=== PATIENT | female | born 1945 | race Caucasian/White ===

== ENCOUNTER → 2016-07-14 | Outpatient (CLI) | payer OTHER ==
[~2016-07-14] MED LIST: ADVIN50/60 INH; ALBINS/ NEB; ALBU1AER9 INH; BXN500 PO; CALC-20 PO; LACTCAP3 PO; LEVO88TA3 PO; LORA10CA2 PO; LPT40 PO; LSN5 PO; MTR250 PO; MULTCAP31 PO; NORT75CA PO; OMEG10007 PO; OMEP40CA41 PO; POLY335040 PO; TRIA1SPR2 NAE; WARF5TAB90 PO; ZLF/50 PO; [UNRECOGNIZED DRUG - CODE] TOP
--- NOTE | 2016-07-14 10:41 | DIAGNOSTIC IMAGING REPORT ---
BILATERAL LOWER EXTREMITY ARTERIAL DOPPLER STUDY HISTORY: L81.9 Discoloration of skin of lower legI73.9 Poor peripheral circulation COMPARISON STUDY: Lower extremity arterial Doppler 05/16/2013. FINDINGS: The right ankle-brachial index measures between 1.02 and 1.1. The left ankle-brachial index measured between 1.04 and 1.08. Normal triphasic waveforms and velocities seen throughout the bilateral lower extremity arterial systems. No significant plaque formation. No evidence for arterial occlusion. IMPRESSION: No significant stenosis or occlusion within the bilateral lower extremity arterial systems. Electronically signed by: Rosalino Velasquez M.D. 07/14/2016 10:39 AM Dictated Date/Time: 07/14/2016 10:37 AM
== END | disposition home or self-care (01) ==
LOC: C.ULTR 09:29
PROVIDERS: ATTEND Nurse Practitioner
DX: I73.9 Peripheral vascular disease, unspecified (principal); L81.9 Disorder of pigmentation, unspecified

== ENCOUNTER → 2016-08-31 | Outpatient (CLI) | payer OTHER ==
[2016-08-31 13:26] LABS: BLOOD UREA NITROGEN 12 mg/dl (7-18); BUN/CREATININE RATIO 14.3 (10-20); CALCIUM 9.5 mg/dl (8.5-10.1); CARBON DIOXIDE 29 mmol/L (21-32); CHLORIDE 104 mmol/L (98-107); CREATININE 0.84 mg/dl (0.60-1.20); GLUCOSE 93 mg/dl (70-99); SODIUM 140 mmol/L (136-145)
[2016-08-31 13:29] LABS: CHOLESTEROL 120 mg/dl (0-200); HDL CHOLESTEROL 59 mg/dl; LDL CHOLESTEROL CALCULATED 47 mg/dl; TRIGLYCERIDES 72 mg/dl (0-150); VERY LOW DENSITY LIPOPROT CALC 14 mg/dl
== END | disposition home or self-care (01) ==
LOC: C.LABPVFM 07:55
PROVIDERS: ATTEND Nurse Practitioner
DX: E78.5 Hyperlipidemia, unspecified (principal); I10 Essential (primary) hypertension; M85.80 Other specified disorders of bone density and structure, unspecified site

== ENCOUNTER → 2016-12-09 | Outpatient (CLI) | payer OTHER ==
--- NOTE | 2016-12-09 14:52 | DIAGNOSTIC IMAGING REPORT ---
CHEST 2 VIEWS ROUTINE CLINICAL HISTORY: Asthma exacerbation. Shortness of breath. COMPARISON STUDY: Chest radiograph December 03, [address] December 04, 2013. FINDINGS: Moderate elevation of the right hemidiaphragm is unchanged. Linear bibasilar opacities are suggestive of atelectasis. There is no consolidation to suggest pneumonia. There is no evidence of pulmonary edema. S-shaped scoliosis of the thoracolumbar spine is noted. A suspected hiatal hernia has increased in size since prior exam. Cardiac size is normal and there is no evidence of pulmonary edema. There is no pneumothorax or pleural effusion. IMPRESSION: 1. No acute cardiopulmonary findings. 2. Linear bibasilar opacities suggestive of atelectasis. 3. Stable moderate elevation of the right hemidiaphragm. 4. Moderate sized hiatal hernia which has increased in size. Electronically signed by: Germán Bowers M.D. 12/09/2016 2:51 PM Dictated Date/Time: 12/09/2016 2:43 PM
== END | disposition home or self-care (01) ==
LOC: C.RADPV 14:22
PROVIDERS: ATTEND Nurse Practitioner
DX: J45.901 Unspecified asthma with (acute) exacerbation (principal); R06.02 Shortness of breath

== ENCOUNTER → 2017-01-02 | Outpatient (CLI) | payer OTHER ==
[2017-01-02 18:07] LABS: MAGNESIUM 2.4 mg/dl (1.8-2.4); THYROID STIMULATING HORMONE 3.16 uIu/ml (0.300-4.500)
== END | disposition home or self-care (01) ==
LOC: C.LABPVFM 15:34
PROVIDERS: ATTEND Nurse Practitioner
DX: E03.9 Hypothyroidism, unspecified (principal); Z51.81 Encounter for therapeutic drug level monitoring

== ENCOUNTER → 2017-02-06 | Outpatient (CLI) | payer OTHER ==
--- NOTE | 2017-02-07 07:54 | MAMMOGRAPHY REPORT ---
BILATERAL DIGITAL SCREENING MAMMOGRAM WITH CAD: 02/06/2017 CLINICAL HISTORY: Routine screening. Patient has no complaints. TECHNIQUE: Bilateral CC and MLO views were obtained. Current study was also evaluated with a Compute r Aided Detection (CAD) system. COMPARISON: Comparison is made to exams dated: 02/04/2016 mammogram, 05/20/2014 mammogram, 01/01/2013 mammogram, 12/29/2011 mammogram, 12/02/2010 mammogram - [facility], and 12/18/2008 mammogram - [facility]. BREAST COMPOSITION: There are scattered areas of fibroglandular density in both breasts. FINDINGS: There are a few benign rim calcifications in the breasts. No suspicious mass, architectur al distortion or cluster of suspicious microcalcifications is seen. IMPRESSION: ACR BI-RADS CATEGORY 1: NEGATIVE There is no mammographic evidence of malignancy. A 1 year screening mammogram is recommended. The pa tient will receive written notification of the results. Approximately 10% of breast cancers are not detected with mammography. A negative mammographic report should not delay biopsy if a clinically suggestive mass is present. Maggie Wylie M.D. ay/:02/06/2017 15:54:47 Piping Engineer: Kyra MILNER(Ant)(Florian)(BD), [facility] letter sent: Normal 1/2 BI-RADS Code: ACR BI-RADS Category 1: Negative
== END | disposition home or self-care (01) ==
LOC: C.MAMM 12:57
PROVIDERS: ATTEND Nurse Practitioner
DX: Z12.31 Encounter for screening mammogram for malignant neoplasm of breast (principal)

== ENCOUNTER → 2017-07-04 | Outpatient (CLI) | payer OTHER ==
[2017-07-04 14:05] LABS: BLOOD UREA NITROGEN 10 mg/dl (7-18); CALCIUM 9.1 mg/dl (8.5-10.1); CARBON DIOXIDE 26 mmol/L (21-32); CREATININE 0.83 mg/dl (0.60-1.20); GLUCOSE 96 mg/dl (70-99); SODIUM 136 mmol/L (136-145)
== END | disposition home or self-care (01) ==
LOC: C.LABPVFM 09:41
PROVIDERS: ATTEND Nurse Practitioner
DX: E78.5 Hyperlipidemia, unspecified (principal); I10 Essential (primary) hypertension

== ENCOUNTER 2020-10-20 06:30 | Observation (INO) ==
--- NOTE | 2020-09-07 13:15 | PAT Medication Instructions ---
Medication Instructions Date of Service September 07, 2020 Home Medications Medication Instructions Recorded albuterol sulfate 2.5 mg INHALATION Q4H PRN #180 ml 08/26/19 omeprazole 20 mg capsule,delayed 20 mg PO QAM #90 cap 12/26/19 release lisinopril 5 mg tablet 5 mg PO BID #180 tab 01/07/20 atorvastatin 40 mg tablet (Lipitor) 40 mg PO HS #90 tab 02/04/20 nortriptyline 75 mg capsule 75 mg PO QPM #90 cap 02/04/20 sertraline 50 mg tablet 50 mg PO QAM #90 tab 02/24/20 fluticasone 500 mcg-salmeterol 50 1 ea INHALATION BID #60 ea 03/24/20 mcg/dose blistr powdr for inhalation levothyroxine 88 mcg tablet See Rx Instructions .ROUTE 04/02/20 .COMPLEX #90 tablet furosemide 20 mg tablet 20 mg PO DAILY PRN #30 tab 06/01/20 warfarin 5 mg tablet 5 mg PO .COMPLEX #100 tab 07/09/20 budesonide 0.5 mg/2 mL suspension 0.5 mg INHALATION BID PRN #180 ml 08/03/20 for nebulization levalbuterol HCl 1.25 mg/3 mL 1.25 mg INHALATION Q8H PRN #72 ml 08/31/20 solution for nebulization (Xopenex) Lactobacillus acidophilus (Acidophilus) 1 tab PO QAM calcium carbonate 500 mg calcium (1,250 mg) tablet (Calcium 500) 500 mg PO QAM clindamycin phosphate 1 % lotion 1 applic TOPICAL DAILY guaifenesin 600 mg tablet, extended release 12 hr (Mucinex) 600 mg PO Q12H loratadine 10 mg tablet (Claritin) 10 mg PO QAM metronidazole 250 mg tablet 250 mg PO QAM polyethylene glycol 3350 17 gram oral powder packet (Miralax) 17 g PO BID propylene glycol 0.6 % eye drops (Systane Balance) 1 drp OPB BID sodium chloride 0.65 % nasal spray aerosol (Saline Nasal) 1 spray INTRANASAL Q OTHER DAY vit C 50 mg-E 15 unit-zinc cit 4.5 mg-lutein 2.5 mg-zeaxan chew tablet ([facility]) 1 tab PO QAM cholecalciferol (vitamin D3) 50 mcg (2,000 unit) capsule 2,000 units PO QAM food supplemt, lactose-reduced (Nutri-Drink) 1 ea PO BID albuterol sulfate 2.5 mg INHALATION Q4H PRN omeprazole 20 mg capsule,delayed release 20 mg PO QAM lisinopril 5 mg tablet 5 mg PO BID atorvastatin 40 mg tablet (Lipitor) 40 mg PO HS nortriptyline 75 mg capsule 75 mg PO QPM sertraline 50 mg tablet 50 mg PO QAM fluticasone 500 mcg-salmeterol 50 mcg/dose blistr powdr for inhalation 1 ea INHALATION BID levothyroxine 88 mcg tablet See Rx Instructions .ROUTE .COMPLEX furosemide 20 mg tablet 20 mg PO DAILY budesonide 0.5 mg/2 mL suspension for nebulization 0.5 mg INHALATION BID PRN levalbuterol HCl 1.25 mg/3 mL solution for nebulization (Xopenex) 1.25 mg INHALATION Q8H PRN acetaminophen 650 mg tablet,extended release 650 mg PO TID PRN Continue as directed sodium chloride 0.65 % nasal spray aerosol (Saline Nasal) 1 spray INTRANASAL Q OTHER DAY levothyroxine 88 mcg tablet See Rx Instructions .ROUTE .COMPLEX STOP taking 2 weeks before surgery (or as soon as possible if surgery is within 2 weeks) vit C 50 mg-E 15 unit-zinc cit 4.5 mg-lutein 2.5 mg-zeaxan chew tablet [facility]) 1 tab PO QAM STOP taking 24 hours before surgery clindamycin phosphate 1 % lotion 1 applic TOPICAL DAILY DO NOT take the morning of surgery Lactobacillus acidophilus (Acidophilus) 1 tab PO QAM calcium carbonate 500 mg calcium (1,250 mg) tablet (Calcium 500) 500 mg PO QAM guaifenesin 600 mg tablet, extended release 12 hr (Mucinex) 600 mg PO Q12H loratadine 10 mg tablet (Claritin) 10 mg PO QAM polyethylene glycol 3350 17 gram oral powder packet (Miralax) 17 g PO BID cholecalciferol (vitamin D3) 50 mcg (2,000 unit) capsule 2,000 units PO QAM food supplemt, lactose-reduced (Nutri-Drink) 1 ea PO BID lisinopril 5 mg tablet 5 mg PO BID furosemide 20 mg tablet 20 mg PO DAILY Take morning of surgery With a small sip of water, OTHERWISE NOTHING TO EAT OR DRINK AFTER MIDNIGHT: metronidazole 250 mg tablet 250 mg PO QAM propylene glycol 0.6 % eye drops (Systane Balance) 1 drp OPB BID albuterol sulfate 2.5 mg INHALATION Q4H PRN (use if needed; please bring rescue inhaler with you to hospital day of surgery if possible) omeprazole 20 mg capsule,delayed release 20 mg PO QAM sertraline 50 mg tablet 50 mg PO QAM fluticasone 500 mcg-salmeterol 50 mcg/dose blistr powdr for inhalation 1 ea INHALATION BID budesonide 0.5 mg/2 mL suspension for nebulization 0.5 mg INHALATION BID PRN (if needed) levalbuterol HCl 1.25 mg/3 mL solution for nebulization (Xopenex) 1.25 mg INHALATION Q8H PRN (if needed) acetaminophen 650 mg tablet,extended release 650 mg PO TID PRN (okay to take up to 4 hours prior to surgery if needed) Take evening before surgery guaifenesin 600 mg tablet, extended release 12 hr (Mucinex) 600 mg PO Q12H polyethylene glycol 3350 17 gram oral powder packet (Miralax) 17 g PO BID propylene glycol 0.6 % eye drops (Systane Balance) 1 drp OPB BID food supplemt, lactose-reduced (Nutri-Drink) 1 ea PO BID albuterol sulfate 2.5 mg INHALATION Q4H PRN (if needed) lisinopril 5 mg tablet 5 mg PO BID atorvastatin 40 mg tablet (Lipitor) 40 mg PO HS nortriptyline 75 mg capsule 75 mg PO QPM fluticasone 500 mcg-salmeterol 50 mcg/dose blistr powdr for inhalation 1 ea INHALATION BID budesonide 0.5 mg/2 mL suspension for nebulization 0.5 mg INHALATION BID PRN (if needed) levalbuterol HCl 1.25 mg/3 mL solution for nebulization (Xopenex) 1.25 mg INHALATION Q8H PRN (if needed) acetaminophen 650 mg tablet,extended release 650 mg PO TID PRN (if needed) Other Notes If you have any questions please call us at [phone] or [phone] or [phone] or [phone]
--- NOTE | 2020-09-08 10:49 | Anesthesiology Consultation ---
Date of Service September 08, 2020 Assessment & Plan (1) Encounter for pre-operative examination: Chart Review Chart Review: Acceptable Risk for Surgery (pending preop Covid testing results ) and Patient seen in Pre Admission Testing - Check coags AM DOS Per PAT appt on 09/08/20, pt denies any recent travel. No known Covid positive contacts or Covid related symptoms. No known Covid infection in the past 90 days. Pt NOT vaccinated for Covid. Preop Covid testing scheduled 09/30/20= will await results. Educated on importance of self quarantining, social distancing and wearing mask in public both for the patient after Covid testing done Last seen by PCP 08/03/20= pt seen for Wellness exam. Pt due for labs. No change in medications- stable. Pt was referred to Dr. Hebert regarding hip replacement. Follow up in six months Pt seen by cardio 04/03/20= patient with history of PFO, prior CVA, high hyperlipidemia. Presents for routine follow-up. Patient has been doing well. Able to perform her usual activities without limiting cardiopulmonary symptoms. Patient has been very limited by progressive right hip arthritiscurrently receiving steroid injections, at some point will likely need total hip replacement. Continue compression stocking and elevate legs when resting. Take Lasix as needed. Continue other medications as prescribed. Follow-up in 1 year. Teaching & Discussion Pre-Anesthesia Teaching/Discussion Notes: Instructed NPO after midnight before surgery,except medications with 15 cc of water. Medication instructions provided according to the PAT guidelines. History Surgery Operation Date: 10/02/20 08:15 Proposed Procedures p Right Anterior Total Hip Arthroplasty - Patrick Hebert, Height/Weight Height: 5 ft 2 in Weight: 75.8 kg Allergies Allergy/AdvReac Type Severity Reaction Status Date / Time Iodinated Contrast Media Allergy Severe "couldn't Verified 09/04/20 08:24 breathe and really bad rash" iodine Allergy Severe "couldn't Verified 09/04/20 08:24 breathe and really bad rash" nickel Allergy Severe " open Verified 09/08/20 10:52 sores" promethazine Allergy Severe "couldn't Verified 09/04/20 08:24 breathe" red (food color) Allergy Severe "problems Verified 09/04/20 08:24 breathing" Sulfa (Sulfonamide Allergy Severe facial Verified 09/04/20 08:24 Antibiotics) swelling Tetracyclines Allergy Severe "couldn't Verified 09/04/20 08:24 breathe and rash" levofloxacin Allergy Intermediate HIVES, LEG Verified 09/04/20 08:24 PAIN tramadol Allergy Intermediate hallucinati Verified 09/04/20 08:24 ons cephalexin Allergy Mild Rash Verified 09/04/20 08:24 house dust Allergy Mild "sniffles/watery Verified 09/04/20 08:24 eyes" ragweed pollen Allergy Mild "sniffles" Verified 09/04/20 08:24 azithromycin [From Zithromax] AdvReac Mild Rash Verified 09/04/20 08:24 mayda chews Allergy Severe "couldn't Uncoded 09/04/20 08:24 breathe right" Medications Home Medications Medication Instructions Recorded Confirmed Last Taken Lactobacillus acidophilus 1 tab PO QAM 03/30/18 09/04/20 12/17/18 (Acidophilus) calcium carbonate 500 mg calcium 500 mg PO QAM 03/30/18 09/04/20 12/17/18 (1,250 mg) tablet (Calcium 500) clindamycin phosphate 1 % lotion 1 applic TOPICAL DAILY 03/30/18 09/04/20 12/18/18 guaifenesin 600 mg tablet, 600 mg PO Q12H 03/30/18 09/04/20 12/17/18 extended release 12 hr (Mucinex) loratadine 10 mg tablet (Claritin) 10 mg PO QAM 03/30/18 09/04/20 12/17/18 metronidazole 250 mg tablet 250 mg PO QAM 03/30/18 09/04/20 12/17/18 polyethylene glycol 3350 17 gram 17 g PO BID 03/30/18 09/04/20 Unknown oral powder packet (Miralax) propylene glycol 0.6 % eye drops 1 drp OPB BID 03/30/18 09/04/20 Unknown (Systane Balance) sodium chloride 0.65 % nasal spray 1 spray INTRANASAL Q OTHER DAY 03/30/18 09/04/20 12/17/18 aerosol (Saline Nasal) vit C 50 mg-E 15 unit-zinc cit 4.5 1 tab PO QAM 03/30/18 09/04/20 12/17/18 mg-lutein 2.5 mg-zeaxan chew tablet (Netragon) cholecalciferol (vitamin D3) 50 2,000 units PO QAM 10/29/18 09/04/20 12/17/18 mcg (2,000 unit) capsule food supplemt, lactose-reduced 1 ea PO BID 12/10/18 09/04/20 12/16/18 (Nutri-Drink) albuterol sulfate 2.5 mg INHALATION Q4H PRN #180 ml 08/26/19 09/04/20 Unknown omeprazole 20 mg capsule,delayed 20 mg PO QAM #90 cap 12/26/19 09/04/20 Unknown release lisinopril 5 mg tablet 5 mg PO BID #180 tab 01/07/20 09/04/20 Unknown atorvastatin 40 mg tablet (Lipitor) 40 mg PO HS #90 tab 02/04/20 09/04/20 Unknown nortriptyline 75 mg capsule 75 mg PO QPM #90 cap 02/04/20 09/04/20 Unknown sertraline 50 mg tablet 50 mg PO QAM #90 tab 02/24/20 09/04/20 Unknown fluticasone 500 mcg-salmeterol 50 1 ea INHALATION BID #60 ea 03/24/20 09/04/20 Unknown mcg/dose blistr powdr for inhalation levothyroxine 88 mcg tablet See Rx Instructions .ROUTE 04/02/20 09/04/20 Unknown .COMPLEX #90 tablet furosemide 20 mg tablet 20 mg PO DAILY PRN #30 tab 06/01/20 09/04/20 Unknown warfarin 5 mg tablet 5 mg PO .COMPLEX #100 tab 07/09/20 09/04/20 Unknown budesonide 0.5 mg/2 mL suspension 0.5 mg INHALATION BID PRN #180 ml 08/03/20 09/04/20 Unknown for nebulization levalbuterol HCl 1.25 mg/3 mL 1.25 mg INHALATION Q8H PRN #72 ml 08/31/20 09/04/20 Unknown solution for nebulization (Xopenex) acetaminophen 650 mg 650 mg PO TID PRN 09/04/20 09/04/20 Unknown tablet,extended release Past Medical History Medical History Asthma Breathing well controlled Basilar artery stenosis History of per patient- pt states more recent testing showed no issues No significant issues noted per 08/03/20 PCP note Chronic back pain CVA (cerebrovascular accident) x4 (most recent 2013) Mild residual drooping to left side of mouth Depression GERD (gastroesophageal reflux disease) Well controlled and stable with med History of COVID-19 07/2019 No symptoms with exception to residual voice hoarseness Hx of esophageal varices Noted incidentally by GI during EGD per patient Longstanding history per PCP note- no hx of liver disease or alcoholism. No current issues Hyperlipidemia Hypertension Hypothyroidism Migraine Osteoarthritis PFO (patent foramen ovale) Follows with Dr. Hearn- medically controlled. On prophylactic Coumadin. Did follow with cardiovascular surgery in the past per records to discuss closure of PFO- but unable to do closure secondary to nickel allergy- pt stable Scoliosis Exercise / Class Metabolic Activity III < 4 Walking/Shop/Light housework (no chest pain or SOB with flat surface, short distance ambulation- uses wheeled walker ) Past Family History Family History Mother Family history of diabetes mellitus Myocardial infarction Sister Family history of diabetes mellitus Family history of rectal cancer Myocardial infarction Sister Family history of diabetes mellitus Myocardial infarction Brother Family history of diabetes mellitus Myocardial infarction Brother Family history of diabetes mellitus Family/Other Breast cancer Father Myocardial infarction Other Cancer Gallbladder disease Heart disease Hypertension Lung disease No family history of adverse response to anesthesia Denies family history of Ovarian cancer Prostate cancer Colorectal cancer Past Surgical History Surgical History History of bilateral cataract extraction History of bilateral tubal ligation History of colonoscopy with polypectomy History of dilatation and curettage History of esophagogastroduodenoscopy (EGD) History of hysterectomy History of tooth extraction Past Anesthesia History No Hx of Anesthesia Complications and No Family Hx of Anesthesia Complications History of PONV No Hx of PONV and No Hx of Motion Sickness Social History Smoking Status: Never smoker Hx Alcohol Use: No Hx Substance Use: No substance use type: does not use Review of Systems Hx of snoring- mouth breather- occ witnessed apnea. No hx of sleep study (recommended follow up with PCP) Hx of blood transfusion- s/p D&C (many years ago) Patient denies chest pain, shortness of breath at rest, cough, wheezing, palpitations. No hx of seizures, AR. No hx of blood clots. Physical Exam Vital Signs VITALS BP 137/81 P 73 TEMP 97.9 SP02 97% RESP 16 Constitutional no acute distress ENMT Mouth: no TMJ clicking Thyromental Distance: > or= 3.5 Finger Breadths (3.5) Mallampati Class: III Missing molars Neck + limited neck extension (moderate ) Respiratory normal respiratory effort; no respiratory distress Auscultation: lungs clear to auscultation bilaterally; no wheezes Cardiovascular Rate/Rhythm: regular rate and regular rhythm Heart Sounds: no murmur Vessels: no carotid bruit Musculoskeletal Spine: + scoliosis (significant ); no pain with cervical ROM Extremities: extremities normal to inspection Psychiatric Orientation: alert Lab Results Anesthesia Preop Results Results Anesthesia Widget: WBC 4.75 K/uL (4.8-10.8) L 09/08/20 Hgb 13.2 g/dL (12.0-16.0) 09/08/20 Hct 40.5 % (37-47) 09/08/20 Plt 253 K/uL (130-400) 09/08/20 Na 131 mmol/L (136-145) L 09/08/20 K 4.1 mmol/L (3.5-5.1) 09/08/20 Cl 99 mmol/L (98-107) 09/08/20 CO2 30 mmol/L (21-32) 09/08/20 BUN 11 mg/dl (7-18) 09/08/20 Creat 0.67 mg/dl (0.6-1.2) 09/08/20 Glucose Level 91 mg/dl (70-99) 09/08/20 PT 24.5 Seconds (9.0-12.0) H 09/08/20 PTT 36.7 Seconds (21.0-31.0) H 09/08/20 INR 2.6 (0.9-1.1) H 09/08/20 HA1c 6.5 % (4.5-5.6) H 08/10/20 Blood Type A Positive 09/08/20 Antibody Screen NEGATIVE 09/08/20 Lab Comments: Pt with hx of mild hyponatremia- did send FYI note to PCP to follow up as outpatient Testing Electrocardiogram Date: 07/24/20 Findings: + NSR @ (74bpm) Slightly poor septal R waves Nonspecific ST abnormality. When compared to EKG from Feb 06, 2014- no significant change was found per cardio. Chest X-Ray Date: 09/08/20 Findings: + NAD No acute cardiopulmonary findings. Bibasilar opacities suggestive of atelectasis. S-shaped scoliosis of the thoracolumbar spine. Stable elevation of the right hemidiaphragm. Moderate to large hiatal hernia. Other Testing Carotid doppler 05/06/20= There is no sonographic evidence of hemodynamically sig nificant stenosis in the right or left carotid arterial system. Antegrade flow is shown in the vertebral arteries.
--- NOTE | 2020-10-19 12:22 | History & Physical Report ---
Date of Service October 19, 2020 Assessment & Plan (1) Osteoarthritis of right hip: We will proceed with a right anterior total of arthroplasty. Postoperatively she will be started back on Coumadin for DVT prophylaxis and kept overnight in the hospital for postoperative medical management. She plans to use energy physical therapy upon discharge. History of Present Illness Chief Complaint: Osteoarthritis of the right hip. Primary Care Provider: TREY Warren Dayna is a pleasant 75-year-old female whose been having a year-long history of increasing debilitating right hip pain. She was downgraded to a cane and then a walker because of her hip pain. She has had intra-articular hip injections without relief. She has been on Coumadin for a stroke since 2013. X-rays and clinical examination have been diagnostic for advanced osteoarthritis of the right hip. After failing extensive conservative treatment, she has elected proc eed with a right anterior total hip arthroplasty.. Allergies Allergy/AdvReac Type Severity Reaction Status Date / Time Iodinated Contrast Media Allergy Severe "couldn't Verified 09/04/20 08:24 breathe and really bad rash" iodine Allergy Severe "couldn't Verified 09/04/20 08:24 breathe and really bad rash" nickel Allergy Severe " open Verified 09/08/20 10:52 sores" promethazine Allergy Severe "couldn't Verified 09/04/20 08:24 breathe" red (food color) Allergy Severe "problems Verified 09/04/20 08:24 breathing" Sulfa (Sulfonamide Allergy Severe facial Verified 09/04/20 08:24 Antibiotics) swelling Tetracyclines Allergy Severe "couldn't Verified 09/04/20 08:24 breathe and rash" levofloxacin Allergy Intermediate HIVES, LEG Verified 09/04/20 08:24 PAIN tramadol Allergy Intermediate hallucinati Verified 09/04/20 08:24 ons cephalexin Allergy Mild Rash Verified 09/04/20 08:24 house dust Allergy Mild "sniffles/watery Verified 09/04/20 08:24 eyes" ragweed pollen Allergy Mild "sniffles" Verified 09/04/20 08:24 azithromycin [From Zithromax] AdvReac Mild Rash Verified 09/04/20 08:24 mayda chews Allergy Severe "couldn't Uncoded 09/04/20 08:24 breathe right" Home Medications Medication Instructions Recorded Confirmed Type Lactobacillus acidophilus 1 tab PO QAM 03/30/18 09/04/20 History (Acidophilus) calcium carbonate 500 mg calcium 500 mg PO QAM 03/30/18 09/04/20 History (1,250 mg) tablet (Calcium 500) clindamycin phosphate 1 % lotion 1 applic TOPICAL DAILY 03/30/18 09/04/20 History guaifenesin 600 mg tablet, 600 mg PO Q12H 03/30/18 09/04/20 History extended release 12 hr (Mucinex) loratadine 10 mg tablet (Claritin) 10 mg PO QAM 03/30/18 09/04/20 History metronidazole 250 mg tablet 250 mg PO QAM 03/30/18 09/04/20 History polyethylene glycol 3350 17 gram 17 g PO BID 03/30/18 09/04/20 History oral powder packet (Miralax) propylene glycol 0.6 % eye drops 1 drp OPB BID 03/30/18 09/04/20 History (Systane Balance) sodium chloride 0.65 % nasal spray 1 spray INTRANASAL Q OTHER DAY 03/30/18 09/04/20 History aerosol (Saline Nasal) vit C 50 mg-E 15 unit-zinc cit 4.5 1 tab PO QAM 03/30/18 09/04/20 History mg-lutein 2.5 mg-zeaxan chew tablet ([employer]) cholecalciferol (vitamin D3) 50 2,000 units PO QAM 10/29/18 09/04/20 History mcg (2,000 unit) capsule food supplemt, lactose-reduced 1 ea PO BID 12/10/18 09/04/20 History (Nutri-Drink) albuterol sulfate 2.5 mg INHALATION Q4H PRN #180 ml 08/26/19 09/04/20 Rx omeprazole 20 mg capsule,delayed 20 mg PO QAM #90 cap 12/26/19 09/04/20 Rx release lisinopril 5 mg tablet 5 mg PO BID #180 tab 01/07/20 09/04/20 Rx atorvastatin 40 mg tablet (Lipitor) 40 mg PO HS #90 tab 02/04/20 09/04/20 Rx nortriptyline 75 mg capsule 75 mg PO QPM #90 cap 02/04/20 09/04/20 Rx sertraline 50 mg tablet 50 mg PO QAM #90 tab 02/24/20 09/04/20 Rx fluticasone 500 mcg-salmeterol 50 1 ea INHALATION BID #60 ea 03/24/20 09/04/20 Rx mcg/dose blistr powdr for inhalation levothyroxine 88 mcg tablet See Rx Instructions .ROUTE 04/02/20 09/04/20 Rx .COMPLEX #90 tablet furosemide 20 mg tablet 20 mg PO DAILY PRN #30 tab 06/01/20 09/04/20 Rx warfarin 5 mg tablet 5 mg PO .COMPLEX #100 tab 07/09/20 09/04/20 Rx budesonide 0.5 mg/2 mL suspension 0.5 mg INHALATION BID PRN #180 ml 08/03/20 0 09/04/20 Rx for nebulization levalbuterol HCl 1.25 mg/3 mL 1.25 mg INHALATION Q8H PRN #72 ml 08/31/20 09/04/20 Rx solution for nebulization (Xopenex) acetaminophen 650 mg 650 mg PO TID PRN 09/04/20 09/04/20 History tablet,extended release Past Med/Surg History Medical History Asthma Breathing well controlled Basilar artery stenosis History of per patient- pt states more recent testing showed no issues No significant issues noted per 08/03/20 PCP note Chronic back pain CVA (cerebrovascular accident) x4 (most recent 2013) Mild residual drooping to left side of mouth Depression GERD (gastroesophageal reflux disease) Well controlled and stable with med History of COVID-19 07/2019 No symptoms with exception to residual voice hoarseness Hx of esophageal varices Noted incidentally by GI during EGD per patient Longstanding history per PCP note- no hx of liver disease or alcoholism. No current issues Hyperlipidemia Hypertension Hypothyroidism Migraine Osteoarthritis PFO (patent foramen ovale) Follows with Dr. Hearn- medically controlled. On prophylactic Coumadin. Did follow with cardiovascular surgery in the past per records to discuss closure of PFO- but unable to do closure secondary to nickel allergy- pt stable Scoliosis Surgical History History of bilateral cataract extraction History of bilateral tubal ligation History of colonoscopy with polypectomy History of dilatation and curettage History of esophagogastroduodenoscopy (EGD) History of hysterectomy History of tooth extraction Family History Mother Family history of diabetes mellitus Myocardial infarction Sister Family history of diabetes mellitus Family history of rectal cancer Myocardial infarction Sister Family history of diabetes mellitus Myocardial infarction Brother Family history of diabetes mellitus Myocardial infarction Brother Family history of diabetes mellitus Family/Other Breast cancer Father Myocardial infarction Other Cancer Gallbladder disease Heart disease Hypertension Lung disease No family history of adverse response to anesthesia Denies family history of Ovarian cancer Prostate cancer Colorectal cancer Social History Smoking Status: Never smoker Second Hand Exposure: No; Hx Alcohol Use: No Hx Substance Use: No Preferred Language: Angolan Communication Ability: Effective K 9 Police Officer Required: No Beliefs That Will Affect Care: None marital status: Current Living Situation: Spouse current occupational status: retired Feels Safe at Home: Yes Safety Concerns: Feels Safe At This Time Dental Care, Regularly: Yes Seatbelt Use: always Assistive Devices: Glasses and Nebulizer Review of Systems All systems reviewed & are unremarkable except as noted in HPI & below. Physical Exam On physical examination the right hip, she ambulates with a walker. She has difficult time lying on the table. She has very limited range of motion. She has severe pain with forced internal rotation of the hip.. Constitutional WD/WN, vitals as above Eyes PERRL, conjunctivae normal, anicteric sclerae ENMT external ear and nose normal, oropharynx normal Neck trachea midline, no thyromegaly Respiratory normal respiratory effort Cardiovascular RRR, no murmur, no edema Gastrointestinal (Abdomen) normal bowel sounds, soft, nontender, no hepatosplenomegaly Psychiatric A+Ox3, euthymic affect Results & Data Results & Data Laboratory Results . Diagnostic Findings X-rays of the right hip do show advanced osteoarthritis with joint space narrowing, osteophyte formation, and [id number] articulation. PG Care Time/CCT Total # of Minutes Spent Total Time Spent with Patient: Total time spent is greater than 50% in coordination of care (as documented) at patient's floor/unit and/or counseling patient: Coding Level of Care Code None Diagnoses Osteoarthritis of right hip M16.11
[~2020-10-20 06:30] MED LIST changes: +ACETAMINOPHEN 500 MG TAB PO SCH; -ADVIN50/60 INH; -ALBINS/ NEB; -ALBU1AER9 INH; +BUPIVACAINE 0.5 % 5 MG/1 ML PF 10ML VIAL ONE; -BXN500 PO; -CALC-20 PO; +CEFAZOLIN: ALLERGY NOTED TO ORDERED MEDICATION SCH; +FAMOTIDINE 20 MG TAB PO SCH; +GABAPENTIN 300 MG CAP PO SCH; -LACTCAP3 PO; -LEVO88TA3 PO; -LORA10CA2 PO; -LPT40 PO; +LR 500ML BOLUS, THEN 15ML/HR IV SCH; +LR 60ML/HR IV SCH; -LSN5 PO; -MTR250 PO; -MULTCAP31 PO; -NORT75CA PO; -OMEG10007 PO; -OMEP40CA41 PO; -POLY335040 PO; +ROPIVACAINE 0.5% HCL/PF 150 MG, BUPIVACAINE 0.75% MPF 20 ML, EPINEPHrine 30MG/30ML (OR ... INFIL SCH; +ROPIVACAINE 0.5% HCL/PF 150 MG, BUPIVACAINE 0.75% MPF 20 ML, EPINEPHrine 30MG/30ML (OR ... INSTIL SCH; +TRANEXAMIC ACID 1,000 MG **IV Intra-op IV SCH; +TRANEXAMIC ACID 1,000 MG **IV Pre-op IV SCH; -TRIA1SPR2 NAE; -WARF5TAB90 PO; -ZLF/50 PO; -[UNRECOGNIZED DRUG - CODE] TOP; +ceFAZolin 1000MG 1,000 MG/7.5 ML SYR IV SCH; +dexAMETHasone 4 MG TAB PO SCH
[2020-10-20 07:34] LABS: Partial Thromboplastin Ratio 0.9; Partial Thromboplastin Time 24.7 Seconds (21.0-31.0)
[2020-10-20] MEDS ORDERED: fentaNYL citrate 100 MCG/2 ML VIAL ONE ×2 (08:00→09:50)
[2020-10-20] MEDS ORDERED: MIDAZOLAM HCL 1 MG/ML 2ML VIAL ONE ×2 (08:00→09:50)
[2020-10-20] MEDS ORDERED: ORTHO JOINT ANESTHETIC ONE (08:55)
[2020-10-20] MEDS ORDERED: ceFAZolin 1000MG 1,000 MG/7.5 ML SYR IV ONE (08:55)
--- NOTE | 2020-10-20 08:59 | History & Physical Bridge Note ---
Date of Service October 20, 2020 History & Physical Bridge Note I have examined the patient, reviewed the History & Physical and in the interval since the performance of the History & Physical I have noted the following changes of clinical significance: no changes noted
[2020-10-20] MEDS ORDERED: ATROPINE SULFATE 0.1 MG/ML 10ML SYR IV PRN (09:05)
[2020-10-20] MEDS ORDERED: HYDROmorphone INJ 1 MG/ML SYRINGE IV PRN (09:05)
[2020-10-20] MEDS ORDERED: ePHEDrine sulfate 50 MG/ML AMP IV PRN (09:05)
[2020-10-20] MEDS ORDERED: fentaNYL citrate 100 MCG/2 ML VIAL IV PRN (09:05)
[2020-10-20] MEDS ORDERED: ONDANSETRON INJ 2 MG/ML 2 ML VIAL IV PRN ×2 (09:05→12:23)
[2020-10-20] MEDS ORDERED: PROPOFOL IV EMULSION 10 MG/ML 20 ML VIAL IV ONE (10:36)
[2020-10-20] MEDS ORDERED: LIDOCAINE 2% 2 ML VIAL/AMP(20MG/ML) INFIL ONE (10:36)
[2020-10-20] MEDS ORDERED: ROCURONIUM BROMIDE 10 MG/ML 5 ML VIAL IV ONE (10:37)
[2020-10-20] MEDS ORDERED: PHENYLEPHRINE HCL 10 MG/ML VIAL ONE (10:37)
[2020-10-20] MEDS ORDERED: GLYCOPYRROLATE 0.2 MG/ML VIAL ONE (10:37)
[2020-10-20] MEDS ORDERED: NEOSTIGMINE METHYLSULFATE 1 MG/ML 10ML VIAL ONE (10:37)
[2020-10-20] MEDS ORDERED: ePHEDrine sulfate 50 MG/ML AMP ONE (10:37)
[2020-10-20] MEDS ORDERED: DEXAMETHASONE SOD INJ 4 MG/ML VIAL ONE (10:37)
[2020-10-20] MEDS ORDERED: SUCCINYLCHOLINE 100MG/5ML SYR IV ONE (10:37)
--- NOTE | 2020-10-20 11:15 | Operative Report ---
PG Post Operative Report Pre & Post Diagnosis Operation Date: 10/20/20 08:30 Pre-Op Diagnosis: Osteoarthritis Right Hip Post-Op Diagnosis: Osteoarthritis Right Hip I identified the patient and participated in the time-out.: Yes Procedure Operation Date: 10/20/20 08:30 Actual Procedures p Right Anterior Total Hip Arthroplasty--Uncemented(Right) - Patrick Hebert DO Surgeon Patrick Hebert DO Air Hose Coupler None Estimated Blood Loss 250 Findings Consistent with Post-Op Diagnosis Specimens Right femoral head Complications none Disposition Disposition: Recovery Room Indications Dayna is a pleasant 75-year-old female has been doing with chronic increasing right hip and groin pain. X-rays and clinical examination have been diagnostic for advanced osteoarthritis of the right hip. After failing conservative treatment, she elected proceed with a right anterior total hip arthroplasty. Description of Procedure Implants used I used a [employer] total hip arthroplasty system with a size 4 standard offset Avenir Complete stem, a 50 mm G7 cup with a 25mm screw, an E1 polyethylene liner, a 36 mm ceramic head with a 0 neck. Dayna arrived at the hospital for the above procedure. She was seen in the preoperative holding area and the operative extremity was identified and signed. She was given a spinal anesthetic, a preoperative antibiotic, and TXA. She was then taken back to the operating room and laid on the table in the supine position. She was given basic sedation. The operative leg was secured to a Puristst leg positioner. The hip was then prepped and draped in sterile fashion. A timeout was done and the patient and the operative extremity was properly identified. An anterior approach was used. Dissection was taken down through the fascia and the tensor muscle belly was retracted laterally and the rectus was retracted medially. The circumflex vessels were identified and ligated. The capsule was then incised and tagged for later repair. The femoral neck was then cut and the femoral head was removed. The acetabulum was exposed. Time was spent doing a complete circumferential labral release. Sequential reaming of the acetabulum up to a size 49 reamer was done. Final reamings were done under fluoroscopy to ensure appropriate version. A Biomet 50 mm G7 cup was then impacted into place. A single 25 mm screw was placed. The E1 polyethylene liner was then snapped into place. Surrounding soft tissues were then injected with 100 cc of an orthopedic pain control cocktail. The proximal femur was then exposed. Sequential broaching up to a size 4 broach was done. Off that broach a size 36 head with a 0 neck was trialed. The hip was reduced and fluoroscopic images showed anatomic alignment of the implants in acceptable length. The broach was removed. The final size 4 Avenir Complete stem was then impacted into place. A ceramic 36 mm head with a 0 neck was then impacted onto the stem and the hip was reduced. Final fluoroscopic images showed anatomic alignment of the hip. The capsule was then closed with #1 Vicryl suture. A dilute betadyne lavage was then done for 3 minutes. The joint was then irrigated with normal saline solution. The fascia was closed with #1 PDS suture. Skin was closed with 2-0 Vicryl, devin, and a Silverlon dressing. She was then transferred to a hospital bed and taken to the post anesthesia care unit in stable condition. She tolerated the procedure well. I attest to the content of the Intraoperative Record and any orders documented therein. Any exceptions are noted below.
--- NOTE | 2020-10-20 12:03 | Anesthesiology Progress Note ---
Date of Service October 20, 2020 Anesthesia Post Procedure Vital Signs Vital Signs: Temp Pulse Pulse Resp BP Pulse Ox 10/20/20 11:45 36.9 C 65 13 108/72 92 10/20/20 11:35 70 16 109/72 92 10/20/20 11:25 72 21 108/73 93 10/20/20 11:15 76 14 111/70 93 10/20/20 11:05 36.4 C L 82 72 12 119/77 92 10/20/20 06:52 36.8 C 72 20 134/91 93 Transfer of Care Handoff Completed per policy Notes Mental Status: alert / awake / arousable and participated in evaluation Patient Amnestic to Procedure: Yes Nausea / Vomiting: adequately controlled Pain: adequately controlled Airway Patency, RR, SpO2: stable & adequate BP & HR: stable & adequate Hydration State: stable & adequate Anesthetic Complications: see Notes below Notes: Patient initially managed intraop with LMA, but after repositioning patient for surgery, oxygen saturations dropped and we were unable to ventilate through LMA. LMA was removed and patient was intubated with ETT via glidescope #3 and bronchoscope combined on the second attempt. In PACU that patient has visible bruising on the left side of her tongue and bruising/cut on the lower right lip. The patient is swallowing well and denying a sore throat. The patient was informed that her cut lip and tongue was done during the intubation and all questions were answered.
[2020-10-20] MEDS ORDERED: bisacodyL 10 MG SUPP PR PRN (12:23)
[2020-10-20] MEDS ORDERED: METOCLOPRAMIDE HCL INJ 5 MG/ML 2 ML VIAL IV PRN (12:23)
[2020-10-20] MEDS ORDERED: NALOXONE HCL 0.4 MG/1 ML VIAL/CARP IV PRN (12:23)
[2020-10-20] MEDS ORDERED: ALBUTEROL 0.083% NEBU SOLN 3 ML VIAL INH PRN (12:23)
[2020-10-20] MEDS ORDERED: BUDESONIDE 0.5 MG/2 ML VIAL (PULMICORT) INH PRN (12:23)
[2020-10-20] MEDS ORDERED: LEVALBUTEROL HCL 1.25 MG/3 ML NEB INH PRN (12:23)
[2020-10-20] MEDS ORDERED: FUROSEMIDE 20 MG TAB PO PRN (12:23)
[2020-10-20] MEDS ORDERED: MAGNESIUM HYDROXIDE SUSP 30 ML UDC PO PRN (12:23)
[2020-10-20] MEDS ORDERED: HYDROmorphone INJ 0.5 MG/0.5 ML SYR IV PRN (12:23)
[2020-10-20] MEDS: SODIUM CHLORIDE 0.9% 1000ML 1,000 ML IV SCH ×2 (12:55→21:39)
--- NOTE | 2020-10-20 13:55 | Fluoroscopy Report ---
FL hip RT 1V CLINICAL HISTORY: RT ANTERIOR HIP COMPARISON STUDY: None. Correlation is made with radiograph of the pelvis performed on April 13, 2020. FLUOROSCOPY TIME: 27 seconds. NUMBER OF FLUOROSCOPIC IMAGES: 2 FINDINGS: Intraoperative fluoroscopic images are presented for review and shows placement of acetabular and fem oral components of the prosthetic right hip joint which is in expected position. IMPRESSION: As above. ACT 112: Negative or not required by law. The above report was generated using voice recognition software. It may contain grammatical, syntax o r spelling errors. Electronically signed by: Keerthi Ledesma DO 10/20/2020 1:54 PM
[2020-10-20] MEDS: ACETAMINOPHEN 500 MG TAB PO SCH ×2 (14:19→21:41)
[2020-10-20] MEDS: guaiFENesin 600 MG TABCR PO SCH ×2 (14:20→21:41)
[2020-10-20] MEDS: KETOROLAC TROMETHAMINE 15 MG/ML VIAL IV SCH ×2 (14:20→18:12)
--- NOTE | 2020-10-20 14:45 | XRay Report ---
XR hip 1V RT w pelvis CLINICAL HISTORY: IN PACU - A/P PELVIS and LATERAL HIP COMPARISON: November 11, 2020 DISCUSSION: No definite acute fracture dislocation seen. No blastic or lytic lesions demonstrated. Interval placement of prosthetic right hip joint. Subcutaneous emphysema and skin devin are seen. IMPRESSION: Postoperative changes as above. ACT 112: Negative or not required by law. The above report was generated using voice recognition software. It may contain grammatical, syntax o r spelling errors. Electronically signed by: Keerthi Ledesma DO 10/20/2020 2:44 PM
[2020-10-20] MEDS ORDERED: Nursing to Pharmacy Communication SCH (15:15)
[2020-10-20] MEDS ORDERED: WARFARIN SOD 5 MG TAB PO ONE (16:30)
[2020-10-20] MEDS: ceFAZolin 2000MG 2,000 MG/15 ML SYR IV SCH ×2 (17:14→17:20)
[2020-10-20] MEDS: ORTHO WARFARIN NOMOGRAM SCH (17:18)
[2020-10-20] MEDS: DOCUSATE SODIUM 100 MG CAP PO SCH (21:41)
[2020-10-20] MEDS: SENNA 8.6 MG TAB PO SCH (21:41)
[2020-10-20] MEDS: NORTRIPTYLINE HCL 25 MG CAP PO SCH (21:41)
[2020-10-20] MEDS: POLYETHYLENE (MIRALAX) 17 GM PACK PO SCH (21:41)
[2020-10-20] MEDS: ATORVASTATIN 40 MG TAB PO SCH (21:41)
[2020-10-20] MEDS: lisinopril 5 MG TAB PO SCH (21:42)
[2020-10-20] MEDS: ARTIFICIAL TEARS OP SCH (21:52)
[2020-10-21] MEDS: ceFAZolin 2000MG 2,000 MG/15 ML SYR IV SCH (00:17)
[2020-10-21] MEDS: KETOROLAC TROMETHAMINE 15 MG/ML VIAL IV SCH ×2 (00:18→06:17)
[2020-10-21] MEDS: ACETAMINOPHEN 500 MG TAB PO SCH ×3 (06:17→22:58)
[2020-10-21] MEDS: LEVOTHYROXINE SODIUM 88 MCG TABLET PO SCH (06:17)
--- NOTE | 2020-10-21 06:45 | Orthopedic Progress Note ---
Date of Service October 21, 2020 Assessment & Plan (1) Status post right hip replacement: Overall she is doing fairly well. She is having too much pain in the hip. She has not been out of bed yet. She will be seen by physical therapy today for ambulation and range of motion exercises. She is on Coumadin for DVT prophylaxis. We will keep her in the hospital today for therapy and pain control. I will see her tomorrow. If she is doing well tomorrow we will likely discharge her to home. Jean-Paul Mcintosh was seen and examined at bedside this morning. Overall she is doing about as well as expected. She has not been out of bed yet because she has been slow to recover from the general anesthetic. She is not having much pain in the right hip. She has no complaints.. Review of Systems All systems reviewed & are unremarkable except as noted in HPI & below. Physical Exam On physical examination of the right hip, the dressing is clean and dry. Her leg lengths are equal. She is active dorsiflexion and plantarflexion of the right ankle.. Results & Data Results & Data Laboratory Results . Diagnostic Findings Postoperative x-rays of the right hip show the prosthesis to be in anatomic alignment without any evidence of fracture, dislocation, or loosening. PG Care Time/CCT Total # of Minutes Spent Total Time Spent with Patient: Total time spent is greater than 50% in coordination of care (as documented) at patient's floor/unit and/or counseling patient: Coding Level of Care Code 70295 Post Operative Follow-Up Diagnoses Status post right hip replacement Z96.641
[2020-10-21] MEDS: lisinopril 5 MG TAB PO SCH ×2 (07:50→20:09)
[2020-10-21] MEDS: guaiFENesin 600 MG TABCR PO SCH ×2 (07:50→20:08)
[2020-10-21] MEDS: LORATADINE 10 MG TAB PO SCH (07:50)
[2020-10-21] MEDS: DOCUSATE SODIUM 100 MG CAP PO SCH ×2 (07:50→20:09)
[2020-10-21] MEDS: MULTIVITAMIN TAB PO SCH (07:51)
[2020-10-21] MEDS: SERTRALINE HCL 50 MG TABLET PO SCH (07:51)
[2020-10-21] MEDS: PANTOprazole 40 MG TAB PO SCH (07:52)
[2020-10-21] MEDS: POLYETHYLENE (MIRALAX) 17 GM PACK PO SCH ×2 (07:53→20:07)
[2020-10-21] MEDS: ADVANCED PROBIOTIC 1250 MG CAPSULE PO SCH (07:53)
[2020-10-21] MEDS: CEROVITE ADV FORMULA TAB PO SCH (07:53)
[2020-10-21] MEDS: ARTIFICIAL TEARS OP SCH ×2 (07:55→20:10)
[2020-10-21] MEDS ORDERED: dexAMETHasone 4 MG TAB PO SCH (08:00)
[2020-10-21] MEDS: FLUTICASONE/VILANTEROL 200/25MCG 14 PUFFS/INHALER INH SCH (08:12)
[2020-10-21] MEDS: oxyCODONE HCL IR 5 MG TAB (IMMEDIATE RELEASE) PO PRN ×2 (08:13→17:42)
[2020-10-21 15:00] LABS: INR 1.1 (0.9-1.1); Prothrombin Time 11.5 Seconds (9.0-12.0)
[2020-10-21] MEDS ORDERED: WARFARIN SOD 5 MG TAB PO ONE (15:11)
[2020-10-21] MEDS: ORTHO WARFARIN NOMOGRAM SCH (17:40)
[2020-10-21] MEDS: ATORVASTATIN 40 MG TAB PO SCH (20:07)
[2020-10-21] MEDS: NORTRIPTYLINE HCL 25 MG CAP PO SCH (20:08)
[2020-10-21] MEDS: SENNA 8.6 MG TAB PO SCH (20:09)
[2020-10-22 05:51] VITALS: TEMP 97.9; O2SAT 93
[2020-10-22] MEDS: LEVOTHYROXINE SODIUM 88 MCG TABLET PO SCH (05:51)
[2020-10-22] MEDS: ACETAMINOPHEN 500 MG TAB PO SCH (05:51)
[2020-10-22 06:19] LABS: INR 1.2 (0.9-1.1); Prothrombin Time 12.1 Seconds (9.0-12.0)
--- NOTE | 2020-10-22 06:37 | Orthopedic Progress Note ---
Date of Service October 22, 2020 Assessment & Plan (1) Status post right hip replacement: Overall she is doing very well. She is not having much pain in the right hip. She will be seen by physical therapy again today for ambulation and range of motion exercises. She is on Coumadin for DVT prophylaxis. She can be discharged home later today. She will follow-up with orthopedics in 2 weeks. Jean-Paul Mcintosh was seen and examined at bedside this morning. Overall she is doing very well. She participated well yesterday with physical therapy. She is not having much pain in the hip. She has no complaints.. Review of Systems All systems reviewed & are unremarkable except as noted in HPI & below. Physical Exam On physical examination of the right hip, the dressing is clean and dry. The ligaments are equal. She is active dorsiflexion plantarflexion of her right ankle.. Results & Data Results & Data Laboratory Results . Diagnostic Findings . PG Care Time/CCT Total # of Minutes Spent Total Time Spent with Patient: Total time spent is greater than 50% in coordination of care (as documented) at patient's floor/unit and/or counseling patient: Coding Level of Care Code 39338 Post Operative Follow-Up Diagnoses Status post right hip replacement Z96.641
--- NOTE | 2020-10-22 06:39 | Discharge Summary ---
Date of Service October 22, 2020 Admission HPI (Per Admitting) Dayna is a pleasant 75-year-old female whose been having a year-long history of increasing debilitating right hip pain. She was downgraded to a cane and then a walker because of her hip pain. She has had intra-articular hip injections without relief. She has been on Coumadin for a stroke since 2014. X-rays and clinical examination have been diagnostic for advanced osteoarthritis of the right hip. After failing extensive conservative treatment, she has elected proceed with a right anterior total hip arthroplasty.. Admission Exam (Per Admitting) On physical examination the right hip, she ambulates with a walker. She has difficult time lying on the table. She has very limited range of motion. She has severe pain with forced internal rotation of the hip.. Principal Diagnosis Same as "Discharge Diagnosis" noted below under Discharge Instructions. Discharge Exam On physical examination of the right hip, the dressing is clean and dry. The ligaments are equal. She is active dorsiflexion plantarflexion of her right ankle.. Discharge Data Procedures Performed Operation Date: 10/20/20 08:30 Actual Procedures p Right Anterior Total Hip Arthroplasty--Uncemented(Right) - Patrick Hebert, Ordered Studies 10/20/20 08:30 FL hip RT 1V Routine Hospital Course (1) Status post right hip replacement: On October 20, 2020 Dayna arrived at [facility] and underwent a right hip replacement without complication. She had a general anesthetic. She was then started on Coumadin for DVT prophylaxis and transferred to the general orthopedic floors. Her hospital course was uneventful. On postop day #1 her vital signs were stable and her pain was well controlled. She participated well with physical therapy doing ambulation and range of motion exercises. On postop day #2 she continued to do well. She worked once again with physical therapy. She was not having much pain in the right hip. She was then discharged home. She will follow-up with orthopedics in 2 weeks. PG Care Time/CCT Total # of Minutes Spent Total Time Spent with Patient: Total time spent is greater than 50% in coordination of care (as documented) at patient's floor/unit and/or counseling patient: Discharge Plan Discharge Items Patient Disposition: Home - Home Health Services Reason For Visit: Degenerative Joint Disease Right Hip Discharge Diagnosis: Right hip replacement Activity: As commented below Non-emergency contact: Surgeon Call non-emergency contact if: your wound has increased redness and your wound has increased drainage Follow-up/Referrals: Lary Cohn CRNP [Primary Care Provider] - Diet: Regular Addtl Attending Provider Instructions: Activity and Therapy Recommendations: * If you are using [facility] then therapy will be provided at your home until they feel you have accomplished all of your goals. * If you are using [facility] then Physical Therapy will be provided until they feel you are ready to start Outpatient Physical Therapy. * If you are not using home therapy then Outpatient Physical Therapy should start about 3-5 days from your day of surgery. Therapy will last about 6-10 weeks * You were shown a series of exercises in the hospital. Do these exercises three times each day including the exercises you were shown in physical therapy. * Get up and walk several times each day.~ For the first four weeks, try not to stand or walk for more than one hour at a time. If you do stand or walk for more than one hour, you will not hurt anything, but your leg will likely swell.~~ * As you feel comfortable, you may change from the walker or crutches to a cane and~then to independent walking. Medications: * Narcotic You will likely be sent home from the hospital with a prescription for the narcotic pain medication that worked best throughout your stay. * Aspirin Most patients will be required to take Aspirin 81mg twice a day for 6 weeks after surgery. This is obtained [id number] and a prescription is not necessary. * Other medications may be prescribed for specific circumstances. If you have any questions, please call the office at . * Resume previous home medications unless otherwise instructed TEDs/Elastic Stockings: The white elastic stockings help limit swelling and prevent blood clots from forming in your legs. The more you wear them, the more they work. Wear them for six weeks. Dressing Care: Leave the Silverlon dressing in place for 7 days. After 7 days you may remove the dressing. If the incision is not draining then you may leave the devin open to air. If there is a little bit of drainage or if the devin are getting stuck on your clothing then cover the incision with a dry dressing. The devin will be removed at your 2 week follow-up appointment. Showering: You may shower with the Silverlon dressing in place. Do not let the shower spray hit the dressing directly. Pat the Silverlon dressing dry. If the dressing becomes wet underneath, then simply remove the dressing. Keep the incision dry until you are 7 days out from the day of surgery. After 7 days you may remove the Silverlon dressing and shower with the devin exposed. Let soapy water run over the devin and pat them dry. Do not scrub or soak the incision. Things To Watch For: * Drainage from the incision site that occurs more than one week after your surgery. * Increased redness at the incision site. * Fever above 102 degrees Fahrenheit. * Unusual chest pain or shortness of breath. * Call [facility] at with any of the above problems Follow-Up Visit: Follow-up with Dr. Hebert's PA (Patrick Pollard) 2-3 weeks after your day of surgery. He will remove your devin and answer any questions. If you have any additional questions or concerns, Dr Hebert is usually in the office at the same time and will be available An appointment was probably scheduled when you signed-up for surgery in the office. If you have any questions call Office Instructions: More detailed instructions as well as Frequently Asked Questions were provided in a folder by our office when you signed-up for surgery. Please review these instructions when you get home. If you have any further questions or concerns, please feel free to call the office at [phone] Pending Studies at Discharge: No Stand-Alone Forms: [facility], Smoking Cessation Medications and DC Order Prescriptions: New oxycodone 5 mg Tablet 5 mg PO Q6 PRN (Reason: pain) Qty: 30 RF: 0 Continued albuterol sulfate 2.5 mg /3 mL (0.083 %) solution for nebulization 2.5 mg INHALATION Q4H PRN (Reason: Shortness Of Breath Or Wheezing R06.2) Qty: 180 RF: 1 omeprazole 20 mg capsule,delayed release(DR/EC) 20 mg PO QAM Qty: 90 RF: 3 lisinopril 5 mg tablet 5 mg PO BID Qty: 180 RF: 3 atorvastatin [Lipitor] 40 mg tablet 40 mg PO HS Qty: 90 RF: 3 nortriptyline 75 mg capsule 75 mg PO QPM Qty: 90 RF: 3 sertraline 50 mg tablet 50 mg PO QAM Qty: 90 RF: 3 fluticasone propion-salmeterol 500-50 mcg/dose blister with device 1 ea Inhalation BID Qty: 60 RF: 11 levothyroxine 88 mcg tablet See Rx Instructions .ROUTE .COMPLEX Qty: 90 RF: 3 furosemide 20 mg tablet 20 mg PO DAILY PRN (Reason: edema) Qty: 30 RF: 5 warfarin 5 mg tablet 5 mg PO .COMPLEX Qty: 100 RF: 3 budesonide 0.5 mg/2 mL suspension for nebulization 0.5 mg INHALATION BID PRN (Reason: Shortness Of Breath R06.2) Qty: 180 RF: 3 levalbuterol HCl [Xopenex] 1.25 mg/3 mL solution for nebulization 1.25 mg inhalation Q8H PRN (Reason: shortness of breath or wheezing) Qty: 72 RF: 3 cholecalciferol (vitamin D3) 2,000 unit capsule 2,000 units PO QAM RF: 0 polyethylene glycol 3350 [Miralax] 17 gram Powder In Packet 17 g PO BID RF: 0 metronidazole 250 mg tablet 250 mg PO QAM RF: 0 calcium carbonate [Calcium 500] 500 mg calcium (1,250 mg) Tablet 500 mg PO QAM RF: 0 loratadine [Claritin] 10 mg Tablet 10 mg PO QAM RF: 0 clindamycin phosphate 1 % Lotion 1 applic TOPICAL DAILY RF: 0 sodium chloride [Saline Nasal] 0.65 % Aerosol,[place] 1 spray INTRANASAL Q OTHER DAY RF: 0 Acidophilus Tablet,Chewable 1 tab PO QAM RF: 0 Systane Balance 0.6 % Drops 1 drp OPB BID RF: 0 guaifenesin [Mucinex] 600 mg Tablet Extended Release 12hr 600 mg PO Q12H RF: 0 Ocuvite Eye Health 50 mg-15 unit- 4.5 mg-2.5 mg Tablet,Chewable 1 tab PO QAM RF: 0 Nutri-Drink Liquid 1 ea PO BID RF: 0 acetaminophen [Tylenol Arthritis] 650 mg Tablet Extended Release 650 mg PO TID PRN (Reason: Pain) RF: 0 Discharge Orders: Discharge Order (Routine); Ordered 10/22/20 Ordered By: Patrick Hebert Admission Data Admit Date/Time: 10/20/20 11:21 Attending Provider: Patrick Hebert Admit Provider: Patrick Hebert Primary Care Provider: Lary Cohn
[2020-10-22] MEDS: oxyCODONE HCL IR 5 MG TAB (IMMEDIATE RELEASE) PO PRN (07:54)
[2020-10-22] MEDS: ARTIFICIAL TEARS OP SCH (07:54)
[2020-10-22] MEDS: MULTIVITAMIN TAB PO SCH (07:55)
[2020-10-22] MEDS: LORATADINE 10 MG TAB PO SCH (07:55)
[2020-10-22] MEDS: DOCUSATE SODIUM 100 MG CAP PO SCH (07:55)
[2020-10-22] MEDS: lisinopril 5 MG TAB PO SCH (07:55)
[2020-10-22] MEDS: SERTRALINE HCL 50 MG TABLET PO SCH (07:56)
[2020-10-22] MEDS: PANTOprazole 40 MG TAB PO SCH (07:56)
[2020-10-22] MEDS: guaiFENesin 600 MG TABCR PO SCH (07:56)
[2020-10-22] MEDS: POLYETHYLENE (MIRALAX) 17 GM PACK PO SCH (07:56)
[2020-10-22] MEDS: CEROVITE ADV FORMULA TAB PO SCH (07:57)
[2020-10-22] MEDS: FLUTICASONE/VILANTEROL 200/25MCG 14 PUFFS/INHALER INH SCH (07:57)
[2020-10-22] MEDS: ADVANCED PROBIOTIC 1250 MG CAPSULE PO SCH (07:57)
[2020-10-22 10:14] VITALS: BP 132/88; PULSE 83
[2020-10-22] MEDS ORDERED: WARFARIN SOD 5 MG TAB PO ONE (11:00)
[2020-10-22] MEDS ORDERED: ORTHO WARFARIN NOMOGRAM SCH (14:00)
== END 2020-10-22 12:26 | disposition home health service (06) ==
LOC: ASU 06:30 → 3E 06:30
DX: K21.9 Gastro-esophageal reflux disease without esophagitis; Z86.16 Personal history of COVID-19; E78.5 Hyperlipidemia, unspecified; Z91.041 Radiographic dye allergy status; Q21.1 Atrial septal defect; I10 Essential (primary) hypertension; Z79.01 Long term (current) use of anticoagulants; Z86.73 Personal history of transient ischemic attack (TIA), and cerebral infarction without residual deficits; Z88.2 Allergy status to sulfonamides; M16.11 Unilateral primary osteoarthritis, right hip; Z88.8 Allergy status to other drugs, medicaments and biological substances; Z79.51 Long term (current) use of inhaled steroids; Z88.5 Allergy status to narcotic agent; J45.909 Unspecified asthma, uncomplicated; Z79.899 Other long term (current) drug therapy

== ENCOUNTER 2021-03-08 12:45 | Inpatient (IN) ==
[2021-03-08] MEDS ORDERED: dexAMETHasone 6 MG in SYRINGE 0 ML IV ONE (13:02)
[2021-03-08] MEDS ORDERED: SODIUM CHLORIDE 0.9% 500 ML IV ONE (13:02)
--- NOTE | 2021-03-08 13:06 | Emergency Department Note ---
Impression & Plan Hypoxia, Cough, Breath shortness, Viral URI ED Provider Note NAME: AUSTIN BURRELL AGE: 75 SEX: F : 1945 ARRIVES VIA: Walk-In INFORMANT: Patient ED PROVIDER(S): Uli Grey DO CHIEF COMPLAINT: Cough, shortness of breath HPI: Patient is a 75-year-old female with a past medical history of hypertension, hyponatremia, hypothyroidism, CVA, GERD, hyperlipidemia that presents to the ER for cough and shortness of breath. She has been exposed to someone that tested positive within the past week. She denies any loss of taste or smell. No chest pain. No belly pain, nausea, vomiting, or diarrhea. No dysuria, urgency, or frequency. She does feel very weak and rundown. No other exacerbating remitting factors. ROS: See above HPI for pertinent positives & negatives. A total of 10 systems reviewed and were otherwise negative. PAST MEDICAL HISTORY:See Below PAST SURGICAL HISTORY:See Below FAMILY HISTORY:See Below SOCIAL HISTORY:See Below HOME MEDICATIONS:See Below ALLERGIES:See Below VITALS:See Below PHYSICAL EXAMINATION: GENERAL: Sitting up in bed, alert, slightly ill-appearing, disheveled on nasal cannula, cough present EYE EXAM: normal conjunctiva. PERRL and EOM's grossly intact. OROPHARYNX: Dry mucous membranes NECK: supple, no nuchal rigidity, no adenopathy, non-tender LUNGS: Diminished bilaterally with faint wheezing. Normal chest wall mechanics HEART: no murmurs, S1 normal and S2 normal ABDOMEN: abdomen soft, non-tender, normo-active bowel sounds, no masses, no rebound or guarding. SKIN: Small scratches on dorsal surface of right forearm UPPER EXTREMITIES: upper extremities are grossly normal. LOWER EXTREMITIES: No pitting edema. NEURO EXAM: Normal sensorium, cranial nerves II-XII grossly intact, normal speech, no gross weakness of arms, no gross weakness of legs. MEDICAL DECISION MAKING: Patient is a 75-year-old female who presents ER for upper respiratory symptoms. She was exposed to her daughter who is also COVID-positive. had the same symptoms. She admits to a cough and congestion. IV was established with orders obtained. She found to be hypoxic at 87 to 86%. She placed on 2 L nasal cannula. Labs showed no significant leukocytosis or anemia. INR was therapeutic at 2.4. BMP with LFTs bilirubin was unremarkable. Lipase was normal. Troponin was negative. RNA COVID was negative but PCR was ordered following negative test as I do favor she still likely has COVID. PE was not explored due to therapeutic INR. She was updated bedside. Discussed with the hospitalist. She will be admitted for further work-up. She was given inhaler while in the room as well as steroids. PCR COVID test came back negative. She remained on nasal cannula while in the ER. Triage Nursing notes reviewed. Limited review of prior medical records performed Vital Signs: reviewed and remarkable for hypoxia Differential diagnosis: Differential diagnoses includes but is not limited to pneumonia, bronchitis, COPD/Asthma exacerbation, pneumothorax, pulmonary embolism, congestive heart failure, acute coronary syndrome ER treatment provided: See below Diagnostics interpreted by me: ECG: Sinus rhythm at 74 Left axis No PVCs T wave inversion in lead V1 QTC 426 Cardiac Monitoring: An order was placed for continuous cardiac monitoring. The monitor shows a rate of 70 with sinus rhythm. Laboratory studies: As stated above and show below. Imaging studies: Portable AP upright 1 view of the chest was clean Consultation(s): Discussed with Dr. Lauren for further evaluation Procedures: none Critical Care: I have personally spent 31 minutes of critical care time in the direct management of this patient. This includes bedside care, interpretation of diagnostic studies, and testing, discussion with consultants, patient, and family members, and other required patient management activities. This 31 minutes is in excess of all separately billable procedures. Past Med/Surg History Medical History (Updated 03/08/21 @ 16:02 by Uli Grey DO) Asthma Breathing well controlled Basilar artery stenosis History of per patient- pt states more recent testing showed no issues No significant issues noted per 08/03/20 PCP note Chronic back pain CVA (cerebrovascular accident) x4 (most recent 2013) Mild residual drooping to left side of mouth Depression GERD (gastroesophageal reflux disease) Well controlled and stable with med History of COVID-19 07/2019 No symptoms with exception to residual voice hoarseness Hx of esophageal varices Noted incidentally by GI during EGD per patient Longstanding history per PCP note- no hx of liver disease or alcoholism. No current issues Hyperlipidemia Hypertension Hypothyroidism Migraine Osteoarthritis PFO (patent foramen ovale) Follows with Dr. Hearn- medically controlled. On prophylactic Coumadin. Did follow with cardiovascular surgery in the past per records to discuss closure of PFO- but unable to do closure secondary to nickel allergy- pt stable Scoliosis Surgical History History of bilateral cataract extraction History of bilateral tubal ligation History of colonoscopy with polypectomy History of dilatation and curettage History of esophagogastroduodenoscopy (EGD) History of hip replacement History of hysterectomy History of tooth extraction Family History Mother Family history of diabetes mellitus Myocardial infarction Sister Family history of diabetes mellitus Family history of rectal cancer Myocardial infarction Sister Family history of diabetes mellitus Myocardial infarction Brother Family history of diabetes mellitus Myocardial infarction Brother Family history of diabetes mellitus Family/Other Breast cancer Father Myocardial infarction Other Cancer Gallbladder disease Heart disease Hypertension Lung disease No family history of adverse response to anesthesia Denies family history of Ovarian cancer Prostate cancer Colorectal cancer Social History Smoking Status: Never smoker Second Hand Exposure: No; Hx Alcohol Use: No Hx Substance Use: No Preferred Language: Bahamian Communication Ability: Effective Business 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 Required: No Beliefs That Will Affect Care: None marital status: Current Living Situation: Spouse current occupational status: retired Feels Safe at Home: Yes Dental Care, Regularly: Yes Seatbelt Use: always Assistive Devices: Glasses and Walker Allergies Allergies Allergy/AdvReac Type Severity Reaction Status Date / Time Iodinated Contrast Media Allergy Severe "couldn't Verified 03/08/21 13:46 breathe and really bad rash" iodine Allergy Severe "couldn't Verified 03/08/21 13:46 breathe and really bad rash" nickel Allergy Severe " open Verified 03/08/21 13:46 sores" Penicillins Allergy Severe shortness Verified 03/08/21 13:46 of breath promethazine Allergy Severe "couldn't Verified 03/08/21 13:46 breathe" red (food color) Allergy Severe "problems Verified 03/08/21 13:46 breathing" Sulfa (Sulfonamide Allergy Severe facial Verified 03/08/21 13:46 Antibiotics) swelling Tetracyclines Allergy Severe "couldn't Verified 03/08/21 13:46 breathe and rash" levofloxacin Allergy Intermediate HIVES, LEG Verified 03/08/21 13:46 PAIN tramadol Allergy Intermediate hallucinati Verified 03/08/21 13:46 ons cephalexin Allergy Mild Rash Verified 03/08/21 13:46 house dust Allergy Mild "sniffles/watery Verified 03/08/21 13:46 eyes" ragweed pollen Allergy Mild "sniffles" Verified 03/08/21 13:46 azithromycin [From Zithromax] AdvReac Mild Rash Verified 03/08/21 13:46 mayda chews Allergy Severe "couldn't Uncoded 03/08/21 13:46 breathe right" Home Meds Home Medications Medication Instructions Recorded Confirmed Lactobacillus acidophilus 1 tab PO QAM 03/30/18 03/08/21 (Acidophilus) guaifenesin 600 mg tablet, 600 mg PO Q12H 03/30/18 03/08/21 extended release 12 hr (Mucinex) loratadine 10 mg tablet (Claritin) 10 mg PO QAM 03/30/18 03/08/21 polyethylene glycol 3350 17 gram 17 g PO BID 03/30/18 03/08/21 oral powder packet (Miralax) propylene glycol 0.6 % eye drops 1 drp OPB BID 03/30/18 03/08/21 (Systane Balance) sodium chloride 0.65 % nasal spray 1 spray INTRANASAL Q OTHER DAY 03/30/18 03/08/21 aerosol (Saline Nasal) vit C 50 mg-E 15 unit-zinc cit 4.5 1 tab PO QAM 03/30/18 03/08/21 mg-lutein 2.5 mg-zeaxan chew tablet ([facility]) cholecalciferol (vitamin D3) 50 2,000 units PO QAM 10/29/18 03/08/21 mcg (2,000 unit) capsule food supplemt, lactose-reduced 1 ea PO BID 12/10/18 03/08/21 (Nutri-Drink) acetaminophen 650 mg 650 mg PO TID PRN 09/04/20 03/08/21 tablet,extended release calcium carbonate 500 mg calcium 500 mg PO DAILY 03/08/21 03/08/21 (1,250 mg) tablet Previous Rx's Medication Instructions Recorded sertraline 50 mg tablet 50 mg PO QAM #90 tab 02/24/20 warfarin 5 mg tablet 5 mg PO .COMPLEX #100 tab 07/09/20 budesonide 0.5 mg/2 mL suspension 0.5 mg INHALATION BID PRN #180 ml 08/03/20 for nebulization oxycodone 5 mg tablet 5 mg PO Q6 PRN #30 tab 10/22/20 lisinopril 5 mg tablet 5 mg PO BID #180 tab 12/25/20 omeprazole 20 mg capsule,delayed 20 mg PO QAM #90 cap 12/25/20 release atorvastatin 40 mg tablet (Lipitor) 40 mg PO HS #90 tab 01/21/21 fluticasone 500 mcg-salmeterol 50 1 ea INHALATION BID #180 ea 01/21/21 mcg/dose blistr powdr for inhalation furosemide 20 mg tablet 20 mg PO DAILY PRN #30 tab 01/21/21 nortriptyline 75 mg capsule 75 mg PO QPM #90 cap 01/21/21 levalbuterol HCl 1.25 mg/3 mL 1.25 mg INHALATION Q8H PRN #180 ml 02/05/21 solution for nebulization (Xopenex) levothyroxine 100 mcg capsule 100 mcg PO DAILY #30 cap 02/05/21 Results & Data (ED) Vital Signs Vital Signs - 24 hr 03/08/21 12:47 03/08/21 13:02 03/08/21 13:20 Temperature 36.8 C Temperature Source Temporal Artery Scan Pulse Rate 89 Pulse Rate [Apical] 82 Respiratory Rate 18 19 Blood Pressure 153/99 H Blood Pressure [Left Arm] 140/100 Blood Pressure Mean 117 Blood Pressure Mean [Left Arm] 113 Pulse Oximetry 87 L 95 95 Oxygen Delivery Method Room Air Nasal Cannula Nasal Cannula Oxygen Flow Rate 2 2 Sepsis Recent Fever Within 48 Hours No Sepsis New/Unexplained Change in Mental Status No Sepsis Action Taken by Nursing No Action Required 03/08/21 15:11 Temperature Temperature Source Pulse Rate Pulse Rate [Apical] 91 H Respiratory Rate 20 Blood Pressure Blood Pressure [Left Arm] 143/100 H Blood Pressure Mean Blood Pressure Mean [Left Arm] 114 Pulse Oximetry 98 Oxygen Delivery Method Nasal Cannula Oxygen Flow Rate 2 Sepsis Recent Fever Within 48 Hours Sepsis New/Unexplained Change in Mental Status Sepsis Action Taken by Nursing Laboratory Data Result diagrams: 03/08/21 12:58 03/08/21 12:58 Lab Results 01/17/22 01/17/22 01/17/22 Range/Units 12:57 12:58 12:58 WBC 4.86 (4.8-10.8) K/uL RBC 4.64 (4.2-5.4) M/uL Hgb 12.9 (12.0-16.0) g/dL Hct 41.3 (37-47) % MCV 89.0 (80-100) fL MCH 27.8 (25-34) pg MCHC 31.2 L (32-36) g/dL RDW Std Deviation 53.9 H (36.4-46.3) fL RDW Coeff of Susi 16.5 H (11.5-14.5) % Plt Count 235 (130-400) K/uL MPV 8.4 (7.4-10.4) fL Immature Gran % (Auto) 0.0 % Neut % (Auto) 60.0 % Lymph % (Auto) 27.4 % [place] % (Auto) 9.7 % Eos % (Auto) 2.7 % Baso % (Auto) 0.2 % Neut # (Auto) 2.92 (1.4-6.5) K/uL Lymph # (Auto) 1.33 (1.2-3.4) K/uL [place] # (Auto) 0.47 (0.11-0.59) K/uL Eos # (Auto) 0.13 (0-0.5) K/uL Baso # (Auto) 0.01 (0-0.2) K/uL Immature Gran # (Auto) 0.00 (0.00-0.02) K/uL PT 22.5 H (9.0-12.0) Seconds INR 2.4 H (0.9-1.1) Sodium (136-145) mmol/L Potassium (3.5-5.1) mmol/L Chloride (98-107) mmol/L Carbon Dioxide (21-32) mmol/L Anion Gap (3-11) BUN (6-23) mg/dl Creatinine (0.6-1.2) mg/dl Est Cr Clr Drug Dosing ml/min Est GFR ( Amer) ml/min Est GFR (Non-Af Amer) ml/min BUN/Creatinine Ratio (10-20) Glucose (70-99(Fasting)) mg/dl Calcium (8.5-10.1) mg/dl Total Bilirubin (0.2-1.0) mg/dl AST (13-39) U/L ALT (7-52) U/L Alkaline Phosphatase (34-104) U/L Troponin I (0-0.04) ng/ml Total Protein (6.0-8.3) gm/dl Albumin (3.4-5.0) gm/dl Globulin (2.5-4.0) gm/dl Albumin/Globulin Ratio (0.9-2) Lipase (11-82) U/L SARS-CoV-2 (PCR) (Negative) Influenza Type A (PCR) (Neg) Influenza Type B (PCR) (Neg) RSV (RT-PCR) (Neg) SARS-CoV-2, RNA, NAAT NEGATIVE (NEGATIVE) 03/08/21 03/08/21 Range/Units 12:58 Unknown WBC (4.8-10.8) K/uL RBC (4.2-5.4) M/uL Hgb (12.0-16.0) g/dL Hct (37-47) % MCV (80-100) fL MCH (25-34) pg MCHC (32-36) g/dL RDW Std Deviation (36.4-46.3) fL RDW Coeff of Susi (11.5-14.5) % Plt Count (130-400) K/uL MPV (7.4-10.4) fL Immature Gran % (Auto) % Neut % (Auto) % Lymph % (Auto) % [place] % (Auto) % Eos % (Auto) % Baso % (Auto) % Neut # (Auto) (1.4-6.5) K/uL Lymph # (Auto) (1.2-3.4) K/uL [place] # (Auto) (0.11-0.59) K/uL Eos # (Auto) (0-0.5) K/uL Baso # (Auto) (0-0.2) K/uL Immature Gran # (Auto) (0.00-0.02) K/uL PT (9.0-12.0) Seconds INR (0.9-1.1) Sodium 135 L (136-145) mmol/L Potassium 3.6 (3.5-5.1) mmol/L Chloride 101 (98-107) mmol/L Carbon Dioxide 27 (21-32) mmol/L Anion Gap 7 (3-11) BUN 8 (6-23) mg/dl Creatinine 0.61 (0.6-1.2) mg/dl Est Cr Clr Drug Dosing 76.6 ml/min Est GFR ( Amer) 104.2 ml/min Est GFR (Non-Af Amer) 89.9 ml/min BUN/Creatinine Ratio 13.1 (10-20) Glucose 98 (70-99(Fasting)) mg/dl Calcium 9.4 (8.5-10.1) mg/dl Total Bilirubin 0.4 (0.2-1.0) mg/dl AST 22 (13-39) U/L ALT 21 (7-52) U/L Alkaline Phosphatase 119 H (34-104) U/L Troponin I < 0.03 (0-0.04) ng/ml Total Protein 7.8 (6.0-8.3) gm/dl Albumin 4.3 (3.4-5.0) gm/dl Globulin 3.5 (2.5-4.0) gm/dl Albumin/Globulin Ratio 1.2 (0.9-2) Lipase 11 (11-82) U/L SARS-CoV-2 (PCR) NEGATIVE (Negative) Influenza Type A (PCR) Negative (Neg) Influenza Type B (PCR) Negative (Neg) RSV (RT-PCR) Negative (Neg) SARS-CoV-2, RNA, NAAT (NEGATIVE) Administered Medications Discontinued Medications Albuterol (Albuterol Hfa 8 Gm Inhaler) 2 puffs INH NOW ONE Stop: 03/08/21 13:28 Last Admin: 03/08/21 13:46 Dose: 2 puffs Documented by: [id number] Dexamethasone (Dexamethasone Sod Inj 4 Mg/Ml Vial) Confirm Administered Dose 8 mg .ROUTE .STK-MED ONE Stop: 03/08/21 13:17 Last Admin: 03/08/21 13:21 Dose: Not Given Documented by: [id number] Dexamethasone Sodium Phosphate (DexamethasonePf 10 Mg/Ml Vial) 6 mg IV NOW ONE Stop: 03/08/21 14:07 Last Admin: 03/08/21 14:18 Dose: Not Given Documented by: [id number] Dexamethasone 6 mg/ Syringe 1.5 mls @ 1 mls/min IV ONE ONE Stop: 03/08/21 13:03 Last Admin: 03/08/21 13:21 Dose: 1 mls/min Documented by: [id number] Sodium Chloride (Nss) 500 mls @ 999 mls/hr IV .Q31M ONE Stop: 03/08/21 13:32 Last Infusion: 03/08/21 13:55 Dose: 0 mls/hr Documented by: [id number] Admin: 03/08/21 13:21 Dose: 999 mls/hr Documented by: [id number] Imaging Data Radiologist's Impression: Chest X-Ray 03/08/21 13:02 XR chest 1V portable CLINICAL HISTORY: Chest Pain. Cough. COMPARISON STUDY: 09/08/2020 TECHNIQUE: 1 view of the chest FINDINGS: Single frontal view of the chest demonstrates the cardiomediastinal silhouette to be within normal limits. There is again asymmetric elevation of the right hemidiaphragm. There is a decreased inspiratory effort as well with prominence of central bronchovascular markings. The lungs are otherwise clear of alveolar opacities. There is no evidence for pleural effusion. There is no evidence for vascular congestion. There is no acute osseous pathology. IMPRESSION: No acute cardiopulmonary disease. ACT 112: Negative or not required by law. Electronically signed by: Vinicius Weinstein M.D. 03/08/2021 1:42 PM Discharge Plan Visit Data Chief Complaint: Cough Stated Complaint: COUGH,EXPOSED TO COVID ED Provider: Uli Grey Discharge Problem: Hypoxia, Cough, Breath shortness, Viral URI Forms Stand Alone Forms: [facility] Prescriptions Prescriptions: No Action sertraline 50 mg tablet 50 mg PO QAM Qty: 90 RF: 3 warfarin 5 mg tablet 5 mg PO .COMPLEX Qty: 100 RF: 3 budesonide 0.5 mg/2 mL suspension for nebulization 0.5 mg INHALATION BID PRN (Reason: Shortness Of Breath R06.2) Qty: 180 RF: 3 omeprazole 20 mg capsule,delayed release(DR/EC) 20 mg PO QAM Qty: 90 RF: 3 lisinopril 5 mg tablet 5 mg PO BID Qty: 180 RF: 3 fluticasone propion-salmeterol 500-50 mcg/dose blister with device 1 ea Inhalation BID Qty: 180 RF: 3 atorvastatin [Lipitor] 40 mg tablet 40 mg PO HS Qty: 90 RF: 3 furosemide 20 mg tablet 20 mg PO DAILY PRN (Reason: edema) Qty: 30 RF: 5 nortriptyline 75 mg capsule 75 mg PO QPM Qty: 90 RF: 3 levothyroxine 100 mcg capsule 100 mcg PO DAILY Qty: 30 RF: 2 levalbuterol HCl [Xopenex] 1.25 mg/3 mL solution for nebulization 1.25 mg inhalation Q8H PRN (Reason: shortness of breath or wheezing) Qty: 180 RF: 3 cholecalciferol (vitamin D3) 2,000 unit capsule 2,000 units PO QAM RF: 0 polyethylene glycol 3350 [Miralax] 17 gram Powder In Packet 17 g PO BID RF: 0 loratadine [Claritin] 10 mg Tablet 10 mg PO QAM RF: 0 Saline Nasal 0.65 % Aerosol,[place] 1 spray INTRANASAL Q OTHER DAY RF: 0 Acidophilus Tablet,Chewable 1 tab PO QAM RF: 0 Systane Balance 0.6 % Drops 1 drp OPB BID RF: 0 guaifenesin [Mucinex] 600 mg Tablet Extended Release 12hr 600 mg PO Q12H RF: 0 Ocuvite Eye Health 50 mg-15 unit- 4.5 mg-2.5 mg Tablet,Chewable 1 tab PO QAM RF: 0 Nutri-Drink Liquid 1 ea PO BID RF: 0 calcium carbonate 500 mg calcium (1,250 mg) Tablet 500 mg PO DAILY RF: 0 acetaminophen 650 mg Tablet Extended Release 650 mg PO TID PRN (Reason: Pain) RF: 0 oxycodone 5 mg Tablet 5 mg PO Q6 PRN (Reason: pain) Qty: 30 RF: 0 Referrals Referrals: Lary Cohn CRNP [Primary Care Provider] -
[2021-03-08] MEDS ORDERED: DEXAMETHASONE SOD INJ 4 MG/ML VIAL ONE (13:16)
[2021-03-08] MEDS ORDERED: ALBUTEROL HFA 8 GM INHALER INH ONE (13:27)
[2021-03-08 13:35] LABS: Basophils # (auto) 0.01 K/uL (0-0.2); Basophils % (auto) 0.2 %; Eosinophils # (auto) 0.13 K/uL (0-0.5); Eosinophils % (auto) 2.7 %; Hematocrit (blood only) 41.3 % (37-47); Hemoglobin 12.9 g/dL (12.0-16.0); Lymphocytes # (auto) 1.33 K/uL (1.2-3.4); Lymphocytes % (auto) 27.4 %; Mean Corpuscular Hemoglobin 27.8 pg (25-34); Mean Corpuscular Hgb Conc 31.2 g/dL (32-36); Mean Platelet Volume 8.4 fL (7.4-10.4); Monocytes # (auto) 0.47 K/uL (0.11-0.59); Monocytes % (auto) 9.7 %; Neutrophils # (auto) 2.92 K/uL (1.4-6.5); Platelet Count 235 K/uL (130-400); RDW Coefficient of Variation 16.5 % (11.5-14.5); RDW Standard Deviation 53.9 fL (36.4-46.3); Red Blood Count 4.64 M/uL (4.2-5.4); White Blood Count 4.86 K/uL (4.8-10.8)
--- NOTE | 2021-03-08 13:44 | XRay Report ---
XR chest 1V portable CLINICAL HISTORY: Chest Pain. Cough. COMPARISON STUDY: 09/08/2020 TECHNIQUE: 1 view of the chest FINDINGS: Single frontal view of the chest demonstrates the cardiomediastinal silhouette to be within normal li mits. There is again asymmetric elevation of the right hemidiaphragm. There is a decreased inspirator y effort as well with prominence of central bronchovascular markings. The lungs are otherwise clear o f alveolar opacities. There is no evidence for pleural effusion. There is no evidence for vascular co ngestion. There is no acute osseous pathology. IMPRESSION: No acute cardiopulmonary disease. ACT 112: Negative or not required by law. Electronically signed by: Vinicius Weinstein M.D. 03/08/2021 1:42 PM
--- NOTE | 2021-03-08 13:48 | Electrocardiogram Report ---
Test Reason : Blood Pressure : / mmHG Vent. Rate : 074 BPM Atrial Rate : 074 BPM P-R Int : 162 ms QRS Dur : 096 ms QT Int : 384 ms P-R-T Axes : 051 -24 042 degrees QTc Int : 426 ms Normal sinus rhythm Borderline Criteria for Old Septal infarct Abnormal ECG When compared with ECG of 03-DEC-2013 12:56, Borderline Criteria for Septal infarct is now Present Nonspecific T wave abnormality no longer evident in Inferior leads Nonspecific T wave abnormality no longer evident in Lateral leads QT has lengthened Confirmed by Huang George ([id number]) on 03/08/2021 1:48:26 PM Referred By: Confirmed By:Huang George
[2021-03-08 13:54] LABS: INR 2.4 (0.9-1.1); Prothrombin Time 22.5 Seconds (9.0-12.0)
[2021-03-08 13:59] LABS: Troponin I < 0.03 ng/ml (0-0.04)
[2021-03-08 14:02] LABS: Alanine Aminotransferase 21 U/L (7-52); Albumin Globulin Ratio 1.2 (0.9-2); Albumin Level 4.3 gm/dl (3.4-5.0); Alkaline Phosphatase 119 U/L (34-104); Anion Gap 7 (3-11); Aspartate Aminotransferase 22 U/L (13-39); BUN Creatinine Ratio 13.1 (10-20); Bilirubin,Total 0.4 mg/dl (0.2-1.0); Blood Urea Nitrogen 8 mg/dl (6-23); Calcium 9.4 mg/dl (8.5-10.1); Carbon Dioxide 27 mmol/L (21-32); Chloride 101 mmol/L (98-107); Creatinine Clr Calc Pharmacy 76.6 ml/min; Est GFR (African American) 104.2 ml/min; Est GFR (Non-African American) 89.9 ml/min; Globulin 3.5 gm/dl (2.5-4.0); Glucose 98 mg/dl (70-99(Fasting)); Lipase 11 U/L (11-82); Potassium 3.6 mmol/L (3.5-5.1); Sodium 135 mmol/L (136-145); Total Protein 7.8 gm/dl (6.0-8.3)
[2021-03-08] MEDS ORDERED: dexAMETHasone**PF** 10 MG/ML VIAL IV ONE (14:06)
--- NOTE | 2021-03-08 15:04 | History & Physical Report ---
Date of Service March 08, 2021 Assessment & Plan (1) Acute respiratory failure with hypoxia: (2) Asthma: Plan: Suspect this is the cause of her mild hypoxia although definitive COVID/influenza testing still positive Continue to support with 2 L of nasal cannula Will start dexamethasone 6 mg IV daily Albuterol HFA q6h We will hold off on antibiotics for now as patient does not seem to have acute bacterial infection Patient is on as needed budesonide and fluticasone/salmeterol. We will hold these for now until patient is off nebs and steroids Await results of PCR, further treatment as dictated by results (t/c Tamiflu) If patient does not worsen, can consider home O2 evaluation and eventual discharge with home oxygen if needed (3) PFO (patent foramen ovale): Plan: Patient has previously documented CVAs, felt that this was the cause. Patient is on Coumadin, last INR is 2.4 Continue Coumadin dosing as before, follow INR (4) Hyperlipidemia: Plan: Continue atorvastatin (5) GERD (gastroesophageal reflux disease): Plan: Patient is on 20 mg omeprazole, will replace with Protonix while inpatient per pharmacy History of Present Illness Chief Complaint: SOB Primary Care Provider: TREY Warren This is a 75-year-old female with past medical history of asthma, patent PFO being treated with Coumadin for secondary stroke prevention, hypothyroidism presents today complaining shortness of breath. Patient is a somewhat poor historian but I did speak to the daughter extensively over the phone. Apparently patient has been sick over the past 3-4 days. This is mostly mild shortness of breath/dyspnea on exertion. She has had a hacking, nonproductive cough. She denies any fevers or chills. She denies any loss of taste or smell. Her p.o.'s have been good and she has been having normal bowel movements with no nausea or vomiting. Patient and family are concerned as her daughter/son-in-law have been at her house multiple times over the past 1-2 weeks and recently been diagnosed with COVID. Patient is unvaccinated. Presentation to the ER, patient was found to have some mild wheezing. Her O2 sat was 87% on room air. Patient was on 2 L during my evaluation and she was 96% or more. She did not appear to be in any acute cardiopulmonary distress. Initial COVID RNA is pending. PCR for COVID was sent along with influenza and RSV PCR, all of which is pending at the time of this dictation. Patient will be placed in observation secondary to hypoxia. Allergies Allergy/AdvReac Type Severity Reaction Status Date / Time Iodinated Contrast Media Allergy Severe "couldn't Verified 03/08/21 13:46 breathe and really bad rash" iodine Allergy Severe "couldn't Verified 03/08/21 13:46 breathe and really bad rash" nickel Allergy Severe " open Verified 03/08/21 13:46 sores" Penicillins Allergy Severe shortness Verified 03/08/21 13:46 of breath promethazine Allergy Severe "couldn't Verified 03/08/21 13:46 breathe" red (food color) Allergy Severe "problems Verified 03/08/21 13:46 breathing" Sulfa (Sulfonamide Allergy Severe facial Verified 03/08/21 13:46 Antibiotics) swelling Tetracyclines Allergy Severe "couldn't Verified 03/08/21 13:46 breathe and rash" levofloxacin Allergy Intermediate HIVES, LEG Verified 03/08/21 13:46 PAIN tramadol Allergy Intermediate hallucinati Verified 03/08/21 13:46 ons cephalexin Allergy Mild Rash Verified 03/08/21 13:46 house dust Allergy Mild "sniffles/watery Verified 03/08/21 13:46 eyes" ragweed pollen Allergy Mild "sniffles" Verified 03/08/21 13:46 azithromycin [From Zithromax] AdvReac Mild Rash Verified 03/08/21 13:46 mayda chews Allergy Severe "couldn't Uncoded 03/08/21 13:46 breathe right" Home Medications Medication Instructions Recorded Confirmed Type Lactobacillus acidophilus 1 tab PO QAM 03/30/18 03/08/21 History (Acidophilus) guaifenesin 600 mg tablet, 600 mg PO Q12H 03/30/18 03/08/21 History extended release 12 hr (Mucinex) loratadine 10 mg tablet (Claritin) 10 mg PO QAM 03/30/18 03/08/21 History polyethylene glycol 3350 17 gram 17 g PO BID 03/30/18 03/08/21 History oral powder packet (Miralax) propylene glycol 0.6 % eye drops 1 drp OPB BID 03/30/18 03/08/21 History (Systane Balance) sodium chloride 0.65 % nasal spray 1 spray INTRANASAL Q OTHER DAY 03/30/18 03/08/21 History aerosol (Saline Nasal) vit C 50 mg-E 15 unit-zinc cit 4.5 1 tab PO QAM 03/30/18 03/08/21 History mg-lutein 2.5 mg-zeaxan chew tablet ([employer]) cholecalciferol (vitamin D3) 50 2,000 units PO QAM 10/29/18 03/08/21 History mcg (2,000 unit) capsule food supplemt, lactose-reduced 1 ea PO BID 12/10/18 03/08/21 History (Nutri-Drink) sertraline 50 mg tablet 50 mg PO QAM #90 tab 02/24/20 03/08/21 Rx warfarin 5 mg tablet 5 mg PO .COMPLEX #100 tab 07/09/20 03/08/21 Rx budesonide 0.5 mg/2 mL suspension 0.5 mg INHALATION BID PRN #180 ml 08/03/20 03/08/21 Rx for nebulization acetaminophen 650 mg 650 mg PO TID PRN 09/04/20 03/08/21 History tablet,extended release oxycodone 5 mg tablet 5 mg PO Q6 PRN #30 tab 10/22/20 03/08/21 Rx lisinopril 5 mg tablet 5 mg PO BID #180 tab 12/25/20 03/08/21 Rx omeprazole 20 mg capsule,delayed 20 mg PO QAM #90 cap 12/25/20 03/08/21 Rx release atorvastatin 40 mg tablet (Lipitor) 40 mg PO HS #90 tab 01/21/21 03/08/21 Rx fluticasone 500 mcg-salmeterol 50 1 ea INHALATION BID #180 ea 01/21/21 03/08/21 Rx mcg/dose blistr powdr for inhalation furosemide 20 mg tablet 20 mg PO DAILY PRN #30 tab 01/21/21 03/08/21 Rx nortriptyline 75 mg capsule 75 mg PO QPM #90 cap 01/21/21 03/08/21 Rx levalbuterol HCl 1.25 mg/3 mL 1.25 mg INHALATION Q8H PRN #180 ml 02/05/21 03/08/21 Rx solution for nebulization (Xopenex) levothyroxine 100 mcg capsule 100 mcg PO DAILY #30 cap 02/05/21 03/08/21 Rx calcium carbonate 500 mg calcium 500 mg PO DAILY 03/08/21 03/08/21 History (1,250 mg) tablet Past Med/Surg History Medical History (Updated 03/08/21 @ 15:07 by William Richardson DO) Asthma Breathing well controlled Basilar artery stenosis History of per patient- pt states more recent testing showed no issues No significant issues noted per 08/03/20 PCP note Chronic back pain CVA (cerebrovascular accident) x4 (most recent 2013) Mild residual drooping to left side of mouth Depression GERD (gastroesophageal reflux disease) Well controlled and stable with med History of COVID-19 07/2019 No symptoms with exception to residual voice hoarseness Hx of esophageal varices Noted incidentally by GI during EGD per patient Longstanding history per PCP note- no hx of liver disease or alcoholism. No current issues Hyperlipidemia Hypertension Hypothyroidism Migraine Osteoarthritis PFO (patent foramen ovale) Follows with Dr. Hearn- medically controlled. On prophylactic Coumadin. Did follow with cardiovascular surgery in the past per records to discuss closure of PFO- but unable to do closure secondary to nickel allergy- pt stable Scoliosis Surgical History History of bilateral cataract extraction History of bilateral tubal ligation History of colonoscopy with polypectomy History of dilatation and curettage History of esophagogastroduodenoscopy (EGD) History of hip replacement History of hysterectomy History of tooth extraction Family History Mother Family history of diabetes mellitus Myocardial infarction Sister Family history of diabetes mellitus Family history of rectal cancer Myocardial infarction Sister Family history of diabetes mellitus Myocardial infarction Brother Family history of diabetes mellitus Myocardial infarction Brother Family history of diabetes mellitus Family/Other Breast cancer Father Myocardial infarction Other Cancer Gallbladder disease Heart disease Hypertension Lung disease No family history of adverse response to anesthesia Denies family history of Ovarian cancer Prostate cancer Colorectal cancer Social History Smoking Status: Never smoker Second Hand Exposure: No; Hx Alcohol Use: No Hx Substance Use: No Preferred Language: Eritre[place] Communication Ability: Effective Human Factors Ergonomist Required: No Beliefs That Will Affect Care: None marital status: Current Living Situation: Spouse current occupational status: retired Feels Safe at Home: Yes Dental Care, Regularly: Yes Seatbelt Use: always Assistive Devices: Glasses and Walker Review of Systems Constitutional: no fever, no chills, no weakness, no weight loss and no weight gain Eyes: as per Subjective / HPI Respiratory: + cough, + dyspnea and + dyspnea on exertion; no chest congestion, no change in sputum and no hemoptysis Cardiovascular: no chest pain, no orthopnea, no palpitations, no lightheadedness and no edema Gastrointestinal: no abdominal pain, no nausea, no vomiting, no constipation and no diarrhea/loose stools Genitourinary: no dysuria, no difficulty urinating, no urinary frequency, no urinary hesitancy, no urinary urgency and no flank pain Musculoskeletal: no back pain, no neck pain, no joint pain, no stiffness and no myalgia Integumentary: no rash Neurologic: no gait abnormality, no unsteadiness, no falls and no generalized weakness Physical Exam Constitutional: cooperative; no acute distress Neck: trachea midline, no thyromegaly Respiratory: normal respiratory effort Auscultation: + diminished lung sounds (RLL); no crackles, no rales, no rhonchi and no wheezes Cardiovascular: Rate/Rhythm: regular rate and regular rhythm Heart Sounds: normal S1 and normal S2 Gastrointestinal (Abdomen): Inspection/Auscultation: abdomen normal to inspection Percussion/Palpation: abdomen soft; abdomen nontender, no guarding, abdomen not rigid and no hepatosplenomegaly Skin: no rashes, warm and dry Results & Data Results & Data ([facility]) Vital Signs (Past 12 Hours) Vital Signs Temp Pulse Pulse Resp BP BP Pulse Ox 03/08/21 13:20 82 19 140/100 95 03/08/21 13:02 95 03/08/21 12:47 36.8 C 89 18 153/99 H 87 L Laboratory Results Laboratory Results WBC 4.86 K/uL (4.8-10.8) 03/08/21 12:58 RBC 4.64 M/uL (4.2-5.4) 03/08/21 12:58 Hgb 12.9 g/dL (12.0-16.0) 03/08/21 12:58 Hct 41.3 % (37-47) 03/08/21 12:58 MCV 89.0 fL (80-100) 03/08/21 12:58 MCH 27.8 pg (25-34) 03/08/21 12:58 MCHC 31.2 g/dL (32-36) L 03/08/21 12:58 RDW Std Deviation 53.9 fL (36.4-46.3) H 03/08/21 12:58 RDW Coeff of Susi 16.5 % (11.5-14.5) H 03/08/21 12:58 Plt Count 235 K/uL (130-400) 03/08/21 12:58 MPV 8.4 fL (7.4-10.4) 03/08/21 12:58 Immature Gran % (Auto) 0.0 % 03/08/21 12:58 Neut % (Auto) 60.0 % 03/08/21 12:58 Lymph % (Auto) 27.4 % 03/08/21 12:58 Dolores % (Auto) 9.7 % 03/08/21 12:58 Eos % (Auto) 2.7 % 03/08/21 12:58 Baso % (Auto) 0.2 % 03/08/21 12:58 Neut # (Auto) 2.92 K/uL (1.4-6.5) 03/08/21 12:58 Lymph # (Auto) 1.33 K/uL (1.2-3.4) 03/08/21 12:58 Dolores # (Auto) 0.47 K/uL (0.11-0.59) 03/08/21 12:58 Eos # (Auto) 0.13 K/uL (0-0.5) 03/08/21 12:58 Baso # (Auto) 0.01 K/uL (0-0.2) 03/08/21 12:58 Immature Gran # (Auto) 0.00 K/uL (0.00-0.02) 03/08/21 12:58 PT 22.5 Seconds (9.0-12.0) H 03/08/21 12:58 INR 2.4 (0.9-1.1) H 03/08/21 12:58 Sodium 135 mmol/L (136-145) L 03/08/21 12:58 Potassium 3.6 mmol/L (3.5-5.1) 03/08/21 12:58 Chloride 101 mmol/L (98-107) 03/08/21 12:58 Carbon Dioxide 27 mmol/L (21-32) 03/08/21 12:58 Anion Gap 7 (3-11) 03/08/21 12:58 BUN 8 mg/dl (6-23) 03/08/21 12:58 Creatinine 0.61 mg/dl (0.6-1.2) 03/08/21 12:58 Est Cr Clr Drug Dosing 76.6 ml/min 03/08/21 12:58 Est GFR ( Amer) 104.2 ml/min 03/08/21 12:58 Est GFR (Non-Af Amer) 89.9 ml/min 03/08/21 12:58 BUN/Creatinine Ratio 13.1 (10-20) 03/08/21 12:58 Glucose 98 mg/dl (70-99(Fasting)) 03/08/21 12:58 Calcium 9.4 mg/dl (8.5-10.1) 03/08/21 12:58 Total Bilirubin 0.4 mg/dl (0.2-1.0) 03/08/21 12:58 AST 22 U/L (13-39) 03/08/21 12:58 ALT 21 U/L (7-52) 03/08/21 12:58 Alkaline Phosphatase 119 U/L (34-104) H 03/08/21 12:58 Troponin I < 0.03 ng/ml (0-0.04) 03/08/21 12:58 Total Protein 7.8 gm/dl (6.0-8.3) 03/08/21 12:58 Albumin 4.3 gm/dl (3.4-5.0) 03/08/21 12:58 Globulin 3.5 gm/dl (2.5-4.0) 03/08/21 12:58 Albumin/Globulin Ratio 1.2 (0.9-2) 03/08/21 12:58 Lipase 11 U/L (11-82) 03/08/21 12:58 SARS-CoV-2, RNA, NAAT NEGATIVE (NEGATIVE) 03/08/21 12:57 Impressions Chest X-Ray 03/08/21 13:02 XR chest 1V portable CLINICAL HISTORY: Chest Pain. Cough. COMPARISON STUDY: 09/08/2020 TECHNIQUE: 1 view of the chest FINDINGS: Single frontal view of the chest demonstrates the cardiomediastinal silhouette to be within normal limits. There is again asymmetric elevation of the right hemidiaphragm. There is a decreased inspiratory effort as well with prominence of central bronchovascular markings. The lungs are otherwise clear of alveolar opacities. There is no evidence for pleural effusion. There is no evidence for vascular congestion. There is no acute osseous pathology. IMPRESSION: No acute cardiopulmonary disease. ACT 112: Negative or not required by law. Electronically signed by: Vinicius Weinstein M.D. 03/08/2021 1:42 PM PG Care Time/CCT Total # of Minutes Spent Total Time Spent with Patient: Total time spent is greater than 50% in coordination of care (as documented) at patient's floor/unit and/or counseling patient: Coding Level of Care Code 83802 Initial Inpt Care Lvl 3 Diagnoses PFO (patent foramen ovale) Q21.1 Hyperlipidemia E78.5 GERD (gastroesophageal reflux disease) K21.9 Asthma J45.909 Acute respiratory failure with hypoxia J96.01
[2021-03-08 15:33] LABS: Influenza A virus by PCR Negative (Neg); Influenza B virus by PCR Negative (Neg); RSV by PCR Negative (Neg); SARS CoV2 RNA(COVID-19) InHosp NEGATIVE (Negative)
[2021-03-08] MEDS ORDERED: oxyCODONE HCL IR 5 MG TAB (IMMEDIATE RELEASE) PO PRN (17:20)
[2021-03-08] MEDS ORDERED: FUROSEMIDE 20 MG TAB PO PRN (17:20)
[2021-03-08] MEDS ORDERED: ACETAMINOPHEN 325 MG TAB PO PRN (17:20)
[2021-03-08] MEDS ORDERED: ONDANSETRON INJ 2 MG/ML 2 ML VIAL IV PRN (17:20)
[2021-03-08] MEDS ORDERED: SODIUM CHLORIDE 0.65% NA SOLN 45 ML (OCEAN) NAE PRN (17:20)
[2021-03-08] MEDS: WARFARIN SOD 5 MG TAB PO SCH (18:46)
[2021-03-08] MEDS: ALBUTEROL HFA 8 GM INHALER INH SCH (19:13)
[2021-03-08] MEDS: POLYETHYLENE (MIRALAX) 17 GM PACK PO SCH (21:11)
[2021-03-08] MEDS: guaiFENesin 600 MG TABCR PO SCH (21:12)
[2021-03-08] MEDS: ATORVASTATIN 40 MG TAB PO SCH (21:12)
[2021-03-08] MEDS: lisinopril 5 MG TAB PO SCH (21:13)
[2021-03-08] MEDS: NORTRIPTYLINE HCL 25 MG CAP PO SCH (21:13)
[2021-03-08] MEDS: ARTIFICIAL TEARS OP SCH (21:15)
[2021-03-09] MEDS: ALBUTEROL HFA 8 GM INHALER INH SCH ×3 (00:44→12:09)
[2021-03-09] MEDS: LEVOTHYROXINE SODIUM 100 MCG TABLET PO SCH (05:36)
[2021-03-09 06:40] LABS: Basophils # (auto) 0.01 K/uL (0-0.2); Basophils % (auto) 0.2 %; Eosinophils # (auto) 0.02 K/uL (0-0.5); Eosinophils % (auto) 0.4 %; Hematocrit (blood only) 40.1 % (37-47); Hemoglobin 12.4 g/dL (12.0-16.0); INR 2.2 (0.9-1.1); Lymphocytes # (auto) 1.53 K/uL (1.2-3.4); Lymphocytes % (auto) 29.9 %; Mean Corpuscular Hemoglobin 27.9 pg (25-34); Mean Corpuscular Hgb Conc 30.9 g/dL (32-36); Mean Corpuscular Volume 90.1 fL (80-100); Mean Platelet Volume 8.5 fL (7.4-10.4); Monocytes # (auto) 0.51 K/uL (0.11-0.59); Neutrophils # (auto) 3.04 K/uL (1.4-6.5); Neutrophils % (auto) 59.5 %; Platelet Count 261 K/uL (130-400); Prothrombin Time 21.4 Seconds (9.0-12.0); RDW Coefficient of Variation 16.3 % (11.5-14.5); RDW Standard Deviation 54.1 fL (36.4-46.3); Red Blood Count 4.45 M/uL (4.2-5.4); White Blood Count 5.11 K/uL (4.8-10.8)
[2021-03-09 07:03] LABS: BUN Creatinine Ratio 15.5 (10-20); Creatinine Clr Calc Pharmacy 80.4 ml/min; Est GFR (Non-African American) 91.4 ml/min; Magnesium 1.9 mg/dl (1.7-2.4); Potassium 3.7 mmol/L (3.5-5.1)
[2021-03-09] MEDS: ARTIFICIAL TEARS OP SCH ×2 (07:54→20:14)
[2021-03-09] MEDS: POLYETHYLENE (MIRALAX) 17 GM PACK PO SCH ×2 (07:54→20:12)
[2021-03-09] MEDS: CHOLECALCIFEROL 1,000 UNITS 25 MCG TAB PO SCH (07:55)
[2021-03-09] MEDS: CALCIUM CARBONATE 1250MG TAB PO SCH (07:55)
[2021-03-09] MEDS: ADVANCED PROBIOTIC 1250 MG CAPSULE PO SCH (07:56)
[2021-03-09] MEDS: guaiFENesin 600 MG TABCR PO SCH ×2 (07:56→20:14)
[2021-03-09] MEDS: lisinopril 5 MG TAB PO SCH ×2 (07:56→20:13)
[2021-03-09] MEDS: methylPREDNISolone 40 MG in SYRINGE 0 ML IV SCH ×2 (07:57→20:13)
[2021-03-09] MEDS: LORATADINE 10 MG TAB PO SCH (07:57)
[2021-03-09] MEDS: CEROVITE ADV FORMULA TAB PO SCH (07:59)
[2021-03-09] MEDS: SERTRALINE HCL 50 MG TABLET PO SCH (07:59)
[2021-03-09] MEDS: PANTOprazole 40 MG TAB PO SCH (07:59)
[2021-03-09] MEDS ORDERED: dexAMETHasone 6 MG in SYRINGE 0 ML IV SCH (09:00)
[2021-03-09] MEDS: ALBUT/IPRATROP 3MG/0.5MG NEB 3 ML VIAL NEB SCH ×3 (11:25→19:22)
--- NOTE | 2021-03-09 12:54 | Hospitalist Progress Note ---
Date of Service March 09, 2021 Assessment & Plan (1) Acute respiratory failure with hypoxia: Plan: - Suspect this is in the setting of asthma exacerbation likely brought on by viral illness - COVID, Flu, RSV negative; CXR without pneumonia; afebrile; no leukocytosis -- Will obtain procalcitonin in AM - no indication for Abx at this time - Continue supplemental O2 and wean as tolerated; would likely need 2 step prior to D/C (2) Asthma: Plan: - With acute exacerbation - no wheezing currently on exam this AM however airflow seems tight; coughing with every deep breath - Had a small streak of blood in sputum and suspect this is likely from frequent coughing but will monitor in setting of Coumadin use - Duonebs QIDR; Nasal saline; Mucinex BID - Methylprednisolone 40 mg IV Q12H - She does take Lasix PRN - she may benefit from a dose given the bronchospastic cough (3) PFO (patent foramen ovale): Plan: - Patient has previously documented CVAs, felt that this was the cause. - Patient is on Coumadin, last INR at 2.2 - Continue Coumadin and monitor INR (4) Hyperlipidemia: Plan: - Continue Atorvastatin 40 mg HS (5) GERD (gastroesophageal reflux disease): Plan: - Protonix as Omeprazole interchange Plan: - Treatment as above and wean O2 as needed; from home and likely D/C in next 1-2 days Admission and Anticipated Discharge Date Admission Date: March 08, 2021 Subjective No acute events overnight. Still requiring supplemental O2 at this time. She coughs frequently with deep breaths and occasionally coughing sputum out. She looks fatigued and reports she feels it. She said she feels a bit better with ambulation when wearing oxygen. She has been using her incentive spirometer. She reports one episode of diarrhea yesterday. She verbalizes no new complaints Review of Systems Review of Systems: All systems reviewed & are unremarkable except as noted in Subjective Physical Exam Physical Exam: PHYSICAL EXAM General Appearance: WDWN in NAD who is A&O x 3 but fatigued appearing HEENT: Head is normocephalic/atraumatic; Hearing grossly intact Neck: Supple; Trachea midline; Neg JVD Heart: RRR with no M/G/R Lungs: CTA in all lung mooney but rather diminished however coughs with all deep breaths; Respirations unlabored; Neg accessory muscle use Abdomen: Soft, non-tender, non-distended; Positive BS x 4 quadrants Extremities: Neg cyanosis or edema Neurological: Speech clear; Gross motor/sensory function intact; Neg focal neurologic deficits Psychiatric: Appropriate mood/affect Skin: Normal Color; Warm/Dry Results & Data Results & Data ([facility]) Vital Signs (Past 12 Hours) Vital Signs Temp Pulse Pulse Resp BP Pulse Ox 03/09/21 11:26 81 16 96 03/09/21 11:16 36.7 C 74 20 123/82 92 03/09/21 09:00 75 03/09/21 07:24 84 18 94 03/09/21 07:12 36.6 C 72 20 147/91 H 94 03/09/21 03:00 36.8 C 90 20 133/87 93 03/09/21 01:15 88 PG Care Time/CCT Total # of Minutes Spent Total Time Spent with Patient: Total time spent is greater than 50% in coordination of care (as documented) at patient's floor/unit and/or counseling patient: Coding Level of Care Code 52520 Subseq Hosp Care Lvl 3 Diagnoses Acute respiratory failure with hypoxia J96.01 Asthma J45.909 PFO (patent foramen ovale) Q21.1 Hyperlipidemia E78.5 GERD (gastroesophageal reflux disease) K21.9
[2021-03-09] MEDS: WARFARIN SOD 5 MG TAB PO SCH (15:42)
[2021-03-09] MEDS: NORTRIPTYLINE HCL 25 MG CAP PO SCH (20:12)
[2021-03-09] MEDS: ATORVASTATIN 40 MG TAB PO SCH (20:14)
[2021-03-09] MEDS ORDERED: TRIAMCINOLONE ACET NASAL SPRAY 10.8ML BTL NAE SCH (21:00)
[2021-03-10] MEDS: LEVOTHYROXINE SODIUM 100 MCG TABLET PO SCH (05:55)
[2021-03-10] MEDS: ALBUT/IPRATROP 3MG/0.5MG NEB 3 ML VIAL NEB SCH (07:15)
[2021-03-10 07:29] LABS: Hematocrit (blood only) 40.1 % (37-47); Hemoglobin 12.5 g/dL (12.0-16.0); Mean Corpuscular Hemoglobin 27.9 pg (25-34); Mean Corpuscular Hgb Conc 31.2 g/dL (32-36); Mean Corpuscular Volume 89.5 fL (80-100); Mean Platelet Volume 8.3 fL (7.4-10.4); Platelet Count 262 K/uL (130-400); RDW Coefficient of Variation 16.2 % (11.5-14.5); RDW Standard Deviation 53.6 fL (36.4-46.3); Red Blood Count 4.48 M/uL (4.2-5.4); White Blood Count 5.44 K/uL (4.8-10.8)
[2021-03-10 07:38] LABS: INR 2.4 (0.9-1.1)
[2021-03-10 08:00] LABS: BUN Creatinine Ratio 18.5 (10-20); Calcium 8.9 mg/dl (8.5-10.1); Creatinine Clr Calc Pharmacy 71.7 ml/min; Est GFR (African American) 102.1 ml/min; Est GFR (Non-African American) 88.1 ml/min
[2021-03-10] MEDS: ADVANCED PROBIOTIC 1250 MG CAPSULE PO SCH (08:10)
[2021-03-10] MEDS: CEROVITE ADV FORMULA TAB PO SCH (08:10)
[2021-03-10] MEDS: methylPREDNISolone 40 MG in SYRINGE 0 ML IV SCH (08:11)
[2021-03-10] MEDS: CHOLECALCIFEROL 1,000 UNITS 25 MCG TAB PO SCH (08:11)
[2021-03-10] MEDS: PANTOprazole 40 MG TAB PO SCH (08:11)
[2021-03-10] MEDS: SERTRALINE HCL 50 MG TABLET PO SCH (08:11)
[2021-03-10] MEDS: CALCIUM CARBONATE 1250MG TAB PO SCH (08:12)
[2021-03-10] MEDS: ARTIFICIAL TEARS OP SCH (08:12)
[2021-03-10] MEDS: LORATADINE 10 MG TAB PO SCH (08:12)
[2021-03-10] MEDS: guaiFENesin 600 MG TABCR PO SCH (08:12)
[2021-03-10] MEDS: POLYETHYLENE (MIRALAX) 17 GM PACK PO SCH (08:13)
[2021-03-10] MEDS: lisinopril 5 MG TAB PO SCH (08:46)
[2021-03-10] MEDS ORDERED: metroNIDAZOLE 250 MG TAB PO SCH (09:00)
[2021-03-10] MEDS ORDERED: ALBUT/IPRATROP 3MG/0.5MG NEB 3 ML VIAL NEB PRN (10:23)
--- NOTE | 2021-03-10 10:30 | Discharge Summary ---
Date of Service March 10, 2021 Admission HPI Per Admitting Provider This is a 75-year-old female with past medical history of asthma, patent PFO being treated with Coumadin for secondary stroke prevention, hypothyroidism presents today complaining shortness of breath. Patient is a somewhat poor historian but I did speak to the daughter extensively over the phone. Apparently patient has been sick over the past 3-4 days. This is mostly mild shortness of breath/dyspnea on exertion. She has had a hacking, nonproductive cough. She denies any fevers or chills. She denies any loss of taste or smell. Her p.o.'s have been good and she has been having normal bowel movements with no nausea or vomiting. Patient and family are concerned as her daughter/son-in-law have been at her house multiple times over the past 1-2 weeks and recently been diagnosed with COVID. Patient is unvaccinated. Presentation to the ER, patient was found to have some mild wheezing. Her O2 sat was 87% on room air. Patient was on 2 L during my evaluation and she was 96% or more. She did not appear to be in any acute cardiopulmonary distress. Initial COVID RNA is pending. PCR for COVID was sent along with influenza and RSV PCR, all of which is pending at the time of this dictation. Patient will be placed in observation secondary to hypoxia. Principal Diagnosis Acute Hypoxic Respiratory Failure due to Asthma Exacerbation/Viral Upper Respiratory Infection Discharge Exam PHYSICAL EXAM General Appearance: WDWN in NAD who is A&O x 3 HEENT: Head is normocephalic/atraumatic; Hearing grossly intact Neck: Supple; Trachea midline; Neg JVD Heart: RRR with no M/G/R Lungs: Minimal scattered exp. wheeze; Respirations unlabored; Neg accessory muscle use Abdomen: Soft, non-tender, non-distended; Positive BS x 4 quadrants Extremities: Neg cyanosis or edema Neurological: Speech clear; Gross motor/sensory function intact; Neg focal neurologic deficits Psychiatric: Appropriate mood/affect Skin: Normal Color; Warm/Dry Discharge Data Allergies Allergy/AdvReac Type Severity Reaction Status Date / Time Iodinated Contrast Media Allergy Severe "couldn't Verified 03/08/21 13:46 breathe and really bad rash" iodine Allergy Severe "couldn't Verified 03/08/21 13:46 breathe and really bad rash" nickel Allergy Severe " open Verified 03/08/21 13:46 sores" Penicillins Allergy Severe shortness Verified 03/08/21 13:46 of breath promethazine Allergy Severe "couldn't Verified 03/08/21 13:46 breathe" red (food color) Allergy Severe "problems Verified 03/08/21 13:46 breathing" Sulfa (Sulfonamide Allergy Severe facial Verified 03/08/21 13:46 Antibiotics) swelling Tetracyclines Allergy Severe "couldn't Verified 03/08/21 13:46 breathe and rash" levofloxacin Allergy Intermediate HIVES, LEG Verified 03/08/21 13:46 PAIN tramadol Allergy Intermediate hallucinati Verified 03/08/21 13:46 ons cephalexin Allergy Mild Rash Verified 03/08/21 13:46 house dust Allergy Mild "sniffles/watery Verified 03/08/21 13:46 eyes" ragweed pollen Allergy Mild "sniffles" Verified 03/08/21 13:46 azithromycin [From Zithromax] AdvReac Mild Rash Verified 03/08/21 13:46 mayda chews Allergy Severe "couldn't Uncoded 03/08/21 13:46 breathe right" Consultations 03/08/21 14:43 ED Decision to Admit Stat Hospital Course (1) Acute respiratory failure with hypoxia: - Suspect this is in the setting of asthma exacerbation likely brought on by viral illness - COVID, Flu, RSV negative; CXR without pneumonia; afebrile; no leukocytosis -- Procal negative - no indication for Abx at this time - Completed 2 step and did not qualify for supplemental O2 (2) Asthma: - With acute exacerbation - IMPROVING - Continue home inhalers/nebs - Taper Prednisone over next few days (3) PFO (patent foramen ovale): - Patient has previously documented CVAs, felt that this was the cause. - Patient is on Coumadin, last INR at 2.2 - Continue Coumadin and monitor INR (4) Hyperlipidemia: - Continue Atorvastatin 40 mg HS (5) GERD (gastroesophageal reflux disease): - Omeprazole e Total Time Total Time Spent Total Time Spent (In Minutes): Spent greater than 30 minutes preparing patient for discharge. This includes discussion with patient/family, assessment, intervention, medication reconciliation, and coordination of care. Discharge Plan Discharge Items Patient Disposition: Home - Self-Care Reason For Visit: HYPOXIA Discharge Diagnosis: Asthma Exacerbation Activity: Per Instructions section Lifting: Gradually increase as tolerated Non-emergency contact: Primary Care Provider Call non-emergency contact if: you have any medication questions, your symptoms worsen and you have a fever Follow-up/Referrals: Lary Cohn CRNP [Primary Care Provider] - 03/18/21 10:30 am Diet: Heart Healthy Addtl Attending Provider Instructions: Asthma Exacerbation and Viral Upper Respiratory Infection: - You were admitted due to lower oxygen that is likely due to an exacerbation of your asthma. Suspect you had a viral upper respiratory infection that unfortunately dropped down into the chest. Thankfully there is no pneumonia on x-ray. You have no had a fever, no elevation in your white blood cell count, and a blood test to look for bacterial infections (procalcitonin) was negative - As well - COVID, Influenza, and RSV testing was negative - However, if you start to develop a fever or feel like you are worsening. Please talk with your family doctor or get evaluated because sometimes these viral illness can then lead to bacterial infections. - We are going to taper your Prednisone down over the next few days. This is to help inflammation in the airways to make it easier to breath. Start this tomorrow on 03/11 as you had a dose in the hospital -- Prednisone 40 mg daily x 2 days then 30 mg x 2 days then 20 mg x 2 days, then 10 mg x 2 days - Continue your normal inhalers and nebulizers as previously prescribed - Continue with the Mucinex to help thin the mucous making it easier to cough out. Green mucous does not mean this is bacterial but if you feel like you are not getting better, again please talk with your doctor or get evaluated - You had a walking test performed prior to leaving that shows you do not qualify for oxygen at this time. Coumadin: - Continue your coumadin as previously prescribed. Your INR (Coumadin Level) is 2.4 today Home Meds: - Continue your home medications as previously prescribed. We did not make adjustments to these Pending Studies at Discharge: No Stand-Alone Forms: [facility], Smoking Cessation Medications and DC Order Prescriptions: New prednisone 10 mg tablet 10 mg PO DIRECTED Qty: 20 RF: 0 Continued sertraline 50 mg tablet 50 mg PO QAM Qty: 90 RF: 3 warfarin 5 mg tablet 5 mg PO .COMPLEX Qty: 100 RF: 3 budesonide 0.5 mg/2 mL suspension for nebulization 0.5 mg INHALATION BID PRN (Reason: Shortness Of Breath R06.2) Qty: 180 RF: 3 omeprazole 20 mg capsule,delayed release(DR/EC) 20 mg PO QAM Qty: 90 RF: 3 lisinopril 5 mg tablet 5 mg PO BID Qty: 180 RF: 3 fluticasone propion-salmeterol 500-50 mcg/dose blister with device 1 ea Inhalation BID Qty: 180 RF: 3 atorvastatin [Lipitor] 40 mg tablet 40 mg PO HS Qty: 90 RF: 3 furosemide 20 mg tablet 20 mg PO DAILY PRN (Reason: edema) Qty: 30 RF: 5 nortriptyline 75 mg capsule 75 mg PO QPM Qty: 90 RF: 3 levothyroxine 100 mcg capsule 100 mcg PO DAILY Qty: 30 RF: 2 levalbuterol HCl [Xopenex] 1.25 mg/3 mL solution for nebulization 1.25 mg inhalation Q8H PRN (Reason: shortness of breath or wheezing) Qty: 180 RF: 3 cholecalciferol (vitamin D3) 2,000 unit capsule 2,000 units PO QAM RF: 0 polyethylene glycol 3350 [Miralax] 17 gram Powder In Packet 17 g PO BID RF: 0 loratadine [Claritin] 10 mg Tablet 10 mg PO QAM RF: 0 Saline Nasal 0.65 % Aerosol,[place] 1 spray INTRANASAL Q OTHER DAY RF: 0 Acidophilus Tablet,Chewable 1 tab PO QAM RF: 0 Systane Balance 0.6 % Drops 1 drp OPB BID RF: 0 guaifenesin [Mucinex] 600 mg Tablet Extended Release 12hr 600 mg PO Q12H RF: 0 Ocuvite Eye Health 50 mg-15 unit- 4.5 mg-2.5 mg Tablet,Chewable 1 tab PO QAM RF: 0 Nutri-Drink Liquid 1 ea PO BID RF: 0 calcium carbonate 500 mg calcium (1,250 mg) Tablet 500 mg PO DAILY RF: 0 acetaminophen 650 mg Tablet Extended Release 650 mg PO TID PRN (Reason: Pain) RF: 0 oxycodone 5 mg Tablet 5 mg PO Q6 PRN (Reason: pain) Qty: 30 RF: 0 Discharge Orders: Discharge Order (Routine); Ordered 03/10/21 Ordered By: Ofe Dominguez Admission Data Admit Date/Time: 03/08/21 15:14 Attending Provider: Dong Domínguez Admit Provider: William Richardson Primary Care Provider: Lary Cohn Other Providers: William Richardson Other Interventions: Discharge Summary Assessment (RN) Last Done: 03/10/21 12:41 Supervising Physician Co-Signing Physician Notes Attending note: patient seen and examined with Ofe Dominguez PA-C. I agree with her discharge summary. I personally reviewed the labs and imaging findings. Patient doing well the day of discharge, no wheezing, breathing better, she feels confident about going home. She is eating well, no other complaints. - Asthma exacerbation: responded well to nebulizers and steroids, will discharge home on steroid taper, see above Coding Level of Care Code D/C DAY MANAGEMENT >30 MINS Diagnoses Acute respiratory failure with hypoxia J96.01 Asthma J45.909 PFO (patent foramen ovale) Q21.1 Hyperlipidemia E78.5 GERD (gastroesophageal reflux disease) K21.9
== END 2021-03-10 14:25 | disposition home or self-care (01) | DRG 189 ==
LOC: ED 12:45 → SUATTDRO 15:14 → 2N 15:14
DX: Z91.041 Radiographic dye allergy status; Z86.16 Personal history of COVID-19; Z88.0 Allergy status to penicillin; E03.9 Hypothyroidism, unspecified; Z87.891 Personal history of nicotine dependence; J96.01 Acute respiratory failure with hypoxia; J06.9 Acute upper respiratory infection, unspecified; Z79.01 Long term (current) use of anticoagulants; K21.9 Gastro-esophageal reflux disease without esophagitis; Z79.890 Hormone replacement therapy; Q21.1 Atrial septal defect; J45.901 Unspecified asthma with (acute) exacerbation; Z88.1 Allergy status to other antibiotic agents; I65.1 Occlusion and stenosis of basilar artery; E78.5 Hyperlipidemia, unspecified

== ENCOUNTER 2021-03-25 14:41 | Inpatient (IN) ==
[2021-03-25] MEDS ORDERED: VANCOMYCIN CONSULT ACTIVE PRN (15:19)
[2021-03-25] MEDS ORDERED: cefTRIAXone SODIUM 2,000 MG/70 ML BAG IV STA (15:19)
[2021-03-25] MEDS ORDERED: VANCOMYCIN HCL 1,500 MG in SODIUM CHLORIDE 0.9% 500 ML IV ONE (15:19)
--- NOTE | 2021-03-25 15:24 | Emergency Department Note ---
Impression & Plan Bursitis, olecranon, alf (current) use of anticoagulants, Cellulitis ED Provider Note NAME: AUSTIN BURRELL AGE: 75 SEX: F : 1945 ARRIVES VIA: Walk-In INFORMANT: Patient ED PROVIDER(S): Uli Grey DO CHIEF COMPLAINT: Right elbow pain HPI: Patient is a 75-year-old female who presents ER for right elbow pain. She notes this started within the past 72 to 48 hours. She is not sure when she hit her elbow initially but notes that she does have a wound there. She was seen by her PCP and initially referred in yesterday. She was discharged on clindamycin to trial out patient medication after IV rocephin. Erythema has continued to get worse. She denies any fevers. No headache or change in vision. No chest pain or shortness of breath. No nausea, vomiting, or diarrhea. No dysuria, urgency, or frequency. No other exacerbating or remitting factors. No tingling or numbness. ROS: See above HPI for pertinent positives & negatives. A total of 10 systems reviewed and were otherwise negative. PAST MEDICAL HISTORY:See Below PAST SURGICAL HISTORY:See Below FAMILY HISTORY:See Below SOCIAL HISTORY:See Below HOME MEDICATIONS:See Below ALLERGIES:See Below VITALS:See Below PHYSICAL EXAMINATION: GENERAL: Sitting up in bed, alert, well appearing, well nourished, no distress, non-toxic EYE EXAM: normal conjunctiva. PERRL and EOM's grossly intact. OROPHARYNX: no exudate, no erythema, lips, buccal mucosa, and tongue normal and mucous membranes are moist NECK: supple, no nuchal rigidity, no adenopathy, non-tender LUNGS: Clear to auscultation. Normal chest wall mechanics HEART: no murmurs, S1 normal and S2 normal ABDOMEN: abdomen soft, non-tender, normo-active bowel sounds, no masses, no rebound or guarding. UPPER EXTREMITIES: upper extremities are grossly normal. Erythema and swelling over the right elbow tracking out bilaterally with a wound over the elbow LOWER EXTREMITIES: No pitting edema. NEURO EXAM: Normal sensorium, cranial nerves II-XII grossly intact, normal speech, no gross weakness of arms, no gross weakness of legs. MEDICAL DECISION MAKING: Patient is a 75-year-old female who presents the ER referred in by PCP for right elbow infection. She was seen here yesterday for the same symptoms as they had just started within the past 24 hours and placed on oral clindamycin due to antibiotic restraints. She was given IV antibiotics. Labs show mild leukocytosis 12,000. No significant anemia. BMP with LFTs bilirubin was unremarkable. Covid was negative. Did have significant enlargement of the right elbow within 24 hours and the erythema has gotten worse. She was given IV Vanco and Rocephin discussed the hospitalist admitted for further work-up. Triage Nursing notes reviewed. Limited review of prior medical records performed Vital Signs: reviewed and remarkable for HTn and tachy Differential diagnosis: Cellulitis, abscess, MRSA infection, DVT, necrotizing fasciitis, dermatitis, drug eruption, allergic reaction, as well as other pathologies. ER treatment provided: See below Diagnostics interpreted by me: ECG: none Cardiac Monitoring: An order was placed for continuous cardiac monitoring. The monitor shows a rate of 82 with sinus rhythm. Laboratory studies: As stated above and show below. Imaging studies: See below Consultation(s): Discussed with Cesar Thakur for further evaluation Procedures: none Critical Care: None Past Med/Surg History Medical History Asthma Basilar artery stenosis Breath shortness Chronic back pain CVA (cerebrovascular accident) Depression GERD (gastroesophageal reflux disease) History of COVID-19 Hx of esophageal varices Hyperlipidemia Hypertension Hypothyroidism Hypoxia Migraine Osteoarthritis PFO (patent foramen ovale) Scoliosis Viral URI Surgical History History of bilateral cataract extraction History of bilateral tubal ligation History of colonoscopy with polypectomy History of dilatation and curettage History of esophagogastroduodenoscopy (EGD) History of hip replacement History of hysterectomy History of tooth extraction Family History Mother Family history of diabetes mellitus Myocardial infarction Sister Family history of diabetes mellitus Family history of rectal cancer Myocardial infarction Sister Family history of diabetes mellitus Myocardial infarction Brother Family history of diabetes mellitus Myocardial infarction Brother Family history of diabetes mellitus Family/Other Breast cancer Father Myocardial infarction Other Cancer Gallbladder disease Heart disease Hypertension Lung disease No family history of adverse response to anesthesia Denies family history of Ovarian cancer Prostate cancer Colorectal cancer Social History Smoking Status: Never smoker Second Hand Exposure: No; Do You Dip or Chew Tobacco: No; Tobacco Cessation Education Requested by Patient: No Hx Alcohol Use: No Hx Substance Use: No Preferred Language: German Communication Ability: Effective Air Traffic Control Equipment Repairer Required: No Beliefs That Will Affect Care: None marital status: Current Living Situation: Spouse Current Living Situation Comment: and son current occupational status: retired How many Children do You have: 5 Other Information That Helps Us Care for You: No Feels Safe at Home: Yes Safety Concerns: Feels Safe At This Time Childhood Exposure to Second-Hand Smoke: Yes caffeine: Yes Dental Care, Regularly: Yes Seatbelt Use: always Assistive Devices: Glasses Allergies Allergies Allergy/AdvReac Type Severity Reaction Status Date / Time Iodinated Contrast Media Allergy Severe "couldn't Verified 03/24/21 11:41 breathe and really bad rash" iodine Allergy Severe "couldn't Verified 03/24/21 11:41 breathe and really bad rash" nickel Allergy Severe " open Verified 03/24/21 11:41 sores" Penicillins Allergy Severe shortness Verified 03/24/21 11:41 of breath promethazine Allergy Severe "couldn't Verified 03/24/21 11:41 breathe" red (food color) Allergy Severe "problems Verified 03/24/21 11:41 breathing" Sulfa (Sulfonamide Allergy Severe facial Verified 03/24/21 11:41 Antibiotics) swelling Tetracyclines Allergy Severe "couldn't Verified 03/24/21 11:41 breathe and rash" levofloxacin Allergy Intermediate HIVES, LEG Verified 03/24/21 11:41 PAIN tramadol Allergy Intermediate hallucinati Verified 03/24/21 11:41 ons cephalexin Allergy Mild Rash Verified 03/24/21 11:41 house dust Allergy Mild "sniffles/watery Verified 03/24/21 11:41 eyes" ragweed pollen Allergy Mild "sniffles" Verified 03/24/21 11:41 azithromycin [From Zithromax] AdvReac Mild Rash Verified 03/24/21 11:41 mayda chews Allergy Severe "couldn't Uncoded 03/24/21 11:41 breathe right" Home Meds Home Medications Medication Instructions Recorded Confirmed Lactobacillus acidophilus 1 tab PO QAM 03/30/18 03/25/21 (Acidophilus) guaifenesin 600 mg tablet, 600 mg PO Q12H 03/30/18 03/25/21 extended release 12 hr (Mucinex) loratadine 10 mg tablet (Claritin) 10 mg PO QAM 03/30/18 03/25/21 polyethylene glycol 3350 17 gram 17 g PO BID 03/30/18 03/25/21 oral powder packet (Miralax) propylene glycol 0.6 % eye drops 1 drp OPB BID 03/30/18 03/25/21 (Systane Balance) sodium chloride 0.65 % nasal spray 1 spray INTRANASAL Q OTHER DAY 03/30/18 03/25/21 aerosol (Saline Nasal) vit C 50 mg-E 15 unit-zinc cit 4.5 1 tab PO QAM 03/30/18 03/25/21 mg-lutein 2.5 mg-zeaxan chew tablet (Instagarage) food supplemt, lactose-reduced 1 ea PO BID 12/10/18 03/25/21 (Nutri-Drink) calcium carbonate 500 mg calcium 500 mg PO DAILY 03/08/21 03/25/21 (1,250 mg) tablet acetaminophen 650 mg 650 mg PO HS 03/25/21 03/25/21 tablet,extended release cholecalciferol (vitamin D3) 125 125 mcg PO DAILY 03/25/21 03/25/21 mcg (5,000 unit) tablet (Vitamin D3) Previous Rx's Medication Instructions Recorded sertraline 50 mg tablet 50 mg PO QAM #90 tab 02/24/20 warfarin 5 mg tablet 5 mg PO .COMPLEX #100 tab 07/09/20 lisinopril 5 mg tablet 5 mg PO BID #180 tab 12/25/20 omeprazole 20 mg capsule,delayed 20 mg PO QAM #90 cap 12/25/20 release atorvastatin 40 mg tablet (Lipitor) 40 mg PO HS #90 tab 01/21/21 fluticasone 500 mcg-salmeterol 50 1 ea INHALATION BID #180 ea 01/21/21 mcg/dose blistr powdr for inhalation furosemide 20 mg tablet 20 mg PO DAILY PRN #30 tab 01/21/21 nortriptyline 75 mg capsule 75 mg PO QPM #90 cap 01/21/21 levothyroxine 100 mcg capsule 100 mcg PO DAILY #30 cap 02/05/21 budesonide 0.5 mg/2 mL suspension 0.5 mg INHALATION BID PRN #180 ml 03/18/21 for nebulization levalbuterol HCl 1.25 mg/3 mL 1.25 mg INHALATION Q8H PRN #180 ml 03/18/21 solution for nebulization (Xopenex) prednisone 10 mg tablet 10 mg PO .COMPLEX #15 tab 03/18/21 clindamycin HCl 150 mg capsule 450 mg PO Q8H 10 Days #90 cap 03/24/21 Results & Data (ED) Vital Signs Vital Signs - 24 hr 03/25/21 14:43 03/25/21 14:48 03/25/21 15:50 Temperature 36.3 C L Temperature Source Temporal Artery Scan Pulse Rate 104 H Pulse Rate [Left Finger] 103 H 93 H Pulse Rhythm Regular Pulse Rhythm [Left Finger] Regular Pulse Strength Normal Pulse Strength [Left Finger] Normal Respiratory Rate 20 16 20 Respiratory Effort / Characteristics Non-Labored Non-Labored Non-Labored Respiratory Depth Normal Normal Normal Respiratory Pattern Regular Blood Pressure 163/96 H Blood Pressure Mean 118 Blood Pressure Position Lying Pulse Oximetry 91 91 95 Oxygen Delivery Method Room Air Room Air Room Air Sepsis Recent Fever Within 48 Hours No Sepsis New/Unexplained Change in Mental Status No Sepsis Action Taken by Nursing No Action Required Laboratory Data Result diagrams: 03/25/21 15:19 03/25/21 15:19 Lab Results 03/25/21 03/25/21 03/25/21 Range/Units 14:54 15:19 15:19 WBC 12.02 H (4.8-10.8) K/uL RBC 4.42 (4.2-5.4) M/uL Hgb 12.6 (12.0-16.0) g/dL Hct 39.7 (37-47) % MCV 89.8 (80-100) fL MCH 28.5 (25-34) pg MCHC 31.7 L (32-36) g/dL RDW Std Deviation 54.8 H (36.4-46.3) fL RDW Coeff of Susi 16.6 H (11.5-14.5) % Plt Count 199 (130-400) K/uL MPV 8.3 (7.4-10.4) fL Immature Gran % (Auto) 0.2 % Neut % (Auto) 84.8 % Lymph % (Auto) 8.7 % Ada % (Auto) 6.2 % Eos % (Auto) 0.1 % Baso % (Auto) 0.0 % Neut # (Auto) 10.19 H (1.4-6.5) K/uL Lymph # (Auto) 1.04 L (1.2-3.4) K/uL Ada # (Auto) 0.75 H (0.11-0.59) K/uL Eos # (Auto) 0.01 (0-0.5) K/uL Baso # (Auto) 0.00 (0-0.2) K/uL Immature Gran # (Auto) 0.03 H (0.00-0.02) K/uL Sodium 135 L (136-145) mmol/L Potassium 3.6 (3.5-5.1) mmol/L Chloride 99 (98-107) mmol/L Carbon Dioxide 27 (21-32) mmol/L Anion Gap 9 (3-11) BUN 10 (6-23) mg/dl Creatinine 0.65 (0.6-1.2) mg/dl Est Cr Clr Drug Dosing 72.2 ml/min Est GFR ( Amer) 102.1 ml/min Est GFR (Non-Af Amer) 88.1 ml/min BUN/Creatinine Ratio 15.4 (10-20) Glucose 121 H (70-99(Fasting)) mg/dl Calcium 8.9 (8.5-10.1) mg/dl Total Bilirubin 0.5 (0.2-1.0) mg/dl AST 22 (13-39) U/L ALT 37 (7-52) U/L Alkaline Phosphatase 94 (34-104) U/L Total Protein 7.1 (6.0-8.3) gm/dl Albumin 4.0 (3.4-5.0) gm/dl Globulin 3.1 (2.5-4.0) gm/dl Albumin/Globulin Ratio 1.3 (0.9-2) SARS-CoV-2, RNA, NAAT NEGATIVE (NEGATIVE) Administered Medications Discontinued Medications Ceftriaxone Sodium (Rocephin) 2,000 mg in 70 mls @ 140 mls/hr IV NOW STA Stop: 03/25/21 15:48 Last Infusion: 03/25/21 16:40 Dose: 0 mls/hr Documented by: [id number] Admin: 03/25/21 15:48 Dose: 140 mls/hr Documented by: [id number] Vancomycin HCl 1,500 mg/ (Sodium Chloride) 530 mls @ 200 mls/hr IV NOW ONE Stop: 03/25/21 17:57 Last Admin: 03/25/21 16:36 Dose: 200 mls/hr Documented by: [id number] Discharge Plan Visit Data Chief Complaint: Infection, Wound Stated Complaint: OPEN CELLULITIS ON RT ARM ED Provider: Uli Grey Discharge Problem: Bursitis, olecranon, alf (current) use of anticoagulants, Cellulitis Patient Disposition: Admitted As Inpatient Discharge Instructions Interventions: ED Discharge Assessment Last Done: 03/25/21 17:04
[2021-03-25 15:30] LABS: Eosinophils # (auto) 0.01 K/uL (0-0.5); Eosinophils % (auto) 0.1 %; Hematocrit (blood only) 39.7 % (37-47); Hemoglobin 12.6 g/dL (12.0-16.0); Immature Granulocytes # (auto) 0.03 K/uL (0.00-0.02); Immature Granulocytes % (auto) 0.2 %; Lymphocytes # (auto) 1.04 K/uL (1.2-3.4); Lymphocytes % (auto) 8.7 %; Mean Corpuscular Hemoglobin 28.5 pg (25-34); Mean Corpuscular Hgb Conc 31.7 g/dL (32-36); Mean Corpuscular Volume 89.8 fL (80-100); Mean Platelet Volume 8.3 fL (7.4-10.4); Monocytes # (auto) 0.75 K/uL (0.11-0.59); Monocytes % (auto) 6.2 %; Neutrophils # (auto) 10.19 K/uL (1.4-6.5); Neutrophils % (auto) 84.8 %; Platelet Count 199 K/uL (130-400); RDW Coefficient of Variation 16.6 % (11.5-14.5); RDW Standard Deviation 54.8 fL (36.4-46.3); Red Blood Count 4.42 M/uL (4.2-5.4); White Blood Count 12.02 K/uL (4.8-10.8)
[2021-03-25 15:59] LABS: Albumin Globulin Ratio 1.3 (0.9-2); BUN Creatinine Ratio 15.4 (10-20); Bilirubin,Total 0.5 mg/dl (0.2-1.0); Calcium 8.9 mg/dl (8.5-10.1); Creatinine Clr Calc Pharmacy 72.2 ml/min; Est GFR (African American) 102.1 ml/min; Est GFR (Non-African American) 88.1 ml/min; Globulin 3.1 gm/dl (2.5-4.0); Potassium 3.6 mmol/L (3.5-5.1); Total Protein 7.1 gm/dl (6.0-8.3)
--- NOTE | 2021-03-25 16:19 | History & Physical Report ---
Date of Service March 25, 2021 Assessment & Plan (1) Cellulitis: Plan: Rapid progression of erythema on ceftriaxone given yesterday. Suspect MRSA. Follow up blood cultures taken today however already had antibiotics yesterday. Agree with antibiotics vanc + ceftriaxone, switch to cefepime if not improving. Consult orthopedics as appears to originate from elecranon bursa - pt requested Patrick Hebert for olecranon bursitis as below (2) Bursitis, olecranon: Plan: As above, suspect origin of cellulitis although I do not feel anything drainable at this time (3) Hypothyroidism: Plan: TSH 5.45 in January, no need to repeat acutely Continue on current levothyroxine 100 mcg PO daily (4) History of CVA (cerebrovascular accident): Plan: with PFO - continue on current warfarin regimen with INR checks daily (5) GERD (gastroesophageal reflux disease): Plan: Switch omeprazole to pantoprazole per hospital formulary (6) Depression: Plan: Continue sertraline 50mg PO daily (7) HTN (hypertension): Plan: Continue lisinopril 5mg PO BID (8) Poor peripheral circulation: Plan: Suspect Raynauds although patient reports no prior diagnosis of this. Consider switching lisinopril to amlodipine however this is longstanding and no threatening ischemia currently therefore no urgency to change this currently. Plan: VTE Prophylaxis - warfarin Diet - regular Disposition - admit to med/surg Admission and Anticipated Discharge Date Admission Date: March 25, 2021 History of Present Illness Chief Complaint: Worsening erythema on right arm Primary Care Provider: TREY Warren Dayna Thomas is a 75 year old female who presents to the ER due to worsening cellulitis on her right arm originating from her right elbow. This is despite receiving a dose of ceftriaxone in the emergency room yesterday and she was sent home with clindamycin due to multiple drug allergies as listed. Despite this, th e erythema has rapidly progressed over the last 24 hours involving the majority of her forearm and much extended from marked area which she reports was where it was the previous night. She denies any fever or chills. Initial injury she suspect was just from dry skin. She first noticed erythema 3 days ago. She was on clarithromycin at the time for a sinus infection therefore developed the cellulitis despite being on this. In the ER she was prescribed vancomycin and ceftriaxone as previous has not had adequate MRSA coverage. She reports no history of MRSA infections. She was referred to medicine for admission and ongoing management of cellulitis. Allergies Allergy/AdvReac Type Severity Reaction Status Date / Time Iodinated Contrast Media Allergy Severe "couldn't Verified 03/24/21 11:41 breathe and really bad rash" iodine Allergy Severe "couldn't Verified 03/24/21 11:41 breathe and really bad rash" nickel Allergy Severe " open Verified 03/24/21 11:41 sores" Penicillins Allergy Severe shortness Verified 03/24/21 11:41 of breath promethazine Allergy Severe "couldn't Verified 03/24/21 11:41 breathe" red (food color) Allergy Severe "problems Verified 03/24/21 11:41 breathing" Sulfa (Sulfonamide Allergy Severe facial Verified 03/24/21 11:41 Antibiotics) swelling Tetracyclines Allergy Severe "couldn't Verified 03/24/21 11:41 breathe and rash" levofloxacin Allergy Intermediate HIVES, LEG Verified 03/24/21 11:41 PAIN tramadol Allergy Intermediate hallucinati Verified 03/24/21 11:41 ons cephalexin Allergy Mild Rash Verified 03/24/21 11:41 house dust Allergy Mild "sniffles/watery Verified 03/24/21 11:41 eyes" ragweed pollen Allergy Mild "sniffles" Verified 03/24/21 11:41 azithromycin [From Zithromax] AdvReac Mild Rash Verified 03/24/21 11:41 mayda chews Allergy Severe "couldn't Uncoded 03/24/21 11:41 breathe right" Home Medications Medication Instructions Recorded Confirmed Type Lactobacillus acidophilus 1 tab PO QAM 03/30/18 03/25/21 History (Acidophilus) guaifenesin 600 mg tablet, 600 mg PO Q12H 03/30/18 03/25/21 History extended release 12 hr (Mucinex) loratadine 10 mg tablet (Claritin) 10 mg PO QAM 03/30/18 03/25/21 History polyethylene glycol 3350 17 gram 17 g PO BID 03/30/18 03/25/21 History oral powder packet (Miralax) propylene glycol 0.6 % eye drops 1 drp OPB BID 03/30/18 03/25/21 History (Systane Balance) sodium chloride 0.65 % nasal spray 1 spray INTRANASAL Q OTHER DAY 03/30/18 03/25/21 History aerosol (Saline Nasal) vit C 50 mg-E 15 unit-zinc cit 4.5 1 tab PO QAM 03/30/18 03/25/21 History mg-lutein 2.5 mg-zeaxan chew tablet (Ecochlor [facility]) food supplemt, lactose-reduced 1 ea PO BID 12/10/18 03/25/21 History (Nutri-Drink) sertraline 50 mg tablet 50 mg PO QAM #90 tab 02/24/20 03/25/21 Rx warfarin 5 mg tablet 5 mg PO .COMPLEX #100 tab 07/09/20 03/25/21 Rx lisinopril 5 mg tablet 5 mg PO BID #180 tab 12/25/20 03/25/21 Rx omeprazole 20 mg capsule,delayed 20 mg PO QAM #90 cap 12/25/20 03/25/21 Rx release atorvastatin 40 mg tablet (Lipitor) 40 mg PO HS #90 tab 01/21/21 03/25/21 Rx fluticasone 500 mcg-salmeterol 50 1 ea INHALATION BID #180 ea 01/21/21 03/25/21 Rx mcg/dose blistr powdr for inhalation furosemide 20 mg tablet 20 mg PO DAILY PRN #30 tab 01/21/21 03/25/21 Rx nortriptyline 75 mg capsule 75 mg PO QPM #90 cap 01/21/21 03/25/21 Rx levothyroxine 100 mcg capsule 100 mcg PO DAILY #30 cap 02/05/21 03/25/21 Rx calcium carbonate 500 mg calcium 500 mg PO DAILY 03/08/21 03/25/21 History (1,250 mg) tablet budesonide 0.5 mg/2 mL suspension 0.5 mg INHALATION BID PRN #180 ml 03/18/21 03/25/21 Rx for nebulization levalbuterol HCl 1.25 mg/3 mL 1.25 mg INHALATION Q8H PRN #180 ml 03/18/21 03/25/21 Rx solution for nebulization (Xopenex) prednisone 10 mg tablet 10 mg PO .COMPLEX #15 tab 03/18/21 03/25/21 Rx clindamycin HCl 150 mg capsule 450 mg PO Q8H 10 Days #90 cap 03/24/21 03/25/21 Rx acetaminophen 650 mg 650 mg PO HS 03/25/21 03/25/21 History tablet,extended release cholecalciferol (vitamin D3) 125 125 mcg PO DAILY 03/25/21 03/25/21 History mcg (5,000 unit) tablet (Vitamin D3) Past Med/Surg History Medical History Asthma Basilar artery stenosis Breath shortness Chronic back pain CVA (cerebrovascular accident) Depression GERD (gastroesophageal reflux disease) History of COVID-19 Hx of esophageal varices Hyperlipidemia Hypertension Hypothyroidism Hypoxia Migraine Osteoarthritis PFO (patent foramen ovale) Scoliosis Viral URI Surgical History History of bilateral cataract extraction History of bilateral tubal ligation History of colonoscopy with polypectomy History of dilatation and curettage History of esophagogastroduodenoscopy (EGD) History of hip replacement History of hysterectomy History of tooth extraction Family History Mother Family history of diabetes mellitus Myocardial infarction Sister Family history of diabetes mellitus Family history of rectal cancer Myocardial infarction Sister Family history of diabetes mellitus Myocardial infarction Brother Family history of diabetes mellitus Myocardial infarction Brother Family history of diabetes mellitus Family/Other Breast cancer Father Myocardial infarction Other Cancer Gallbladder disease Heart disease Hypertension Lung disease No family history of adverse response to anesthesia Denies family history of Ovarian cancer Prostate cancer Colorectal cancer Social History Smoking Status: Never smoker Second Hand Exposure: No; Do You Dip or Chew Tobacco: No; Tobacco Cessation Education Requested by Patient: No Hx Alcohol Use: No Hx Substance Use: No Preferred Language: [place] Communication Ability: Effective Medicaid Specialist Required: No Beliefs That Will Affect Care: None marital status: Current Living Situation: Spouse Current Living Situation Comment: and son current occupational status: retired How many Children do You have: 5 Other Information That Helps Us Care for You: No Feels Safe at Home: Yes Safety Concerns: Feels Safe At This Time Childhood Exposure to Second-Hand Smoke: Yes caffeine: Yes Dental Care, Regularly: Yes Seatbelt Use: always Assistive Devices: Glasses Review of Systems Review of Systems: All systems reviewed & are unremarkable except as noted in HPI & below Physical Exam Constitutional: WD/WN, vitals as above ENMT: Mouth: oral mucous membranes not dry Respiratory: normal respiratory effort, lungs clear to auscultation Cardiovascular: RRR, no murmur, no edema Gastrointestinal (Abdomen): normal bowel sounds, soft, nontender, no hepatosplenomegaly Skin: + erythema (from right elbow to wrist on dorsal aspect of forearm) eschar over olecranon bursa but no fluctuance appreciated Neurologic: moves all extremities and awake; not confused Psychiatric: A+Ox3, euthymic affect Results & Data Results & Data ([facility]) Vital Signs (Past 12 Hours) Vital Signs Temp Pulse Pulse Resp BP Pulse Ox 03/25/21 15:50 93 H 20 95 03/25/21 14:48 103 H 16 91 03/25/21 14:43 36.3 C L 104 H 20 163/96 H 91 Laboratory Results Abnormal lab results 03/25/21 03/25/21 Range/Units 15:19 15:19 WBC 12.02 H (4.8-10.8) K/uL MCHC 31.7 L (32-36) g/dL RDW Std Deviation 54.8 H (36.4-46.3) fL RDW Coeff of Susi 16.6 H (11.5-14.5) % Neut # (Auto) 10.19 H (1.4-6.5) K/uL Lymph # (Auto) 1.04 L (1.2-3.4) K/uL Charlton # (Auto) 0.75 H (0.11-0.59) K/uL Immature Gran # (Auto) 0.03 H (0.00-0.02) K/uL Sodium 135 L (136-145) mmol/L Glucose 121 H (70-99(Fasting)) mg/dl Medications Administered ER Medications Given: Vancomycin 1500mg IV Ceftriaxone 2g IV Code Status & VTE Plan Code Status Full VTE Prophylaxis Plan VTE Prophylaxis will be ordered: Yes PG Care Time/CCT Total # of Minutes Spent Total Time Spent with Patient: Total time spent is greater than 50% in coordination of care (as documented) at patient's floor/unit and/or counseling patient: Coding Level of Care Code 66588 Initial Inpt Care Lvl 2 Diagnoses Bursitis, olecranon M70.21 Laterality: right Cellulitis L03.113 Laterality: right Site of cellulitis: extremity Site of cellulitis of extremity: upper extremity Hypothyroidism E03.9 History of CVA (cerebrovascular accident) Z86.73 GERD (gastroesophageal reflux disease) K21.9 Depression F32.9 HTN (hypertension) I10 Poor peripheral circulation R09.89 (1) Bursitis, olecranon Laterality: right Qualified Code(s): M70.21 - Olecranon bursitis, right elbow (2) Cellulitis Laterality: right Site of cellulitis: extremity Site of cellulitis of extremity: upper extremity Qualified Code(s): L03.113 - Cellulitis of right upper limb
[2021-03-25] MEDS ORDERED: ONDANSETRON INJ 2 MG/ML 2 ML VIAL IV PRN (17:42)
[2021-03-25] MEDS ORDERED: POLYETHYLENE (MIRALAX) 17 GM PACK PO PRN (17:42)
[2021-03-25] MEDS ORDERED: BUDESONIDE 0.5 MG/2 ML VIAL (PULMICORT) INH PRN (17:42)
[2021-03-25] MEDS ORDERED: ACETAMINOPHEN 325 MG TAB PO PRN (17:42)
[2021-03-25] MEDS: POLYETHYLENE (MIRALAX) 17 GM PACK PO SCH (20:46)
[2021-03-25] MEDS: ACETAMINOPHEN 325 MG TAB PO SCH (20:47)
[2021-03-25] MEDS: lisinopril 5 MG TAB PO SCH (20:49)
[2021-03-25] MEDS: NORTRIPTYLINE HCL 25 MG CAP PO SCH (20:49)
[2021-03-25] MEDS: ATORVASTATIN 40 MG TAB PO SCH (20:50)
[2021-03-25] MEDS: guaiFENesin 600 MG TABCR PO SCH (20:50)
[2021-03-25] MEDS: ARTIFICIAL TEARS OP SCH (20:52)
[2021-03-25] MEDS ORDERED: FOOD SUPPLEMT LACTOSE REDUCED PO SCH (21:00)
[2021-03-26] MEDS: VANCOMYCIN HCL 1,000 MG in SODIUM CHLORIDE 0.9% 250 ML IV SCH ×2 (04:18→16:13)
[2021-03-26 07:38] LABS: Basophils # (auto) 0.01 K/uL (0-0.2); Basophils % (auto) 0.1 %; Eosinophils # (auto) 0.07 K/uL (0-0.5); Eosinophils % (auto) 0.7 %; Hemoglobin 12.7 g/dL (12.0-16.0); Immature Granulocytes # (auto) 0.02 K/uL (0.00-0.02); Immature Granulocytes % (auto) 0.2 %; Lymphocytes # (auto) 2.15 K/uL (1.2-3.4); Mean Corpuscular Hemoglobin 27.9 pg (25-34); Mean Corpuscular Volume 89.9 fL (80-100); Mean Platelet Volume 8.7 fL (7.4-10.4); Monocytes % (auto) 5.9 %; Neutrophils % (auto) 72.1 %; Platelet Count 195 K/uL (130-400); RDW Coefficient of Variation 16.5 % (11.5-14.5); RDW Standard Deviation 54.7 fL (36.4-46.3); Red Blood Count 4.56 M/uL (4.2-5.4); White Blood Count 10.25 K/uL (4.8-10.8)
[2021-03-26 07:43] LABS: INR 1.7 (0.9-1.1); Prothrombin Time 16.9 Seconds (9.0-12.0)
[2021-03-26 08:04] LABS: BUN Creatinine Ratio 21.3 (10-20); Calcium 8.7 mg/dl (8.5-10.1); Creatinine Clr Calc Pharmacy 75.9 ml/min; Est GFR (African American) 104.2 ml/min; Est GFR (Non-African American) 89.9 ml/min; Potassium 3.4 mmol/L (3.5-5.1)
[2021-03-26] MEDS: FLUTICASONE/VILANTEROL 200/25MCG 14 PUFFS/INHALER INH SCH (08:28)
[2021-03-26] MEDS: LORATADINE 10 MG TAB PO SCH (08:29)
[2021-03-26] MEDS: CHOLECALCIFEROL 5,000 UNITS 125 MCG TAB PO SCH (08:29)
[2021-03-26] MEDS: PANTOprazole 40 MG TAB PO SCH (08:29)
[2021-03-26] MEDS: CEROVITE ADV FORMULA TAB PO SCH (08:29)
[2021-03-26] MEDS: lisinopril 5 MG TAB PO SCH ×2 (08:30→20:03)
[2021-03-26] MEDS: guaiFENesin 600 MG TABCR PO SCH ×2 (08:30→20:04)
[2021-03-26] MEDS: LEVOTHYROXINE SODIUM 100 MCG TABLET PO SCH (08:30)
[2021-03-26] MEDS: SERTRALINE HCL 50 MG TABLET PO SCH (08:31)
[2021-03-26] MEDS: ARTIFICIAL TEARS OP SCH ×2 (08:32→20:03)
[2021-03-26] MEDS: POLYETHYLENE (MIRALAX) 17 GM PACK PO SCH ×2 (08:32→20:04)
[2021-03-26] MEDS ORDERED: SODIUM CHLORIDE 0.65% NA SOLN 45 ML (OCEAN) NAE SCH (09:00)
--- NOTE | 2021-03-26 09:26 | Hospitalist Progress Note ---
Date of Service March 26, 2021 Assessment & Plan (1) Cellulitis: Plan: 75 year old female with extensive PMHx presented to the ER for worsening cellulitis on her right arm originating from her right elbow. (1) Cellulitis -presented with rapid progression of cellulitis after being started on clarithromycin by her PCP -h/o allergies to several abx -ED started on IV vancomycin + IV rocephin, continue -Pending blood cultures s/p 1 day antibiotic initiation -Consulted ortho: no signs of abscess or septic olecranon bursitis -cellulitis worsened, outside borders of pen markings --> remarked (2) Bursitis, olecranon -As above (3) Hypothyroidism: -TSH 5.45 in January, no need to repeat acutely -Cont. levothyroxine 100 mcg PO daily (4) History of CVA with PFO -cont. home warfarin regimen with INR checks daily (5) GERD -Switch home omeprazole to pantoprazole per hospital formulary (6) Depression: -Cont. sertraline 50mg PO daily (7) HTN (hypertension): -Cont. lisinopril 5mg PO BID (8) Poor peripheral circulation: -Suspect Raynauds although patient reports no prior diagnosis of this. Consider switching lisinopril to amlodipine however this is longstanding and no threatening ischemia currently therefore no urgency to change this currently. 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 Arm a little bit bigger and more red. Otherwise doing okay. Orthopedics input greatly appreciated. In review of her allergiesher sulfa allergy was when she had an eye surgery and then had eyedrops that had sulfa in it, she noted shortly thereafter her lips started tingling. The symptoms then went away. She did not have any difficulty breathing, she did not actually require any treatment for this, she had no tongue swelling or lip swelling just numbness. As it relates to tetracyclinesshe relates with doxycycline probably in the 1980s she got a very upset stomach from it. As it relates to any drug allergiesI explained hives, and anaphylaxis in a good bit of detail, as well as what would be required to treat itand she had no recollection of any of those. Arm cellulitisno abscess or olecranon bursitisi.e. nothing that needs to be drained. Probably resistant staphnow on Vancoanticipate improvement. Once she shows improvement, probably can give trial to doxycycline (would put her on a PPI concomitantly plus/minus some Carafate) and follow her over 2 doses of doxy inpatient just to ensure she does not have a serious reaction. For now continue Vanco and follow Subjective No overnight events. Cellulitis seems to be getting worse, outside of markings. She hit her right elbow and scratched it earlier this week which was the most likely cause of her infection. Review of Systems Review of Systems: Constitutional: +fatigue (always tired). denies fevers. CV: denies chest pain Resp: +SOB (h/o asthma). denies cough GI: denies abdominal pain, nausea, vomiting, constipation, diarrhea : denies pain with urination, change in urinary frequency Neuro: denies new numbness, tingling Physical Exam Physical Exam: Constitutional: in no acute distress, pleasant. Vitals as above. Lungs: Clear to auscultation bilaterally Cardiac: Tachycardic. Regular rhythm. MSK: Full ROM upper extremities. Skin: erythematous warm nonraised TTP cellulitis right arm, outside borders of markings from yesterday. Eschar over olecranon bursa w/o fluctuance. Results & Data Results & Data ([facility]) Vital Signs (Past 12 Hours) Vital Signs Temp Pulse Resp BP Pulse Ox 03/26/21 07:47 36.9 C 91 H 18 151/99 H 94 03/25/21 22:37 36.7 C 84 16 161/98 H 91 Resident Activity Tracking Resident Involvement: Resident Care Provided Care Provided: Adult [facility] Medicine (1) Bursitis, olecranon Laterality: right Qualified Code(s): M70.21 - Olecranon bursitis, right elbow (2) Cellulitis Site of cellulitis: unspecified site Qualified Code(s): L03.90 - Cellulitis, unspecified
--- NOTE | 2021-03-26 10:04 | Pharmacy Report ---
Pharmacy Vanc AUC Short Note - Date of Service March 26, 2021 - Assessment & Plan Assessment 75 year old admitted with concerns for cellulitis/bursitis. Started empirically on vancomycin and ceftriaxone. Per notes, no drainage from area. Ortho consulted. Blood cultures are pending. Plan Vancomycin * AUC/JAY is the preferred PK/PD target for vancomycin * AUC guided dosing is effective and associated with decreased risk of nephrotoxicity compared to traditional trough targets * Received loading dose of vancomycin 1500 mg x 1 last evening. Then, started on vancomycin 1 gm ivq 12 hrs * Estimated trough level with this dosing is ~16 mcg/mL and it is predicted to achieve target AUC/JAY of 400-600 mg/L.hr and may be associated with a 12 % risk of nephrotoxicity * Trough ordered for 2/5 before the 0400 dose Pharmacy will continue to follow and will adjust dose/frequency as necessary. Thank you.
--- NOTE | 2021-03-26 11:05 | Orthopedic Consultation ---
Date of Service March 26, 2021 Assessment & Plan (1) Cellulitis: She is currently dealing with a bad cellulitis of her right elbow and her forearm. She is currently on vancomycin and ceftriaxone. It is very painful. I do not see any abscess collections. I do not see any signs of a septic olecranon bursitis that would benefit from an I&D in the operating room. At this point I want to continue to watch her closely on the IV antibiotics. If an abscess develops or forms that might benefit from an irrigation and debridement then we will proceed with that, however, right now the cellulitis appears to be only in the soft tissues. We will continue to follow her closely. History of Present Illness Reason for Consultation: Cellulitis right elbow. Requesting Physician: . Attending Physician: Uli Burt DO Dayna is a pleasant 75-year-old female who is well-known to me. I recently did a hip replacement on her. About 3 days ago she began noticing redness and cellulitis of her right elbow. She went to the emergency room and was given oral antibiotics. Unfortunate that did not help. The redness only worsened. She came back to the emergency room and was admitted to the medical service for IV antibiotics. Orthopedics was consulted to evaluate and treat. Allergies Allergy/AdvReac Type Severity Reaction Status Date / Time Iodinated Contrast Media Allergy Severe "couldn't Verified 03/24/21 11:41 breathe and really bad rash" iodine Allergy Severe "couldn't Verified 03/24/21 11:41 breathe and really bad rash" nickel Allergy Severe " open Verified 03/24/21 11:41 sores" Penicillins Allergy Severe shortness Verified 03/24/21 11:41 of breath promethazine Allergy Severe "couldn't Verified 03/24/21 11:41 breathe" red (food color) Allergy Severe "problems Verified 03/24/21 11:41 breathing" Sulfa (Sulfonamide Allergy Severe facial Verified 03/24/21 11:41 Antibiotics) swelling Tetracyclines Allergy Severe "couldn't Verified 03/24/21 11:41 breathe and rash" levofloxacin Allergy Intermediate HIVES, LEG Verified 03/24/21 11:41 PAIN tramadol Allergy Intermediate hallucinati Verified 03/24/21 11:41 ons cephalexin Allergy Mild Rash Verified 03/24/21 11:41 house dust Allergy Mild "sniffles/watery Verified 03/24/21 11:41 eyes" ragweed pollen Allergy Mild "sniffles" Verified 03/24/21 11:41 azithromycin [From Zithromax] AdvReac Mild Rash Verified 03/24/21 11:41 mayda chews Allergy Severe "couldn't Uncoded 03/24/21 11:41 breathe right" Home Medications Medication Instructions Recorded Confirmed Type Lactobacillus acidophilus 1 tab PO QAM 03/30/18 03/25/21 History (Acidophilus) guaifenesin 600 mg tablet, 600 mg PO Q12H 03/30/18 03/25/21 History extended release 12 hr (Mucinex) loratadine 10 mg tablet (Claritin) 10 mg PO QAM 03/30/18 03/25/21 History polyethylene glycol 3350 17 gram 17 g PO BID 03/30/18 03/25/21 History oral powder packet (Miralax) propylene glycol 0.6 % eye drops 1 drp OPB BID 03/30/18 03/25/21 History (Systane Balance) sodium chloride 0.65 % nasal spray 1 spray INTRANASAL Q OTHER DAY 03/30/18 03/25/21 History aerosol (Saline Nasal) vit C 50 mg-E 15 unit-zinc cit 4.5 1 tab PO QAM 03/30/18 03/25/21 History mg-lutein 2.5 mg-zeaxan chew tablet (G[facility]) food supplemt, lactose-reduced 1 ea PO BID 12/10/18 03/25/21 History (Nutri-Drink) sertraline 50 mg tablet 50 mg PO QAM #90 tab 02/24/20 03/25/21 Rx warfarin 5 mg tablet 5 mg PO .COMPLEX #100 tab 07/09/20 03/25/21 Rx lisinopril 5 mg tablet 5 mg PO BID #180 tab 12/25/20 03/25/21 Rx omeprazole 20 mg capsule,delayed 20 mg PO QAM #90 cap 12/25/20 03/25/21 Rx release atorvastatin 40 mg tablet (Lipitor) 40 mg PO HS #90 tab 01/21/21 03/25/21 Rx fluticasone 500 mcg-salmeterol 50 1 ea INHALATION BID #180 ea 12/02/21 02/03/22 Rx mcg/dose blistr powdr for inhalation furosemide 20 mg tablet 20 mg PO DAILY PRN #30 tab 01/21/21 03/25/21 Rx nortriptyline 75 mg capsule 75 mg PO QPM #90 cap 01/21/21 03/25/21 Rx levothyroxine 100 mcg capsule 100 mcg PO DAILY #30 cap 02/05/21 03/25/21 Rx calcium carbonate 500 mg calcium 500 mg PO DAILY 03/08/21 03/25/21 History (1,250 mg) tablet budesonide 0.5 mg/2 mL suspension 0.5 mg INHALATION BID PRN #180 ml 03/18/21 03/25/21 Rx for nebulization levalbuterol HCl 1.25 mg/3 mL 1.25 mg INHALATION Q8H PRN #180 ml 03/18/21 03/25/21 Rx solution for nebulization (Xopenex) prednisone 10 mg tablet 10 mg PO .COMPLEX #15 tab 03/18/21 03/25/21 Rx clindamycin HCl 150 mg capsule 450 mg PO Q8H 10 Days #90 cap 03/24/21 03/25/21 Rx acetaminophen 650 mg 650 mg PO HS 03/25/21 03/25/21 History tablet,extended release cholecalciferol (vitamin D3) 125 125 mcg PO DAILY 03/25/21 03/25/21 History mcg (5,000 unit) tablet (Vitamin D3) Past Med/Surg History Medical History Asthma Breathing well controlled Basilar artery stenosis History of per patient- pt states more recent testing showed no issues No significant issues noted per 08/03/20 PCP note Breath shortness Chronic back pain CVA (cerebrovascular accident) x4 (most recent 2013) Mild residual drooping to left side of mouth Depression GERD (gastroesophageal reflux disease) Well controlled and stable with med History of COVID-19 07/2019 No symptoms with exception to residual voice hoarseness Hx of esophageal varices Noted incidentally by GI during EGD per patient Longstanding history per PCP note- no hx of liver disease or alcoholism. No current issues Hyperlipidemia Hypertension Hypothyroidism Hypoxia Migraine Osteoarthritis PFO (patent foramen ovale) Follows with Dr. Hearn- medically controlled. On prophylactic Coumadin. Did follow with cardiovascular surgery in the past per records to discuss closure of PFO- but unable to do closure secondary to nickel allergy- pt stable Scoliosis Viral URI Surgical History History of bilateral cataract extraction History of bilateral tubal ligation History of colonoscopy with polypectomy History of dilatation and curettage History of esophagogastroduodenoscopy (EGD) History of hip replacement History of hysterectomy History of tooth extraction Family History Mother Family history of diabetes mellitus Myocardial infarction Sister Family history of diabetes mellitus Family history of rectal cancer Myocardial infarction Sister Family history of diabetes mellitus Myocardial infarction Brother Family history of diabetes mellitus Myocardial infarction Brother Family history of diabetes mellitus Family/Other Breast cancer Father Myocardial infarction Other Cancer Gallbladder disease Heart disease Hypertension Lung disease No family history of adverse response to anesthesia Denies family history of Ovarian cancer Prostate cancer Colorectal cancer Social History Smoking Status: Never smoker Second Hand Exposure: No; Do You Dip or Chew Tobacco: No; Tobacco Cessation Education Requested by Patient: No Hx Alcohol Use: No Hx Substance Use: No Preferred Language: Zambian Communication Ability: Effective Motel Keeper Required: No Beliefs That Will Affect Care: None marital status: Current Living Situation: Spouse Current Living Situation Comment: and son current occupational status: retired How many Children do You have: 5 Other Information That Helps Us Care for You: No Feels Safe at Home: Yes Safety Concerns: Feels Safe At This Time Childhood Exposure to Second-Hand Smoke: Yes caffeine: Yes Dental Care, Regularly: Yes Seatbelt Use: always Assistive Devices: None Review of Systems All systems reviewed & are unremarkable except as noted in HPI & below. Physical Exam On physical examination of the right elbow, there is severe cellulitis. It is very red and erythematous. She has almost full range of motion she has good motion of her wrist. I do not see any areas of abscess. I do not see a septic olecranon bursitis. There is a small scab around the olecranon of her elbow but no fluctuance or signs of abscess. Constitutional WD/WN, vitals as above Eyes PERRL, conjunctivae normal, anicteric sclerae ENMT external ear and nose normal, oropharynx normal Neck trachea midline, no thyromegaly Respiratory normal respiratory effort Cardiovascular RRR, no murmur, no edema Gastrointestinal (Abdomen) normal bowel sounds, soft, nontender, no hepatosplenomegaly Psychiatric A+Ox3, euthymic affect Results & Data Results & Data Laboratory Results . Diagnostic Findings X-rays of the right elbow were reviewed and showed no signs of arthritis. There is some soft tissue swelling. I do not see any fracture.. PG Care Time/CCT Total # of Minutes Spent Total Time Spent with Patient: Total time spent is greater than 50% in coordination of care (as documented) at patient's floor/unit and/or counseling patient: Coding Level of Care Code 61247 Inpt Consult Level 4 Diagnoses Cellulitis L03.90 Site of cellulitis: unspecified site (1) Cellulitis Site of cellulitis: unspecified site Qualified Code(s): L03.90 - Cellulitis, unspecified
[2021-03-26] MEDS: WARFARIN SOD 5 MG TAB PO SCH (15:18)
[2021-03-26] MEDS ORDERED: cefTRIAXone SODIUM 2,000 MG in DEXTROSE 5% 50 ML IV SCH (16:00)
[2021-03-26] MEDS ORDERED: TRIAMCINOLONE ACET NASAL SPRAY 10.8ML BTL NAE SCH ×2 (16:15→21:00)
[2021-03-26] MEDS ORDERED: Nursing to Pharmacy Communication SCH (16:30)
--- NOTE | 2021-03-26 18:52 | Billing Data ---
Date of Service March 26, 2021 Coding Level of Care Code 61137 Subseq Hosp Care Lvl 3
[2021-03-26] MEDS: ACETAMINOPHEN 325 MG TAB PO SCH (20:02)
[2021-03-26] MEDS: NORTRIPTYLINE HCL 25 MG CAP PO SCH (20:04)
[2021-03-26] MEDS: ATORVASTATIN 40 MG TAB PO SCH (20:05)
[2021-03-26] MEDS: TRIAMCINOLONE ACET NASAL SPRAY 10.8ML BTL NAE SCH (20:05)
[2021-03-27] MEDS ORDERED: VANCOMYCIN TROUGH ONE ×2 (03:30→15:30)
[2021-03-27] MEDS: VANCOMYCIN HCL 1,000 MG in SODIUM CHLORIDE 0.9% 250 ML IV SCH ×2 (03:56→16:30)
[2021-03-27] MEDS: LEVOTHYROXINE SODIUM 100 MCG TABLET PO SCH (06:23)
[2021-03-27 07:49] LABS: Basophils # (auto) 0.01 K/uL (0-0.2); Basophils % (auto) 0.1 %; Eosinophils # (auto) 0.13 K/uL (0-0.5); Eosinophils % (auto) 1.7 %; Hematocrit (blood only) 40.7 % (37-47); Hemoglobin 12.8 g/dL (12.0-16.0); Immature Granulocytes # (auto) 0.01 K/uL (0.00-0.02); Immature Granulocytes % (auto) 0.1 %; Lymphocytes # (auto) 1.61 K/uL (1.2-3.4); Lymphocytes % (auto) 21.1 %; Mean Corpuscular Hemoglobin 28.1 pg (25-34); Mean Corpuscular Hgb Conc 31.4 g/dL (32-36); Mean Corpuscular Volume 89.3 fL (80-100); Mean Platelet Volume 8.5 fL (7.4-10.4); Monocytes # (auto) 0.48 K/uL (0.11-0.59); Monocytes % (auto) 6.3 %; Neutrophils # (auto) 5.39 K/uL (1.4-6.5); Neutrophils % (auto) 70.7 %; Platelet Count 193 K/uL (130-400); RDW Coefficient of Variation 16.4 % (11.5-14.5); RDW Standard Deviation 54.1 fL (36.4-46.3); Red Blood Count 4.56 M/uL (4.2-5.4); White Blood Count 7.63 K/uL (4.8-10.8)
[2021-03-27 07:58] LABS: INR 1.4 (0.9-1.1); Prothrombin Time 13.9 Seconds (9.0-12.0)
[2021-03-27 08:12] LABS: BUN Creatinine Ratio 21.9 (10-20); Calcium 8.4 mg/dl (8.5-10.1); Creatinine Clr Calc Pharmacy 72.3 ml/min; Est GFR (African American) 102.6 ml/min; Est GFR (Non-African American) 88.5 ml/min; Potassium 3.7 mmol/L (3.5-5.1)
--- NOTE | 2021-03-27 08:27 | Orthopedic Progress Note ---
Date of Service March 27, 2021 Assessment & Plan (1) Cellulitis: Unfortunately her symptoms are not improving, in fact they are worsening. I do not see any abscess collections but she is on ceftriaxone and vancomycin and it does not seem to be helping at this time. I like to get an MRI of the right forearm. I want to make sure I do not see any large abscess collections or any signs of necrotizing fasciitis (although unlikely). I will continue to follow closely. Jean-Paul Mcintosh was seen and examined at bedside this morning. Her symptoms are not improving infected getting worse. She has more swelling of her hand. The cellulitis seems to be spreading. She is on vancomycin and ceftriaxone. She has full motion of her hand and no signs of compartment syndrome. Review of Systems All systems reviewed & are unremarkable except as noted in HPI & below. Physical Exam On physical examination of the right elbow and forearm, she has is severe cellulitis is extending along the dorsal aspect of the right arm towards her hand. It appears to be worsening from when I saw her yesterday. She can move her fingers and has no signs of compartment syndrome. I do not see any definitive areas of abscess. Results & Data Results & Data Laboratory Results . Diagnostic Findings . PG Care Time/CCT Total # of Minutes Spent Total Time Spent with Patient: Total time spent is greater than 50% in coordination of care (as documented) at patient's floor/unit and/or counseling patient: Coding Level of Care Code 76034 Subseq Hosp Care Lvl 2 Diagnoses Cellulitis L03.90 Site of cellulitis: unspecified site (1) Cellulitis Site of cellulitis: unspecified site Qualified Code(s): L03.90 - Cellulitis, unspecified
[2021-03-27] MEDS ORDERED: WARFARIN SOD 5 MG TAB PO ONE ×2 (08:45→16:15)
[2021-03-27] MEDS: FLUTICASONE/VILANTEROL 200/25MCG 14 PUFFS/INHALER INH SCH (09:53)
[2021-03-27] MEDS: guaiFENesin 600 MG TABCR PO SCH ×2 (09:54→20:09)
[2021-03-27] MEDS: lisinopril 5 MG TAB PO SCH ×2 (09:54→20:10)
[2021-03-27] MEDS: ARTIFICIAL TEARS OP SCH ×2 (09:54→20:10)
[2021-03-27] MEDS: LORATADINE 10 MG TAB PO SCH (09:55)
[2021-03-27] MEDS: CEROVITE ADV FORMULA TAB PO SCH (09:55)
[2021-03-27] MEDS: POLYETHYLENE (MIRALAX) 17 GM PACK PO SCH ×2 (09:55→20:10)
[2021-03-27] MEDS: PANTOprazole 40 MG TAB PO SCH (09:55)
[2021-03-27] MEDS: SERTRALINE HCL 50 MG TABLET PO SCH (09:56)
[2021-03-27] MEDS ORDERED: LORazepam 1 MG TAB PO STA (09:56)
[2021-03-27] MEDS: CHOLECALCIFEROL 5,000 UNITS 125 MCG TAB PO SCH (09:57)
--- NOTE | 2021-03-27 10:50 | Hospitalist Progress Note ---
Date of Service March 27, 2021 Assessment & Plan (1) Cellulitis: Plan: 75 year old female with extensive PMHx presented to the ER for worsening cellulitis on her right arm originating from her right elbow. (1) Cellulitis -presented with rapid progression of cellulitis after being started on clarithromycin by her PCP -h/o allergies to several abx -ED started on IV vancomycin + IV rocephin, continue -Blood cultures s/p 1 day antibiotic initiation: no growth after 24 hours -Consulted ortho: no signs of abscess or septic olecranon bursitis; MR elbow ordered to r/o abscess: negative for abscess, findings consistent with cellulitis -cellulitis worsened, outside borders of pen markings --> remarked -CRP obtained; consider getting repeat tomorrow if cellulitis worsens -if no resolve tomorrow, consider vancomycin resistant MRSA (2) Bursitis, olecranon -As above (3) Hypothyroidism: -TSH 5.45 in January, no need to repeat acutely -Cont. levothyroxine 100 mcg PO daily (4) History of CVA with PFO -INR 1.4 -cont. home warfarin regimen with INR checks daily -additional warfarin 5mg given (03/27) to account for increased vitamin K from meals (5) GERD -cont. hold home omeprazole -cont. pantoprazole per hospital formulary (6) Depression: -Cont. sertraline 50mg PO daily (7) HTN (hypertension): -Cont. lisinopril 5mg PO BID (8) Poor peripheral circulation: -Suspect Raynauds although patient reports no prior diagnosis of this. Consider switching lisinopril to amlodipine however this is longstanding and no threatening ischemia currently therefore no urgency to change this currently. DVT ppx: warfarin FEN/GI: regular Code Status: full Dispo: med/surg (2) Bursitis, olecranon: (3) Asthma: (4) Hypothyroidism: (5) HTN (hypertension): (6) FDC (current) use of anticoagulants: (7) Depression: (8) GERD (gastroesophageal reflux disease): (9) History of CVA (cerebrovascular accident): Admission and Anticipated Discharge Date Admission Date: March 25, 2021 Supervising Physician Co-Signing Physician Notes I personally examined the patient and verified all montemayor points of history and exam, discussed case, and agree with decision making with Dr Call. Arm a little bit more swollen and more painfulalthough most of it is the forearm and the hand. Has only moved a little bit up the arm. Had hypoxiastarted on supplemental oxygenbut other than may be briefly feeling a little like she needed to take a deep breath, she has not really had any actual dyspnea/shortness of breath. She has not had a cough. This does bring up a separate issue that at home, she takes a nebulizer 3 times a day and gets very shaky and tachycardic afterwards. Vitals noted, in general she is awake and alert pleasant no distress. HEENT normocephalic atraumatic mucous membranes moist. Breathing unlabored no accessory muscle use good effort. Lungs do show diminished breath sounds bibasilar with a faint rales base left that is not there on every inhalation. No rhonchi no wheezes. Right upper extremity with diffuse erythemait seems to be a little bit less tense and a little less bright red than yesterday. Definitely most pronounced and thickened/indurated around her elbowthere is no focal fluctuance. Distally her forearm and hand now have dull erythema and a significant area of edema. Up her arm posteriorly and proximally, the erythema is a faint pink that is only extended maybe three quarters of a centimeter past yesterday's line We are with no drainable abscess Arm cellulitisno abscess or olecranon bursitisi.e. nothing that needs to be drained. Probably resistant staphnow on Vancoshe is now on Vanco day 2, and I suspect we are reaching the worst that this will be. There was not a lot of extension proximally, the distal erythema and edema appears to be simply inflammatory fluid tracking along the fascial plane. We will check a CRP to allow for frame of reference if there is question of worsening tomorrow, although I doubt this will be the case. Continue Vanco for now, once there is more definitive improvement we can give trial to doxycycline (discussions on 03/26 yielded that her "allergy" was really just GI upsetso we would probably give her a few doses here in the hospital along with a PPI plus or minus an H2 and Carafate, make sure she tolerates well, and then finish out a course of treatment with that. I doubt this is gram-negative, but given that it has been slow and refractory to response, will continue ceftriaxone for now Hypoxiaexam in general lack of symptoms most consistent with atelectasisincentive spirometry every hour while awake. Asthmanot acutely causing her any problems, but it does sound like her home meds do cause her significant tachycardia and anxiety. Will try to look at her level of control/asthma history and a bit more depth and see if we could potentially change some of her home regimen. DVT prophylaxis/PFOon Coumadin. INR somewhat lowadditional Coumadin today. Continue to follow INR. No overt need for bridging Subjective No overnight events. Cellulitis getting worse, outside of markings. Extremely tender at right elbow. Pain with making fist because of increasing swelling. Otherwise no acute complaints. Review of Systems Review of Systems: Constitutional: +fatigue (always tired). denies fevers. CV: denies chest pain Resp: +SOB (h/o asthma). denies cough GI: denies abdominal pain, nausea, vomiting, constipation, diarrhea : denies pain with urination, change in urinary frequency Neuro: denies new numbness, tingling Physical Exam Physical Exam: Constitutional: mild acute distress, pleasant. Vitals as above. Lungs: Clear to auscultation bilaterally Cardiac: Mildly tachycardic. Regular rhythm. MSK: Full ROM upper extremities. Able to make fist with some pain. Skin: erythematous warm nonraised TTP cellulitis right arm, outside borders of markings from yesterday. Eschar over olecranon bursa w/o fluctuance but w/ exquisite tenderness. Results & Data Results & Data ([facility]) Vital Signs (Past 12 Hours) Vital Signs Pulse Ox 03/26/21 22:49 91 Resident Activity Tracking Resident Involvement: Resident Care Provided Care Provided: Adult [facility] (1) Bursitis, olecranon Laterality: right Qualified Code(s): M70.21 - Olecranon bursitis, right elbow (2) Cellulitis Site of cellulitis: unspecified site Qualified Code(s): L03.90 - Cellulitis, unspecified
[2021-03-27] MEDS ORDERED: ACETAMINOPHEN 325 MG TAB PO SCH (11:00)
[2021-03-27] MEDS: ACETAMINOPHEN 325 MG TAB PO SCH ×3 (13:40→21:59)
--- NOTE | 2021-03-27 14:51 | Magnetic Resonance Report ---
MRI OF THE RIGHT FOREARM WITHOUT IV CONTRAST CLINICAL HISTORY: Cellulitis. Clinical concern for abscess. COMPARISON STUDY: Radiographs of the right elbow dated 03/24/2021. TECHNIQUE: MRI of the right forearm is performed using various T1 and T2-weighted sequences in the ax ial, sagittal, and coronal planes. IV contrast was not administered for this examination. The Examina tion is compromised by motion artifact. FINDINGS: Normal marrow signal intensity is maintained throughout the right radius and ulna. There is no MRI evidence of fracture. The wrist and elbow joints are grossly maintained. There is an elbow lincoln int effusion. There is also fluid within the distal radioulnar joint. The long head of the biceps ten don appears intact. Diffuse soft tissue edema and subcutaneous fluid is seen throughout the right upp er extremity, there is no evidence of organized fluid collection to suggest abscess. There is no MRI evidence of soft tissue gas. The regional musculature is atrophic. No muscular edema is seen. IMPRESSION: 1. Diffuse soft tissue edema and subcutaneous fluid is consistent with the reported history of cellul itis. 2. There is no evidence of organized fluid collection to indicate abscess. 3. No acute osseous abnormality is identified. 4. Elbow joint effusion. Dictated: 03/27/2021 10:59 AM Transcribed: 03/27/2021 2:11 PM Jessi [id number] MARIANNA_Kelvin Electronically signed by: Garrett Pereira M.D. 03/27/2021 2:49 PM
[2021-03-27] MEDS: cefTRIAXone SODIUM 2,000 MG in DEXTROSE 5% 50 ML IV SCH (15:42)
--- NOTE | 2021-03-27 15:57 | Billing Data ---
Date of Service March 27, 2021 Coding Level of Care Code 90073 Subseq Hosp Care Lvl 3
[2021-03-27] MEDS: WARFARIN SOD 5 MG TAB PO SCH (16:25)
--- NOTE | 2021-03-27 16:27 | Pharmacy Report ---
Pharmacy Abx Dose Short Note - Date of Service March 27, 2021 - Assessment & Plan Assessment 75 year old F receiving VANCOMYCIN + CEFTRIAXONE for treatment of cellulitis/bursitis. S Day #3 of antimicrobial therapy. Plan Vancomycin * Trough level of 8.7 mcg/mL is subtherapeutic * Change to 1250 mg IV every 12 hours * Goal trough level: 10 to 20 mcg/mL * Trough ordered for: 03/28 at 1530 Pharmacy will continue to follow and will adjust dose/frequency as necessary. Thank you.
[2021-03-27] MEDS: VANCOMYCIN HCL 1,250 MG in SODIUM CHLORIDE 0.9% 250 ML IV SCH (17:15)
[2021-03-27] MEDS: NORTRIPTYLINE HCL 25 MG CAP PO SCH (20:09)
[2021-03-27] MEDS: ATORVASTATIN 40 MG TAB PO SCH (20:09)
[2021-03-27] MEDS: TRIAMCINOLONE ACET NASAL SPRAY 10.8ML BTL NAE SCH (20:11)
[2021-03-28] MEDS: ACETAMINOPHEN 325 MG TAB PO SCH ×6 (02:11→22:07)
[2021-03-28] MEDS: VANCOMYCIN HCL 1,250 MG in SODIUM CHLORIDE 0.9% 250 ML IV SCH ×2 (03:48→16:28)
[2021-03-28] MEDS: LEVOTHYROXINE SODIUM 100 MCG TABLET PO SCH (06:16)
[2021-03-28 07:18] LABS: Basophils # (auto) 0.01 K/uL (0-0.2); Basophils % (auto) 0.2 %; Eosinophils # (auto) 0.17 K/uL (0-0.5); Eosinophils % (auto) 2.7 %; Hematocrit (blood only) 40.4 % (37-47); Hemoglobin 12.6 g/dL (12.0-16.0); Immature Granulocytes # (auto) 0.01 K/uL (0.00-0.02); Immature Granulocytes % (auto) 0.2 %; Lymphocytes # (auto) 1.56 K/uL (1.2-3.4); Lymphocytes % (auto) 24.5 %; Mean Corpuscular Hemoglobin 28.3 pg (25-34); Mean Corpuscular Hgb Conc 31.2 g/dL (32-36); Mean Corpuscular Volume 90.6 fL (80-100); Mean Platelet Volume 8.4 fL (7.4-10.4); Monocytes % (auto) 6.3 %; Neutrophils # (auto) 4.21 K/uL (1.4-6.5); Neutrophils % (auto) 66.1 %; Platelet Count 210 K/uL (130-400); RDW Coefficient of Variation 16.4 % (11.5-14.5); Red Blood Count 4.46 M/uL (4.2-5.4); White Blood Count 6.36 K/uL (4.8-10.8)
[2021-03-28 07:33] LABS: INR 1.8 (0.9-1.1); Prothrombin Time 17.6 Seconds (9.0-12.0)
[2021-03-28 07:35] LABS: BUN Creatinine Ratio 21.3 (10-20); Calcium 8.5 mg/dl (8.5-10.1); Creatinine Clr Calc Pharmacy 75.9 ml/min; Est GFR (African American) 104.2 ml/min; Est GFR (Non-African American) 89.9 ml/min; Potassium 4.1 mmol/L (3.5-5.1)
--- NOTE | 2021-03-28 08:02 | Orthopedic Progress Note ---
Date of Service March 28, 2021 Assessment & Plan (1) Cellulitis: I discussed the MRI findings with her at bedside. There are no abscesses so there is nothing to do surgically at this point. I do not see any free air or signs of necrotizing fasciitis. She is currently on vancomycin and ce ftriaxone. At this point there is nothing to do from a surgical standpoint. She will need to continue on the IV antibiotics. If her symptoms worsen or if you have any questions please feel free to contact me personally on my cell phone at [phone]. Jean-Paul Mcintosh was seen and examined at bedside this morning. She still has a pretty bad cellulitis of her right forearm. It is not much worse than yesterday but is not much better either. She did have an MRI of her forearm yesterday which showed no signs of abscess collection. She has no new complaints. Review of Systems All systems reviewed & are unremarkable except as noted in HPI & below. Physical Exam On physical examination of the right forearm, there is erythema and cellulitis that extends from her elbow through her wrist. It seems to be worse on the dorsal aspect of her right forearm. She has active motion of her wrist active motion of all of her fingers. There is no signs of abscess collection on exam. Results & Data Results & Data Laboratory Results . Diagnostic Findings MRI of the right forearm was reviewed personally by myself. I did not see any abscess collections. I do not see any free air or signs of necrotizing fasciitis. It appears to be a cellulitis of the right forearm. PG Care Time/CCT Total # of Minutes Spent Total Time Spent with Patient: Total time spent is greater than 50% in coordination of care (as documented) at patient's floor/unit and/or counseling patient: Coding Level of Care Code 13442 Subseq Hosp Care Lvl 2 Diagnoses Cellulitis L03.90 Site of cellulitis: unspecified site (1) Cellulitis Site of cellulitis: unspecified site Qualified Code(s): L03.90 - Cellulitis, unspecified
--- NOTE | 2021-03-28 08:24 | Hospitalist Progress Note ---
Date of Service March 28, 2021 Assessment & Plan (1) Cellulitis: Plan: 75 year old female with extensive PMHx presented to the ER for worsening cellulitis on her right arm originating from her right elbow. (1) Cellulitis -presented with rapid progression of cellulitis after being started on clarithromycin by her PCP -h/o allergies to several abx -initially started on IV vancomycin + IV rocephin, continue -Blood cultures s/p 1 day antibiotic initiation: no growth -Consulted ortho: no signs of abscess or septic olecranon bursitis -MR elbow: negative for abscess, findings consistent with cellulitis -CRP 7.01 (03/27); consider getting repeat if cellulitis worsens -cellulitis stable, remains within borders of pen markings with less TTP over olecranon. -possible dc monday; likely dc on doxycycline, h/o allergy to tetracyclines but patient endorses single past episode of GI symptoms; may add PPI and carafate during abx use (2) Bursitis, olecranon -As above (3) Hypothyroidism: -TSH 5.45 in January, no need to repeat acutely -cont. levothyroxine 100 mcg PO daily (4) History of CVA with PFO -INR 1.8 -cont. home warfarin regimen with INR checks daily -additional warfarin 5mg given (03/27) to account for increased vitamin K from meals (5) GERD -Hold home omeprazole -cont. pantoprazole per hospital formulary (6) Depression: -cont. sertraline 50mg PO daily (7) HTN (hypertension): -cont. lisinopril 5mg PO BID (8) Poor peripheral circulation: -suspect Raynauds although patient reports no prior diagnosis of this. Consider switching lisinopril to amlodipine however this is longstanding and no threatening ischemia currently therefore no urgency to change this currently. DVT ppx: warfarin UD FEN/GI: regular Code Status: full Dispo: med/surg (2) Bursitis, olecranon: (3) Asthma: (4) Hypothyroidism: (5) HTN (hypertension): (6) senior care (current) use of anticoagulants: (7) Depression: (8) GERD (gastroesophageal reflux disease): (9) History of CVA (cerebrovascular accident): Admission and Anticipated Discharge Date Admission Date: March 25, 2021 Supervising Physician Co-Signing Physician Notes I personally examined the patient and verified all montemayor points of history and exam, discussed case, and agree with decision making with Dr Call. No new or increasing redness pain or swelling. Vitals noted, in general she is awake and alert pleasant no distress. HEENT normocephalic atraumatic mucous membranes moist. Breathing unlabored no accessory muscle use good effort. Right upper extremity with diffuse erythema and edemabut not any larger than yesterday, redness is fading to more of a pink, it is definitely less tenderthere is none of the exquisite tenderness around her elbow/scabs that she had a few days ago, and the proximal progression of the erythema seems to have essentially stopped (there is a faint patchy redness a little bit proximal to yesterday's line, but is nothing dense and nothing dramatic). She does have edema the whole way down into her handbut as before this seems to be more of inflammation/fluid tracking down fascial planes with gravity. Arm cellulitisno abscess or olecranon bursitisi.e. nothing that needs to be drained. Probably resistant holli on Vancoshe is now on Vanco day 3 and appears to be showing stabilization/improvement. Proximal extension essentially stopped, and everything distal to her elbow really does seem to be just inflammatory fluid tracking along fascial planes. Continue Vanco for now, but with ongoing improvement we can give trial to doxycycline (discussions on 03/26 yielded that her "allergy" was really just GI upsetso we would probably give her a few doses here in the hospital along with a PPI plus or minus an H2 and Carafate, make sure she tolerates well, and then finish out a course of treatment with that. I doubt this is gram-negative, but given that it has been slow and refractory to response, will continue ceftriaxone for now Hypoxiaexam in general lack of symptoms most consistent with atelectasisincentive spirometry every hour while awake. Not hypoxic today Asthmanot acutely causing her any problems, but it does sound like her home meds do cause her significant tachycardia and anxiety. Can try to look at her level of control/asthma history and a bit more depth and see if we could potentially change some of her home regimen. DVT prophylaxis/PFOon Coumadin. INR 1.8. Continue Coumadin and follow Subjective No overnight events. Sitting comfortably in bed. Hand less swollen due to holding hand up at times. She did hit the top of her forearm bedside and has a bandage on wound. Review of Systems Review of Systems: Constitutional: +fatigue (always tired). denies fevers. CV: denies chest pain Resp: denies SOB, cough GI: denies abdominal pain, nausea, vomiting, constipation, diarrhea : denies pain with urination, change in urinary frequency Neuro: denies new numbness, tingling Physical Exam Physical Exam: Constitutional: in no acute distress, pleasant. Vitals as above. Lungs: Clear to auscultation bilaterally Cardiac: Mildly tachycardic. Regular rhythm. MSK: Full ROM upper extremities. Able to make fist with some pain. Skin: erythematous warm nonraised TTP cellulitis right arm, remains within borders of markings from yesterday. Eschar over olecranon bursa w/o fluctuance. Moderate-severe tenderness over olecranon but less so than yesterday, seems to be improving Results & Data Results & Data ([facility]) Vital Signs (Past 12 Hours) Vital Signs Temp Pulse Resp BP Pulse Ox 03/28/21 07:27 36.8 C 86 16 109/75 91 03/27/21 22:37 37.0 C 79 18 144/88 H 91 Resident Activity Tracking Resident Involvement: Resident Care Provided Care Provided: Adult Hospital Medicine (1) Bursitis, olecranon Laterality: right Qualified Code(s): M70.21 - Olecranon bursitis, right elbow (2) Cellulitis Site of cellulitis: unspecified site Qualified Code(s): L03.90 - Cellulitis, unspecified
[2021-03-28] MEDS: CHOLECALCIFEROL 5,000 UNITS 125 MCG TAB PO SCH (08:30)
[2021-03-28] MEDS: ARTIFICIAL TEARS OP SCH ×2 (08:30→20:02)
[2021-03-28] MEDS: LORATADINE 10 MG TAB PO SCH (08:31)
[2021-03-28] MEDS: CEROVITE ADV FORMULA TAB PO SCH (08:31)
[2021-03-28] MEDS: guaiFENesin 600 MG TABCR PO SCH ×2 (08:31→20:03)
[2021-03-28] MEDS: lisinopril 5 MG TAB PO SCH ×2 (08:32→20:03)
[2021-03-28] MEDS: PANTOprazole 40 MG TAB PO SCH (08:32)
[2021-03-28] MEDS: POLYETHYLENE (MIRALAX) 17 GM PACK PO SCH ×2 (08:33→20:02)
[2021-03-28] MEDS: SERTRALINE HCL 50 MG TABLET PO SCH (08:33)
[2021-03-28] MEDS: FLUTICASONE/VILANTEROL 200/25MCG 14 PUFFS/INHALER INH SCH (08:41)
[2021-03-28] MEDS: cefTRIAXone SODIUM 2,000 MG in DEXTROSE 5% 50 ML IV SCH (08:45)
[2021-03-28] MEDS ORDERED: Nursing to Pharmacy Communication SCH (08:45)
[2021-03-28] MEDS ORDERED: VANCOMYCIN TROUGH SCH (15:30)
--- NOTE | 2021-03-28 15:50 | Billing Data ---
Date of Service March 28, 2021 Coding Level of Care Code 28752 Subseq Hosp Care Lvl 3
[2021-03-28] MEDS: WARFARIN SOD 5 MG TAB PO SCH (16:28)
[2021-03-28] MEDS: ATORVASTATIN 40 MG TAB PO SCH (20:02)
[2021-03-28] MEDS: NORTRIPTYLINE HCL 25 MG CAP PO SCH (20:03)
[2021-03-28] MEDS: TRIAMCINOLONE ACET NASAL SPRAY 10.8ML BTL NAE SCH (20:04)
[2021-03-28] MEDS ORDERED: SODIUM CHLORIDE 0.65% NA SOLN 45 ML (OCEAN) NAE SCH (21:00)
[2021-03-29] MEDS: VANCOMYCIN HCL 1,250 MG in SODIUM CHLORIDE 0.9% 250 ML IV SCH (02:51)
[2021-03-29] MEDS: ACETAMINOPHEN 325 MG TAB PO SCH ×6 (02:51→22:09)
[2021-03-29] MEDS: LEVOTHYROXINE SODIUM 100 MCG TABLET PO SCH (06:16)
[2021-03-29 06:45] LABS: Basophils # (auto) 0.01 K/uL (0-0.2); Basophils % (auto) 0.2 %; Eosinophils # (auto) 0.23 K/uL (0-0.5); Eosinophils % (auto) 4.6 %; Hematocrit (blood only) 37.9 % (37-47); Hemoglobin 11.8 g/dL (12.0-16.0); Immature Granulocytes # (auto) 0.01 K/uL (0.00-0.02); Immature Granulocytes % (auto) 0.2 %; Lymphocytes # (auto) 1.38 K/uL (1.2-3.4); Lymphocytes % (auto) 27.7 %; Mean Corpuscular Hemoglobin 28.1 pg (25-34); Mean Corpuscular Hgb Conc 31.1 g/dL (32-36); Mean Corpuscular Volume 90.2 fL (80-100); Mean Platelet Volume 8.2 fL (7.4-10.4); Monocytes # (auto) 0.36 K/uL (0.11-0.59); Monocytes % (auto) 7.2 %; Neutrophils % (auto) 60.1 %; Platelet Count 186 K/uL (130-400); RDW Coefficient of Variation 16.5 % (11.5-14.5); RDW Standard Deviation 54.8 fL (36.4-46.3); White Blood Count 4.99 K/uL (4.8-10.8)
[2021-03-29 06:56] LABS: BUN Creatinine Ratio 23.5 (10-20); Calcium 8.3 mg/dl (8.5-10.1); Creatinine Clr Calc Pharmacy 90.8 ml/min; Est GFR (African American) 110.6 ml/min; Est GFR (Non-African American) 95.4 ml/min; Potassium 4.3 mmol/L (3.5-5.1)
[2021-03-29 06:57] LABS: INR 2.7 (0.9-1.1); Prothrombin Time 25.6 Seconds (9.0-12.0)
[2021-03-29] MEDS ORDERED: DOXYCYCLINE HYCLATE 100 MG CAP PO SCH ×2 (07:00→16:00)
[2021-03-29] MEDS ORDERED: PANTOprazole 40 MG TAB PO SCH (09:00)
[2021-03-29] MEDS: ARTIFICIAL TEARS OP SCH ×2 (09:52→20:36)
[2021-03-29] MEDS: guaiFENesin 600 MG TABCR PO SCH ×2 (09:53→20:37)
[2021-03-29] MEDS: FLUTICASONE/VILANTEROL 200/25MCG 14 PUFFS/INHALER INH SCH (09:53)
[2021-03-29] MEDS: CHOLECALCIFEROL 5,000 UNITS 125 MCG TAB PO SCH (09:53)
[2021-03-29] MEDS: lisinopril 5 MG TAB PO SCH ×2 (09:54→20:37)
[2021-03-29] MEDS: CEROVITE ADV FORMULA TAB PO SCH (09:55)
[2021-03-29] MEDS: LORATADINE 10 MG TAB PO SCH (09:55)
[2021-03-29] MEDS: POLYETHYLENE (MIRALAX) 17 GM PACK PO SCH ×2 (09:56→20:38)
[2021-03-29] MEDS: PANTOprazole 40 MG TAB PO SCH (09:56)
[2021-03-29] MEDS: SUCRALFATE 1 GM TAB PO SCH ×4 (09:57→20:38)
[2021-03-29] MEDS: SERTRALINE HCL 50 MG TABLET PO SCH (09:57)
--- NOTE | 2021-03-29 13:26 | Discharge Summary ---
Date of Service March 29, 2021 Admission HPI Per Admitting Provider Dayna Thomas is a 75 year old female who presents to the ER due to worsening cellulitis on her right arm originating from her right elbow. This is despite receiving a dose of ceftriaxone in the emergency room yesterday and she was sent home with clindamycin due to multiple drug allergies as listed. Despite this, the erythema has rapidly progressed over the last 24 hours involving the majority of her forearm and much extended from marked area which she reports was where it was the previous night. She denies any fever or chills. Initial injury she suspect was just from dry skin. She first noticed erythema 3 days ago. She was on clarithromycin at the time for a sinus infection therefore developed the cellulitis despite being on this. In the ER she was prescribed vancomycin and ceftriaxone as previous has not had adequate MRSA coverage. She reports no history of MRSA infections. She was referred to medicine for admission and ongoing management of cellulitis. Admission Exam Per Admitting Provider Constitutional: WD/WN, vitals as above ENMT: Mouth: oral mucous membranes not dry Respiratory: normal respiratory effort, lungs clear to auscultation Cardiovascular: RRR, no murmur, no edema Gastrointestinal (Abdomen): normal bowel sounds, soft, nontender, no hepatosplenomegaly Skin: + erythema (from right elbow to wrist on dorsal aspect of forearm) eschar over olecranon bursa but no fluctuance appreciated Neurologic: moves all extremities and awake; not confused Psychiatric: A+Ox3, euthymic affect Principal Diagnosis Right Upper Extremity Cellulitis Discharge Exam Constitutional: in no acute distress, pleasant. Vitals as above. Lungs: Clear to auscultation bilaterally Cardiac: Normal rate and rhythm. MSK: Full ROM upper extremities. Able to make fist with minimal pain. Skin: improving erythematic, mildly warm, mildly edematous, shrinking within borders of markings from yesterday. Eschar over olecranon bursa w/o fluctuance. Mildly tender over olecranon, less so than yesterday. Discharge Data Allergies Allergy/AdvReac Type Severity Reaction Status Date / Time Iodinated Contrast Media Allergy Severe "couldn't Verified 03/24/21 11:41 breathe and really bad rash" iodine Allergy Severe "couldn't Verified 03/24/21 11:41 breathe and really bad rash" nickel Allergy Severe " open Verified 03/24/21 11:41 sores" Penicillins Allergy Severe shortness Verified 03/24/21 11:41 of breath promethazine Allergy Severe "couldn't Verified 03/24/21 11:41 breathe" red (food color) Allergy Severe "problems Verified 03/24/21 11:41 breathing" Sulfa (Sulfonamide Allergy Severe facial Verified 03/24/21 11:41 Antibiotics) swelling Tetracyclines Allergy Severe "couldn't Verified 03/24/21 11:41 breathe and rash" levofloxacin Allergy Intermediate HIVES, LEG Verified 03/24/21 11:41 PAIN tramadol Allergy Intermediate hallucinati Verified 03/24/21 11:41 ons cephalexin Allergy Mild Rash Verified 03/24/21 11:41 house dust Allergy Mild "sniffles/watery Verified 03/24/21 11:41 eyes" ragweed pollen Allergy Mild "sniffles" Verified 03/24/21 11:41 azithromycin [From Zithromax] AdvReac Mild Rash Verified 03/24/21 11:41 mayda chews Allergy Severe "couldn't Uncoded 03/24/21 11:41 breathe right" Consultations 03/25/21 15:24 ED Decision to Admit Stat 03/25/21 16:20 Consult Orthopedic Surgery Routine Ordered Studies Laboratory Results WBC 4.99 K/uL (4.8-10.8) 03/29/21 06:17 RBC 4.20 M/uL (4.2-5.4) 03/29/21 06:17 Hgb 11.8 g/dL (12.0-16.0) L 03/29/21 06:17 Hct 37.9 % (37-47) 03/29/21 06:17 MCV 90.2 fL (80-100) 03/29/21 06:17 MCH 28.1 pg (25-34) 03/29/21 06:17 MCHC 31.1 g/dL (32-36) L 03/29/21 06:17 RDW Std Deviation 54.8 fL (36.4-46.3) H 03/29/21 06:17 RDW Coeff of Susi 16.5 % (11.5-14.5) H 03/29/21 06:17 Plt Count 186 K/uL (130-400) 03/29/21 06:17 MPV 8.2 fL (7.4-10.4) 03/29/21 06:17 Immature Gran % (Auto) 0.2 % 03/29/21 06:17 Neut % (Auto) 60.1 % 03/29/21 06:17 Lymph % (Auto) 27.7 % 03/29/21 06:17 Lamar % (Auto) 7.2 % 03/29/21 06:17 Eos % (Auto) 4.6 % 03/29/21 06:17 Baso % (Auto) 0.2 % 03/29/21 06:17 Neut # (Auto) 3.00 K/uL (1.4-6.5) 03/29/21 06:17 Lymph # (Auto) 1.38 K/uL (1.2-3.4) 03/29/21 06:17 Lamar # (Auto) 0.36 K/uL (0.11-0.59) 03/29/21 06:17 Eos # (Auto) 0.23 K/uL (0-0.5) 03/29/21 06:17 Baso # (Auto) 0.01 K/uL (0-0.2) 03/29/21 06:17 Immature Gran # (Auto) 0.01 K/uL (0.00-0.02) 03/29/21 06:17 PT 25.6 Seconds (9.0-12.0) H 03/29/21 06:17 INR 2.7 (0.9-1.1) H 03/29/21 06:17 Sodium 135 mmol/L (136-145) L 03/29/21 06:17 Potassium 4.3 mmol/L (3.5-5.1) 03/29/21 06:17 Chloride 103 mmol/L (98-107) 03/29/21 06:17 Carbon Dioxide 26 mmol/L (21-32) 03/29/21 06:17 Anion Gap 6 (3-11) 03/29/21 06:17 BUN 12 mg/dl (6-23) 03/29/21 06:17 Creatinine 0.51 mg/dl (0.6-1.2) L 03/29/21 06:17 Est Cr Clr Drug Dosing 90.8 ml/min 03/29/21 06:17 Est GFR ( Amer) 110.6 ml/min 03/29/21 06:17 Est GFR (Non-Af Amer) 95.4 ml/min 03/29/21 06:17 BUN/Creatinine Ratio 23.5 (10-20) H 03/29/21 06:17 Glucose 107 mg/dl (70-99(Fasting)) H 03/29/21 06:17 Calcium 8.3 mg/dl (8.5-10.1) L 03/29/21 06:17 Total Bilirubin 0.5 mg/dl (0.2-1.0) 03/25/21 15:19 AST 22 U/L (13-39) 03/25/21 15:19 ALT 37 U/L (7-52) 03/25/21 15:19 Alkaline Phosphatase 94 U/L (34-104) 03/25/21 15:19 C-Reactive Protein 7.01 mg/dl (0-0.5) H 03/27/21 07:23 Total Protein 7.1 gm/dl (6.0-8.3) 03/25/21 15:19 Albumin 4.0 gm/dl (3.4-5.0) 03/25/21 15:19 Globulin 3.1 gm/dl (2.5-4.0) 03/25/21 15:19 Albumin/Globulin Ratio 1.3 (0.9-2) 03/25/21 15:19 Vancomycin Trough 10.2 mcg/ml (10-20) 03/28/21 15:33 SARS-CoV-2, RNA, NAAT NEGATIVE (NEGATIVE) 03/25/21 14:54 Impressions Forearm MRI 03/27/21 08:23 MRI OF THE RIGHT FOREARM WITHOUT IV CONTRAST CLINICAL HISTORY: Cellulitis. Clinical concern for abscess. COMPARISON STUDY: Radiographs of the right elbow dated 03/24/2021. TECHNIQUE: MRI of the right forearm is performed using various T1 and T2- weighted sequences in the axial, sagittal, and coronal planes. IV contrast was not administered for this examination. The Examination is compromised by motion artifact. FINDINGS: Normal marrow signal intensity is maintained throughout the right radius and ulna. There is no MRI evidence of fracture. The wrist and elbow joints are grossly maintained. There is an elbow joint effusion. There is also fluid within the distal radioulnar joint. The long head of the biceps tendon appears intact. Diffuse soft tissue edema and subcutaneous fluid is seen throughout the right upper extremity, there is no evidence of organized fluid collection to suggest abscess. There is no MRI evidence of soft tissue gas. The regional musculature is atrophic. No muscular edema is seen. IMPRESSION: 1. Diffuse soft tissue edema and subcutaneous fluid is consistent with the reported history of cellulitis. 2. There is no evidence of organized fluid collection to indicate abscess. 3. No acute osseous abnormality is identified. 4. Elbow joint effusion. Dictated: 03/27/2021 10:59 AM Transcribed: 03/27/2021 2:11 PM Jessi [id number] [facility] Electronically signed by: Garrett Pereira M.D. 03/27/2021 2:49 PM Hospital Course (1) Cellulitis: 75 year old female with extensive PMHx presented to the ER for worsening cellulitis on her right arm originating from her right elbow. (1) Cellulitis -presented with rapid progression of RUE cellulitis after being started on clarithromycin by her PCP -Blood cultures s/p 1 day antibiotic initiation: no growth -Consulted ortho: no signs of abscess or septic olecranon bursitis -MR elbow: negative for abscess, findings consistent with cellulitis -cellulitis improving, decreasing within borders of pen markings with minimal TTP over olecranon. -h/o allergies to several abx, see list above -tx with IV vancomycin + IV rocephin during hospitalization; will dc on doxycycline 100mg PO BID [id number] (14 days total abx tx); h/o allergy to tetracyclines but patient endorses single past episode of GI symptoms; will prescribe pantoprazole and Carafate to be used during abx use; pt was given 2 doses of doxycycline on last day of admission without side affects (2) Bursitis, olecranon -As above (3) Hypothyroidism: -TSH 5.45 in January -cont. home levothyroxine 100 mcg PO daily -consider repeat outpatient (4) History of CVA with PFO -INR 2.7 -cont. home warfarin regimen -additional warfarin 5mg given (03/27) to account for increased vitamin K from meals (5) GERD -cont. home omeprazole -use pantoprazole as prescribed for GI symptoms during abx use, see above (6) Depression: -cont. home sertraline 50mg PO daily (7) HTN (hypertension): -cont. home lisinopril 5mg PO BID (8) Poor peripheral circulation: -suspect Raynauds although patient reports no prior diagnosis of this. Consider switching lisinopril to amlodipine however this is longstanding and no threatening ischemia currently therefore no urgency to change this currently. (9) Asthma -cont. home inhalers (2) Asthma: (3) Hypothyroidism: (4) HTN (hypertension): (5) correction (current) use of anticoagulants: (6) Depression: (7) GERD (gastroesophageal reflux disease): (8) History of CVA (cerebrovascular accident): Total Time Total Time Spent Total Time Spent (In Minutes): 30 Discharge Plan Discharge Items Patient Disposition: Home - Self-Care Reason For Visit: RIGHT UPPER EXTREMITY CELLULITIS Discharge Diagnosis: Right Upper Extremity Cellulitis Activity: Per Instructions section Non-emergency contact: Primary Care Provider Call non-emergency contact if: you have any medication questions, your symptoms worsen and you have a fever Follow-up/Referrals: Lary Cohn CRNP [Primary Care Provider] - Diet: Regular Addtl Attending Provider Instructions: You were admitted to the hospital for cellulitis of your right arm. You were treated here with two different IV antibiotics which did seem to help the infection. We will be sending you home on an oral antibiotic called doxycycline which should continue to treat your infection. As we discussed, it appears you had a reaction to prior doxycycline use, specifically some GI symptoms which can be a side affect of the antibiotic rather than a true allergy. To avoid these effects, we will send you home with pantoprazole and sucralfate which should minimize these GI effects. On your last day of admission, we administered you doxycycline so we could see if you would elicit an allergic reaction to the medication, but as it appears you did not. Take the medications below as directed and follow up with your primary care provider to assess complete resolution of infection. A discharge summary will be sent to your primary care physician to ensure continuity of care. Please bring this discharge summary with you to your next office appointment so that your provider can review it at that time. Follow-up appointments: Make a follow-up appointment with your PCP within the next week. It is very important that you follow up with them shortly after discharge from the hospital. We have requested a follow-up appointment with your primary care physician within one week of discharge. Please call their office if you do not hear from them. Keep all your follow-up appointments as already scheduled. If you cannot make an appointment, notify your provider. Medications: Your medication list has been reviewed and reconciled upon discharge to ensure accuracy and continuity of care. An updated list of all your medications is included with your hospital discharge paperwork. Please review this list closely,and make note of any changes. We sent a new medication called doxycycline to your pharmacy. Take doxycycline 100mg one tablet two times daily as instructed for 11 days beginning on 02/27/2021. We sent a new medication called pantoprazole to your pharmacy. Take pantoprazole 40mg one tablet daily during length antibiotic treatment. We sent a new medication called sucralfate to your pharmacy. Take sucralfate 1g one tablet 4 times per day during length antibiotic treatment. Take your medications as instructed; do not skip a dose of your medicines. Make sure all of your doctors know every medicine you are taking (including [id number] medicines, vitamins,and supplements). Call your primary care provider before taking any new medicines (including [id number] medicines, vitamins, and supplements),because some of these may interact with your current medications, or may make your symptoms worse. Tell your primary care provider if you cannot afford your medications. CONTACT YOUR PRIMARY CARE PROVIDER if you experience any of the following: fever, increased right arm pain/swelling/redness Difficulty following your treatment plan, or difficulty taking medications. CALL 911 OR GO TO THE EMERGENCY DEPARTMENT if you experience any of the following: Sudden, severe abdominal pain or nausea/vomiting Severe chest pain, or chest pain that radiates (moves)to your jaw or arm Sudden, severe shortness of breath or difficulty breathing Thank you for allowing us to participate in your care. Pending Studies at Discharge: No Stand-Alone Forms: [employer], Smoking Cessation Medications and DC Order Prescriptions: No Action sertraline 50 mg tablet 50 mg PO QAM Qty: 90 RF: 3 warfarin 5 mg tablet 5 mg PO .COMPLEX Qty: 100 RF: 3 omeprazole 20 mg capsule,delayed release(DR/EC) 20 mg PO QAM Qty: 90 RF: 3 lisinopril 5 mg tablet 5 mg PO BID Qty: 180 RF: 3 fluticasone propion-salmeterol 500-50 mcg/dose blister with device 1 ea Inhalation BID Qty: 180 RF: 3 atorvastatin [Lipitor] 40 mg tablet 40 mg PO HS Qty: 90 RF: 3 furosemide 20 mg tablet 20 mg PO DAILY PRN (Reason: edema) Qty: 30 RF: 5 nortriptyline 75 mg capsule 75 mg PO QPM Qty: 90 RF: 3 levothyroxine 100 mcg capsule 100 mcg PO DAILY Qty: 30 RF: 2 prednisone 10 mg tablet 10 mg PO .COMPLEX Qty: 15 RF: 0 levalbuterol HCl [Xopenex] 1.25 mg/3 mL solution for nebulization 1.25 mg inhalation Q8H PRN (Reason: shortness of breath or wheezing) Qty: 180 RF: 3 budesonide 0.5 mg/2 mL suspension for nebulization 0.5 mg INHALATION BID PRN (Reason: Shortness Of Breath R06.2) Qty: 180 RF: 3 polyethylene glycol 3350 [Miralax] 17 gram Powder In Packet 17 g PO BID RF: 0 loratadine [Claritin] 10 mg Tablet 10 mg PO QAM RF: 0 Saline Nasal 0.65 % Aerosol,[place] 1 spray INTRANASAL Q OTHER DAY RF: 0 Acidophilus Tablet,Chewable 1 tab PO QAM RF: 0 Systane Balance 0.6 % Drops 1 drp OPB BID RF: 0 guaifenesin [Mucinex] 600 mg Tablet Extended Release 12hr 600 mg PO Q12H RF: 0 Ocuvite Eye Health 50 mg-15 unit- 4.5 mg-2.5 mg Tablet,Chewable 1 tab PO QAM RF: 0 Nutri-Drink Liquid 1 ea PO BID RF: 0 calcium carbonate 500 mg calcium (1,250 mg) Tablet 500 mg PO DAILY RF: 0 clindamycin HCl 150 mg capsule 450 mg PO Q8H 10 Days Qty: 90 RF: 0 acetaminophen [Tylenol Arthritis] 650 mg Tablet Extended Release 650 mg PO HS RF: 0 cholecalciferol (vitamin D3) [Vitamin D3] 125 mcg (5,000 unit) Tablet 125 mcg PO DAILY RF: 0 Admission Data Admit Date/Time: 03/25/21 16:18 Attending Provider: Zoë Diaz Admit Provider: Cesar Thakur Primary Care Provider: Lary Cohn Other Providers: Cesar Thakur ; Patrick Hebert
[2021-03-29] MEDS ORDERED: WARFARIN SOD 2.5 MG TAB PO SCH (16:00)
--- NOTE | 2021-03-29 18:18 | Hospitalist Progress Note ---
Date of Service March 29, 2021 Assessment & Plan (1) Cellulitis: Plan: 75 year old female with extensive PMHx presented to the ER for worsening cellulitis on her right arm originating from her right elbow. (1) Cellulitis -presented with rapid progression of RUE cellulitis after being started on clarithromycin by her PCP -Blood cultures s/p 1 day antibiotic initiation: no growth -Consulted ortho: no signs of abscess or septic olecranon bursitis -MR elbow: negative for abscess, findings consistent with cellulitis -CRP 7.01 (03/27); repeat if cellulitis worsens -cellulitis improving, decreasing within borders of pen markings with minimal TTP over olecranon. -intially tx with IV vancomycin + IV rocephin, d/c (03/28) -started PO doxycycline (03/29), cont. -h/o allergies to several abx, see list above -h/o allergy to tetracyclines but patient endorses single past episode of GI symptoms; cont. protonix, began Carafate to be used during abx use (3) Hypothyroidism: -TSH 5.45 in January, no need to repeat acutely -cont. levothyroxine 100 mcg PO daily (4) History of CVA with PFO -INR 2.7 -cont. home warfarin regimen -additional warfarin 5mg given (03/27) to account for increased vitamin K from meals (5) GERD -Hold home omeprazole -cont. pantoprazole per hospital formulary (6) Depression: -cont. sertraline 50mg PO daily (7) HTN (hypertension): -cont. lisinopril 5mg PO BID (8) Poor peripheral circulation: -suspect Raynauds although patient reports no prior diagnosis of this. Consider switching lisinopril to amlodipine however this is longstanding and no threatening ischemia currently therefore no urgency to change this currently. DVT ppx: warfarin UD FEN/GI: regular Code Status: full Dispo: med/surg (2) Asthma: (3) Hypothyroidism: (4) HTN (hypertension): (5) senior living (current) use of anticoagulants: (6) Depression: (7) GERD (gastroesophageal reflux disease): (8) History of CVA (cerebrovascular accident): Admission and Anticipated Discharge Date Admission Date: March 25, 2021 Supervising Physician Co-Signing Physician Notes Resident Physician Supervision Note: I independently interviewed and examined the patient and verified the montemayor history and physical, reviewed labs and image studies and agree with resident Dr. Call findings and care plan. Subjective Sitting comfortably in bed. No overnight events. No acute complaints. Says her cellulitis seems to be getting better. Review of Systems Review of Systems: Constitutional: denies fevers, fatigue CV: denies chest pain Resp: denies SOB, cough GI: denies abdominal pain, nausea, vomiting, constipation, diarrhea : denies pain with urination, change in urinary frequency Neuro: denies new numbness, tingling Physical Exam Physical Exam: Constitutional: in no acute distress, pleasant. Vitals as above. Lungs: Clear to auscultation bilaterally Cardiac: Normal rate and rhythm. MSK: Full ROM upper extremities. Able to make fist with minimal pain. Skin: improving erythematic, mildly warm, mildly edematous, shrinking within borders of markings from yesterday. Eschar over olecranon bursa w/o fluctuance. Mildly tender over olecranon, less so than yesterday. Results & Data Results & Data ([facility]) Vital Signs (Past 12 Hours) Vital Signs Temp Pulse Resp BP Pulse Ox 03/29/21 15:38 36.8 C 83 18 127/85 92 03/29/21 07:24 36.7 C 72 16 120/81 92 Resident Activity Tracking Resident Involvement: Resident Care Provided Care Provided: Adult Hospital Medicine (1) Cellulitis Site of cellulitis: unspecified site Qualified Code(s): L03.90 - Cellulitis, unspecified
[2021-03-29] MEDS: ATORVASTATIN 40 MG TAB PO SCH (20:36)
[2021-03-29] MEDS: TRIAMCINOLONE ACET NASAL SPRAY 10.8ML BTL NAE SCH (20:38)
[2021-03-29] MEDS: NORTRIPTYLINE HCL 25 MG CAP PO SCH (20:38)
[2021-03-30] MEDS: ACETAMINOPHEN 325 MG TAB PO SCH ×3 (02:48→08:45)
[2021-03-30] MEDS: LEVOTHYROXINE SODIUM 100 MCG TABLET PO SCH (05:13)
[2021-03-30 07:54] LABS: Basophils # (auto) 0.01 K/uL (0-0.2); Basophils % (auto) 0.2 %; Eosinophils # (auto) 0.23 K/uL (0-0.5); Eosinophils % (auto) 4.7 %; Hematocrit (blood only) 37.3 % (37-47); Hemoglobin 11.7 g/dL (12.0-16.0); Immature Granulocytes # (auto) 0.01 K/uL (0.00-0.02); Immature Granulocytes % (auto) 0.2 %; Lymphocytes % (auto) 26.7 %; Mean Corpuscular Hgb Conc 31.4 g/dL (32-36); Mean Corpuscular Volume 89.2 fL (80-100); Mean Platelet Volume 8.2 fL (7.4-10.4); Monocytes # (auto) 0.42 K/uL (0.11-0.59); Monocytes % (auto) 8.6 %; Neutrophils % (auto) 59.6 %; Platelet Count 209 K/uL (130-400); RDW Coefficient of Variation 16.2 % (11.5-14.5); RDW Standard Deviation 53.5 fL (36.4-46.3); Red Blood Count 4.18 M/uL (4.2-5.4); White Blood Count 4.87 K/uL (4.8-10.8)
[2021-03-30 08:12] LABS: INR 2.6 (0.9-1.1); Prothrombin Time 24.3 Seconds (9.0-12.0)
[2021-03-30] MEDS: SUCRALFATE 1 GM TAB PO SCH (08:44)
[2021-03-30] MEDS: ARTIFICIAL TEARS OP SCH (08:44)
[2021-03-30] MEDS: lisinopril 5 MG TAB PO SCH (08:44)
[2021-03-30] MEDS: PANTOprazole 40 MG TAB PO SCH (08:45)
[2021-03-30] MEDS: CEROVITE ADV FORMULA TAB PO SCH (08:45)
[2021-03-30] MEDS: CHOLECALCIFEROL 5,000 UNITS 125 MCG TAB PO SCH (08:45)
[2021-03-30] MEDS: LORATADINE 10 MG TAB PO SCH (08:45)
[2021-03-30] MEDS: SERTRALINE HCL 50 MG TABLET PO SCH (08:45)
[2021-03-30] MEDS: guaiFENesin 600 MG TABCR PO SCH (08:45)
[2021-03-30] MEDS: FLUTICASONE/VILANTEROL 200/25MCG 14 PUFFS/INHALER INH SCH (08:46)
[2021-03-30] MEDS: POLYETHYLENE (MIRALAX) 17 GM PACK PO SCH (08:47)
[2021-03-30] MEDS ORDERED: DOXYCYCLINE HYCLATE 100 MG CAP PO SCH (09:00)
--- NOTE | 2021-03-30 12:04 | Discharge Summary ---
Date of Service March 30, 2021 Admission HPI Per Admitting Provider Dayna Thomas is a 75 year old female who presents to the ER due to worsening cellulitis on her right arm originating from her right elbow. This is despite receiving a dose of ceftriaxone in the emergency room yesterday and she was sent home with clindamycin due to multiple drug allergies as listed. Despite this, the erythema has rapidly progressed over the last 24 hours involving the majority of her forearm and much extended from marked area which she reports was where it was the previous night. She denies any fever or chills. Initial injury she suspect was just from dry skin. She first noticed erythema 3 days ago. She was on clarithromycin at the time for a sinus infection therefore developed the cellulitis despite being on this. In the ER she was prescribed vancomycin and ceftriaxone as previous has not had adequate MRSA coverage. She reports no history of MRSA infections. She was referred to medicine for admission and ongoing management of cellulitis. Principal Diagnosis Right Upper Extremity Cellulitis Discharge Exam Constitutional: in no acute distress, pleasant. Vitals as above. Lungs: Clear to auscultation bilaterally Cardiac: Normal rate and rhythm. MSK: Full ROM upper extremities. Able to make fist with no pain. No edema right hand without erythema. Skin: improving erythematic, mildly warm, mildly edematous cellulitis shrinking within borders of markings from yesterday. Eschar over olecranon bursa w/o fluctuance. Mildly tender over olecranon, less so than yesterday. Discharge Data Allergies Allergy/AdvReac Type Severity Reaction Status Date / Time Iodinated Contrast Media Allergy Severe "couldn't Verified 03/24/21 11:41 breathe and really bad rash" iodine Allergy Severe "couldn't Verified 03/24/21 11:41 breathe and really bad rash" nickel Allergy Severe " open Verified 03/24/21 11:41 sores" Penicillins Allergy Severe shortness Verified 03/24/21 11:41 of breath promethazine Allergy Severe "couldn't Verified 03/24/21 11:41 breathe" red (food color) Allergy Severe "problems Verified 03/24/21 11:41 breathing" Sulfa (Sulfonamide Allergy Severe facial Verified 03/24/21 11:41 Antibiotics) swelling levofloxacin Allergy Intermediate HIVES, LEG Verified 03/24/21 11:41 PAIN tramadol Allergy Intermediate hallucinati Verified 03/24/21 11:41 ons cephalexin Allergy Mild Rash Verified 03/24/21 11:41 house dust Allergy Mild "sniffles/watery Verified 03/24/21 11:41 eyes" ragweed pollen Allergy Mild "sniffles" Verified 03/24/21 11:41 azithromycin [From Zithromax] AdvReac Mild Rash Verified 03/24/21 11:41 mayda chews Allergy Severe "couldn't Uncoded 03/24/21 11:41 breathe right" Consultations 03/25/21 15:24 ED Decision to Admit Stat 03/25/21 16:20 Consult Orthopedic Surgery Routine Ordered Studies Laboratory Results WBC 4.87 K/uL (4.8-10.8) 03/30/21 07:20 RBC 4.18 M/uL (4.2-5.4) L 03/30/21 07:20 Hgb 11.7 g/dL (12.0-16.0) L 03/30/21 07:20 Hct 37.3 % (37-47) 03/30/21 07:20 MCV 89.2 fL (80-100) 03/30/21 07:20 MCH 28.0 pg (25-34) 03/30/21 07:20 MCHC 31.4 g/dL (32-36) L 03/30/21 07:20 RDW Std Deviation 53.5 fL (36.4-46.3) H 03/30/21 07:20 RDW Coeff of Susi 16.2 % (11.5-14.5) H 03/30/21 07:20 Plt Count 209 K/uL (130-400) 03/30/21 07:20 MPV 8.2 fL (7.4-10.4) 03/30/21 07:20 Immature Gran % (Auto) 0.2 % 03/30/21 07:20 Neut % (Auto) 59.6 % 03/30/21 07:20 Lymph % (Auto) 26.7 % 03/30/21 07:20 [place] % (Auto) 8.6 % 03/30/21 07:20 Eos % (Auto) 4.7 % 03/30/21 07:20 Baso % (Auto) 0.2 % 03/30/21 07:20 Neut # (Auto) 2.90 K/uL (1.4-6.5) 03/30/21 07:20 Lymph # (Auto) 1.30 K/uL (1.2-3.4) 03/30/21 07:20 [place] # (Auto) 0.42 K/uL (0.11-0.59) 03/30/21 07:20 Eos # (Auto) 0.23 K/uL (0-0.5) 03/30/21 07:20 Baso # (Auto) 0.01 K/uL (0-0.2) 03/30/21 07:20 Immature Gran # (Auto) 0.01 K/uL (0.00-0.02) 03/30/21 07:20 PT 24.3 Seconds (9.0-12.0) H 03/30/21 07:20 INR 2.6 (0.9-1.1) H 03/30/21 07:20 Sodium 135 mmol/L (136-145) L 03/29/21 06:17 Potassium 4.3 mmol/L (3.5-5.1) 03/29/21 06:17 Chloride 103 mmol/L (98-107) 03/29/21 06:17 Carbon Dioxide 26 mmol/L (21-32) 03/29/21 06:17 Anion Gap 6 (3-11) 03/29/21 06:17 BUN 12 mg/dl (6-23) 03/29/21 06:17 Creatinine 0.51 mg/dl (0.6-1.2) L 03/29/21 06:17 Est Cr Clr Drug Dosing 90.8 ml/min 03/29/21 06:17 Est GFR ( Amer) 110.6 ml/min 03/29/21 06:17 Est GFR (Non-Af Amer) 95.4 ml/min 03/29/21 06:17 BUN/Creatinine Ratio 23.5 (10-20) H 03/29/21 06:17 Glucose 107 mg/dl (70-99(Fasting)) H 03/29/21 06:17 Calcium 8.3 mg/dl (8.5-10.1) L 03/29/21 06:17 Total Bilirubin 0.5 mg/dl (0.2-1.0) 03/25/21 15:19 AST 22 U/L (13-39) 03/25/21 15:19 ALT 37 U/L (7-52) 03/25/21 15:19 Alkaline Phosphatase 94 U/L (34-104) 03/25/21 15:19 C-Reactive Protein 7.01 mg/dl (0-0.5) H 03/27/21 07:23 Total Protein 7.1 gm/dl (6.0-8.3) 03/25/21 15:19 Albumin 4.0 gm/dl (3.4-5.0) 03/25/21 15:19 Globulin 3.1 gm/dl (2.5-4.0) 03/25/21 15:19 Albumin/Globulin Ratio 1.3 (0.9-2) 03/25/21 15:19 Vancomycin Trough 10.2 mcg/ml (10-20) 03/28/21 15:33 SARS-CoV-2, RNA, NAAT NEGATIVE (NEGATIVE) 03/25/21 14:54 Impressions Forearm MRI 03/27/21 08:23 MRI OF THE RIGHT FOREARM WITHOUT IV CONTRAST CLINICAL HISTORY: Cellulitis. Clinical concern for abscess. COMPARISON STUDY: Radiographs of the right elbow dated 03/24/2021. TECHNIQUE: MRI of the right forearm is performed using various T1 and T2- weighted sequences in the axial, sagittal, and coronal planes. IV contrast was not administered for this examination. The Examination is compromised by motion artifact. FINDINGS: Normal marrow signal intensity is maintained throughout the right rad ius and ulna. There is no MRI evidence of fracture. The wrist and elbow joints are grossly maintained. There is an elbow joint effusion. There is also fluid within the distal radioulnar joint. The long head of the biceps tendon appears intact. Diffuse soft tissue edema and subcutaneous fluid is seen throughout the right upper extremity, there is no evidence of organized fluid collection to suggest abscess. There is no MRI evidence of soft tissue gas. The regional musculature is atrophic. No muscular edema is seen. IMPRESSION: 1. Diffuse soft tissue edema and subcutaneous fluid is consistent with the reported history of cellulitis. 2. There is no evidence of organized fluid collection to indicate abscess. 3. No acute osseous abnormality is identified. 4. Elbow joint effusion. Dictated: 03/27/2021 10:59 AM Transcribed: 03/27/2021 2:11 PM Jessi [id number] MARIANNA_Kelvin Electronically signed by: Garrett Pereira M.D. 03/27/2021 2:49 PM Hospital Course (1) Cellulitis: 75 year old female with extensive PMHx presented to the ER for worsening cellulitis on her right arm originating from her right elbow. (1) Cellulitis -presented with rapid progression of RUE cellulitis after being started on clarithromycin by her PCP -Blood cultures s/p 1 day antibiotic initiation: no growth -Consulted ortho: no signs of abscess or septic olecranon bursitis -MR elbow: negative for abscess, findings consistent with cellulitis -cellulitis improving, decreasing within borders of pen markings with minimal TTP over olecranon. -intially tx with IV vancomycin + IV rocephin, d/c (03/28) -started PO doxycycline (03/29), will dc on doxycycline 100mg BID x6.5 days -h/o allergy to tetracyclines but patient endorses single past episode of GI symptoms; cont. home omeprazole, prescribed Carafate to be used during abx use to relieve potential GI affects; pt was given a few doses of doxycycline in hospital without adverse reaction (3) Hypothyroidism: -TSH 5.45 in January -cont. levothyroxine 100 mcg PO daily -consider repeat TSH outpatient (4) History of CVA with PFO -INR 2.6 -cont. home warfarin regimen -additional warfarin 5mg given (03/27) to account for increased vitamin K from meals (5) GERD -cont. home omeprazole (6) Depression: -cont. sertraline 50mg PO daily (7) HTN (hypertension): -cont. lisinopril 5mg PO BID (8) Poor peripheral circulation: -suspect Raynauds although patient reports no prior diagnosis of this. Consider switching lisinopril to amlodipine however this is longstanding and no threatening ischemia currently therefore no urgency to change this currently. (9) Asthma -cont. home xopenex, budesonide, and fluticasone/salmeterol inhalers (10) HDL -cont. home lipitor (2) Asthma: (3) Hypothyroidism: (4) HTN (hypertension): (5) senior living (current) use of anticoagulants: (6) Depression: (7) GERD (gastroesophageal reflux disease): (8) History of CVA (cerebrovascular accident): Total Time Total Time Spent Total Time Spent (In Minutes): 30 Discharge Plan Discharge Items Patient Disposition: Home - Self-Care Reason For Visit: RIGHT UPPER EXTREMITY CELLULITIS Discharge Diagnosis: Right Upper Extremity Cellulitis Activity: Per Instructions section Non-emergency contact: Primary Care Provider Call non-emergency contact if: you have any medication questions, your symptoms worsen and you have a fever Follow-up/Referrals: Lary Cohn CRNP [Primary Care Provider] - Diet: Regular Addtl Attending Provider Instructions: You were admitted to the hospital for cellulitis of your right arm. You were treated here with two different IV antibiotics which did seem to help the infection. We will be sending you home on an oral antibiotic called doxycycline which should continue to treat your infection. As we discussed, it appears you had a reaction to prior doxycycline use, specifically some GI symptoms which can be a side affect of the antibiotic rather than a true allergy. To avoid these effects, we will send you home sucralfate which should minimize these GI effects. You should also tke your home medication of omeprazole which should help with the GI symptoms as well. During your last day and a half of admission, we administered you doxycycline so we could see if you would elicit an allergic reaction to the medication, but as it appears you did not. Take the medications below as directed and follow up with your primary care provider to assess complete resolution of infection. A discharge summary will be sent to your primary care physician to ensure continuity of care. Please bring this discharge summary with you to your next office appointment so that your provider can review it at that time. Follow-up appointments: Make a follow-up appointment with your PCP within the next week. It is very important that you follow up with them shortly after discharge from the hospital. We have requested a follow-up appointment with your primary care physician within one week of discharge. Please call their office if you do not hear from them. Keep all your follow-up appointments as already scheduled. If you cannot make an appointment, notify your provider. Medications: Your medication list has been reviewed and reconciled upon discharge to ensure accuracy and continuity of care. An updated list of all your medications is included with your hospital discharge paperwork. Please review this list closely,and make note of any changes. We sent a new medication called doxycycline to your pharmacy. Take doxycycline 100mg one tablet two times daily as instructed for 6.5 days beginning this afternoon on 03/30/2021. We sent a new medication called sucralfate to your pharmacy. Take sucralfate 1g one tablet 4 times per day during length antibiotic treatment. You were given one dose at 9am this morning. Also continue taking your home medication omeprazole. You may increase the dose to 40mg daily during abx treatment if necessary. Take your medications as instructed; do not skip a dose of your medicines. Make sure all of your doctors know every medicine you are taking (including dodz-och-acikria medicines, vitamins,and supplements). Call your primary care provider before taking any new medicines (including lshv-usz-ncyujok medicines, vitamins, and supplements),because some of these may interact with your current medications, or may make your symptoms worse. Tell your primary care provider if you cannot afford your medications. CONTACT YOUR PRIMARY CARE PROVIDER if you experience any of the following: fever, increased right arm pain/swelling/redness Difficulty following your treatment plan, or difficulty taking medications. CALL 911 OR GO TO THE EMERGENCY DEPARTMENT if you experience any of the following: Sudden, severe abdominal pain or nausea/vomiting Severe chest pain, or chest pain that radiates (moves)to your jaw or arm Sudden, severe shortness of breath or difficulty breathing Thank you for allowing us to participate in your care. Pending Studies at Discharge: No Stand-Alone Forms: My [facility], Smoking Cessation Medications and DC Order Prescriptions: New doxycycline hyclate 100 mg capsule 100 mg PO BID Qty: 13 RF: 0 sucralfate 1 gram tablet 1 g PO QID Qty: 27 RF: 0 Continued sertraline 50 mg tablet 50 mg PO QAM Qty: 90 RF: 3 warfarin 5 mg tablet 5 mg PO .COMPLEX Qty: 100 RF: 3 omeprazole 20 mg capsule,delayed release(DR/EC) 20 mg PO QAM Qty: 90 RF: 3 lisinopril 5 mg tablet 5 mg PO BID Qty: 180 RF: 3 fluticasone propion-salmeterol 500-50 mcg/dose blister with device 1 ea Inhalation BID Qty: 180 RF: 3 atorvastatin [Lipitor] 40 mg tablet 40 mg PO HS Qty: 90 RF: 3 furosemide 20 mg tablet 20 mg PO DAILY PRN (Reason: edema) Qty: 30 RF: 5 nortriptyline 75 mg capsule 75 mg PO QPM Qty: 90 RF: 3 levothyroxine 100 mcg capsule 100 mcg PO DAILY Qty: 30 RF: 2 prednisone 10 mg tablet 10 mg PO .COMPLEX Qty: 15 RF: 0 levalbuterol HCl [Xopenex] 1.25 mg/3 mL solution for nebulization 1.25 mg inhalation Q8H PRN (Reason: shortness of breath or wheezing) Qty: 180 RF: 3 budesonide 0.5 mg/2 mL suspension for nebulization 0.5 mg INHALATION BID PRN (Reason: Shortness Of Breath R06.2) Qty: 180 RF: 3 polyethylene glycol 3350 [Miralax] 17 gram Powder In Packet 17 g PO BID RF: 0 loratadine [Claritin] 10 mg Tablet 10 mg PO QAM RF: 0 Saline Nasal 0.65 % Aerosol,[place] 1 spray INTRANASAL Q OTHER DAY RF: 0 Acidophilus Tablet,Chewable 1 tab PO QAM RF: 0 Systane Balance 0.6 % Drops 1 drp OPB BID RF: 0 guaifenesin [Mucinex] 600 mg Tablet Extended Release 12hr 600 mg PO Q12H RF: 0 Ocuvite Eye Health 50 mg-15 unit- 4.5 mg-2.5 mg Tablet,Chewable 1 tab PO QAM RF: 0 Nutri-Drink Liquid 1 ea PO BID RF: 0 calcium carbonate 500 mg calcium (1,250 mg) Tablet 500 mg PO DAILY RF: 0 acetaminophen 650 mg Tablet Extended Release 650 mg PO HS RF: 0 cholecalciferol (vitamin D3) [Vitamin D3] 125 mcg (5,000 unit) Tablet 125 mcg PO DAILY RF: 0 Discontinued clindamycin HCl 150 mg capsule 450 mg PO Q8H 10 Days Qty: 90 RF: 0 Discharge Orders: Discharge Order (Routine); Ordered 03/30/21 Ordered By: Emmanuel Call Admission Data Admit Date/Time: 03/25/21 16:18 Attending Provider: Zoë Diaz Admit Provider: Cesar Thakur Primary Care Provider: Lary Cohn Other Providers: Cesar Thakur ; Patrick Hebert Other Interventions: Discharge Summary Assessment (RN) Last Done: 03/30/21 11:42 Supervising Physician Co-Signing Physician Notes Resident Physician Supervision Note: I independently interviewed and examined the patient and verified the montemayor history and physical, reviewed labs and image studies and agree with resident Dr. Call findings and care plan. Resident Activity Tracking Resident Involvement: Resident Care Provided Care Provided: Adult Hospital Medicine
== END 2021-03-30 12:32 | disposition home or self-care (01) | DRG 603 ==
LOC: ED 14:41 → SUATTDRO 16:18 → 3E 16:18

== ENCOUNTER 2022-05-13 10:53 | Inpatient (IN) ==
[2022-05-13] MEDS ORDERED: ALBUT/IPRATROP 3MG/0.5MG NEB 3 ML VIAL NEB ONE (11:11)
[2022-05-13] MEDS ORDERED: methylPREDNISolone 125 MG/2 ML VIAL IV STA (11:11)
--- NOTE | 2022-05-13 11:38 | Electrocardiogram Report ---
Test Reason : Blood Pressure : / mmHG Vent. Rate : 073 BPM Atrial Rate : 073 BPM P-R Int : 162 ms QRS Dur : 098 ms QT Int : 410 ms P-R-T Axes : 053 -29 022 degrees QTc Int : 451 ms Normal sinus rhythm Confirmed by Bartolo Hayes ([id number]) on 05/13/2022 11:37:43 AM Referred By: Confirmed By:Jaydon Hayes
[2022-05-13 11:39] LABS: HCO3 VBG 29 mmol/L; Oxygen Saturation VBG 78.7 %; PCO2 VBG 49 mmHg (38-50); PO2 VBG 47 mmHg; pH VBG 7.38 (7.36-7.41)
[2022-05-13 11:43] LABS: Eosinophils # (auto) 0.02 K/uL (0-0.50); Eosinophils % (auto) 0.4 %; Hematocrit (blood only) 39.7 % (37.0-47.0); Hemoglobin 13.1 g/dl (12.0-16.0); Immature Granulocytes # (auto) 0.01 K/uL (0.01-0.20); Immature Granulocytes % (auto) 0.2 %; Lymphocytes # (auto) 1.38 K/uL (1.2-3.4); Lymphocytes % (auto) 30.2 %; Mean Corpuscular Hemoglobin 29.2 pg (25.0-34.0); Mean Corpuscular Volume 88.4 fL (80.0-100.0); Mean Platelet Volume 8.5 fL (9.4-12.4); Monocytes # (auto) 0.43 K/uL (0.11-0.59); Monocytes % (auto) 9.4 %; Neutrophils # (auto) 2.73 K/uL (1.40-6.50); Neutrophils % (auto) 59.8 %; Platelet Count 162 K/uL (130-400); RDW Coefficient of Variation 14.5 % (11.5-14.5); RDW Standard Deviation 46.8 fL (36.4-46.3); Red Blood Count 4.49 M/uL (4.20-5.40); White Blood Count 4.57 K/ul (4.8-10.8)
--- NOTE | 2022-05-13 11:47 | XRay Report ---
XR chest 1V portable CLINICAL HISTORY: Shortness of breath. COMPARISON STUDY: Chest radiograph July 02, 2021. Chest CT December 04, 2013. FINDINGS: No pneumothorax is present. There is no definite pleural effusion. Cardiomediastinal silhou ette is stable. A hiatal hernia is again noted. Elevation of the right hemidiaphragm is unchanged. Th ere is pulmonary vascular congestion with possible mild pulmonary edema. Lumbar spine levoscoliosis i s partially imaged. IMPRESSION: 1. Pulmonary vascular congestion with possible mild pulmonary edema. 2. Elevation of the right hemidiaphragm. 3. Hiatal hernia. ACT 112: Negative or not required by law. Electronically signed by: Germán Bowers M.D. 05/13/2022 11:45 AM
[2022-05-13 11:59] LABS: BUN Creatinine Ratio 14.3 (10-20); Calcium 9.1 mg/dl (8.6-10.3); Creatinine Clr Calc Pharmacy 93.7 ml/min; Est GFR (African American) 111.2 ml/min; Potassium 3.8 mmol/L (3.5-5.1)
[2022-05-13 12:17] LABS: INR 2.2 (0.9-1.1); Partial Thromboplastin Ratio 1.3; Partial Thromboplastin Time 36.5 Seconds (21.0-31.0); Prothrombin Time 22.9 Seconds (9.0-12.0)
--- NOTE | 2022-05-13 13:02 | History & Physical Report ---
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 In the ED the patient was found to be afebrile, hemodynamically stable, but hypoxic in the mid 80's on RA. Labs were remarkable for a CBC with WBC of 4.57, stable Hgb and platelets, INR of 2.2, VBG WNL, stable cr of 0.49, sodium of 126, chloride of 92, glucose of 106, covid screen pending. Chest xray was read as "1. Pulmonary vascular congestion with possible mild pulmonary edema. 2. Elevation of the right hemidiaphragm. 3. Hiatal hernia.". Prior to admission the patient was given 125 mg IV methylprednisolone and an hour long DuoNeb treatment. Allergies Allergy/AdvReac Type Severity Reaction Status Date / Time Iodinated Contrast Media Allergy Severe "couldn't Verified 05/13/22 09:47 breathe and really bad rash" iodine Allergy Severe "couldn't Verified 05/13/22 09:47 breathe and really bad rash" nickel Allergy Severe " open Verified 05/13/22 09:47 sores" Penicillins Allergy Severe shortness Verified 05/13/22 09:47 of breath promethazine Allergy Severe "couldn't Verified 05/13/22 09:47 breathe" red (food color) Allergy Severe "problems Verified 05/13/22 09:47 breathing" Sulfa (Sulfonamide Allergy Severe facial Verified 05/13/22 09:47 Antibiotics) swelling levofloxacin Allergy Intermediate HIVES, LEG Verified 05/13/22 09:47 PAIN tramadol Allergy Intermediate hallucinati Verified 05/13/22 09:47 ons cephalexin Allergy Mild Rash Verified 05/13/22 09:47 house dust Allergy Mild "sniffles/watery Verified 05/13/22 09:47 eyes" ragweed pollen Allergy Mild "sniffles" Verified 05/13/22 09:47 azithromycin [From Zithromax] AdvReac Mild Rash Verified 05/13/22 09:47 mayda chews Allergy Severe "couldn't Uncoded 05/13/22 09:47 breathe right" Home Medications Medication Instructions Recorded Confirmed Type Lactobacillus acidophilus 1 tab PO QAM 03/30/18 05/13/22 History (Acidophilus chewable tablet) guaifenesin 600 mg tablet, 600 mg PO Q12H 03/30/18 05/13/22 History extended release 12 hr (Mucinex) loratadine 10 mg tablet (Claritin) 10 mg PO QAM 03/30/18 05/13/22 History polyethylene glycol 3350 17 gram 17 g PO BID 03/30/18 05/13/22 History oral powder packet (Miralax) propylene glycol 0.6 % eye drops 1 drp OPB BID 03/30/18 05/13/22 History (Systane Balance) sodium chloride 0.65 % nasal spray 1 spray intranasal Q OTHER DAY 03/30/18 05/13/22 History aerosol (Saline Nasal) vit C 50 mg-E 15 unit-zinc cit 4.5 1 tab PO QAM 03/30/18 05/13/22 History mg-lutein 2.5 mg-zeaxan chew tablet ([facility]) food supplemt, lactose-reduced 1 ea PO BID 12/10/18 05/13/22 History (Nutri-Drink oral liquid) calcium carbonate 500 mg calcium 500 mg PO DAILY 03/08/21 05/13/22 History (1,250 mg) tablet acetaminophen 650 mg 650 mg PO HS 03/25/21 05/13/22 History tablet,extended release cholecalciferol (vitamin D3) 125 125 mcg PO DAILY 03/25/21 05/13/22 History mcg (5,000 unit) tablet (Vitamin D3) nystatin 100,000 unit/gram topical 1 applic topical BID #15 grams 04/08/21 0 05/13/22 Rx cream warfarin 5 mg tablet 5 mg PO .COMPLEX #100 tabs 07/01/21 05/13/22 Rx levothyroxine 112 mcg tablet 112 mcg PO DAILY #90 tabs 07/21/21 05/13/22 Rx budesonide 0.5 mg/2 mL suspension 0.5 mg (2 mL) inhalation BID PRN 07/26/21 05/13/22 Rx for nebulization Shortness Of Breath R06.2 #180 mL furosemide 20 mg tablet 20 mg PO DAILY edema #90 tabs 08/10/21 05/13/22 Rx triamcinolone acetonide 0.1 % 1 applic topical BID #15 grams 08/10/21 05/13/22 Rx topical cream atorvastatin 40 mg tablet (Lipitor) 40 mg PO HS #90 tabs 01/21/22 05/13/22 Rx nortriptyline 75 mg capsule 75 mg PO QPM #90 caps 01/21/22 05/13/22 Rx omeprazole 20 mg capsule,delayed 40 mg PO QAM #180 caps 01/31/22 05/13/22 Rx release lisinopril 10 mg tablet 10 mg PO BID #180 tabs 02/24/22 05/13/22 Rx clarithromycin 500 mg tablet 500 mg PO BID 7 days #14 tabs 03/18/22 05/13/22 Rx fluticasone 500 mcg-salmeterol 50 1 ea inhalation BID #180 ea 03/21/22 05/13/22 Rx mcg/dose blistr powdr for inhalation levalbuterol HCl 1.25 mg/3 mL 1.25 mg (3 mL) inhalation Q8H PRN 03/23/22 05/13/22 Rx solution for nebulization (Xopenex) shortness of breath or wheezing #270 mL sertraline 50 mg tablet 50 mg PO QAM #90 tabs 05/03/22 05/13/22 Rx Past Med/Surg History Medical History Acute respiratory failure with hypoxia Asthma Basilar artery stenosis Breath shortness Chronic back pain CVA (cerebrovascular accident) Depression GERD (gastroesophageal reflux disease) History of COVID-19 Hx of esophageal varices Hyperlipidemia Hypertension Hypothyroidism Hypoxia Migraine Osteoarthritis PFO (patent foramen ovale) Scoliosis Viral URI Surgical History History of bilateral cataract extraction History of bilateral tubal ligation History of colonoscopy with polypectomy History of dilatation and curettage History of esophagogastroduodenoscopy (EGD) History of hip replacement History of hysterectomy History of tooth extraction Family History Mother Family history of diabetes mellitus Myocardial infarction Sister Family history of diabetes mellitus Family history of rectal cancer Myocardial infarction Sister Family history of diabetes mellitus Myocardial infarction Brother Family history of diabetes mellitus Myocardial infarction Brother Family history of diabetes mellitus Family/Other Breast cancer Father Myocardial infarction Other Cancer Gallbladder disease Heart disease Hypertension Lung disease No family history of adverse response to anesthesia Denies family history of Ovarian cancer Prostate cancer Colorectal cancer Social History Smoking Status: Never smoker Second Hand Exposure: No; Hx Alcohol Use: No Hx Substance Use: No Preferred Language: Greek Communication Ability: Effective Recovery Coach Required: No Beliefs That Will Affect Care: None marital status: Current Living Situation: Spouse Current Living Situation Comment: and son current occupational status: retired How many Children do You have: 5 Feels Safe at Home: Yes Childhood Exposure to Second-Hand Smoke: Yes caffeine: Yes Dental Care, Regularly: Yes Seatbelt Use: always Assistive Devices: Walker Results & Data Results & Data Vital Signs (Past 12 Hours) Vital Signs Temp Pulse Pulse Resp BP Pulse Ox O2 Del Method 05/13/22 12:15 71 14 94 Nasal Cannula 05/13/22 12:11 70 05/13/22 10:54 36.6 C 87 20 157/98 H 85 L Room Air O2 Flow Rate 05/13/22 12:15 4 05/13/22 12:11 05/13/22 10:54 PG Care Time/CCT Total # of Minutes Spent Total Time Spent with Patient: Total time spent is greater than 50% in coordination of care (as documented) at patient's floor/unit and/or counseling patient: Coding Diagnoses
[2022-05-13] MEDS ORDERED: MAGNESIUM SULFATE / D5W 1 GM/100 ML BAG IV ONE (13:30)
[2022-05-13] MEDS ORDERED: FLUTICASONE/VILANTEROL 100/25MCG 14 PUFFS/INHALER INH STA (13:32)
[2022-05-13 13:38] LABS: Troponin I High Sensitivity 6.6 pg/ml (0-14)
[2022-05-13] MEDS ORDERED: FLUTICASONE/VILANTEROL 100/25MCG 14 PUFFS/INHALER INH SCH (13:45)
[2022-05-13 13:54] LABS: Appearance Urine Clear (Clear); Bacteria Urine Automated Negative (Negative); Bilirubin Urine Negative (Negative); Blood Urine Negative (Negative); Color Urine Yellow; Epithelial Cell Urine Auto 20-30 /lpf (0-5); Glucose Urine UA Negative (Negative); Ketones Urine Trace (Negative); Leukocyte Esterase Urine 1+ (Negative); Nitrite Urine Negative (Negative); Protein Urine Trace (Negative); RBC Urine Automated 0-4 /hpf (0-4); Specific Gravity Urine 1.017 (1.000-1.030); Urobilinogen Urine Negative (Negative); pH Urine 6.5 (4.5-7.5)
--- NOTE | 2022-05-13 14:01 | History & Physical Report ---
Date of Service May 13, 2022 Assessment & Plan (1) Acute respiratory failure with hypoxia: Plan: -Admit to med/tele on cont pulse oximetry -The patient is currently afebrile, hemodynamically stable, and stable on 4L NC -At this time the differential for the patient's hypoxic resp failure includes but is not limited to asthma exacerbation, bacterial pneumonia, viral URI, PE, CHF, anxiety -Troponin obtained on admission with WNL and the patient is without chest pain or acute ECG changes -The patient is very wheezy on exam, even after receiving her hour long DuoNeb -Will obtain BNP, Procal, Full resp biofire panel, sputum culture w/gram stain for further evaluation -S/P 125 mg IV Solu-Medrol and 1-hour DuoNeb treatment in the ED -Will treat as an asthma exacerbation at this time with 40 mg IV Solu-medrol daily, q12h IV Doxycycline (Allergic to Azithromycin), incentive spirometry, flutter therapy, q6h Robitussin/Codeine, and prn O2 to keep SpO2 at or above 95% -Will give 1gm IV mage STAT -Continue home breathing treatments, QID DuoNebs -Continue BL SCD's and Home warfarin for DVT PPX -AM CBC, CMP, Mag, PZT/INR (2) Hyponatremia: Plan: -Sodium at 126 today, glucose of 106 -AT this time her acute hyponatremia appears to be due to primary polydipsia and poor oral intake -Will obtain serum osmolality, UA with urine osmolality and urine sodium levels and TSH for further evaluation -For now will hold her lasix and continue with a 1200 mL fluid restriction with no free water -Will repeat BMP at 6pm tonight to ensure she is correcting at a safe rate (3) Hypothyroidism: Plan: -Will FU with TSH -Continue levothyroxine (4) Anxiety: Plan: -Continue Sertraline and Nortriptyline (5) History of CVA (cerebrovascular accident): Plan: -Continue Warfarin -INR therapeutic today at 2.2 (6) Hyperlipidemia: Plan: -Conitnue statin (7) GERD (gastroesophageal reflux disease): Plan: -Continue omeprazole Plan The patient was discussed with Dr. Thakur at the time of the admission History of Present Illness Chief Complaint: SOB, cough, nausea, vomiting Primary Care Provider: TREY Warren Mae is a 76 year old female with a PMH significant for previous CVA due to PFO on Warfarin, asthma, HTN, Dyslipidemia, hypothyroidism, anxiety/depression, and GERD who presented to the [facility] ED on 05/13/22 from her PCP's office due to acute hypoxic respiratory failure. In the ED the patient was found to to be afebrile, hemodynamically stable, but hypoxic in the mid 80's on RA. Labs were remarkable for a WBC of 4.57, stable hgb and platelets, INR of 2.2, stable cr at 0.49 but a sodium of 126, chloride of 92, glucose of 106, and covid negative. Chest xray was read as "1. Pulmonary vascular congestion with possible mild pulmonary edema. 2. Elevation of the right hemidiaphragm. 3. Hiatal hernia.". Prior to admission the patient was placed on 4L NC and remained stable. She was given and hour long duoneb treatment and 125 mg of IV methylprednisolone. At the time of the exam the patient was sitting in bed, still receiving her DuoNeb treatment in no acute distress with her sitting bedside; history was obtained from both. They state that they both developed URI symptoms approximately 4-5 days. She developed congestion, runny nose, a productive cough with yellow sputum (no baseline cough with her asthma), SOB, nausea, and 3 episodes of non-bloody emesis. She denies choking on any of her vomit. She has been using her Advair, budesonide, and levalbuterol nebulizers without relief of her symptoms. She denies recent fevers, chills, changes of vision, hearing, taste, and smell, chest pain, abd pain, dysuria, hematuria, LE swelling and recent trauma. When asked, she states that she has not been eating well over the past week due to a lack of appetite. She has been drinking a lot of water per she and her . She has been drinking approximately 6-8 of the large hospital cups of water daily. She has still been taking her 20 mg PO Lasix daily over the past week, as-well-as her Warfarin. We discussed code status, she wishes to be a full code and for her to make medical decisions for her if she cannot make them herself. Please refer to Dr. hTakur's attestation for any changes to the treatment plan Allergies Allergy/AdvReac Type Severity Reaction Status Date / Time Iodinated Contrast Media Allergy Severe "couldn't Verified 05/13/22 09:47 breathe and really bad rash" iodine Allergy Severe "couldn't Verified 05/13/22 09:47 breathe and really bad rash" nickel Allergy Severe " open Verified 05/13/22 09:47 sores" Penicillins Allergy Severe shortness Verified 05/13/22 09:47 of breath promethazine Allergy Severe "couldn't Verified 05/13/22 09:47 breathe" red (food color) Allergy Severe "problems Verified 05/13/22 09:47 breathing" Sulfa (Sulfonamide Allergy Severe facial Verified 05/13/22 09:47 Antibiotics) swelling levofloxacin Allergy Intermediate HIVES, LEG Verified 05/13/22 09:47 PAIN tramadol Allergy Intermediate hallucinati Verified 05/13/22 09:47 ons cephalexin Allergy Mild Rash Verified 05/13/22 09:47 house dust Allergy Mild "sniffles/watery Verified 05/13/22 09:47 eyes" ragweed pollen Allergy Mild "sniffles" Verified 05/13/22 09:47 caramel Allergy Difficulty Verified 05/13/22 18:37 Breathing azithromycin [From Zithromax] AdvReac Mild Rash Verified 05/13/22 09:47 Home Medications Medication Instructions Recorded Confirmed Type guaifenesin 600 mg tablet, 600 mg PO Q12H 03/30/18 05/20/22 History extended release 12 hr (Mucinex) loratadine 10 mg tablet (Claritin) 10 mg PO QAM 03/30/18 05/20/22 History polyethylene glycol 3350 17 gram 17 g PO BID 03/30/18 05/20/22 History oral powder packet (Miralax) propylene glycol 0.6 % eye drops 1 drp OPB BID 03/30/18 05/20/22 History (Systane Balance) sodium chloride 0.65 % nasal spray 1 spray intranasal Q OTHER DAY 03/30/18 05/20/22 History aerosol (Saline Nasal) vit C 50 mg-E 15 unit-zinc cit 4.5 1 tab PO QAM 03/30/18 05/20/22 History mg-lutein 2.5 mg-zeaxan chew tablet ([facility]) calcium carbonate 500 mg calcium 500 mg PO DAILY 03/08/21 05/20/22 History (1,250 mg) tablet acetaminophen 650 mg 650 mg PO HS 03/25/21 05/20/22 History tablet,extended release cholecalciferol (vitamin D3) 125 125 mcg PO DAILY 03/25/21 05/20/22 History mcg (5,000 unit) tablet (Vitamin D3) nystatin 100,000 unit/gram topical 1 applic topical BID #15 grams 04/08/21 05/20/22 Rx cream warfarin 5 mg tablet 5 mg PO .COMPLEX #100 tabs 07/01/21 05/20/22 Rx levothyroxine 112 mcg tablet 112 mcg PO DAILY #90 tabs 07/21/21 05/20/22 Rx budesonide 0.5 mg/2 mL suspension 0.5 mg (2 mL) inhalation BID PRN 07/26/21 05/20/22 Rx for nebulization Shortness Of Breath R06.2 #180 mL furosemide 20 mg tablet 20 mg PO DAILY edema #90 tabs 08/10/21 05/20/22 Rx atorvastatin 40 mg tablet (Lipitor) 40 mg PO HS #90 tabs 01/21/22 05/20/22 Rx nortriptyline 75 mg capsule 75 mg PO QPM #90 caps 01/21/22 05/20/22 Rx omeprazole 20 mg capsule,delayed 40 mg PO QAM #180 caps 01/31/22 05/20/22 Rx release lisinopril 10 mg tablet 10 mg PO BID #180 tabs 02/24/22 05/20/22 Rx fluticasone 500 mcg-salmeterol 50 1 ea inhalation BID #180 ea 03/21/22 05/20/22 Rx mcg/dose blistr powdr for inhalation levalbuterol HCl 1.25 mg/3 mL 1.25 mg (3 mL) inhalation Q8H PRN 03/23/22 05/20/22 Rx solution for nebulization (Xopenex) shortness of breath or wheezing #270 mL sertraline 50 mg tablet 50 mg PO QAM #90 tabs 05/03/22 05/20/22 Rx diltiazem HCl 180 mg 180 mg PO QAM #30 caps 05/19/22 05/20/22 Rx capsule,extended release 24 hr doxycycline hyclate 100 mg tablet 100 mg PO BID #8 tabs 05/19/22 05/20/22 Rx nystatin 100,000 unit/mL oral 5 ml PO QID 10 days #200 mL 05/19/22 05/20/22 Rx suspension food supplemt, lactose-reduced 1 ea PO BID 05/20/22 05/20/22 History (Nutri-Drink oral liquid) Past Med/Surg History Medical History Acute respiratory failure with hypoxia Asthma Breathing well controlled Basilar artery stenosis History of per patient- pt states more recent testing showed no issues No significant issues noted per 08/03/20 PCP note Breath shortness Chronic back pain CVA (cerebrovascular accident) x4 (most recent 2013) Mild residual drooping to left side of mouth Depression GERD (gastroesophageal reflux disease) Well controlled and stable with med History of COVID-19 07/2019 No symptoms with exception to residual voice hoarseness Hx of esophageal varices Noted incidentally by GI during EGD per patient Longstanding history per PCP note- no hx of liver disease or alcoholism. No current issues Hyperlipidemia Hypertension Hypothyroidism Hypoxia Migraine Osteoarthritis PFO (patent foramen ovale) Follows with Dr. Hearn- medically controlled. On prophylactic Coumadin. Did follow with cardiovascular surgery in the past per records to discuss closure of PFO- but unable to do closure secondary to nickel allergy- pt stable Scoliosis Viral URI Surgical History History of bilateral cataract extraction History of bilateral tubal ligation History of colonoscopy with polypectomy History of dilatation and curettage History of esophagogastroduodenoscopy (EGD) History of hip replacement History of hysterectomy History of tooth extraction Family History Mother Family history of diabetes mellitus Myocardial infarction Sister Family history of diabetes mellitus Family history of rectal cancer Myocardial infarction Sister Family history of diabetes mellitus Myocardial infarction Brother Family history of diabetes mellitus Myocardial infarction Brother Family history of diabetes mellitus Family/Other Breast cancer Father Myocardial infarction Other Cancer Gallbladder disease Heart disease Hypertension Lung disease No family history of adverse response to anesthesia Denies family history of Ovarian cancer Prostate cancer Colorectal cancer Social History Smoking Status: Never smoker Second Hand Exposure: No; Hx Alcohol Use: No Hx Substance Use: No Preferred Language: Barbadian Communication Ability: Effective Burnishing Machine Operator Required: No Beliefs That Will Affect Care: None marital status: Current Living Situation: Spouse Current Living Situation Comment: and son current occupational status: retired How many Children do You have: 5 Feels Safe at Home: Yes Childhood Exposure to Second-Hand Smoke: Yes caffeine: Yes Dental Care, Regularly: Yes Seatbelt Use: always Assistive Devices: Nebulizer and Walker Review of Systems Review of Systems: Denies current fever, chills, headache, changes in vision, hearing, taste, and smell, chest pain, abdominal pain, diarrhea, hematemesis, melena, dysuria, hematuria, and recent falls. All systems have been reviewed and are otherwise negative. Physical Exam Physical Exam: Physical Exam: General: In no acute distress, stated age, well-nourished, is ill appearing HEENT: Normocephalic, atraumatic, currently receiving a nebulizer treatment via NRB, no scleral icterus, pupils around round, symmetrical, and reactive to light, trachea midline, no thyromegaly Chest/Pulm: No respiratory distress, frequent coughing when trying to speak, symmetrical chest expansion, expiratory wheezing and rhonchi throughout Cardiac: RRR, no murmurs noted Abdomen: Negative for ascites and bruising, normoactive bowel sounds, soft, non-tender to palpation throughout Musculoskeletal: Symmetrical and without signs of acute trauma, upper and lower extremities with full ROM, no atrophy, spasticity, or flaccidity Extremities: Radial, dorsalis pedis, and posterior tibial pulses are intact and symmetrical, no edema noted in the BL LE's Skin: Warm, dry, no rashes , lesions, or scars noted Neuro: Alert and oriented to person, place, month, year, and president, no focal defects, no tremors noted Psych: No acute distress, calm and cooperative during the exam Results & Data Results & Data Vital Signs (Past 12 Hours) Vital Signs Temp Pulse Pulse Resp BP Pulse Ox O2 Del Method 05/13/22 13:00 82 17 99 05/13/22 13:00 127/86 05/13/22 12:30 72 18 93 05/13/22 12:30 140/103 H 05/13/22 12:00 71 16 96 05/13/22 12:00 135/90 05/13/22 11:30 72 14 96 05/13/22 11:15 74 19 96 05/13/22 11:10 24 96 Nasal Cannula 05/13/22 12:15 71 14 94 Nasal Cannula 05/13/22 12:11 70 05/13/22 10:54 36.6 C 87 20 157/98 H 85 L Room Air O2 Flow Rate 05/13/22 13:00 05/13/22 13:00 05/13/22 12:30 05/13/22 12:30 05/13/22 12:00 05/13/22 12:00 05/13/22 11:30 05/13/22 11:15 05/13/22 11:10 5 05/13/22 12:15 4 05/13/22 12:11 05/13/22 10:54 Laboratory Results Abnormal lab results 05/13/22 05/13/22 05/13/22 Range/Units 11:23 11:23 11:23 WBC 4.57 L (4.8-10.8) K/ul RDW Std Deviation 46.8 H (36.4-46.3) fL MPV 8.5 L (9.4-12.4) fL PT 22.9 H (9.0-12.0) Seconds INR 2.2 H (0.9-1.1) APTT 36.5 H (21.0-31.0) Seconds Sodium 126 L (136-145) mmol/L Chloride 92 L (98-107) mmol/L Creatinine 0.49 L (0.6-1.2) mg/dl Glucose 106 H (70-99(Fasting)) mg/dl Osmolality (280-300) mOsm/kg 05/13/22 Range/Units 11:24 WBC (4.8-10.8) K/ul RDW Std Deviation (36.4-46.3) fL MPV (9.4-12.4) fL PT (9.0-12.0) Seconds INR (0.9-1.1) APTT (21.0-31.0) Seconds Sodium (136-145) mmol/L Chloride (98-107) mmol/L Creatinine (0.6-1.2) mg/dl Glucose (70-99(Fasting)) mg/dl Osmolality 260 L (280-300) mOsm/kg Diagnostic Findings Chest X-Ray 05/13/22 11:10 XR chest 1V portable CLINICAL HISTORY: Shortness of breath. COMPARISON STUDY: Chest radiograph July 02, 2021. Chest CT December 04, 2013. FINDINGS: No pneumothorax is present. There is no definite pleural effusion. Cardiomediastinal silhouette is stable. A hiatal hernia is again noted. Elevation of the right hemidiaphragm is unchanged. There is pulmonary vascular congestion with possible mild pulmonary edema. Lumbar spine levoscoliosis is partially imaged. IMPRESSION: 1. Pulmonary vascular congestion with possible mild pulmonary edema. 2. Elevation of the right hemidiaphragm. 3. Hiatal hernia. ACT 112: Negative or not required by law. Electronically signed by: Germán Bowers M.D. 05/13/2022 11:45 AM ECG Additional Comments: Normal sinus rhythm Confirmed by Bartolo Hayes ([id number]) on 05/13/2022 11:37:43 AM Code Status & VTE Plan Code Status FUll code VTE Prophylaxis Plan VTE Prophylaxis will be ordered: Yes Supervising Physician Co-Signing Physician Notes I personally saw and examined the patient. I verified all montemayor points and agree with Cecilio Andrade PA-C with the following exceptions and/or additions: 76 year old female presents to the ER with 4-5 days of URI symptoms. No history of CHF but notes excessive free water intake. O/E HS RRR, no murmurs, Resp - using accessory muscle, expiratory wheezing and rhonchi throughout, Abdo SNT A/P Asthma exacerbation - Solu-medrol, duonebs, suspect exacerbated by human metapneumovirus found on PCR Acute respiratory failure with hypoxia - Secondary to human metapneumovirus, asthma, pulmonary edema Hyponatremia - suspect due to excessive fluid intake, already improving therefore will loosen fluid restriction Pulmonary edema - Increase Lasix to 20mg IV daily Elevation of right hemidiaphragm is chronic and no further acute investigations required. PG Care Time/CCT Total # of Minutes Spent Total Time Spent with Patient: Total time spent is greater than 50% in coordination of care (as documented) at patient's floor/unit and/or counseling patient: Coding [place] [address] INT INP/OBS CARE 3/75MIN Patient Type Established Medical Decision Making High Complexity Diagnoses Acute respiratory failure with hypoxia J96.01 Hyponatremia E87.1 Hypothyroidism E03.9 Anxiety F41.9 History of CVA (cerebrovascular accident) Z86.73 Hyperlipidemia E78.5 GERD (gastroesophageal reflux disease) K21.9
[2022-05-13] MEDS: guaiFENesin/CODEINE 100MG/10MG 5ML UDC PO SCH ×2 (14:16→20:26)
[2022-05-13] MEDS: ALBUT/IPRATROP 3MG/0.5MG NEB 3 ML VIAL NEB SCH ×2 (14:17→19:20)
--- NOTE | 2022-05-13 15:01 | Emergency Department Note ---
History of Present Illness General Chief Complaint: Illness Stated Complaint: LOW OXY LEVEL, POSSIBLE PNEUMONIA, REF BY DOC Time Seen by Provider: 05/13/22 11:04 History of Present Illness Provider Complaint: shortness of breath, cough and "asthma attack" Onset (ago): week(s) (2) Consistency/Duration: + progressively worsening Relieved By: + nothing Exacerbated By: + exertion and + coughing Context: no recent travel or no trauma/injury Known history of: asthma Associated symptoms: + cough, + wheezing, + sputum production and + chest congestion; no fever or no hemoptysis Related Data Home oxygen amount: none Home Medications Medication Instructions Recorded Confirmed Type guaifenesin 600 mg tablet, 600 mg PO Q12H 03/30/18 05/13/22 History extended release 12 hr (Mucinex) loratadine 10 mg tablet (Claritin) 10 mg PO QAM 03/30/18 05/13/22 History polyethylene glycol 3350 17 gram 17 g PO BID 03/30/18 05/13/22 History oral powder packet (Miralax) propylene glycol 0.6 % eye drops 1 drp OPB BID 03/30/18 05/13/22 History (Systane Balance) sodium chloride 0.65 % nasal spray 1 spray intranasal Q OTHER DAY 03/30/18 05/13/22 History aerosol (Saline Nasal) vit C 50 mg-E 15 unit-zinc cit 4.5 1 tab PO QAM 03/30/18 05/13/22 History mg-lutein 2.5 mg-zeaxan chew tablet ([facility]) food supplemt, lactose-reduced 1 ea PO BID 12/10/18 05/13/22 History (Nutri-Drink oral liquid) calcium carbonate 500 mg calcium 500 mg PO DAILY 03/08/21 05/13/22 History (1,250 mg) tablet acetaminophen 650 mg 650 mg PO HS 03/25/21 05/13/22 History tablet,extended release cholecalciferol (vitamin D3) 125 125 mcg PO DAILY 03/25/21 05/13/22 History mcg (5,000 unit) tablet (Vitamin D3) nystatin 100,000 unit/gram topical 1 applic topical BID #15 grams 04/08/21 05/13/22 Rx cream warfarin 5 mg tablet 5 mg PO .COMPLEX #100 tabs 07/01/21 05/13/22 Rx levothyroxine 112 mcg tablet 112 mcg PO DAILY #90 tabs 07/21/21 05/13/22 Rx budesonide 0.5 mg/2 mL suspension 0.5 mg (2 mL) inhalation BID PRN 07/26/21 05/13/22 Rx for nebulization Shortness Of Breath R06.2 #180 mL furosemide 20 mg tablet 20 mg PO DAILY edema #90 tabs 08/10/21 05/13/22 Rx triamcinolone acetonide 0.1 % 1 applic topical BID #15 grams 08/10/21 05/13/22 Rx topical cream atorvastatin 40 mg tablet (Lipitor) 40 mg PO HS #90 tabs 01/21/22 05/13/22 Rx nortriptyline 75 mg capsule 75 mg PO QPM #90 caps 01/21/22 05/13/22 Rx omeprazole 20 mg capsule,delayed 40 mg PO QAM #180 caps 01/31/22 05/13/22 Rx release lisinopril 10 mg tablet 10 mg PO BID #180 tabs 02/24/22 05/13/22 Rx clarithromycin 500 mg tablet 500 mg PO BID 7 days #14 tabs 03/18/22 05/13/22 Rx fluticasone 500 mcg-salmeterol 50 1 ea inhalation BID #180 ea 03/21/22 05/13/22 Rx mcg/dose blistr powdr for inhalation levalbuterol HCl 1.25 mg/3 mL 1.25 mg (3 mL) inhalation Q8H PRN 03/23/22 05/13/22 Rx solution for nebulization (Xopenex) shortness of breath or wheezing #270 mL sertraline 50 mg tablet 50 mg PO QAM #90 tabs 05/03/22 05/13/22 Rx Allergies Allergy/AdvReac Type Severity Reaction Status Date / Time Iodinated Contrast Media Allergy Severe "couldn't Verified 05/13/22 09:47 breathe and really bad rash" iodine Allergy Severe "couldn't Verified 05/13/22 09:47 breathe and really bad rash" nickel Allergy Severe " open Verified 05/13/22 09:47 sores" Penicillins Allergy Severe shortness Verified 05/13/22 09:47 of breath promethazine Allergy Severe "couldn't Verified 05/13/22 09:47 breathe" red (food color) Allergy Severe "problems Verified 05/13/22 09:47 breathing" Sulfa (Sulfonamide Allergy Severe facial Verified 05/13/22 09:47 Antibiotics) swelling levofloxacin Allergy Intermediate HIVES, LEG Verified 05/13/22 09:47 PAIN tramadol Allergy Intermediate hallucinati Verified 05/13/22 09:47 ons cephalexin Allergy Mild Rash Verified 05/13/22 09:47 house dust Allergy Mild "sniffles/watery Verified 05/13/22 09:47 eyes" ragweed pollen Allergy Mild "sniffles" Verified 05/13/22 09:47 azithromycin [From Zithromax] AdvReac Mild Rash Verified 05/13/22 09:47 mayda chews Allergy Severe "couldn't Uncoded 05/13/22 09:47 breathe right" Past Med/Surg History Medical History Acute respiratory failure with hypoxia Asthma Breathing well controlled Basilar artery stenosis History of per patient- pt states more recent testing showed no issues No significant issues noted per 08/03/20 PCP note Breath shortness Chronic back pain CVA (cerebrovascular accident) x4 (most recent 2013) Mild residual drooping to left side of mouth Depression GERD (gastroesophageal reflux disease) Well controlled and stable with med History of COVID-19 07/2019 No symptoms with exception to residual voice hoarseness Hx of esophageal varices Noted incidentally by GI during EGD per patient Longstanding history per PCP note- no hx of liver disease or alcoholism. No current issues Hyperlipidemia Hypertension Hypothyroidism Hypoxia Migraine Osteoarthritis PFO (patent foramen ovale) Follows with Dr. Hearn- medically controlled. On prophylactic Coumadin. Did follow with cardiovascular surgery in the past per records to discuss closure of PFO- but unable to do closure secondary to nickel allergy- pt stable Scoliosis Viral URI Surgical History History of bilateral cataract extraction History of bilateral tubal ligation History of colonoscopy with polypectomy History of dilatation and curettage History of esophagogastroduodenoscopy (EGD) History of hip replacement History of hysterectomy History of tooth extraction Family History Mother Family history of diabetes mellitus Myocardial infarction Sister Family history of diabetes mellitus Family history of rectal cancer Myocardial infarction Sister Family history of diabetes mellitus Myocardial infarction Brother Family history of diabetes mellitus Myocardial infarction Brother Family history of diabetes mellitus Family/Other Breast cancer Father Myocardial infarction Other Cancer Gallbladder disease Heart disease Hypertension Lung disease No family history of adverse response to anesthesia Denies family history of Ovarian cancer Prostate cancer Colorectal cancer Social History Smoking Status: Never smoker Second Hand Exposure: No; Hx Alcohol Use: No Hx Substance Use: No Preferred Language: Ecuadorean Communication Ability: Effective Artillery Or Naval Gunfire Observer Required: No Beliefs That Will Affect Care: None marital status: Current Living Situation: Spouse Current Living Situation Comment: and son current occupational status: retired How many Children do You have: 5 Feels Safe at Home: Yes Childhood Exposure to Second-Hand Smoke: Yes caffeine: Yes Dental Care, Regularly: Yes Seatbelt Use: always Assistive Devices: Walker Physical Exam Vital Signs: Vital Signs - 24 hr 05/13/22 10:54 05/13/22 12:11 05/13/22 12:15 Temperature 36.6 C Temperature Source Temporal Artery Sc an Pulse Rate 87 70 Pulse Rate [Apical ] 71 Pulse Rate from Sp O2 Sensor Respiratory Rate 20 14 Respiratory Effort / Characteristics Non-Labored Sponta neous Non-Labored Sponta neous Respiratory Depth Normal Blood Pressure 157/98 H Blood Pressure Shannen n 117 Pulse Oximetry 85 L 94 Oxygen Delivery Me thod Room Air Nasal Cannula Oxygen Flow Rate 4 Sepsis Recent Feve r Within 48 Hours No Sepsis New/Unexpla ined Change in Men rodney Status No Sepsis Action Take n by Nursing No Action Required 05/13/22 11:10 05/13/22 11:15 05/13/22 11:30 Temperature Temperature Source Pulse Rate 74 72 Pulse Rate [Apical ] Pulse Rate from Sp O2 Sensor 74 72 Respiratory Rate 24 19 14 Respiratory Effort / Characteristics Respiratory Depth Blood Pressure Blood Pressure Shannen n Pulse Oximetry 96 96 96 Oxygen Delivery Me thod Nasal Cannula Oxygen Flow Rate 5 Sepsis Recent Feve r Within 48 Hours Sepsis New/Unexpla ined Change in Men rodney Status Sepsis Action Take n by Nursing 05/13/22 12:00 05/13/22 12:00 05/13/22 12:30 Temperature Temperature Source Pulse Rate 71 Pulse Rate [Apical ] Pulse Rate from Sp O2 Sensor 72 Respiratory Rate 16 Respiratory Effort / Characteristics Respiratory Depth Blood Pressure 135/90 140/103 H Blood Pressure Shannen n 105 115 Pulse Oximetry 96 Oxygen Delivery Me thod Oxygen Flow Rate Sepsis Recent Feve r Within 48 Hours Sepsis New/Unexpla ined Change in Men rodney Status Sepsis Action Take n by Nursing 05/13/22 12:30 05/13/22 13:00 05/13/22 13:00 Temperature Temperature Source Pulse Rate 72 82 Pulse Rate [Apical ] Pulse Rate from Sp O2 Sensor 71 75 Respiratory Rate 18 17 Respiratory Effort / Characteristics Respiratory Depth Blood Pressure 127/86 Blood Pressure Shannen n 99 Pulse Oximetry 93 99 Oxygen Delivery Me thod Oxygen Flow Rate Sepsis Recent Feve r Within 48 Hours Sepsis New/Unexpla ined Change in Men rodney Status Sepsis Action Take n by Nursing 05/13/22 14:48 Temperature Temperature Source Pulse Rate Pulse Rate [Apical ] Pulse Rate from Sp O2 Sensor Respiratory Rate Respiratory Effort / Characteristics Respiratory Depth Blood Pressure Blood Pressure Shannen n Pulse Oximetry Oxygen Delivery Me thod Nasal Cannula Oxygen Flow Rate 4 Sepsis Recent Feve r Within 48 Hours Sepsis New/Unexpla ined Change in Men rodney Status Sepsis Action Take n by Nursing Physical Exam: Physical Exam GENERAL: Kyphotic HENT: Exam performed. -Head: Normocephalic and atraumatic. -Right Ear: External ear normal. No mastoid erythema -Left Ear: External ear normal. No mastoid erythema -Mouth/Throat: The oropharynx is clear and moist. No trismus in the jaw. No dental abscesses or uvula swelling. No oropharyngeal exudate or tonsillar abscesses. EYES: Conjunctivae and EOM are normal. Pupils are equal, round, and reactive to light. Right eye exhibits no discharge. Left eye exhibits no discharge. No scleral icterus. NECK: Normal range of motion. Neck supple. No JVD present. No spinous process tenderness present.No tracheal deviation and normal range of motion present. CV: Normal rate, regular rhythm, normal heart sounds and intact distal pulses. There is no peripheral edema. Palpable radial pulses bue. PULM/CHEST: Tachypneic. Diffuse expiratory wheezes bilaterally. ABD: The abdomen is soft. There is no tenderness. There is no rebound, no guarding. LYMPH: No cervical adenopathy. NEURO: Motor and sensation grossly intact. SKIN: Skin is warm and dry. She is not diaphoretic. PSYCH: She has a normal mood and affect. Behavior is normal. Judgment and thought content normal. Course Course 1104: The patient was evaluated in room B11. A complete history and physical exam was performed Cardiac monitoring: An order was placed for continuous cardiac monitoring. The monitor shows a rate of 80 with sinus rhythm interpreted by me Patient was found to be hypoxic on room air. Supplemental oxygen was ordered for the patient. 1 hour DuoNeb was ordered for the patient along with steroids. 1250: Vital signs stable on supplemental oxygen via nasal cannula. Status post DuoNeb treatments the patient is wheezing more. Chest x-ray reviewed by me shows no infiltrate no acute change from previous x-ray in June 2021. Formal chest x-ray read does report vascular congestion. BNP ordered for the patient. Labs are within normal limits with exception of a sodium of 126. Patient not having any neurological symptoms or seizures no hypertonic saline is warranted at this time. Discussed case with Cecilio gilmore and Dr. Thakur [facility] hospitalist. They will follow-up on the BMP no diuretics given at this point. Administered Medications Albuterol (Albut/Ipratrop 3mg/0.5mg Neb 3 Ml Vial) 3 ml NEB QIDR TAMMY; Protocol Stop: 06/12/22 14:59 Last Admin: 05/13/22 14:17 Dose: 3 ml Documented By: ROBERT Guaifenesin/Codeine Phosphate (Guaifenesin/Codeine 100mg/10mg 5ml Udc) 5 ml PO Q6 TAMMY Stop: 06/12/22 13:59 Last Admin: 05/13/22 14:16 Dose: 5 ml Documented By: ROBERT Magnesium Sulfate/Dextrose (Magnesium Sulfate / D5w) 1 gm in 100 mls @ 50 mls/hr IV ONE ONE Stop: 05/13/22 15:29 Last Admin: 05/13/22 14:13 Dose: 50 mls/hr Documented By: ROBERT Discontinued Medications Albuterol (Albut/Ipratrop 3mg/0.5mg Neb 3 Ml Vial) 12 ml NEB ONE ONE; Protocol Stop: 05/13/22 11:12 Last Admin: 05/13/22 12:15 Dose: 12 ml Documented By: ERNESTINE Methylprednisolone (Methylprednisolone 125 Mg/2 Ml Vial) 125 mg IV NOW STA Stop: 05/13/22 11:12 Last Admin: 05/13/22 11:56 Dose: 125 mg Documented By: ROBERT Medical Decision Making Laboratory Data Attestation: I reviewed the patient's lab results. 05/13/22 11:23 05/13/22 11:23 Lab Results 05/13/22 05/13/22 05/13/22 Range/Units 11:23 11:23 11:23 WBC 4.57 L (4.8-10.8) K/ul RBC 4.49 (4.20-5.40) M/uL Hgb 13.1 (12.0-16.0) g/dl Hct 39.7 (37.0-47.0) % MCV 88.4 (80.0-100.0) fL MCH 29.2 (25.0-34.0) pg MCHC 33.0 (32.0-36.0) g/dL RDW Std Deviation 46.8 H (36.4-46.3) fL RDW Coeff of Susi 14.5 (11.5-14.5) % Plt Count 162 (130-400) K/uL MPV 8.5 L (9.4-12.4) fL Immature Gran % (Auto) 0.2 % Neut % (Auto) 59.8 % Lymph % (Auto) 30.2 % Ector % (Auto) 9.4 % Eos % (Auto) 0.4 % Baso % (Auto) 0.0 % Neut # (Auto) 2.73 (1.40-6.50) K/uL Lymph # (Auto) 1.38 (1.2-3.4) K/uL Ector # (Auto) 0.43 (0.11-0.59) K/uL Eos # (Auto) 0.02 (0-0.50) K/uL Baso # (Auto) 0.00 (0-0.2) K/uL Immature Gran # (Auto) 0.01 (0.01-0.20) K/uL PT 22.9 H (9.0-12.0) Seconds INR 2.2 H (0.9-1.1) APTT 36.5 H (21.0-31.0) Seconds PTT Ratio 1.3 VBG pH (7.36-7.41) VBG pCO2 (38-50) mmHg VBG pO2 mmHg VBG HCO3 mmol/L VBG O2 Saturation % VBG Base Excess mEq/L Sodium 126 L (136-145) mmol/L Potassium 3.8 (3.5-5.1) mmol/L Chloride 92 L (98-107) mmol/L Carbon Dioxide 27 (21-32) mmol/L Anion Gap 7 (3-11) BUN 7 (6-23) mg/dl Creatinine 0.49 L (0.6-1.2) mg/dl Est Cr Clr Drug Dosing 93.7 ml/min Est GFR ( Amer) 111.2 ml/min Est GFR (Non-Af Amer) 96.0 ml/min BUN/Creatinine Ratio 14.3 (10-20) Glucose 106 H (70-99(Fasting)) mg/dl Osmolality (280-300) mOsm/kg Calcium 9.1 (8.6-10.3) mg/dl Troponin I High Sens 6.6 (0-14) pg/ml B-Natriuretic Peptide (0-100) pg/ml Procalcitonin (0-0.5) ng/ml TSH (0.300-4.500) uIu/ml Urine Color Urine Appearance (Clear) Urine pH (4.5-7.5) Ur Specific Seward (1.000-1.030) Urine Protein (Negative) Urine Glucose (UA) (Negative) Urine Ketones (Negative) Urine Blood (Negative) Urine Nitrite (Negative) Urine Bilirubin (Negative) Urine Urobilinogen (Negative) Ur Leukocyte Esterase (Negative) Urine WBC (Auto) (0-5) /hpf Urine RBC (Auto) (0-4) /hpf U Hyaline Cast (Auto) (0-5) /lpf U Epithel Cells (Auto) (0-5) /lpf Urine Bacteria (Auto) (Negative) Urine Osmolality (500-800) mOsm/kg Ur Random Sodium mmol/L SARS-CoV-2, RNA, NAAT (NEGATIVE) 05/13/22 05/13/22 05/13/22 Range/Units 11:23 11:24 11:24 WBC (4.8-10.8) K/ul RBC (4.20-5.40) M/uL Hgb (12.0-16.0) g/dl Hct (37.0-47.0) % MCV (80.0-100.0) fL MCH (25.0-34.0) pg MCHC (32.0-36.0) g/dL RDW Std Deviation (36.4-46.3) fL RDW Coeff of Susi (11.5-14.5) % Plt Count (130-400) K/uL MPV (9.4-12.4) fL Immature Gran % (Auto) % Neut % (Auto) % Lymph % (Auto) % Ector % (Auto) % Eos % (Auto) % Baso % (Auto) % Neut # (Auto) (1.40-6.50) K/uL Lymph # (Auto) (1.2-3.4) K/uL Ector # (Auto) (0.11-0.59) K/uL Eos # (Auto) (0-0.50) K/uL Baso # (Auto) (0-0.2) K/uL Immature Gran # (Auto) (0.01-0.20) K/uL PT (9.0-12.0) Seconds INR (0.9-1.1) APTT (21.0-31.0) Seconds PTT Ratio VBG pH 7.38 (7.36-7.41) VBG pCO2 49 (38-50) mmHg VBG pO2 47 mmHg VBG HCO3 29 mmol/L VBG O2 Saturation 78.7 % VBG Base Excess 3.0 mEq/L Sodium (136-145) mmol/L Potassium (3.5-5.1) mmol/L Chloride (98-107) mmol/L Carbon Dioxide (21-32) mmol/L Anion Gap (3-11) BUN (6-23) mg/dl Creatinine (0.6-1.2) mg/dl Est Cr Clr Drug Dosing ml/min Est GFR ( Amer) ml/min Est GFR (Non-Af Amer) ml/min BUN/Creatinine Ratio (10-20) Glucose (70-99(Fasting)) mg/dl Osmolality 260 L (280-300) mOsm/kg Calcium (8.6-10.3) mg/dl Troponin I High Sens (0-14) pg/ml B-Natriuretic Peptide (0-100) pg/ml Procalcitonin (0-0.5) ng/ml TSH 2.368 (0.300-4.500) uIu/ml Urine Color Urine Appearance (Clear) Urine pH (4.5-7.5) Ur Specific Seward (1.000-1.030) Urine Protein (Negative) Urine Glucose (UA) (Negative) Urine Ketones (Negative) Urine Blood (Negative) Urine Nitrite (Negative) Urine Bilirubin (Negative) Urine Urobilinogen (Negative) Ur Leukocyte Esterase (Negative) Urine WBC (Auto) (0-5) /hpf Urine RBC (Auto) (0-4) /hpf U Hyaline Cast (Auto) (0-5) /lpf U Epithel Cells (Auto) (0-5) /lpf Urine Bacteria (Auto) (Negative) Urine Osmolality (500-800) mOsm/kg Ur Random Sodium mmol/L SARS-CoV-2, RNA, NAAT (NEGATIVE) 05/13/22 05/13/22 05/13/22 Range/Units 11:25 12:00 13:18 WBC (4.8-10.8) K/ul RBC (4.20-5.40) M/uL Hgb (12.0-16.0) g/dl Hct (37.0-47.0) % MCV (80.0-100.0) fL MCH (25.0-34.0) pg MCHC (32.0-36.0) g/dL RDW Std Deviation (36.4-46.3) fL RDW Coeff of Susi (11.5-14.5) % Plt Count (130-400) K/uL MPV (9.4-12.4) fL Immature Gran % (Auto) % Neut % (Auto) % Lymph % (Auto) % Ector % (Auto) % Eos % (Auto) % Baso % (Auto) % Neut # (Auto) (1.40-6.50) K/uL Lymph # (Auto) (1.2-3.4) K/uL Ector # (Auto) (0.11-0.59) K/uL Eos # (Auto) (0-0.50) K/uL Baso # (Auto) (0-0.2) K/uL Immature Gran # (Auto) (0.01-0.20) K/uL PT (9.0-12.0) Seconds INR (0.9-1.1) APTT (21.0-31.0) Seconds PTT Ratio VBG pH (7.36-7.41) VBG pCO2 (38-50) mmHg VBG pO2 mmHg VBG HCO3 mmol/L VBG O2 Saturation % VBG Base Excess mEq/L Sodium (136-145) mmol/L Potassium (3.5-5.1) mmol/L Chloride (98-107) mmol/L Carbon Dioxide (21-32) mmol/L Anion Gap (3-11) BUN (6-23) mg/dl Creatinine (0.6-1.2) mg/dl Est Cr Clr Drug Dosing ml/min Est GFR ( Amer) ml/min Est GFR (Non-Af Amer) ml/min BUN/Creatinine Ratio (10-20) Glucose (70-99(Fasting)) mg/dl Osmolality (280-300) mOsm/kg Calcium (8.6-10.3) mg/dl Troponin I High Sens (0-14) pg/ml B-Natriuretic Peptide 33 (0-100) pg/ml Procalcitonin < 0.05 (0-0.5) ng/ml TSH (0.300-4.500) uIu/ml Urine Color Urine Appearance (Clear) Urine pH (4.5-7.5) Ur Specific Seward (1.000-1.030) Urine Protein (Negative) Urine Glucose (UA) (Negative) Urine Ketones (Negative) Urine Blood (Negative) Urine Nitrite (Negative) Urine Bilirubin (Negative) Urine Urobilinogen (Negative) Ur Leukocyte Esterase (Negative) Urine WBC (Auto) (0-5) /hpf Urine RBC (Auto) (0-4) /hpf U Hyaline Cast (Auto) (0-5) /lpf U Epithel Cells (Auto) (0-5) /lpf Urine Bacteria (Auto) (Negative) Urine Osmolality (500-800) mOsm/kg Ur Random Sodium mmol/L SARS-CoV-2, RNA, NAAT NEGATIVE (NEGATIVE) 05/13/22 05/13/22 05/13/22 Range/Units 13:18 13:18 13:18 WBC (4.8-10.8) K/ul RBC (4.20-5.40) M/uL Hgb (12.0-16.0) g/dl Hct (37.0-47.0) % MCV (80.0-100.0) fL MCH (25.0-34.0) pg MCHC (32.0-36.0) g/dL RDW Std Deviation (36.4-46.3) fL RDW Coeff of Susi (11.5-14.5) % Plt Count (130-400) K/uL MPV (9.4-12.4) fL Immature Gran % (Auto) % Neut % (Auto) % Lymph % (Auto) % Ector % (Auto) % Eos % (Auto) % Baso % (Auto) % Neut # (Auto) (1.40-6.50) K/uL Lymph # (Auto) (1.2-3.4) K/uL Ector # (Auto) (0.11-0.59) K/uL Eos # (Auto) (0-0.50) K/uL Baso # (Auto) (0-0.2) K/uL Immature Gran # (Auto) (0.01-0.20) K/uL PT (9.0-12.0) Seconds INR (0.9-1.1) APTT (21.0-31.0) Seconds PTT Ratio VBG pH (7.36-7.41) VBG pCO2 (38-50) mmHg VBG pO2 mmHg VBG HCO3 mmol/L VBG O2 Saturation % VBG Base Excess mEq/L Sodium (136-145) mmol/L Potassium (3.5-5.1) mmol/L Chloride (98-107) mmol/L Carbon Dioxide (21-32) mmol/L Anion Gap (3-11) BUN (6-23) mg/dl Creatinine (0.6-1.2) mg/dl Est Cr Clr Drug Dosing ml/min Est GFR ( Amer) ml/min Est GFR (Non-Af Amer) ml/min BUN/Creatinine Ratio (10-20) Glucose (70-99(Fasting)) mg/dl Osmolality (280-300) mOsm/kg Calcium (8.6-10.3) mg/dl Troponin I High Sens (0-14) pg/ml B-Natriuretic Peptide (0-100) pg/ml Procalcitonin (0-0.5) ng/ml TSH (0.300-4.500) uIu/ml Urine Color Yellow Urine Appearance Clear (Clear) Urine pH 6.5 (4.5-7.5) Ur Specific Seward 1.017 (1.000-1.030) Urine Protein Trace H (Negative) Urine Glucose (UA) Negative (Negative) Urine Ketones Trace H (Negative) Urine Blood Negative (Negative) Urine Nitrite Negative (Negative) Urine Bilirubin Negative (Negative) Urine Urobilinogen Negative (Negative) Ur Leukocyte Esterase 1+ H (Negative) Urine WBC (Auto) 5-10 H (0-5) /hpf Urine RBC (Auto) 0-4 (0-4) /hpf U Hyaline Cast (Auto) 1-5 (0-5) /lpf U Epithel Cells (Auto) 20-30 H (0-5) /lpf Urine Bacteria (Auto) Negative (Negative) Urine Osmolality 431 L (500-800) mOsm/kg Ur Random Sodium 83 mmol/L SARS-CoV-2, RNA, NAAT (NEGATIVE) Imaging Data Attestation: I personally reviewed and interpreted this imaging study as follows: My Impression: No significant change from the x-ray of the chest done in June 2021. Radiologist's Impression: Chest X-Ray 05/13/22 11:10 XR chest 1V portable CLINICAL HISTORY: Shortness of breath. COMPARISON STUDY: Chest radiograph July 02, 2021. Chest CT December 04, 2013. FINDINGS: No pneumothorax is present. There is no definite pleural effusion. Cardiomediastinal silhouette is stable. A hiatal hernia is again noted. Elevation of the right hemidiaphragm is unchanged. There is pulmonary vascular congestion with possible mild pulmonary edema. Lumbar spine levoscoliosis is partially imaged. IMPRESSION: 1. Pulmonary vascular congestion with possible mild pulmonary edema. 2. Elevation of the right hemidiaphragm. 3. Hiatal hernia. ACT 112: Negative or not required by law. Electronically signed by: Germán Bowers M.D. 05/13/2022 11:45 AM ECG Data Attestation: I personally reviewed and interpreted this ECG as follows: Interpretation: Sinus rhythm with a rate of 73. OH QRS and QTc intervals within normal limits. No ST elevation or ST depression. [facility] Narrative 1104: The patient was evaluated in room B11. A complete history and physical exam was performed Cardiac monitoring: An order was placed for continuous cardiac monitoring. The monitor shows a rate of 80 with sinus rhythm interpreted by me Patient was found to be hypoxic on room air. Supplemental oxygen was ordered for the patient. 1 hour DuoNeb was ordered for the patient along with steroids. 1250: Vital signs stable on supplemental oxygen via nasal cannula. Status post DuoNeb treatments the patient is wheezing more. Chest x-ray reviewed by me shows no infiltrate no acute change from previous x-ray in June 2021. Formal chest x-ray read does report vascular congestion. BNP ordered for the patient. Labs are within normal limits with exception of a sodium of 126. Patient not having any neurological symptoms or seizures no hypertonic saline is warranted at this time. Discussed case with Cecilio gilmore and Dr. Thakur [facility] hospitalist. They will follow-up on the BMP no diuretics given at this point. Impression & Plan Hypoxia, Asthmaticus, status Critical Care Time Critical Care Time: Yes Total Critical Care Time: 74 I have personally spent greater than 74 minutes of critical care time in the direct management of this patient. This includes bedside care, interpretation of diagnostic studies, and testing, discussion with consultants, patient, and family members, and other required patient management activities. This 74 minutes is in excess of all separately billable procedures. Discharge Plan Visit Data Chief Complaint: Illness Stated Complaint: LOW OXY LEVEL, POSSIBLE PNEUMONIA, REF BY DOC ED Provider: Micky Curtis Discharge Problem: Hypoxia, Asthmaticus, status Patient Disposition: Admitted As Inpatient Discharge Instructions Interventions: ED Discharge Assessment Last Done: 05/13/22 14:48 Forms Stand Alone Forms: [facility] Prescriptions Prescriptions: No Action warfarin 5 mg tablet 5 mg PO .COMPLEX Qty: 100 3RF Protocol: Dose Management Condition: Monday Dose/Route: 5 mg Instruction: 1 x 5 mg tablet Condition: Monday Dose/Route: 5 mg Instruction: 1 x 5 mg tablet Condition: Monday Dose/Route: 5 mg Instruction: 1 x 5 mg tablet Condition: Monday Dose/Route: 5 mg Instruction: 1 x 5 mg tablet Condition: Dose/Route: 5 mg Instruction: 1 x 5 mg tablet Condition: Monday Dose/Route: 5 mg Instruction: 1 x 5 mg tablet Condition: Monday Dose/Route: 5 mg Instruction: 1 x 5 mg tablet Protocol Text: Adjustment Start Date: 05/05/22 INR Value: 2.3 INR Date: 05/05/22 Recheck Date: 05/19/22 Rx Instructions: 5 mg PO sutuwethfrsa, six days a week, 2.5 mg every mon. take as directed by anti-coagulation clinic. levothyroxine 112 mcg tablet 112 mcg PO DAILY Qty: 90 3RF budesonide 0.5 mg/2 mL suspension for nebulization 0.5 mg INHALATION BID PRN (Reason: Shortness Of Breath R06.2) Qty: 180 3RF nortriptyline 75 mg capsule 75 mg PO QPM Qty: 90 3RF Rx Instructions: Placed on file till needed atorvastatin [Lipitor] 40 mg tablet 40 mg PO HS Qty: 90 3RF omeprazole 20 mg capsule,delayed release(DR/EC) 40 mg PO QAM Qty: 180 3RF clarithromycin 500 mg tablet 500 mg PO BID 7 Days Qty: 14 0RF Rx Instructions: has taken before did ok fluticasone propion-salmeterol 500-50 mcg/dose blister with device 1 ea Inhalation BID Qty: 180 3RF levalbuterol HCl [Xopenex] 1.25 mg/3 mL solution for nebulization 1.25 mg inhalation Q8H PRN (Reason: shortness of breath or wheezing) Qty: 270 3RF sertraline 50 mg tablet 50 mg PO QAM Qty: 90 3RF Rx Instructions: Placed on file till needed nystatin 100,000 unit/gram cream 1 applic topical BID Qty: 15 1RF triamcinolone acetonide 0.1 % cream 1 applic topical BID Qty: 15 0RF furosemide 20 mg tablet 20 mg PO DAILY Qty: 90 3RF lisinopril 10 mg tablet 10 mg PO BID Qty: 180 3RF polyethylene glycol 3350 [Miralax] 17 gram Powder In Packet 17 g PO BID loratadine [Claritin] 10 mg Tablet 10 mg PO QAM Saline Nasal 0.65 % Aerosol,[place] 1 spray INTRANASAL Q OTHER DAY Systane Balance 0.6 % Drops 1 drp OPB BID guaifenesin [Mucinex] 600 mg Tablet Extended Release 12hr 600 mg PO Q12H Ocuvite [facility] 50 mg-15 unit- 4.5 mg-2.5 mg Tablet,Chewable 1 tab PO QAM Nutri-Drink Liquid 1 ea PO BID calcium carbonate 500 mg calcium (1,250 mg) Tablet 500 mg PO DAILY acetaminophen 650 mg Tablet Extended Release 650 mg PO HS cholecalciferol (vitamin D3) [Vitamin D3] 125 mcg (5,000 unit) Tablet 125 mcg PO DAILY Referrals Referrals: Lary Cohn CRNP [Primary Care Provider] -
[2022-05-13] MEDS: DOXYCYCLINE HYCLATE 100 MG in DEXTROSE 5% 100 ML IV SCH (16:42)
[2022-05-13 18:15] LABS: BUN Creatinine Ratio 8.4 (10-20); Calcium 9.4 mg/dl (8.6-10.3); Creatinine Clr Calc Pharmacy 54.7 ml/min; Est GFR (African American) 80.5 ml/min; Est GFR (Non-African American) 69.5 ml/min; Potassium 3.7 mmol/L (3.5-5.1)
[2022-05-13] MEDS: BUDESONIDE 0.5 MG/2 ML VIAL (PULMICORT) INH PRN (19:20)
[2022-05-13] MEDS: WARFARIN SOD 5 MG TAB PO SCH (20:20)
[2022-05-13] MEDS: SERTRALINE HCL 50 MG TABLET PO SCH (20:21)
[2022-05-13] MEDS: ATORVASTATIN 40 MG TAB PO SCH (20:21)
[2022-05-13] MEDS: lisinopril 10 MG TAB PO SCH (20:21)
[2022-05-13 21:23] LABS: Adenovirus PCR Not Detected (NotDetected); Bordetella parapertussis PCR Not Detected (NotDetected); Bordetella pertussis PCR Not Detected (NotDetected); Chlamydia pneumoniae PCR Not Detected (NotDetected); Coronavirus 229E PCR Not Detected (NotDetected); Coronavirus CoV-2 (COVID19)PCR Not Detected (NotDetected); Coronavirus HKU1 PCR Not Detected (NotDetected); Coronavirus NL63 PCR Not Detected (NotDetected); Coronavirus OC43PCR Not Detected (NotDetected); Influenza A PCR Not Detected (NotDetected); Influenza B PCR Not Detected (NotDetected); Mycoplasma pneumoniae PCR Not Detected (NotDetected); Parainfluenza Virus 1 PCR Not Detected (NotDetected); Parainfluenza Virus 2 PCR Not Detected (NotDetected); Parainfluenza Virus 3 PCR Not Detected (NotDetected); Parainfluenza Virus 4 PCR Not Detected (NotDetected); Respiratory Syncytial VirusPCR Not Detected (NotDetected); Rhinovirus/Enterovirus PCR Not Detected (NotDetected)
[2022-05-13 21:25] LABS: Human Metapneumovirus PCR DETECTED (NotDetected)
[2022-05-14] MEDS: guaiFENesin/CODEINE 100MG/10MG 5ML UDC PO SCH ×4 (00:41→16:36)
[2022-05-14] MEDS: DOXYCYCLINE HYCLATE 100 MG in DEXTROSE 5% 100 ML IV SCH ×2 (01:30→14:06)
[2022-05-14] MEDS: LEVOTHYROXINE SODIUM 112 MCG TABLET PO SCH (06:34)
[2022-05-14] MEDS: ALBUT/IPRATROP 3MG/0.5MG NEB 3 ML VIAL NEB SCH ×4 (07:06→19:52)
[2022-05-14] MEDS: BUDESONIDE 0.5 MG/2 ML VIAL (PULMICORT) INH PRN (07:06)
[2022-05-14 07:17] LABS: Hematocrit (blood only) 39.5 % (37.0-47.0); Immature Granulocytes # (auto) 0.02 K/uL (0.01-0.20); Immature Granulocytes % (auto) 0.4 %; Lymphocytes # (auto) 1.03 K/uL (1.2-3.4); Lymphocytes % (auto) 22.6 %; Mean Corpuscular Hemoglobin 29.4 pg (25.0-34.0); Mean Corpuscular Hgb Conc 32.9 g/dL (32.0-36.0); Mean Corpuscular Volume 89.4 fL (80.0-100.0); Mean Platelet Volume 8.6 fL (9.4-12.4); Monocytes # (auto) 0.34 K/uL (0.11-0.59); Monocytes % (auto) 7.5 %; Neutrophils # (auto) 3.17 K/uL (1.40-6.50); Neutrophils % (auto) 69.5 %; Platelet Count 173 K/uL (130-400); RDW Coefficient of Variation 14.5 % (11.5-14.5); RDW Standard Deviation 47.5 fL (36.4-46.3); Red Blood Count 4.42 M/uL (4.20-5.40); White Blood Count 4.56 K/ul (4.8-10.8)
[2022-05-14 07:29] LABS: Albumin Globulin Ratio 1.4 (0.9-2); Albumin Level 4.1 gm/dl (3.4-5.0); Bilirubin,Total 0.3 mg/dl (0.2-1.0); Calcium 9.1 mg/dl (8.6-10.3); Creatinine Clr Calc Pharmacy 78.3 ml/min; Est GFR (African American) 105.2 ml/min; Est GFR (Non-African American) 90.8 ml/min; Magnesium 2.3 mg/dl (1.7-2.4); Potassium 4.3 mmol/L (3.5-5.1); Total Protein 7.1 gm/dl (6.0-8.3)
[2022-05-14 08:02] LABS: INR 2.6 (0.9-1.1); Prothrombin Time 26.1 Seconds (9.0-12.0)
[2022-05-14] MEDS: PANTOprazole 40 MG TAB PO SCH (09:00)
[2022-05-14] MEDS: LORATADINE 10 MG TAB PO SCH (09:00)
[2022-05-14] MEDS ORDERED: methylPREDNISolone 40 MG in SYRINGE 0 ML IV SCH (09:00)
[2022-05-14] MEDS ORDERED: FUROSEMIDE INJ 20 MG/2 ML VIAL IV SCH (09:00)
[2022-05-14] MEDS: SERTRALINE HCL 50 MG TABLET PO SCH (09:00)
[2022-05-14] MEDS: lisinopril 10 MG TAB PO SCH ×2 (09:00→22:43)
[2022-05-14] MEDS: methylPREDNISolone 40 MG in SYRINGE 0 ML IV SCH ×2 (11:19→17:08)
[2022-05-14] MEDS: FUROSEMIDE INJ 20 MG/2 ML VIAL IV SCH ×2 (11:19→16:31)
--- NOTE | 2022-05-14 12:16 | XCELERA ---
[id number]
--- NOTE | 2022-05-14 13:30 | Hospitalist Progress Note ---
Date of Service May 14, 2022 Assessment & Plan (1) Acute respiratory failure with hypoxia: Plan: Treat CHF and exacerbation of COPD. Supplemental oxygen to maintain saturation greater than 90%. Wean off as tolerated. (2) Hyponatremia: Plan: Hypoosmolar hyponatremia. Should improve with free water diuresis. Serial labs. (3) Hypothyroidism: Plan: Stable. Continue current thyroid replacement (4) Anxiety: Plan: Stable. Continue Sertraline and Nortriptyline (5) History of CVA (cerebrovascular accident): Plan: Stable. Continue Warfarin . Serial INR (6) Hyperlipidemia: Plan: Stable. Conitnue statin (7) GERD (gastroesophageal reflux disease): Plan: Stable. Continue omeprazole (8) Acute diastolic CHF (congestive heart failure): Plan: Lasix diuresis. Monitor intake and output. Serial labs. Serial chest x-ray (9) COPD exacerbation: Plan: Treat bronchitis and CHF. Parenteral steroid therapy. Nebulizer treatments (10) Acute bronchitis: Plan: Sputum culture obtained and pending. Intravenous Rocephin, day 1. Plan Anticipate eventual discharge to home Admission and Anticipated Discharge Date Admission Date: May 13, 2022 Subjective Alert and oriented. No acute distress. She is requiring 5 L of oxygen. I suspect there may be a component of congestive heart failure in addition to her exacerbation of COPD. IV Lasix ordered. Cardiac echo reveals preserved left ventricular ejection fraction with mild LVH. This appears to be acute diastolic CHF. Sodium improved to 135. Serum osmolality was low on admission which should improve with diuresis. INR 2.6. Continue intravenous Solu-Medrol till the wheezing resolves Review of Systems Review of Systems: Constitutional-no fever or chills ENT-no blurred vision, no double vision, no epistaxis, no sore throat Respiratory-productive cough with wheezing. Shortness of breath on exertion. Cardiac-no palpitations, no chest pain, no syncope GI-no nausea, vomiting, diarrhea, melena, hematochezia -no urinary retention, no urinary incontinence, no dysuria, no hematuria Musculoskeletal-no joint pain, no muscle tenderness Skin-no bruising, no rashes, no pruritus Neuro-no isolated weakness, no paresthesia, no weakness Psych-no depression, no anxiety Physical Exam Physical Exam: General-alert and oriented x3, no fevers, no chills HEENT-head atraumatic and normocephalic, TMs intact bilaterally, pupils equal an d reactive to light, extraocular muscles intact Neck-no lymphadenopathy or thyromegaly, trachea midline Chest-bilateral expiratory wheezes. Midline rhonchi. No dullness to percussion i Cardiac-regular rate and rhythm, normal S1 and S2 Abdomen-normal bowel sounds, nontender, no hepatosplenomegaly Extremities-no cyanosis. 1+ pitting edema bilateral lower extremities below the knees Neuro-cranial nerves II through XII intact, motor and sensory function within normal limits, strength symmetrical , no focal deficits Psych-normal affect, normal mood Results & Data Results & Data Vital Signs (Past 12 Hours) Vital Signs Temp Pulse Pulse Pulse Resp BP Pulse Ox 05/14/22 11:28 74 18 94 05/14/22 10:50 36.9 C 89 16 132/83 93 05/14/22 07:41 05/14/22 07:14 78 05/14/22 07:07 77 19 94 05/14/22 06:37 36.6 C 78 20 129/82 93 05/14/22 04:00 36.6 C 70 18 157/91 H 92 O2 Del Method O2 Flow Rate 05/14/22 11:28 Nasal Cannula 5 05/14/22 10:50 Room Air 5 05/14/22 07:41 Nasal Cannula 5 05/14/22 07:14 05/14/22 07:07 Nasal Cannula 5 05/14/22 06:37 Nasal Cannula 5 05/14/22 04:00 Nasal Cannula 5 Laboratory Results 05/14/22 06:36 05/14/22 06:36 PG Care Time/CCT Total # of Minutes Spent Total Time Spent with Patient: Total time spent is greater than 50% in coordination of care (as documented) at patient's floor/unit and/or counseling patient: Coding Level of Care Code 10446 SUB INP/OBS CARE 3/50MIN Diagnoses Acute respiratory failure with hypoxia J96.01 Hyponatremia E87.1 Hypothyroidism E03.9 Anxiety F41.9 History of CVA (cerebrovascular accident) Z86.73 Hyperlipidemia E78.5 GERD (gastroesophageal reflux disease) K21.9 Acute diastolic CHF (congestive heart failure) I50.31 COPD exacerbation J44.1 Acute bronchitis J20.9
[2022-05-14] MEDS: ERTAPENEM SODIUM 1,000 MG in SYRINGE 0 ML IV SCH (14:30)
[2022-05-14] MEDS: WARFARIN SOD 5 MG TAB PO SCH (16:30)
[2022-05-14] MEDS: FLUTICASONE/VILANTEROL 200/25MCG 14 PUFFS/INHALER INH SCH (21:28)
[2022-05-14] MEDS: ATORVASTATIN 40 MG TAB PO SCH (21:29)
[2022-05-15] MEDS: guaiFENesin/CODEINE 100MG/10MG 5ML UDC PO SCH ×4 (00:59→17:29)
[2022-05-15] MEDS: DOXYCYCLINE HYCLATE 100 MG in DEXTROSE 5% 100 ML IV SCH (00:59)
[2022-05-15] MEDS: methylPREDNISolone 40 MG in SYRINGE 0 ML IV SCH ×3 (02:43→17:29)
[2022-05-15] MEDS: LEVOTHYROXINE SODIUM 112 MCG TABLET PO SCH (05:24)
[2022-05-15] MEDS: BUDESONIDE 0.5 MG/2 ML VIAL (PULMICORT) INH PRN (06:58)
[2022-05-15] MEDS: ALBUT/IPRATROP 3MG/0.5MG NEB 3 ML VIAL NEB SCH ×4 (06:58→19:35)
[2022-05-15 07:03] LABS: Basophils # (auto) 0.01 K/uL (0-0.2); Basophils % (auto) 0.1 %; Hematocrit (blood only) 42.8 % (37.0-47.0); Hemoglobin 13.9 g/dl (12.0-16.0); Immature Granulocytes # (auto) 0.03 K/uL (0.01-0.20); Immature Granulocytes % (auto) 0.4 %; Lymphocytes # (auto) 0.88 K/uL (1.2-3.4); Lymphocytes % (auto) 11.7 %; Mean Corpuscular Hemoglobin 29.4 pg (25.0-34.0); Mean Corpuscular Hgb Conc 32.5 g/dL (32.0-36.0); Mean Corpuscular Volume 90.5 fL (80.0-100.0); Mean Platelet Volume 8.6 fL (9.4-12.4); Monocytes # (auto) 0.19 K/uL (0.11-0.59); Monocytes % (auto) 2.5 %; Neutrophils # (auto) 6.43 K/uL (1.40-6.50); Neutrophils % (auto) 85.3 %; Platelet Count 227 K/uL (130-400); RDW Coefficient of Variation 14.4 % (11.5-14.5); RDW Standard Deviation 47.9 fL (36.4-46.3); Red Blood Count 4.73 M/uL (4.20-5.40); White Blood Count 7.54 K/ul (4.8-10.8)
[2022-05-15] MEDS: lisinopril 10 MG TAB PO SCH ×2 (07:14→20:45)
[2022-05-15] MEDS: SERTRALINE HCL 50 MG TABLET PO SCH (07:15)
[2022-05-15] MEDS: LORATADINE 10 MG TAB PO SCH (07:15)
[2022-05-15 07:17] LABS: BUN Creatinine Ratio 33.8 (10-20); Calcium 9.7 mg/dl (8.6-10.3); Creatinine Clr Calc Pharmacy 63.3 ml/min; Est GFR (African American) 97.3 ml/min; Est GFR (Non-African American) 83.9 ml/min; Potassium 4.1 mmol/L (3.5-5.1)
[2022-05-15] MEDS: FUROSEMIDE INJ 20 MG/2 ML VIAL IV SCH ×2 (07:17→17:29)
[2022-05-15] MEDS: PANTOprazole 40 MG TAB PO SCH (07:17)
[2022-05-15 07:34] LABS: INR 3.3 (0.9-1.1); Prothrombin Time 32.8 Seconds (9.0-12.0)
[2022-05-15] MEDS: dilTIAZem HCl 60 MG TAB PO SCH ×3 (10:13→20:46)
[2022-05-15 10:31] LABS: Thyroid Stimulating Hormone 0.736 uIu/ml (0.300-4.500)
[2022-05-15 10:33] LABS: T4 Free Thyroxine 0.92 ng/dl (0.61-1.60)
[2022-05-15] MEDS: ERTAPENEM SODIUM 1,000 MG in SYRINGE 0 ML IV SCH (13:07)
--- NOTE | 2022-05-15 14:16 | Hospitalist Progress Note ---
Date of Service May 15, 2022 Assessment & Plan (1) Acute respiratory failure with hypoxia: Plan: Treat CHF and exacerbation of COPD. Supplemental oxygen to maintain saturation greater than 90%. Wean off as tolerated. Improving (2) Hyponatremia: Plan: Hypoosmolar hyponatremia. Improved with free water diuresis. Serial labs. (3) Hypothyroidism: Plan: Stable. Continue current thyroid replacement (4) Anxiety: Plan: Stable. Continue Sertraline and Nortriptyline (5) History of CVA (cerebrovascular accident): Plan: Stable. Continue Warfarin . Serial INR (6) Hyperlipidemia: Plan: Stable. Conitnue statin (7) GERD (gastroesophageal reflux disease): Plan: Stable. Continue omeprazole (8) Acute diastolic CHF (congestive heart failure): Plan: Lasix diuresis. Monitor intake and output. Serial labs. Serial chest x-ray (9) COPD exacerbation: Plan: Treat bronchitis and CHF. Parenteral steroid therapy. Nebulizer treatments (10) Acute bronchitis: Plan: Sputum culture obtained and pending. Intravenous ertapenem, day 2. Multiple allergies preclude the use of other antibiotics (11) Paroxysmal atrial tachycardia: Plan: Asymptomatic. Seen on telemetry. Cardiac echo reveals normal ejection fraction with mild LVH and normal left atrial and right atrial size. Diltiazem has been started. Eventual switch to long-acting formulation Plan Anticipate eventual discharge to home this week Admission and Anticipated Discharge Date Admission Date: May 13, 2022 Subjective Alert and oriented. Telemetry reveals episodes of paroxysmal atrial tachycardia. Diltiazem has been started. We will repeat chest x-ray tomorrow, May 16. Good diuretic response with IV Lasix. Cardiac echo reveals preserved ejection fraction with mild LVH. INR is slightly higher than desired at 3.3. Coumadin is now on hold. Review of Systems Review of Systems: Constitutional-no fever or chills ENT-no blurred vision, no double vision, no epistaxis, no sore throat Respiratory-productive cough with wheezing. Shortness of breath on exertion. Cardiac-no palpitations, no chest pain, no syncope GI-no nausea, vomiting, diarrhea, melena, hematochezia -no urinary retention, no urinary incontinence, no dysuria, no hematuria Musculoskeletal-no joint pain, no muscle tenderness Skin-no bruising, no rashes, no pruritus Neuro-no isolated weakness, no paresthesia, no weakness Psych-no depression, no anxiety Physical Exam Physical Exam: General-alert and oriented x3, no fevers, no chills HEENT-head atraumatic and normocephalic, TMs intact bilaterally, pupils equal and reactive to light, extraocular muscles intact Neck-no lymphadenopathy or thyromegaly, trachea midline Chest-bilateral expiratory wheezes have improved. Midline rhonchi. No dullness to percussion Cardiac-regular rate and rhythm, normal S1 and S2 Abdomen-normal bowel sounds, nontender, no hepatosplenomegaly Extremities-no cyanosis. 1+ pitting edema bilateral lower extremities below the knees Neuro-cranial nerves II through XII intact, motor and sensory function within normal limits, strength symmetrical , no focal deficits Psych-normal affect, normal mood Results & Data Results & Data Vital Signs (Past 12 Hours) Vital Signs Temp Pulse Pulse Resp BP Pulse Ox Pulse Ox 05/15/22 12:01 37.5 C 100 H 16 130/81 91 05/15/22 11:06 80 18 91 05/15/22 08:17 05/15/22 07:06 36.6 C 90 16 133/87 93 05/15/22 07:06 68 05/15/22 07:01 77 05/15/22 07:00 88 18 90 05/15/22 03:10 94 05/15/22 03:06 37.2 C 90 20 138/86 92 O2 Del Method O2 Del Method O2 Flow Rate O2 Flow Rate 05/15/22 12:01 Nasal Cannula 3 05/15/22 11:06 Nasal Cannula 3 05/15/22 08:17 Nasal Cannula 3 05/15/22 07:06 Nasal Cannula 3 05/15/22 07:06 05/15/22 07:01 05/15/22 07:00 Nasal Cannula 3 05/15/22 03:10 Nasal Cannula 4 05/15/22 03:06 Nasal Cannula 5 Laboratory Results 05/15/22 06:17 05/15/22 06:17 PG Care Time/CCT Total # of Minutes Spent Total Time Spent with Patient: Total time spent is greater than 50% in coordination of care (as documented) at patient's floor/unit and/or counseling patient: Coding Level of Care Code 18358 SUB INP/OBS CARE 3/50MIN Diagnoses Acute respiratory failure with hypoxia J96.01 Hyponatremia E87.1 Hypothyroidism E03.9 Anxiety F41.9 History of CVA (cerebrovascular accident) Z86.73 Hyperlipidemia E78.5 GERD (gastroesophageal reflux disease) K21.9 Acute diastolic CHF (congestive heart failure) I50.31 COPD exacerbation J44.1 Acute bronchitis J20.9 Paroxysmal atrial tachycardia I47.1
[2022-05-15] MEDS: FLUTICASONE/VILANTEROL 200/25MCG 14 PUFFS/INHALER INH SCH (20:43)
[2022-05-15] MEDS: ATORVASTATIN 40 MG TAB PO SCH (20:46)
[2022-05-16] MEDS: guaiFENesin/CODEINE 100MG/10MG 5ML UDC PO SCH ×5 (01:37→23:53)
[2022-05-16] MEDS: methylPREDNISolone 40 MG in SYRINGE 0 ML IV SCH ×3 (01:37→20:19)
[2022-05-16] MEDS: LEVOTHYROXINE SODIUM 112 MCG TABLET PO SCH (06:03)
[2022-05-16] MEDS: LORATADINE 10 MG TAB PO SCH (07:08)
[2022-05-16] MEDS: dilTIAZem HCl 60 MG TAB PO SCH (07:08)
[2022-05-16] MEDS: PANTOprazole 40 MG TAB PO SCH (07:09)
[2022-05-16] MEDS: SERTRALINE HCL 50 MG TABLET PO SCH (07:09)
[2022-05-16] MEDS: lisinopril 10 MG TAB PO SCH ×2 (07:09→20:18)
[2022-05-16] MEDS: FUROSEMIDE INJ 20 MG/2 ML VIAL IV SCH (07:09)
[2022-05-16] MEDS: ALBUT/IPRATROP 3MG/0.5MG NEB 3 ML VIAL NEB SCH ×4 (07:27→20:29)
--- NOTE | 2022-05-16 08:51 | XRay Report ---
SINGLE VIEW CHEST CLINICAL HISTORY: Congestive heart failure. FINDINGS: An AP, portable, upright chest radiograph is compared to study dated 05/13/2022 and correlat ed with chest CT dated 12/04/2013. The cardiomediastinal silhouette is top normal for projection noti ng atherosclerotic calcification of the thoracic aorta. The pulmonary vascular is not congested. Ther e is chronic elevation of the right hemidiaphragm with atelectasis of the right lower lung. There is also scarring/atelectasis at the left lung base. No large pleural effusion or pneumothorax is seen. T he skeletal structures are osteopenic. The bony thorax is grossly intact. IMPRESSION: Chronic changes as above with no acute cardiopulmonary abnormality identified. ACT 112: Negative or not required by law. Electronically signed by: Garrett Pereira M.D. 05/16/2022 8:50 AM
[2022-05-16 09:47] LABS: Basophils # (auto) 0.01 K/uL (0-0.2); Basophils % (auto) 0.2 %; Hematocrit (blood only) 45.4 % (37.0-47.0); Hemoglobin 14.6 g/dl (12.0-16.0); Immature Granulocytes # (auto) 0.03 K/uL (0.01-0.20); Immature Granulocytes % (auto) 0.5 %; Lymphocytes # (auto) 0.81 K/uL (1.2-3.4); Lymphocytes % (auto) 12.6 %; Mean Corpuscular Hemoglobin 29.1 pg (25.0-34.0); Mean Corpuscular Hgb Conc 32.2 g/dL (32.0-36.0); Mean Corpuscular Volume 90.4 fL (80.0-100.0); Mean Platelet Volume 8.5 fL (9.4-12.4); Monocytes # (auto) 0.15 K/uL (0.11-0.59); Monocytes % (auto) 2.3 %; Neutrophils # (auto) 5.44 K/uL (1.40-6.50); Neutrophils % (auto) 84.4 %; Platelet Count 267 K/uL (130-400); RDW Coefficient of Variation 14.6 % (11.5-14.5); RDW Standard Deviation 48.7 fL (36.4-46.3); Red Blood Count 5.02 M/uL (4.20-5.40); White Blood Count 6.44 K/ul (4.8-10.8)
[2022-05-16 10:00] LABS: INR 2.8 (0.9-1.1); Prothrombin Time 27.9 Seconds (9.0-12.0)
[2022-05-16 10:03] LABS: BUN Creatinine Ratio 40.8 (10-20); Calcium 9.8 mg/dl (8.6-10.3); Creatinine Clr Calc Pharmacy 63.4 ml/min; Est GFR (African American) 97.3 ml/min; Est GFR (Non-African American) 83.9 ml/min; Potassium 3.9 mmol/L (3.5-5.1)
[2022-05-16] MEDS: CHOLECALCIFEROL 5,000 UNITS 125 MCG TAB PO SCH (11:46)
[2022-05-16] MEDS: dilTIAZem HCL 180 MG CAPCR PO SCH (14:15)
--- NOTE | 2022-05-16 15:43 | Hospitalist Progress Note ---
Date of Service May 16, 2022 Assessment & Plan (1) Acute respiratory failure with hypoxia: Plan: Secondary to acute on chronic diastolic CHF and exacerbation of COPD. Supplemental oxygen to maintain saturation greater than 90%. Wean off as tolerated-down to 4LNC today Has chronic elevated right hemidiaphragm and scoliosis contributing to underlying baseline POx 92% With Human Metapneumovirus as cause of acute bronchitis dc ertapenem but add doxy for AOM continue steroids (2) Hyponatremia: Plan: Hypoosmolar hyponatremia. Improved with free water diuresis. Now resolved, Na+ 126 on admit, now 136 dc IV lasix -follow BMP in AM (3) Hypothyroidism: Plan: Stable. Continue current thyroid replacement TSH normal (4) Anxiety: Plan: Stable. Continue Sertraline and restart home Nortriptyline (5) History of CVA (cerebrovascular accident): Plan: With PFO, on Coumadin INR now back < 3.0--> restart Coumadin at lower dose then home dose for now given abx use--> 2.5mg daily follow INR (6) Hyperlipidemia: Plan: Stable. Continue statin (7) GERD (gastroesophageal reflux disease): Plan: Stable. Continue PPI (8) Acute diastolic CHF (congestive heart failure): Plan: Lasix diuresis and now much improved as above, O2 weaning down, weight down 3 kg. Likely due to excessive water intake prior to admission. Monitor intake and output. ECHO with preserved EF (9) COPD exacerbation: Plan: Treat bronchitis and CHF. Parenteral steroid therapy. Nebulizer treatments (10) Acute bronchitis: Plan: Sputum culture negative--dc ertapenem starting doxy though to cover for AOM given ear pain and PCP told her looked like AOM prior to admission (11) Paroxysmal atrial tachycardia: Plan: Asymptomatic. Seen on telemetry. Cardiac echo reveals normal ejection fraction with mild LVH and normal left atrial and right atrial size. Diltiazem has been started and will convert to 120mg po once daily no further on tele can downgrade off tele Plan Dispo-Anticipate eventual discharge to home this week maybe in 2 days. Will need 2 step walk test prior to discharge Discussed all care at length with patient and her at bedside Admission and Anticipated Discharge Date Admission Date: May 13, 2022 Subjective Pt just got up and walked ot the bathroom and got cleaned up, felt better getting out of bed. Still some STARKS. POx 92% now on 4LNC. Not coughing up sputum as much. Had some ear pain which is improving but still present. Tele with NSR, normal rates Physical Exam Constitutional: WD/WN, vitals as above Eyes: + anicteric sclerae Respiratory: normal respiratory effort Auscultation: + diminished lung sounds (right lower lung field); no crackles, no rhonchi and no wheezes Cardiovascular: RRR, no murmur, no edema Gastrointestinal (Abdomen): normal bowel sounds, soft, nontender, no hepatosplenomegaly Psychiatric: A+Ox3, euthymic affect Results & Data Results & Data Vital Signs (Past 12 Hours) Vital Signs Temp Pulse Pulse Resp BP Pulse Ox O2 Del Method 05/16/22 15:39 36.6 C 98 H 16 138/81 91 Nasal Cannula 05/16/22 08:42 Nasal Cannula 05/16/22 08:26 77 05/16/22 08:06 36.5 C 91 H 16 124/81 97 Nebulizer 05/16/22 07:27 76 15 93 Nasal Cannula 05/16/22 06:19 36.6 C 81 20 149/87 H 92 Nasal Cannula O2 Flow Rate 05/16/22 15:39 4 05/16/22 08:42 5 05/16/22 08:26 05/16/22 08:06 05/16/22 07:27 4 05/16/22 06:19 3 Laboratory Results CBC, BMP, sputum cx reviewed Diagnostic Findings CXR reviewed 05/16 PG Care Time/CCT Total # of Minutes Spent Total Time Spent with Patient: Total time spent is greater than 50% in coordination of care (as documented) at patient's floor/unit and/or counseling patient: Coding Level of Care Code 75450 SUB INP/OBS CARE 2/35MIN Diagnoses Acute respiratory failure with hypoxia J96.01 Hyponatremia E87.1 Hypothyroidism E03.9 Anxiety F41.9 History of CVA (cerebrovascular accident) Z86.73 Hyperlipidemia E78.5 GERD (gastroesophageal reflux disease) K21.9 Acute diastolic CHF (congestive heart failure) I50.31 COPD exacerbation J44.1 Acute bronchitis J20.9 Paroxysmal atrial tachycardia I47.1
[2022-05-16] MEDS ORDERED: WARFARIN SOD 2.5 MG TAB PO SCH (16:00)
[2022-05-16] MEDS: DOXYCYCLINE HYCLATE 100 MG in DEXTROSE 5% 100 ML IV SCH (16:31)
[2022-05-16] MEDS: WARFARIN SOD 2.5 MG TAB PO SCH (16:32)
[2022-05-16] MEDS: FLUTICASONE/VILANTEROL 200/25MCG 14 PUFFS/INHALER INH SCH (20:17)
[2022-05-16] MEDS: ATORVASTATIN 40 MG TAB PO SCH (20:18)
[2022-05-16] MEDS: NORTRIPTYLINE HCL 25 MG CAP PO SCH (20:19)
[2022-05-17] MEDS: DOXYCYCLINE HYCLATE 100 MG in DEXTROSE 5% 100 ML IV SCH ×2 (04:37→16:09)
[2022-05-17] MEDS: LEVOTHYROXINE SODIUM 112 MCG TABLET PO SCH (05:54)
[2022-05-17] MEDS: guaiFENesin/CODEINE 100MG/10MG 5ML UDC PO SCH ×3 (05:54→17:26)
[2022-05-17] MEDS: ALBUT/IPRATROP 3MG/0.5MG NEB 3 ML VIAL NEB SCH ×4 (06:59→20:09)
[2022-05-17 08:26] LABS: INR 2.2 (0.9-1.1); Prothrombin Time 22.6 Seconds (9.0-12.0)
[2022-05-17 08:55] LABS: BUN Creatinine Ratio 39.1 (10-20); Calcium 9.4 mg/dl (8.6-10.3); Creatinine Clr Calc Pharmacy 65.2 ml/min; Est GFR (African American) 99.4 ml/min; Est GFR (Non-African American) 85.8 ml/min; Potassium 3.8 mmol/L (3.5-5.1)
[2022-05-17] MEDS: methylPREDNISolone 40 MG in SYRINGE 0 ML IV SCH ×2 (08:59→21:41)
[2022-05-17] MEDS: lisinopril 10 MG TAB PO SCH ×2 (09:00→20:40)
[2022-05-17] MEDS: CHOLECALCIFEROL 5,000 UNITS 125 MCG TAB PO SCH (09:02)
[2022-05-17] MEDS: PANTOprazole 40 MG TAB PO SCH (09:02)
[2022-05-17] MEDS: dilTIAZem HCL 180 MG CAPCR PO SCH (09:02)
[2022-05-17] MEDS: LORATADINE 10 MG TAB PO SCH (09:03)
[2022-05-17] MEDS: SERTRALINE HCL 50 MG TABLET PO SCH (09:03)
[2022-05-17] MEDS: WARFARIN SOD 2.5 MG TAB PO SCH (16:09)
--- NOTE | 2022-05-17 16:50 | Hospitalist Progress Note ---
Date of Service May 17, 2022 Assessment & Plan (1) Acute respiratory failure with hypoxia: Plan: Secondary to acute on chronic diastolic CHF and exacerbation of COPD. Improving Supplemental oxygen to maintain saturation greater than 90%. Wean off as tolerated-down to 3LNC today Has chronic elevated right hemidiaphragm and scoliosis contributing to underlying baseline POx 92% With Human Metapneumovirus as cause of acute bronchitis dcd ertapenem but added doxy for AOM continue steroids same dose (2) Hyponatremia: Plan: Hypoosmolar hyponatremia. Improved with free water diuresis. Now resolved, Na+ 126 on admit, now 136 and stable dcd IV lasix -follow BMP every other day (3) Hypothyroidism: Plan: Stable. Continue current thyroid replacement TSH normal (4) Anxiety: Plan: Stable. Continue Sertraline and Nortriptyline (5) History of CVA (cerebrovascular accident): Plan: With PFO, on Coumadin INR was high and coumadin was held--> restarted Coumadin at 2.5mg daily on 05/16 but now INR down to 2.2 -increase Coumadin to 5mg daily (home dose) on 05/17 follow INR (6) Hyperlipidemia: Plan: Stable. Continue statin (7) GERD (gastroesophageal reflux disease): Plan: Stable. Continue PPI (8) Acute diastolic CHF (congestive heart failure): Plan: Lasix diuresis and now much improved as above, O2 weaning down, weight down 3 kg. Likely due to excessive water intake prior to admission. Monitor intake and output. ECHO with preserved EF (9) COPD exacerbation: Plan: Treat bronchitis and CHF. Parenteral steroid therapy. Nebulizer treatments (10) Acute bronchitis: Plan: Sputum culture negative--dcd ertapenem started doxy though to cover for AOM given ear pain and PCP told her looked like AOM prior to admission-ear pain now resolved (11) Paroxysmal atrial tachycardia: Plan: Asymptomatic. Seen on telemetry. Cardiac echo reveals normal ejection fraction with mild LVH and normal left atrial and right atrial size. Diltiazem was started 180mg po once daily none further on tele have since downgraded off tele Plan Dispo-Anticipate eventual discharge to home this week maybe in 2 days. Will need 2 step walk test prior to discharge Discussed all care at length with patient and her at bedside Admission and Anticipated Discharge Date Admission Date: May 13, 2022 Subjective Had a hard time coughing up some thick mucus overnight but feels better after able to do so. Moved bowels today. Weaned down to 3LNC Physical Exam Constitutional: WD/WN, vitals as above Eyes: + anicteric sclerae Respiratory: normal respiratory effort Auscultation: + wheezes (bilateral); no diminished lung sounds (moving air better today), no crackles and no rhonchi Cardiovascular: RRR, no murmur, no edema Gastrointestinal (Abdomen): normal bowel sounds, soft, nontender, no hepatosplenomegaly Psychiatric: A+Ox3, euthymic affect Results & Data Results & Data Vital Signs (Past 12 Hours) Vital Signs Temp Pulse Resp BP Pulse Ox Pulse Ox Pulse Ox 05/17/22 16:18 36.2 C L 99 H 16 130/81 95 05/17/22 16:15 92 05/17/22 15:32 105 H 18 90 05/17/22 13:20 90 94 05/17/22 10:41 76 17 92 05/17/22 10:28 05/17/22 08:08 36.6 C 76 16 132/83 91 05/17/22 06:59 77 18 92 Pulse Ox O2 Del Method O2 Flow Rate O2 Flow Rate O2 Flow Rate O2 Flow Rate 05/17/22 16:18 Nebulizer 05/17/22 16:15 Nasal Cannula 3 05/17/22 15:32 Nasal Cannula 3 05/17/22 13:20 81 L 4 4 4 05/17/22 10:41 Nasal Cannula 4 05/17/22 10:28 Nasal Cannula 4 05/17/22 08:08 Nasal Cannula 4 05/17/22 06:59 Nasal Cannula 4 Laboratory Results BMP and INR reviewed PG Care Time/CCT Total # of Minutes Spent Total Time Spent with Patient: Total time spent is greater than 50% in coordination of care (as documented) at patient's floor/unit and/or counseling patient: Coding Level of Care Code 35072 SUB INP/OBS CARE 2/35MIN Diagnoses Acute respiratory failure with hypoxia J96.01 Hyponatremia E87.1 Hypothyroidism E03.9 Anxiety F41.9 History of CVA (cerebrovascular accident) Z86.73 Hyperlipidemia E78.5 GERD (gastroesophageal reflux disease) K21.9 Acute diastolic CHF (congestive heart failure) I50.31 COPD exacerbation J44.1 Acute bronchitis J20.9 Paroxysmal atrial tachycardia I47.1
[2022-05-17] MEDS ORDERED: WARFARIN SOD 2.5 MG TAB PO ONE (18:00)
[2022-05-17] MEDS: ATORVASTATIN 40 MG TAB PO SCH (20:39)
[2022-05-17] MEDS: NORTRIPTYLINE HCL 25 MG CAP PO SCH (20:39)
[2022-05-17] MEDS: FLUTICASONE/VILANTEROL 200/25MCG 14 PUFFS/INHALER INH SCH (20:44)
[2022-05-18] MEDS: guaiFENesin/CODEINE 100MG/10MG 5ML UDC PO SCH ×5 (00:02→23:21)
[2022-05-18] MEDS: DOXYCYCLINE HYCLATE 100 MG in DEXTROSE 5% 100 ML IV SCH ×2 (03:55→16:04)
[2022-05-18] MEDS: LEVOTHYROXINE SODIUM 112 MCG TABLET PO SCH (06:04)
[2022-05-18] MEDS: ALBUT/IPRATROP 3MG/0.5MG NEB 3 ML VIAL NEB SCH ×4 (06:55→19:09)
[2022-05-18 07:24] LABS: INR 2.4 (0.9-1.1)
[2022-05-18] MEDS ORDERED: FAMOTIDINE 20 MG TAB PO PRN (07:44)
[2022-05-18] MEDS ORDERED: ALUMINUM/MAGNESIUM SUSP 30 ML UDC PO PRN (07:44)
[2022-05-18] MEDS: PANTOprazole 40 MG TAB PO SCH (09:00)
[2022-05-18] MEDS: LORATADINE 10 MG TAB PO SCH (09:00)
[2022-05-18] MEDS: CHOLECALCIFEROL 5,000 UNITS 125 MCG TAB PO SCH (09:00)
[2022-05-18] MEDS: dilTIAZem HCL 180 MG CAPCR PO SCH (09:01)
[2022-05-18] MEDS: SERTRALINE HCL 50 MG TABLET PO SCH (09:01)
[2022-05-18] MEDS: lisinopril 10 MG TAB PO SCH ×2 (09:01→20:11)
[2022-05-18] MEDS: methylPREDNISolone 40 MG in SYRINGE 0 ML IV SCH (09:07)
--- NOTE | 2022-05-18 12:27 | Hospitalist Progress Note ---
Date of Service May 18, 2022 Assessment & Plan (1) Acute respiratory failure with hypoxia: Plan: Secondary to acute on chronic diastolic CHF and exacerbation of COPD. Now resolved, weaned completely off supplemental O2 at rest Has chronic elevated right hemidiaphragm and scoliosis contributing to underlying baseline POx 92% With Human Metapneumovirus as cause of acute bronchitis initially on ertapenem but dcd and added doxy for AOM continue steroids but wean down dose and convert to po prednisone 40mg daily for tomorrow AM (2) Hyponatremia: Plan: Hypoosmolar hyponatremia. Improved with free water diuresis. Now resolved, Na+ 126 on admit, now 136 and stable dcd IV lasix -follow BMP in AM (3) Hypothyroidism: Plan: Stable. Continue current thyroid replacement TSH normal (4) Anxiety: Plan: Stable. Continue Sertraline and Nortriptyline (5) History of CVA (cerebrovascular accident): Plan: With PFO, on Coumadin INR was high and coumadin was held--> restarted Coumadin at 2.5mg daily on 05/16 INR theraeutic at 2.4 -continue Coumadin 5mg daily (home dose) on 05/17 follow INR (6) Hyperlipidemia: Plan: Stable. Continue statin (7) GERD (gastroesophageal reflux disease): Plan: Had some chest pain resolved with belching on 05/18 Continue PPI add on prn Maalox and pepcid (8) Acute diastolic CHF (congestive heart failure): Plan: Lasix diuresis and now much improved as above, O2 weaning down, weight down 3 kg. Likely due to excessive water intake prior to admission. ECHO with preserved EF (9) COPD exacerbation: Plan: Treating bronchitis and CHF. Continue steroid therapy. Nebulizer treatments (10) Acute bronchitis: Plan: Sputum culture negative--dcd ertapenem started doxy though to cover for AOM given ear pain and PCP told her looked like AOM prior to admission-ear pain now resolved-finish out 7 day course of doxy on 05/22/22 (11) Paroxysmal atrial tachycardia: Plan: Asymptomatic. Seen on telemetry. Cardiac echo reveals normal ejection fraction with mild LVH and normal left atrial and right atrial size. Diltiazem was started 180mg po once daily none further on tele have since downgraded off tele Plan Dispo-likely discharge to home later today or tomorrow. Will need 2 step walk test prior to discharge Admission and Anticipated Discharge Date Admission Date: May 13, 2022 Subjective Feeling much better, was just weaned completely off O2, less cough. Had chest pain this AM briefly that resolved with belching Physical Exam Constitutional: WD/WN, vitals as above Eyes: + anicteric sclerae Respiratory: normal respiratory effort Auscultation: + wheezes (on left,much improved); no diminished lung sounds (moving air even better today), no crackles and no rhonchi Cardiovascular: RRR, no murmur, no edema Gastrointestinal (Abdomen): normal bowel sounds, soft, nontender, no hepatosplenomegaly Psychiatric: A+Ox3, euthymic affect Results & Data Results & Data Vital Signs (Past 12 Hours) Vital Signs Temp Pulse Resp BP Pulse Ox O2 Del Method O2 Flow Rate 05/18/22 12:12 94 H 93 Room Air 05/18/22 12:09 98 H 95 Nasal Cannula 2 05/18/22 11:19 78 18 93 Nasal Cannula 2.5 05/18/22 07:50 Nasal Cannula 3 05/18/22 07:12 36.8 C 78 18 122/75 94 Nasal Cannula 3 05/18/22 06:56 74 18 93 Nasal Cannula 3 Laboratory Results INR reviewed PG Care Time/CCT Total # of Minutes Spent Total Time Spent with Patient: Total time spent is greater than 50% in coordination of care (as documented) at patient's floor/unit and/or counseling patient: Coding Level of Care Code 78860 SUB INP/OBS CARE 2/35MIN Diagnoses Acute respiratory failure with hypoxia J96.01 Hyponatremia E87.1 Hypothyroidism E03.9 Anxiety F41.9 History of CVA (cerebrovascular accident) Z86.73 Hyperlipidemia E78.5 GERD (gastroesophageal reflux disease) K21.9 Acute diastolic CHF (congestive heart failure) I50.31 COPD exacerbation J44.1 Acute bronchitis J20.9 Paroxysmal atrial tachycardia I47.1
[2022-05-18] MEDS: WARFARIN SOD 5 MG TAB PO SCH (16:05)
[2022-05-18] MEDS: NORTRIPTYLINE HCL 25 MG CAP PO SCH (20:11)
[2022-05-18] MEDS: ATORVASTATIN 40 MG TAB PO SCH (20:11)
[2022-05-18] MEDS: FLUTICASONE/VILANTEROL 200/25MCG 14 PUFFS/INHALER INH SCH (20:13)
[2022-05-19] MEDS: DOXYCYCLINE HYCLATE 100 MG in DEXTROSE 5% 100 ML IV SCH ×2 (04:27→15:34)
[2022-05-19] MEDS: LEVOTHYROXINE SODIUM 112 MCG TABLET PO SCH (06:35)
[2022-05-19] MEDS: guaiFENesin/CODEINE 100MG/10MG 5ML UDC PO SCH ×3 (06:35→18:04)
[2022-05-19 06:54] LABS: Creatinine Clr Calc Pharmacy 54.9 ml/min; Est GFR (African American) 81.7 ml/min; Est GFR (Non-African American) 70.5 ml/min; Potassium 3.8 mmol/L (3.5-5.1)
[2022-05-19 07:00] LABS: INR 3.2 (0.9-1.1)
[2022-05-19] MEDS: ALBUT/IPRATROP 3MG/0.5MG NEB 3 ML VIAL NEB SCH ×3 (07:13→15:20)
[2022-05-19] MEDS ORDERED: predniSONE 20 MG TAB PO SCH (09:00)
[2022-05-19] MEDS: LORATADINE 10 MG TAB PO SCH (09:30)
[2022-05-19] MEDS: SERTRALINE HCL 50 MG TABLET PO SCH (09:30)
[2022-05-19] MEDS: PANTOprazole 40 MG TAB PO SCH (09:31)
[2022-05-19] MEDS: lisinopril 10 MG TAB PO SCH (09:31)
[2022-05-19] MEDS: CHOLECALCIFEROL 5,000 UNITS 125 MCG TAB PO SCH (09:32)
[2022-05-19] MEDS: dilTIAZem HCL 180 MG CAPCR PO SCH (09:32)
[2022-05-19] MEDS: NYSTATIN SUSP 500,000 U/5 ML UDC PO SCH ×3 (11:45→17:08)
[2022-05-19] MEDS: WARFARIN SOD 5 MG TAB PO SCH (15:51)
--- NOTE | 2022-05-19 16:10 | Discharge Summary ---
Date of Service May 19, 2022 Admission HPI Per Admitting Provider Dayna is a 76 year old female with a PMH significant for previous CVA due to PFO on Warfarin, asthma, HTN, Dyslipidemia, hypothyroidism, anxiety/depression, and GERD who presented to the [facility] ED on 05/13/22 from her PCP's office due to acute hypoxic respiratory failure. In the ED the patient was found to to be afebrile, hemodynamically stable, but hypoxic in the mid 80's on RA. Labs were remarkable for a WBC of 4.57, stable hgb and platelets, INR of 2.2, stable cr at 0.49 but a sodium of 126, chloride of 92, glucose of 106, and covid negative. Chest xray was read as "1. Pulmonary vascular congestion with possible mild pulmonary edema. 2. Elevation of the right hemidiaphragm. 3. Hiatal hernia.". Prior to admission the patient was placed on 4L NC and remained stable. She was given and hour long duoneb treatment and 125 mg of IV methylprednisolone. At the time of the exam the patient was sitting in bed, still receiving her DuoNeb treatment in no acute distress with her sitting bedside; history was obtained from both. They state that they both developed URI symptoms approximately 4-5 days. She developed congestion, runny nose, a productive cough with yellow sputum (no baseline cough with her asthma), SOB, nausea, and 3 episodes of non-bloody emesis. She denies choking on any of her vomit. She has been using her Advair, budesonide, and levalbuterol nebulizers without relief of her symptoms. She denies recent fevers, chills, changes of vision, hearing, taste, and smell, chest pain, abd pain, dysuria, hematuria, LE swelling and recent trauma. When asked, she states that she has not been eating well over the past week due to a lack of appetite. She has been drinking a lot of water per she and her . She has been drinking approximately 6-8 of the large hospital cups of water daily. She has still been taking her 20 mg PO Lasix daily over the past week, as-well-as her Warfarin. We discussed code status, she wishes to be a full code and for her to make medical decisions for her if she cannot make them herself. Please refer to Dr. Thakur's attestation for any changes to the treatment plan Principal Diagnosis Human metapneumovirus, asthma exacerbation Acute respiratory failure with hypoxia Acute on chronic diastolic CHF Hyponatremia Discharge Exam Constitutional WD/WN, vitals as above Respiratory normal respiratory effort, lungs clear to auscultation Cardiovascular RRR, no murmur, no edema Gastrointestinal (Abdomen) normal bowel sounds, soft, nontender, no hepatosplenomegaly Psychiatric A+Ox3, euthymic affect Discharge Data Allergies Allergy/AdvReac Type Severity Reaction Status Date / Time Iodinated Contrast Media Allergy Severe "couldn't Verified 05/13/22 09:47 breathe and really bad rash" iodine Allergy Severe "couldn't Verified 05/13/22 09:47 breathe and really bad rash" nickel Allergy Severe " open Verified 05/13/22 09:47 sores" Penicillins Allergy Severe shortness Verified 05/13/22 09:47 of breath promethazine Allergy Severe "couldn't Verified 05/13/22 09:47 breathe" red (food color) Allergy Severe "problems Verified 05/13/22 09:47 breathing" Sulfa (Sulfonamide Allergy Severe facial Verified 05/13/22 09:47 Antibiotics) swelling levofloxacin Allergy Intermediate HIVES, LEG Verified 05/13/22 09:47 PAIN tramadol Allergy Intermediate hallucinati Verified 05/13/22 09:47 ons cephalexin Allergy Mild Rash Verified 05/13/22 09:47 house dust Allergy Mild "sniffles/watery Verified 05/13/22 09:47 eyes" ragweed pollen Allergy Mild "sniffles" Verified 05/13/22 09:47 caramel Allergy Difficulty Verified 05/13/22 18:37 Breathing azithromycin [From Zithromax] AdvReac Mild Rash Verified 05/13/22 09:47 Consultations 05/13/22 12:47 ED Decision to Admit Stat Hospital Course (1) Acute respiratory failure with hypoxia: Acute respiratory failure with hypoxia: Plan: Secondary to acute on chronic diastolic CHF and exacerbation of COPD. much improved, lungs clear by day of discharge Supplemental oxygen to maintain saturation greater than 90%. Weaned to room air at rest adn needs 2LNC with exertion Has chronic elevated right hemidiaphragm and scoliosis contributing to underlying baseline POx 92% With Human Metapneumovirus as cause of acute bronchitis dcd ertapenem but added doxy for AOM-finish out 4 more days after discharge continue steroids with prednisone 40mg daily x 2 more days after discharge (2) Hyponatremia: Plan: Hypoosmolar hyponatremia. Improved with free water diuresis. Now resolved, Na+ 126 on admit, now 137 and stable dcd IV lasix, return to [facility] epo lasix (3) Hypothyroidism: Plan: Stable. Continue current thyroid replacement TSH normal (4) Anxiety: Plan: Stable. Continue Sertraline and Nortriptyline (5) History of CVA (cerebrovascular accident): Plan: With PFO, on Coumadin INR was high and coumadin was held--> restarted Coumadin at 2.5mg daily on 05/16 but then INR down to 2.2 -increased Coumadin to 5mg daily (home dose) on 05/17 but now INR 3.2 on day of discharge recommended HOLDING coumadin on 05/19 and then restart home dose on 05/20 follow INR on Monday after discharge prednisone likely making INR high (6) Hyperlipidemia: Plan: Stable. Continue statin (7) GERD (gastroesophageal reflux disease): Plan: Stable. Continue PPI (8) Acute diastolic CHF (congestive heart failure): Plan: Lasix diuresis and now much improved as above, O2 weaning down, weight down 3 kg. Likely due to excessive water intake prior to admission. Monitor intake and output. ECHO with preserved EF continue home po lasix (9) COPD exacerbation: Plan: Treat bronchitis and CHF. continue steroid therapy. Nebulizer treatments (10) Acute bronchitis: Plan: Sputum culture negative--dcd ertapenem started doxy though to cover for AOM given ear pain and PCP told her looked like AOM prior to admission-ear pain now resolved (11) Paroxysmal atrial tachycardia: Plan: Asymptomatic. Seen on telemetry. Cardiac echo reveals normal ejection fraction with mild LVH and normal left atrial and right atrial size. Diltiazem was started 180mg po once daily none further on tele have since downgraded off tele Plan Dispo-dc to home Discussed all care at length with patient and her at bedside (2) Hyponatremia: (3) Hypothyroidism: (4) Anxiety: (5) History of CVA (cerebrovascular accident): (6) Hyperlipidemia: (7) GERD (gastroesophageal reflux disease): (8) Acute diastolic CHF (congestive heart failure): (9) COPD exacerbation: (10) Acute bronchitis: (11) Paroxysmal atrial tachycardia: Total Time Total Time Spent Total Time Spent (In Minutes): 35 min Discharge Plan Discharge Items Patient Disposition: Home - Self-Care Reason For Visit: SOB Discharge Diagnosis: Human Metapneumovirus infection, Asthma exacerbation Acute on chronic diastolic CHF Hypoxia Condition on Discharge: Good Activity: As commented below Bathing: No limitations Exercise/Sports: Gradually increase as tolerated Non-emergency contact: Primary Care Provider Call non-emergency contact if: you have any medication questions and your symptoms worsen Follow-up/Referrals: Lary Cohn CRNP [Primary Care Provider] - 05/26/22 12:00 pm (APPT WITH DR PAIGE) Diet: Heart Healthy and Low Sodium (2gm) Addtl Attending Provider Instructions: You were admitted with a viral infection that caused an asthma exacerbation. This was treated with steroids and breathing treatments. You were also overloaded with fluid and given diuretics to get the fluid off. You should finish out 4 more days of the doxycycline for your ear infection and 2 more days of prednisone. Please HOLD your coumadin today and then start back on your usual dosing on Monday. Have your INR checked on Monday. You will need to stay on 2 L of oxygen via the nasal cannula only with walking around, but can take it off when you're sitting. You will need to take the nystatin swish and swallow for 10 days for your thrush in the mouth. You were started on a medication called diltiazem to help prevent a fast heart rate you had earlier in your hospital stay (atrial tachycardia). Addtl [employer] Provider Instructions: Call your Primary Care doctor if any of the following symptoms or problems start or get worse: * Shortness of breath or difficulty breathing * Wake up at night short of breath * Chest pain * Cough * Swelling of your hands, feet, or legs * More fatigued or tired with your normal activity * Palpitations - sudden fast heart beats WEIGHT * Weigh yourself every morning after using the bathroom. * Use the same scale. * Wear the same amount of clothing. * Write your weight down on a chart. * Call your Primary Care doctor if you gain more than 2-3 pounds in 1-2 days. MEDICATIONS * Use this discharge instruction sheet for medication instructions. * Take your medications at the time your doctor ordered. * Do not skip a dose of your medicines. * If you miss a dose of medicine, take it as soon as possible, but DO NOT DOUBLE A DOSE. * Read your medicine information when you get home. * Know all of the side effects of your medicine. If in doubt, ask your pharmacist * Call your Primary Care doctor's office if you have any side effects. * Be sure all of your doctors know what medicine and herbs you take (including cold, flu, and herbal medicine). Take the following with you to your follow-up doctor appointments: * Weight Chart * Medication List * List of questions Do not drink excessive alcohol, beer or wine. Pending Studies at Discharge: No Stand-Alone Forms: [facility], Smoking Cessation Medications and DC Order Prescriptions: New nystatin 100,000 unit/mL Suspension 5 ml PO QID 10 Days Qty: 200 0RF diltiazem HCl 180 mg Capsule,Extended Release 24hr 180 mg PO QAM Qty: 30 0RF prednisone 20 mg Tablet 40 mg PO QAM 2 Days Qty: 4 0RF doxycycline hyclate 100 mg tablet 100 mg PO BID Qty: 8 0RF Continued warfarin 5 mg tablet 5 mg PO .COMPLEX Qty: 100 3RF Protocol: Dose Management Condition: Monday Dose/Route: 5 mg Instruction: 1 x 5 mg tablet Condition: Monday Dose/Route: 5 mg Instruction: 1 x 5 mg tablet Condition: Monday Dose/Route: 5 mg Instruction: 1 x 5 mg tablet Condition: Monday Dose/Route: 5 mg Instruction: 1 x 5 mg tablet Condition: Dose/Route: 5 mg Instruction: 1 x 5 mg tablet Condition: Monday Dose/Route: 5 mg Instruction: 1 x 5 mg tablet Condition: Monday Dose/Route: 5 mg Instruction: 1 x 5 mg tablet Protocol Text: Adjustment Start Date: 05/05/22 INR Value: 2.3 INR Date: 05/05/22 Recheck Date: 05/19/22 Rx Instructions: 5 mg PO sutuwethfrsa, six days a week, 2.5 mg every mon. take as directed by anti-coagulation clinic. levothyroxine 112 mcg tablet 112 mcg PO DAILY Qty: 90 3RF budesonide 0.5 mg/2 mL suspension for nebulization 0.5 mg INHALATION BID PRN (Reason: Shortness Of Breath R06.2) Qty: 180 3RF nortriptyline 75 mg capsule 75 mg PO QPM Qty: 90 3RF Rx Instructions: Placed on file till needed atorvastatin [Lipitor] 40 mg tablet 40 mg PO HS Qty: 90 3RF omeprazole 20 mg capsule,delayed release(DR/EC) 40 mg PO QAM Qty: 180 3RF fluticasone propion-salmeterol 500-50 mcg/dose blister with device 1 ea Inhalation BID Qty: 180 3RF levalbuterol HCl [Xopenex] 1.25 mg/3 mL solution for nebulization 1.25 mg inhalation Q8H PRN (Reason: shortness of breath or wheezing) Qty: 270 3RF sertraline 50 mg tablet 50 mg PO QAM Qty: 90 3RF Rx Instructions: Placed on file till needed nystatin 100,000 unit/gram cream 1 applic topical BID Qty: 15 1RF triamcinolone acetonide 0.1 % cream 1 applic topical BID Qty: 15 0RF furosemide 20 mg tablet 20 mg PO DAILY Qty: 90 3RF lisinopril 10 mg tablet 10 mg PO BID Qty: 180 3RF polyethylene glycol 3350 [Miralax] 17 gram Powder In Packet 17 g PO BID loratadine [Claritin] 10 mg Tablet 10 mg PO QAM Saline Nasal 0.65 % Aerosol,[place] 1 spray INTRANASAL Q OTHER DAY Systane Balance 0.6 % Drops 1 drp OPB BID guaifenesin [Mucinex] 600 mg Tablet Extended Release 12hr 600 mg PO Q12H Ocuvite Eye Health 50 mg-15 unit- 4.5 mg-2.5 mg Tablet,Chewable 1 tab PO QAM Nutri-Drink Liquid 1 ea PO BID calcium carbonate 500 mg calcium (1,250 mg) Tablet 500 mg PO DAILY acetaminophen 650 mg Tablet Extended Release 650 mg PO HS cholecalciferol (vitamin D3) [Vitamin D3] 125 mcg (5,000 unit) Tablet 125 mcg PO DAILY Discontinued clarithromycin 500 mg tablet 500 mg PO BID 7 Days Qty: 14 0RF Rx Instructions: has taken before did ok Discharge Orders: Discharge Order (Routine); Ordered 05/19/22 Ordered By: Josefina Wagner Admission Data Admit Date/Time: 05/13/22 13:02 Attending Provider: Josefina Wagner Admit Provider: Cesar Thakur Primary Care Provider: Lary Cohn Other Providers: Cesar Thakur Coding Level of Care Code 53436 INP/OBS DISCH >30 MIN Diagnoses Acute respiratory failure with hypoxia J96.01 Hyponatremia E87.1 Hypothyroidism E03.9 Anxiety F41.9 History of CVA (cerebrovascular accident) Z86.73 Hyperlipidemia E78.5 GERD (gastroesophageal reflux disease) K21.9 Acute diastolic CHF (congestive heart failure) I50.31 COPD exacerbation J44.1 Acute bronchitis J20.9 Paroxysmal atrial tachycardia I47.1
== END 2022-05-19 19:00 | disposition home or self-care (01) | DRG 291 ==
LOC: ED 10:53 → 2W 13:02 → SUATTDRO 13:02 → 2W 14:48 → 3E 05-17 18:31

== ENCOUNTER 2023-02-16 11:49 | Inpatient (IN) ==
[2023-02-16] MEDS ORDERED: ONDANSETRON INJ 2 MG/ML 2 ML VIAL IV STA (12:31)
[2023-02-16] MEDS ORDERED: SODIUM CHLORIDE 0.9% 1,000 ML IV ONE (12:31)
--- NOTE | 2023-02-16 12:35 | Emergency Department Note ---
Impression & Plan Acute hypoxic respiratory failure, Pneumonia, Acute hypotension, Hypokalemia ED Provider Note NAME: AUSTIN BURRELL AGE: 77 SEX: F : 1945 ARRIVES VIA: Walk-In INFORMANT: Patient ED PROVIDER(S): Uli Grey DO CHIEF COMPLAINT: shortness of breath HPI: Patient is a 77-year-old who presents to the ER for shortness of breath which has been present for the past 24 hours associated with weakness. Family notes she has been very lethargic. Denies any headache or change in vision. No chest pain but does have shortness of breath. No dysuria, urgency, or frequency. Has been having some nausea and vomiting intermittently today. Has been much more lethargic. Has been on 2 L nasal cannula normally has had to titrate up to 6 due to hypoxia at 85%. Was found to be febrile and hypoxic at the PCPs office and was referred in. ADDITIONAL HISTORY OBTAINED: Per HPI Chronic Medical/Social Conditions Affecting Care: Per HPI PAST MEDICAL HISTORY:See Below PAST SURGICAL HISTORY:See Below FAMILY HISTORY:See Below SOCIAL HISTORY:See Below HOME MEDICATIONS:See Below ALLERGIES:See Below VITALS:See Below PHYSICAL EXAMINATION: GENERAL: Sitting up in chair, disheveled, on 2 L nasal cannula EYE EXAM: normal conjunctiva. OROPHARYNX: no exudate, no erythema, lips, buccal mucosa, and tongue normal and mucous membranes are moist NECK: supple, no nuchal rigidity, no adenopathy, non-tender LUNGS: Clear to auscultation. Normal chest wall mechanics HEART: no murmurs, S1 normal and S2 normal ABDOMEN: abdomen soft, non-tender, normo-active bowel sounds, no masses, no rebound or guarding. BACK: Back is symmetrical on inspection and there is no deformity, no midline tenderness, no CVA tenderness. SKIN: no rashes and no bruising UPPER EXTREMITIES: upper extremities are grossly normal. LOWER EXTREMITIES: No pitting edema. NEURO EXAM: Normal sensorium, cranial nerves II-XII grossly intact, normal speech, no gross weakness of arms, no gross weakness of legs. MEDICAL DECISION MAKING: Patient is a 77-year-old female who presents to the ER with past medical history of hypertension, hypothyroidism, asthma and GERD as well as CHF for shortness of breath associated with some congestion and a cough. She was found to be hypoxic at home. Chronically wears 2 L nasal cannula. Was referred over by the PCPs. Labs show leukocytosis of 12,000. No significant anemia. INR 2 and consequently PE was not explored any further. VBG with a pH 7.34 and a CO2 of 58. BMP with mild hypokalemia 3.2. LFTs bilirubin and troponin was unremarkable. Viral panel was ordered. CT of the abdomen pelvis was performed due to the nausea and vomiting suggest a right lower lobe pneumonia. She does have some chest wall tenderness which is reproducible on exam. Patient was given IV doxycycline as well as cefepime after discussion with [facility] and her pharmacist due to her allergies. Discussed with Dr. Real Alcazar for further evaluation management treatment. She was also ordered IV fluids due to the hypotension which did improve. Consults/Care Managements Discussions: Per [facility] Triage Nursing notes reviewed. Limited review of prior medical records performed Vital Signs: reviewed and remarkable for hypoxia Differential diagnosis: Differential diagnosis includes etiologies such as sepsis, UTI, pneumonia, metabolic, electrolyte abnormalities, cardiac sources, intracerebral event, toxicologic, neurological, as well as others were entertained. ER treatment provided: See below Diagnostics interpreted by me include EKG and cardiac monitoring as listed below: -Cardiac Monitoring: An order was placed for continuous cardiac monitoring. The monitor shows a rate of 90 with sinus rhythm. -ECG: Sinus tachycardia rate of 106 Left axis No PVCs QTc 398 -Laboratory studies:Interpreted by me as stated above in MDM and shown below. Imaging studies: Xrays: As interpreted by me: Chest x-ray shows an elevated right hemidiaphragm Chest x-ray per radiology shows a pneumonia CTs show: CT abdomen pelvis shows pneumonia Procedures:none Critical Care: I have personally spent 32 minutes of critical care time in the direct management of this patient. This includes bedside care, interpretation of diagnostic studies, and testing, discussion with consultants, patient, and family members, and other required patient management activities. This 32 minutes is in excess of all separately billable procedures. Past Med/Surg History Medical History Pre-diabetes Sleep apnea On home oxygen therapy Hx of diverticulitis of colon Chronic diastolic CHF (congestive heart failure) Acute diastolic CHF (congestive heart failure) Breath shortness Asthma Scoliosis Hypothyroidism Hx of esophageal varices Hypertension History of COVID-19 Basilar artery stenosis Poor peripheral circulation Rosacea Osteoarthritis Chronic back pain GERD (gastroesophageal reflux disease) Depression On anticoagulant therapy Hyperlipidemia PFO (patent foramen ovale) Migraine CVA (cerebrovascular accident) Surgical History History of hip replacement History of hysterectomy History of dilatation and curettage History of bilateral tubal ligation History of esophagogastroduodenoscopy (EGD) History of colonoscopy with polypectomy History of tooth extraction History of bilateral cataract extraction Family History Mother Family history of diabetes mellitus Myocardial infarction Sister Family history of diabetes mellitus Family history of rectal cancer Myocardial infarction Sister Family history of diabetes mellitus Myocardial infarction Brother Family history of diabetes mellitus Myocardial infarction Brother Family history of diabetes mellitus Family/Other Breast cancer Father Myocardial infarction Other Cancer Gallbladder disease Heart disease Hypertension Lung disease No family history of adverse response to anesthesia Denies family history of Ovarian cancer Prostate cancer Colorectal cancer Social History Smoking Status: Never smoker Second Hand Exposure: No; Do You Dip or Chew Tobacco: No; Hx Alcohol Use: No Hx Substance Use: No Preferred Language: Zimbabwean Communication Ability: Effective Visual Impairment: Limited Hearing Ability: Normal Distribution Operation Supervisor Required: No Beliefs That Will Affect Care: None marital status: Current Living Situation: Spouse Current Living Situation Comment: and son current occupational status: retired How many Children do You have: 5 Feels Safe at Home: Yes Childhood Exposure to Second-Hand Smoke: Yes Diet: regular caffeine: Yes during the past year weight has: remained stable Dental Care, Regularly: Yes Physical Activity Frequency: 1-2 Times per Week Seatbelt Use: always Sunscreen Use: No Assistive Devices: Glasses, Nebulizer and Oxygen - Continuous Allergies Allergies Allergy/AdvReac Type Severity Reaction Status Date / Time caramel Allergy Severe Difficulty Verified 02/16/23 09:54 Breathing Iodinated Contrast Media Allergy Severe "couldn't Verified 02/16/23 09:54 breathe and really bad rash" iodine Allergy Severe "couldn't Verified 02/16/23 09:54 breathe and really bad rash" nickel Allergy Severe " open Verified 02/16/23 09:54 sores" Penicillins Allergy Severe shortness Verified 02/16/23 09:54 of breath promethazine Allergy Severe "couldn't Verified 02/16/23 09:54 breathe" red (food color) Allergy Severe "problems Verified 02/16/23 09:54 breathing" Sulfa (Sulfonamide Allergy Severe facial Verified 02/16/23 09:54 Antibiotics) swelling adhesive tape Allergy Intermediate skin Verified 02/16/23 09:54 irritation and redness levofloxacin Allergy Intermediate HIVES, LEG Verified 02/16/23 09:54 PAIN tramadol Allergy Intermediate hallucinati Verified 02/16/23 09:54 ons cephalexin Allergy Mild Rash Verified 02/16/23 09:54 house dust Allergy Mild "sniffles/watery Verified 02/16/23 09:54 eyes" ragweed pollen Allergy Mild "sniffles" Verified 02/16/23 09:54 ciprofloxacin AdvReac Severe stomach Verified 02/16/23 09:54 pain azithromycin [From Zithromax] AdvReac Mild Rash Verified 02/16/23 09:54 Home Meds Home Medications Medication Instructions Recorded Confirmed guaifenesin 600 mg tablet, 600 mg PO Q12H 03/30/18 02/16/23 extended release 12 hr (Mucinex) loratadine 10 mg tablet (Claritin) 10 mg PO QAM 03/30/18 02/16/23 polyethylene glycol 3350 17 gram 17 g PO BID 03/30/18 02/16/23 oral powder packet (Miralax) propylene glycol 0.6 % eye drops 1 drp OPB BID 03/30/18 02/16/23 (Systane Balance) sodium chloride 0.65 % nasal spray 1 spray intranasal HS 03/30/18 02/16/23 aerosol (Saline Nasal) vit C 50 mg-E 15 unit-zinc cit 4.5 1 tab PO QAM 03/30/18 02/16/23 mg-lutein 2.5 mg-zeaxan chew tablet ([email or web address]) calcium carbonate 500 mg calcium 500 mg PO QPM 03/08/21 02/16/23 (1,250 mg) tablet acetaminophen 650 mg 1,300 mg PO BID 03/25/21 02/16/23 tablet,extended release cholecalciferol (vitamin D3) 125 125 mcg PO QAM 03/25/21 02/16/23 mcg (5,000 unit) tablet (Vitamin D3) clindamycin phosphate 1 % topical 1 applic topical BID PRN Skin 06/14/22 02/16/23 solution Irritation acidophilus 100 million 1 cap PO QAM 08/30/22 02/16/23 cell-pectin, citrus 10 mg capsule levothyroxine 112 mcg tablet 112 mcg PO QAM 08/30/22 02/16/23 budesonide 0.5 mg/2 mL suspension 0.5 mg inhalation BID 02/16/23 02/16/23 for nebulization levalbuterol HCl 1.25 mg/3 mL 1.25 mg inhalation BID shortness 02/16/23 02/16/23 solution for nebulization of breath or wheezing warfarin 5 mg tablet 2.5 - 5 mg PO DIRECTED 02/16/23 02/16/23 Previous Rx's Medication Instructions Recorded fluticasone 500 mcg-salmeterol 50 1 ea inhalation BID #180 ea 03/21/22 mcg/dose blistr powdr for inhalation sertraline 50 mg tablet 50 mg PO QAM #90 tabs 05/03/22 diltiazem HCl 180 mg 180 mg PO QAM #90 caps 05/31/22 capsule,extended release 24 hr furosemide 20 mg tablet 40 mg (2 x 20 mg) PO QAM edema 09/05/22 #180 tabs metronidazole 250 mg tablet 250 mg PO QPM rosacea maintanence 09/05/22 #90 tabs potassium chloride 10 mEq 10 meq PO QAM #90 tabs 10/06/22 tablet,extended release (Klor-Con) triamcinolone acetonide 0.1 % 1 applic topical BID #15 grams 01/06/23 topical cream atorvastatin 40 mg tablet (Lipitor) 40 mg PO QPM #90 tabs 01/16/23 nortriptyline 75 mg capsule 75 mg PO QPM #90 caps 01/26/23 omeprazole 20 mg capsule,delayed 40 mg (2 x 20 mg) PO HS #180 caps 01/26/23 release Results & Data (ED) Vital Signs Vital Signs - 24 hr 02/16/23 12:17 02/16/23 12:42 02/16/23 13:42 Temperature 37 C Temperature Source Temporal Artery Scan Pulse Rate 101 H 104 H Pulse Rate [Apical] 89 Pulse Rhythm Respiratory Rate 18 18 Respiratory Effort / Characteristics Non-Labored Non-Labored Respiratory Depth Normal Normal Blood Pressure 100/63 Blood Pressure [Left Arm] 92/66 L Blood Pressure Mean 75 Blood Pressure Mean [Left Arm] 74 Pulse Oximetry 86 L 95 Oxygen Delivery Method Nasal Cannula Nasal Cannula Oxygen Flow Rate 2 6 Sepsis Recent Fever Within 48 Hours Yes Sepsis New/Unexplained Change in Mental Status No Sepsis Action Taken by Nursing No Action Required 02/16/23 13:42 Temperature Temperature Source Pulse Rate 91 H Pulse Rate [Apical] Pulse Rhythm Regular Respiratory Rate 24 Respiratory Effort / Characteristics Respiratory Depth Blood Pressure Blood Pressure [Left Arm] Blood Pressure Mean Blood Pressure Mean [Left Arm] Pulse Oximetry 90 Oxygen Delivery Method Nasal Cannula Oxygen Flow Rate 6 Sepsis Recent Fever Within 48 Hours Sepsis New/Unexplained Change in Mental Status Sepsis Action Taken by Nursing Laboratory Data 02/16/23 13:00 02/16/23 13:00 Lab Results 02/16/23 02/16/23 02/16/23 Range/Units 13:00 13:10 14:22 WBC 12.26 H (4.8-10.8) K/ul RBC 4.32 (4.20-5.40) M/uL Hgb 12.2 (12.0-16.0) g/dl POC Hgb 13.3 (12.0-16.0) g/dl Hct 38.9 (37.0-47.0) % POC Hct 39 (37-47) % MCV 90.0 (80.0-100.0) fL MCH 28.2 (25.0-34.0) pg MCHC 31.4 L (32.0-36.0) g/dL RDW Std Deviation 48.7 H (36.4-46.3) fL RDW Coeff of Susi 14.6 H (11.5-14.5) % Plt Count 192 (130-400) K/uL MPV 8.3 L (9.4-12.4) fL Immature Gran % (Auto) 0.9 % Neut % (Auto) 87.1 % Lymph % (Auto) 7.7 % [place] % (Auto) 3.9 % Eos % (Auto) 0.2 % Baso % (Auto) 0.2 % Neut # (Auto) 10.68 H (1.40-6.50) K/uL Lymph # (Auto) 0.94 L (1.20-3.40) K/uL Independence # (Auto) 0.48 (0.11-0.59) K/uL Eos # (Auto) 0.02 (0.00-0.50) K/uL Baso # (Auto) 0.03 (0.00-0.20) K/uL Immature Gran # (Auto) 0.11 (0.01-0.20) K/uL PT 20.7 H (9.0-12.0) Seconds INR 2.0 H (0.9-1.1) VBG pH 7.34 L (7.36-7.41) VBG pCO2 58 H (38-50) mmHg VBG pO2 36 mmHg VBG HCO3 31 mmol/L VBG O2 Saturation < 60.0 % VBG Base Excess 3.9 mEq/L POC Sodium 137 (135-144) mmol/L Sodium 136 (136-145) mmol/L POC Potassium 3.1 L (3.3-5.0) mmol/L Potassium 3.2 L (3.5-5.1) mmol/L POC Chloride 94 L (101-112) mmol/L Chloride 97 L (98-107) mmol/L Carbon Dioxide 32 (21-32) mmol/L POC Total CO2 28 (24-31) mmol/L Anion Gap 7 (3-11) POC Anion Gap 19.0 (16-25) mmol/L POC BUN 13 (7-18) mg/dl BUN 14 (6-23) mg/dl Creatinine 0.73 (0.6-1.2) mg/dl POC Creatinine 0.7 (0.6-1.3) mg/dl Est Cr Clr Drug Dosing Not Reportable Est GFR ( Amer) 93.4 ml/min Est GFR (Non-Af Amer) 80.6 ml/min BUN/Creatinine Ratio 19.2 (10-20) Glucose 101 H (70-99(Fasting)) mg/dl POC Glucose (other) 102 H (70-99) mg/dl Lactate 1.2 (0.4-2.0) mmol/L Calcium 9.6 (8.6-10.3) mg/dl POC Ioniz Calcium Corinne 1.18 (1.12-1.32) mmol/l Magnesium 1.8 (1.7-2.4) mg/dl Total Bilirubin 0.6 (0.2-1.0) mg/dl AST 24 (13-39) U/L ALT 23 (7-52) U/L Alkaline Phosphatase 87 (34-104) U/L Troponin I High Sens 8.6 (0-14) pg/ml Total Protein 7.3 (6.0-8.3) gm/dl Albumin 4.3 (3.4-5.0) gm/dl Globulin 3.0 (2.5-4.0) gm/dl Albumin/Globulin Ratio 1.4 (0.9-2) Lipase 7 L (11-82) U/L Administered Medications Sodium Chloride (Nss) 1,000 mls @ 999 mls/hr IV .Q1H1M TAMMY Stop: 02/16/23 16:15 Last Admin: 02/16/23 14:42 Dose: 999 mls/hr Documented By: JOHNNA Discontinued Medications Acetaminophen (Acetaminophen 325 Mg Tab) 650 mg PO NOW STA Stop: 02/16/23 14:17 Last Admin: 02/16/23 14:34 Dose: 650 mg Documented By: JOHNNA Sodium Chloride (Nss) 1,000 mls @ 999 mls/hr IV .Q1H1M ONE Stop: 02/16/23 13:31 Last Infusion: 02/16/23 14:47 Dose: Infused Documented By: Admin: 02/16/23 13:06 Dose: 999 mls/hr Documented By: RAFITA Cefepime HCl (Maxipime) 2,000 mg in 20 mls @ 5 mls/min IV NOW STA; Protocol Stop: 02/16/23 14:20 Last Admin: 02/16/23 14:36 Dose: 5 mls/min Documented By: JOHNNA Doxycycline Hyclate 100 mg/ (Dextrose) 100 mls @ 50 mls/hr IV NOW STA Stop: 02/16/23 16:16 Last Admin: 02/16/23 14:46 Dose: Not Given Documented By: JOHNNA Ondansetron HCl (Ondansetron Inj 2 Mg/Ml 2 Ml Vial) 4 mg IV NOW STA Stop: 02/16/23 12:32 Last Admin: 02/16/23 13:06 Dose: 4 mg Documented By: RAFITA Imaging Data Radiologist's Impression: Chest X-Ray 02/16/23 12:22 XR chest 1V portable HISTORY: 77 years-old Female Chest pain, nonspecific COMPARISON: 05/16/2022 TECHNIQUE: AP view of the chest FINDINGS: Cardiac silhouette is enlarged. Chronic interstitial coarsening with chronic right hemidiaphragmatic elevation. Pulmonary vascular congestion. Bibasilar opacities with probable small pleural effusions and hiatal hernia. Ill-defined ovoid 3.8 cm opacity lateral left midlung. Degenerative changes of the shoulders and spine. IMPRESSION: 1. Cardiomegaly with pulmonary vascular congestion. 2. Ill-defined 3.8 cm opacity projected over the lateral left midlung may be secondary to artifact versus airspace disease. Attention at follow-up recommended. 3. Hiatal hernia. ACT 112: Negative or not required by law. The above report was generated using voice recognition software. It may contain grammatical, syntax or spelling errors. Electronically signed by: Elder Menon M.D. 02/16/2023 1:22 PM Abdomen/Pelvis CT 02/16/23 12:31 CT OF THE ABDOMEN AND PELVIS WITHOUT CONTRAST CLINICAL HISTORY: Nausea and vomiting. Sepsis. COMPARISON STUDY: CT of the abdomen and pelvis June 10, 2022. TECHNIQUE: Axial images of the abdomen and pelvis were obtained without IV contrast. Images were reviewed in the axial, sagittal, and coronal planes. Automated exposure control was utilized for the study. A dose lowering technique was utilized adhering to the principles of ALARA. FINDINGS: Moderate elevation of the right hemidiaphragm is unchanged. Opacity within the right middle lobe represents atelectasis. A moderate sized hiatal hernia is again noted. Left lower lobe opacity has increased since CT of June 10, 2022. This may represent atelectasis however pneumonia superimposed upon atelectasis could appear similar. A 3.3 cm airspace opacity within the lingula is partially imaged. This corresponds to the finding on chest radiograph and is suggestive of pneumonia. Evaluation of the abdomen and pelvis is suboptimal on this unenhanced exam. No pneumatosis, free air or portal venous gas is present. Liver, spleen, adrenal glands and pancreas are unremarkable. There is no biliary or pancreatic ductal dilatation. There is a 2 mm right renal calculus. There are no ureteral calculi. There is no hydronephrosis. Water attenuation bilateral renal lesions are suboptimally assessed on this unenhanced exam but favor cysts. There is no evidence for a bowel obstruction. There is colonic diverticulosis without evidence for acute diverticulitis. The appendix is not visualized. There is no right lower quadrant inflammation. Bladder is distended. Right hip arthroplasty is incidentally noted. Lumbar spine levoscoliosis is similar to prior study. IMPRESSION: 1. 3.3 cm lingular airspace opacity, partially imaged on this exam. This is suggestive of pneumonia. A follow-up chest CT in one month to ensure resolution is recommended. Left lower lobe opacity adjacent to a moderate sized hiatal hernia could reflect pneumonia superimposed upon atelectasis. 2. No acute process within the abdomen or pelvis on unenhanced exam. No bowel obstruction. Colonic diverticulosis without evidence for acute diverticulitis. 3. Stable moderate elevation of the right hemidiaphragm. ACT 112: Negative or not required by law. Electronically signed by: Germán Bowers M.D. 02/16/2023 1:54 PM Discharge Plan Visit Data Chief Complaint: Illness Stated Complaint: FEVER, EAR PAIN, REF BY DOC, WEAKNESS ED Provider: Uli Grey Discharge Problem: Acute hypoxic respiratory failure, Pneumonia, Acute hypotension, Hypokalemia Forms Stand Alone Forms: My [facility] [email or web address] Prescriptions Prescriptions: No Action fluticasone propion-salmeterol 500-50 mcg/dose blister with device 1 ea Inhalation BID Qty: 180 3RF sertraline 50 mg tablet 50 mg PO QAM Qty: 90 3RF Rx Instructions: Placed on file till needed diltiazem HCl 180 mg capsule,extended release 24hr 180 mg PO QAM Qty: 90 3RF metronidazole 250 mg tablet 250 mg PO QPM Qty: 90 3RF furosemide 20 mg tablet 40 mg PO QAM Qty: 180 1RF potassium chloride [Klor-Con 10] 10 mEq tablet extended release 10 meq PO QAM Qty: 90 3RF triamcinolone acetonide 0.1 % cream 1 applic topical BID Qty: 15 0RF atorvastatin [Lipitor] 40 mg tablet 40 mg PO QPM Qty: 90 3RF nortriptyline 75 mg capsule 75 mg PO QPM Qty: 90 3RF Rx Instructions: Placed on file till needed omeprazole 20 mg capsule,delayed release(DR/EC) 40 mg PO HS Qty: 180 3RF clindamycin phosphate 1 % solution 1 applic topical BID PRN (Reason: Skin Irritation) polyethylene glycol 3350 [Miralax] 17 gram Powder In Packet 17 g PO BID loratadine [Claritin] 10 mg Tablet 10 mg PO QAM Saline Nasal 0.65 % Aerosol,Burke 1 spray INTRANASAL HS Systane Balance 0.6 % Drops 1 drp OPB BID guaifenesin [Mucinex] 600 mg Tablet Extended Release 12hr 600 mg PO Q12H [facility] 50 mg-15 unit- 4.5 mg-2.5 mg Tablet,Chewable 1 tab PO QAM calcium carbonate 500 mg calcium (1,250 mg) Tablet 500 mg PO QPM levothyroxine 112 mcg tablet 112 mcg PO QAM acidophilus-pectin, citrus 100 million cell-10 mg Capsule 1 cap PO QAM warfarin 5 mg tablet 2.5 - 5 mg PO DIRECTED Protocol: Dose Management Condition: Monday Dose/Route: 5 mg Instruction: 1 x 5 mg tablet Condition: Monday Dose/Route: 5 mg Instruction: 1 x 5 mg tablet Condition: Monday Dose/Route: 5 mg Instruction: 1 x 5 mg tablet Condition: Monday Dose/Route: 5 mg Instruction: 1 x 5 mg tablet Condition: Dose/Route: 5 mg Instruction: 1 x 5 mg tablet Condition: Monday Dose/Route: 5 mg Instruction: 1 x 5 mg tablet Condition: Monday Dose/Route: 5 mg Instruction: 1 x 5 mg tablet Protocol Text: Adjustment Start Date: 02/02/23 INR Value: 2.2 INR Date: 02/02/23 Recheck Date: 02/16/23 Rx Instructions: as directed by anticoagulation clinic budesonide 0.5 mg/2 mL suspension for nebulization 0.5 mg INHALATION BID levalbuterol HCl 1.25 mg/3 mL solution for nebulization 1.25 mg inhalation BID acetaminophen 650 mg Tablet Extended Release 1,300 mg PO BID cholecalciferol (vitamin D3) [Vitamin D3] 125 mcg (5,000 unit) Tablet 125 mcg PO QAM Referrals Referrals: Lary Cohn CRNP [Primary Care Provider] -
--- NOTE | 2023-02-16 13:24 | XRay Report ---
XR chest 1V portable HISTORY: 77 years-old Female Chest pain, nonspecific COMPARISON: 05/16/2022 TECHNIQUE: AP view of the chest FINDINGS: Cardiac silhouette is enlarged. Chronic interstitial coarsening with chronic right hemidiaphragmatic elevation. Pulmonary vascular congestion. Bibasilar opacities with probable small pleural effusions a nd hiatal hernia. Ill-defined ovoid 3.8 cm opacity lateral left midlung. Degenerative changes of the shoulders and spine. IMPRESSION: 1. Cardiomegaly with pulmonary vascular congestion. 2. Ill-defined 3.8 cm opacity projected over the lateral left midlung may be secondary to artifact ve rsus airspace disease. Attention at follow-up recommended. 3. Hiatal hernia. ACT 112: Negative or not required by law. The above report was generated using voice recognition software. It may contain grammatical, syntax o r spelling errors. Electronically signed by: Elder Menon M.D. 02/16/2023 1:22 PM
[2023-02-16 13:28] LABS: iSTAT Creatinine 0.7 mg/dl (0.6-1.3); iSTAT Hemoglobin 13.3 g/dl (12.0-16.0); iSTAT Ionized Calcium 1.18 mmol/l (1.12-1.32); iSTAT Potassium 3.1 mmol/L (3.3-5.0)
[2023-02-16 13:30] LABS: Basophils # (auto) 0.03 K/uL (0.00-0.20); Basophils % (auto) 0.2 %; Eosinophils # (auto) 0.02 K/uL (0.00-0.50); Eosinophils % (auto) 0.2 %; Hematocrit (blood only) 38.9 % (37.0-47.0); Hemoglobin 12.2 g/dl (12.0-16.0); Immature Granulocytes # (auto) 0.11 K/uL (0.01-0.20); Immature Granulocytes % (auto) 0.9 %; Lymphocytes # (auto) 0.94 K/uL (1.20-3.40); Lymphocytes % (auto) 7.7 %; Mean Corpuscular Hemoglobin 28.2 pg (25.0-34.0); Mean Corpuscular Hgb Conc 31.4 g/dL (32.0-36.0); Mean Platelet Volume 8.3 fL (9.4-12.4); Monocytes # (auto) 0.48 K/uL (0.11-0.59); Monocytes % (auto) 3.9 %; Neutrophils # (auto) 10.68 K/uL (1.40-6.50); Neutrophils % (auto) 87.1 %; Platelet Count 192 K/uL (130-400); RDW Coefficient of Variation 14.6 % (11.5-14.5); RDW Standard Deviation 48.7 fL (36.4-46.3); Red Blood Count 4.32 M/uL (4.20-5.40); White Blood Count 12.26 K/ul (4.8-10.8)
[2023-02-16 13:54] LABS: Alanine Aminotransferase 23 U/L (7-52); Albumin Globulin Ratio 1.4 (0.9-2); Albumin Level 4.3 gm/dl (3.4-5.0); Alkaline Phosphatase 87 U/L (34-104); Anion Gap 7 (3-11); Aspartate Aminotransferase 24 U/L (13-39); BUN Creatinine Ratio 19.2 (10-20); Bilirubin,Total 0.6 mg/dl (0.2-1.0); Blood Urea Nitrogen 14 mg/dl (6-23); Calcium 9.6 mg/dl (8.6-10.3); Carbon Dioxide 32 mmol/L (21-32); Chloride 97 mmol/L (98-107); Est GFR (African American) 93.4 ml/min; Est GFR (Non-African American) 80.6 ml/min; Glucose 101 mg/dl (70-99(Fasting)); Lipase 7 U/L (11-82); Potassium 3.2 mmol/L (3.5-5.1); Sodium 136 mmol/L (136-145); Total Protein 7.3 gm/dl (6.0-8.3)
--- NOTE | 2023-02-16 13:55 | CT Scan Report ---
CT OF THE ABDOMEN AND PELVIS WITHOUT CONTRAST CLINICAL HISTORY: Nausea and vomiting. Sepsis. COMPARISON STUDY: CT of the abdomen and pelvis June 10, 2022. TECHNIQUE: Axial images of the abdomen and pelvis were obtained without IV contrast. Images were revi ewed in the axial, sagittal, and coronal planes. Automated exposure control was utilized for the anuel dy. A dose lowering technique was utilized adhering to the principles of ALARA. FINDINGS: Moderate elevation of the right hemidiaphragm is unchanged. Opacity within the right middle lobe represents atelectasis. A moderate sized hiatal hernia is again noted. Left lower lobe opacity has increased since CT of June 10, 2022. This may represent atelectasis however pneumonia superimpos ed upon atelectasis could appear similar. A 3.3 cm airspace opacity within the lingula is partially i romy. This corresponds to the finding on chest radiograph and is suggestive of pneumonia. Evaluation of the abdomen and pelvis is suboptimal on this unenhanced exam. No pneumatosis, free air or portal venous gas is present. Liver, spleen, adrenal glands and pancreas are unremarkable. There is no bilia ry or pancreatic ductal dilatation. There is a 2 mm right renal calculus. There are no ureteral calcu li. There is no hydronephrosis. Water attenuation bilateral renal lesions are suboptimally assessed o n this unenhanced exam but favor cysts. There is no evidence for a bowel obstruction. There is coloni c diverticulosis without evidence for acute diverticulitis. The appendix is not visualized. There is no right lower quadrant inflammation. Bladder is distended. Right hip arthroplasty is incidentally no valentín. Lumbar spine levoscoliosis is similar to prior study. IMPRESSION: 1. 3.3 cm lingular airspace opacity, partially imaged on this exam. This is suggestive of pneumonia. A follow-up chest CT in one month to ensure resolution is recommended. Left lower lobe opacity adjace nt to a moderate sized hiatal hernia could reflect pneumonia superimposed upon atelectasis. 2. No acute process within the abdomen or pelvis on unenhanced exam. No bowel obstruction. Colonic di verticulosis without evidence for acute diverticulitis. 3. Stable moderate elevation of the right hemidiaphragm. ACT 112: Negative or not required by law. Electronically signed by: Germán Bowers M.D. 02/16/2023 1:54 PM
[2023-02-16 13:56] LABS: Prothrombin Time 20.7 Seconds (9.0-12.0)
[2023-02-16 13:57] LABS: Troponin I High Sensitivity 8.6 pg/ml (0-14)
--- NOTE | 2023-02-16 14:10 | History & Physical Report ---
Date of Service February 16, 2023 Assessment & Plan (1) Acute and chronic respiratory failure with hypoxia: Plan: -Admit to med/tele on pulse oximetry -Currently hemodynamically stable and stable on 6L NC -At this time her acute on chronic hypoxic respiratory failure is likely multifactorial including left lobe pneumonia exacerbating her restrictive lung disease. -Patient is significantly wheezy on exam -S/P one dose of cefepime in the ED, also ordered doxy, hold both -Due to significant allergy history with multiple abx we will start with ertapenem and vancomycin -Start 40 mg IV solu-medrol q8h -Duoneb now then QIDR, incentive spirometry, flutter therapy -BID Budesonide and formoterol -PRN O2 to keep SpO2 between 89-92% -Low suspicion for PE at this time as she has not missed recent doses of Wafarin, INR of 2.0 today, and has been hemodynamically stale -Will obtain sputum culture with gram stain -Follow blood cultures -Home Warfarin for DVT PPX -HH diet -AM CBC, BMP, mag, PT/INR (2) Pneumonia: Plan: -Noted to have Ill-defined 3.8 cm opacity projected over the lateral left midlung that was also noted on CT of the abd/pelvis -While this likely represents a bacterial pneumonia CT was recommended -Will obtain CT of the chest wo con on admission for further evaluation -Rest of plan per acute on chronic hypoxic resp failure (3) Left-sided chest pain: Plan: -Patient has been experiencing left lateral chest pain since ED arrival -Significantly reproducible with palpation of the left lateral chest at the site of her left sided pneumonia -High sen trop WNL, no acute ST segment changes on ECG -Likely due to her pneumonia and musculoskeletal pain -Will give lidocaine patch and tylenol to start -Continue to monitor on tele (4) Hypokalemia: Plan: -3.2 today -T-wave flattening in the lateral leads on ECG -Will get mag level -Give 20 meq PO KCL and IV KCL to start -Continue to monitor on tele (5) Hypothyroidism: Plan: -Continue levothyroxine (6) HTN (hypertension): Plan: -Stablke (7) History of CVA (cerebrovascular accident): Plan: -Due to patent foramen ovale -Continue Warfarin (8) Chronic diastolic CHF (congestive heart failure): Plan: -Appears dehydrated on exam -S/P 1L NSS in the ED -Will give 500 mL Plasmalyte on admission -Hold lasix and further IV fluids for now, monitor volume status (9) Paroxysmal atrial tachycardia: Plan: -Continue diltiazem Plan The patient was discussed with Dr. Alcazar at the time of the admission History of Present Illness Chief Complaint: Cough, SOB, weakness, hypoxia Primary Care Provider: TREY Warren Dayna is a Mcintosh is a 77 year old female with a PMH significant for previous chronic hypoxic respiratory failure on baseline 2L NC, CVA due to PFO on Warfarin, COPD, HTN, Dyslipidemia, hypothyroidism, anxiety/depression, and HFpEF who presented to the [facility] ED from her PCPs office for fever, cough, increased O2 requirements, and generalized weakness. She was noted to be hypoxic at 86% on her baseline 2L NC and had to be titrated up to 6L, tachyardic at 104 and otherwise stable. Labs were significant for a leukocytosis of 12 with neutrophil predominance of 10, potassium of 3.2, and full respiratory biofire in process. Chest xray was read as 1. Cardiomegaly with pulmonary vascular congestion. 2. Ill-defined 3.8 cm opacity projected over the lateral left midlung may be secondary to artifact versus airspace disease. Attention at follow-up recommended. 3. Hiatal hernia.. CT of the abd/pelvis wo con was read as 1. 3.3 cm lingular airspace opacity, partially imaged on this exam. This is suggestive of pneumonia. A follow-up chest CT in one month to ensure resolution is recommended. Left lower lobe opacity adjacent to a moderate sized hiatal hernia could reflect pneumonia superimposed upon atelectasis. 2. No acute process within the abdomen or pelvis on unenhanced exam. No bowel obstruction. Colonic diverticulosis without evidence for acute diverticulitis. 3. Stable moderate elevation of the right hemidiaphragm.. Prior to admission the patient was given 1L NSS, and 4 mg IV Zofran, and a dose of cefepime. At the time of the exam the patient was sitting in bed and appears uncomfortable with her and daughter bedside. They state that she had an acute onset of generalized weakness, increased cough, SOB, and wheezing this am. They state that she was essentially in her normal state of health yesterday. Because of this she was seen at her PCP's office and sent to the ED due to concerns of pneumonia. They report that the patient was febrile at the PCP's office. The patient is on 2L NC at baseline and does not use HS CPAP. She is currently complaining of left lateral chest pain, exacerbated with coughing or moving. She has been producing yellow-green mucus today. She did vomit on arrival to the ED but does not think that she aspirated. Denies dysuria, hematuria, melena, diarrhea, LE swelling, and recent trauma. She is a full code and her would make medical decisions for her if she cannot make them herself. Please refer to Dr. Alcazar's attestation for any changes to the treatement plan Allergies Allergy/AdvReac Type Severity Reaction Status Date / Time caramel Allergy Severe Difficulty Verified 02/16/23 09:54 Breathing Iodinated Contrast Media Allergy Severe "couldn't Verified 02/16/23 09:54 breathe and really bad rash" iodine Allergy Severe "couldn't Verified 02/16/23 09:54 breathe and really bad rash" nickel Allergy Severe " open Verified 02/16/23 09:54 sores" Penicillins Allergy Severe shortness Verified 02/16/23 09:54 of breath promethazine Allergy Severe "couldn't Verified 02/16/23 09:54 breathe" red (food color) Allergy Severe "problems Verified 02/16/23 09:54 breathing" Sulfa (Sulfonamide Allergy Severe facial Verified 02/16/23 09:54 Antibiotics) swelling adhesive tape Allergy Intermediate skin Verified 02/16/23 09:54 irritation and redness levofloxacin Allergy Intermediate HIVES, LEG Verified 02/16/23 09:54 PAIN tramadol Allergy Intermediate hallucinati Verified 02/16/23 09:54 ons cephalexin Allergy Mild Rash Verified 02/16/23 09:54 house dust Allergy Mild "sniffles/watery Verified 02/16/23 09:54 eyes" ragweed pollen Allergy Mild "sniffles" Verified 02/16/23 09:54 ciprofloxacin AdvReac Severe stomach Verified 02/16/23 09:54 pain azithromycin [From Zithromax] AdvReac Mild Rash Verified 02/16/23 09:54 Home Medications Medication Instructions Recorded Confirmed Type guaifenesin 600 mg tablet, 600 mg PO Q12H 03/30/18 02/16/23 History extended release 12 hr (Mucinex) loratadine 10 mg tablet (Claritin) 10 mg PO QAM 03/30/18 02/16/23 History polyethylene glycol 3350 17 gram 17 g PO BID 03/30/18 02/16/23 History oral powder packet (Miralax) propylene glycol 0.6 % eye drops 1 drp OPB BID 03/30/18 02/16/23 History (Systane Balance) sodium chloride 0.65 % nasal spray 1 spray intranasal HS 03/30/18 02/16/23 History aerosol (Saline Nasal) vit C 50 mg-E 15 unit-zinc cit 4.5 1 tab PO QAM 03/30/18 02/16/23 History mg-lutein 2.5 mg-zeaxan chew tablet (OcuvVideum) calcium carbonate 500 mg calcium 500 mg PO QPM 03/08/21 02/16/23 History (1,250 mg) tablet acetaminophen 650 mg 1,300 mg PO BID 03/25/21 02/16/23 History tablet,extended release cholecalciferol (vitamin D3) 125 125 mcg PO QAM 03/25/21 02/16/23 History mcg (5,000 unit) tablet (Vitamin D3) fluticasone 500 mcg-salmeterol 50 1 ea inhalation BID #180 ea 03/21/22 02/16/23 Rx mcg/dose blistr powdr for inhalation sertraline 50 mg tablet 50 mg PO QAM #90 tabs 05/03/22 02/16/23 Rx diltiazem HCl 180 mg 180 mg PO QAM #90 caps 05/31/22 02/16/23 Rx capsule,extended release 24 hr clindamycin phosphate 1 % topical 1 applic topical BID PRN Skin 06/14/22 02/16/23 History solution Irritation acidophilus 100 million 1 cap PO QAM 08/30/22 02/16/23 History cell-pectin, citrus 10 mg capsule levothyroxine 112 mcg tablet 112 mcg PO QAM 08/30/22 02/16/23 History furosemide 20 mg tablet 40 mg (2 x 20 mg) PO QAM edema 09/05/22 02/16/23 Rx #180 tabs metronidazole 250 mg tablet 250 mg PO QPM rosacea maintanence 09/05/22 02/16/23 Rx #90 tabs potassium chloride 10 mEq 10 meq PO QAM #90 tabs 10/06/22 02/16/23 Rx tablet,extended release (Klor-Con) triamcinolone acetonide 0.1 % 1 applic topical BID #15 grams 01/06/23 02/16/23 Rx topical cream atorvastatin 40 mg tablet (Lipitor) 40 mg PO QPM #90 tabs 01/16/23 02/16/23 Rx nortriptyline 75 mg capsule 75 mg PO QPM #90 caps 01/26/23 02/16/23 Rx omeprazole 20 mg capsule,delayed 40 mg (2 x 20 mg) PO HS #180 caps 01/26/23 02/16/23 Rx release budesonide 0.5 mg/2 mL suspension 0.5 mg inhalation BID 02/16/23 02/16/23 History for nebulization levalbuterol HCl 1.25 mg/3 mL 1.25 mg inhalation BID shortness 02/16/23 02/16/23 History solution for nebulization of breath or wheezing warfarin 5 mg tablet 2.5 - 5 mg PO DIRECTED 02/16/23 02/16/23 History Past Med/Surg History Medical History Pre-diabetes Sleep apnea On home oxygen therapy Hx of diverticulitis of colon Chronic diastolic CHF (congestive heart failure) Acute diastolic CHF (congestive heart failure) Breath shortness Asthma Scoliosis Hypothyroidism Hx of esophageal varices Hypertension History of COVID-19 Basilar artery stenosis Poor peripheral circulation Rosacea Osteoarthritis Chronic back pain GERD (gastroesophageal reflux disease) Depression On anticoagulant therapy Hyperlipidemia PFO (patent foramen ovale) Migraine CVA (cerebrovascular accident) Surgical History History of hip replacement History of hysterectomy History of dilatation and curettage History of bilateral tubal ligation History of esophagogastroduodenoscopy (EGD) History of colonoscopy with polypectomy History of tooth extraction History of bilateral cataract extraction Family History Mother Family history of diabetes mellitus Myocardial infarction Sister Family history of diabetes mellitus Family history of rectal cancer Myocardial infarction Sister Family history of diabetes mellitus Myocardial infarction Brother Family history of diabetes mellitus Myocardial infarction Brother Family history of diabetes mellitus Family/Other Breast cancer Father Myocardial infarction Other Cancer Gallbladder disease Heart disease Hypertension Lung disease No family history of adverse response to anesthesia Denies family history of Ovarian cancer Prostate cancer Colorectal cancer Social History Smoking Status: Never smoker Second Hand Exposure: No; Do You Dip or Chew Tobacco: No; Tobacco Cessation Education Requested by Patient: No Hx Alcohol Use: No Hx Substance Use: No Preferred Language: Hungarian Communication Ability: Effective Visual Impairment: Limited Hearing Ability: Normal 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 Required: No Beliefs That Will Affect Care: None marital status: Current Living Situation: Spouse Current Living Situation Comment: and son current occupational status: retired How many Children do You have: 5 Other Information That Helps Us Care for You: No Feels Safe at Home: Yes Safety Concerns: Feels Safe At This Time Childhood Exposure to Second-Hand Smoke: Yes Diet: regular caffeine: Yes during the past year weight has: remained stable Dental Care, Regularly: Yes Physical Activity Frequency: 1-2 Times per Week Seatbelt Use: always Sunscreen Use: No Assistive Devices: None Physical Exam Physical Exam: Physical Exam: General: In mild distress due to pain, stated age, chronically ill appearing but non-toxic HEENT: Normocephalic, atraumatic, no scleral icterus, pupils around round, symmetrical, and reactive to light, dry mucus membranes, trachea midline, no thyromegaly Chest/Pulm: No respiratory distress, symmetrical chest expansion, scattered r honchi and expiratory wheezing throughout Cardiac: RRR, no murmurs noted Abdomen: Negative for ascites and bruising, normoactive bowel sounds, soft, non-tender to palpation throughout Musculoskeletal: Significantly reproducible pain with palpation of the left lateral chest, Symmetrical and without signs of acute trauma, upper and lower extremities with full ROM, no atrophy, spasticity, or flaccidity Extremities: Radial, dorsalis pedis, and posterior tibial pulses are intact and symmetrical, no edema noted in the BL LE's Skin: Warm, dry, no rashes , lesions, or scars noted Neuro: Alert and oriented to person, place, month, year, and president, no focal defects, no tremors noted Psych: No acute distress, calm and cooperative during the exam Results & Data Results & Data Vital Signs (Past 12 Hours) Vital Signs Temp Pulse Pulse Resp BP BP Pulse Ox 02/16/23 13:42 91 H 24 90 02/16/23 13:42 89 18 92/66 L 95 02/16/23 12:42 104 H 02/16/23 12:17 37 C 101 H 18 100/63 86 L O2 Del Method O2 Flow Rate 02/16/23 13:42 Nasal Cannula 6 02/16/23 13:42 Nasal Cannula 6 02/16/23 12:42 02/16/23 12:17 Nasal Cannula 2 Laboratory Results Abnormal lab results 02/16/23 02/16/23 02/16/23 Range/Units 13:00 13:10 14:22 WBC 12.26 H (4.8-10.8) K/ul MCHC 31.4 L (32.0-36.0) g/dL RDW Std Deviation 48.7 H (36.4-46.3) fL RDW Coeff of Susi 14.6 H (11.5-14.5) % MPV 8.3 L (9.4-12.4) fL Neut # (Auto) 10.68 H (1.40-6.50) K/uL Lymph # (Auto) 0.94 L (1.20-3.40) K/uL PT 20.7 H (9.0-12.0) Seconds INR 2.0 H (0.9-1.1) VBG pH 7.34 L (7.36-7.41) VBG pCO2 58 H (38-50) mmHg POC Potassium 3.1 L (3.3-5.0) mmol/L Potassium 3.2 L (3.5-5.1) mmol/L POC Chloride 94 L (101-112) mmol/L Chloride 97 L (98-107) mmol/L Glucose 101 H (70-99(Fasting)) mg/dl POC Glucose (other) 102 H (70-99) mg/dl Lipase 7 L (11-82) U/L Diagnostic Findings Chest X-Ray 02/16/23 12:22 XR chest 1V portable HISTORY: 77 years-old Female Chest pain, nonspecific COMPARISON: 05/16/2022 TECHNIQUE: AP view of the chest FINDINGS: Cardiac silhouette is enlarged. Chronic interstitial coarsening with chronic right hemidiaphragmatic elevation. Pulmonary vascular congestion. Bibasilar opacities with probable small pleural effusions and hiatal hernia. Ill-defined ovoid 3.8 cm opacity lateral left midlung. Degenerative changes of the shoulders and spine. IMPRESSION: 1. Cardiomegaly with pulmonary vascular congestion. 2. Ill-defined 3.8 cm opacity projected over the lateral left midlung may be secondary to artifact versus airspace disease. Attention at follow-up recommended. 3. Hiatal hernia. ACT 112: Negative or not required by law. The above report was generated using voice recognition software. It may contain grammatical, syntax or spelling errors. Electronically signed by: Elder Menon M.D. 02/16/2023 1:22 PM Abdomen/Pelvis CT 02/16/23 12:31 CT OF THE ABDOMEN AND PELVIS WITHOUT CONTRAST CLINICAL HISTORY: Nausea and vomiting. Sepsis. COMPARISON STUDY: CT of the abdomen and pelvis June 10, 2022. TECHNIQUE: Axial images of the abdomen and pelvis were obtained without IV contrast. Images were reviewed in the axial, sagittal, and coronal planes. Automated exposure control was utilized for the study. A dose lowering technique was utilized adhering to the principles of ALARA. FINDINGS: Moderate elevation of the right hemidiaphragm is unchanged. Opacity within the right middle lobe represents atelectasis. A moderate sized hiatal hernia is again noted. Left lower lobe opacity has increased since CT of June 10, 2022. This may represent atelectasis however pneumonia superimposed upon atelectasis could appear similar. A 3.3 cm airspace opacity within the lingula is partially imaged. This corresponds to the finding on chest radiograph and is suggestive of pneumonia. Evaluation of the abdomen and pelvis is suboptimal on this unenhanced exam. No pneumatosis, free air or portal venous gas is present. Liver, spleen, adrenal glands and pancreas are unremarkable. There is no biliary or pancreatic ductal dilatation. There is a 2 mm right renal calculus. There are no ureteral calculi. There is no hydronephrosis. Water attenuation bilateral renal lesions are suboptimally assessed on this unenhanced exam but favor cysts. There is no evidence for a bowel obstruction. There is colonic diverticulosis without evidence for acute diverticulitis. The appendix is not visualized. There is no right lower quadrant inflammation. Bladder is distended. Right hip arthroplasty is incidentally noted. Lumbar spine levoscoliosis is similar to prior study. IMPRESSION: 1. 3.3 cm lingular airspace opacity, partially imaged on this exam. This is suggestive of pneumonia. A follow-up chest CT in one month to ensure resolution is recommended. Left lower lobe opacity adjacent to a moderate sized hiatal hernia could reflect pneumonia superimposed upon atelectasis. 2. No acute process within the abdomen or pelvis on unenhanced exam. No bowel obstruction. Colonic diverticulosis without evidence for acute diverticulitis. 3. Stable moderate elevation of the right hemidiaphragm. ACT 112: Negative or not required by law. Electronically signed by: Germán Bowers M.D. 02/16/2023 1:54 PM ECG Additional Comments: Sinus tachycardia Left axis deviation Anterior infarct (cited on or before 16-FEB-2023) Abnormal ECG When compared with ECG of 13-MAY-2022 11:16, Nonspecific T wave abnormality now evident in Lateral leads QT has shortened Code Status & VTE Plan Code Status Full code VTE Prophylaxis Plan VTE Prophylaxis will be ordered: Yes Supervising Physician Co-Signing Physician Notes Attending addendum: I have physically seen this patient, have supervised the REBEKAH's activities, and agree with the H&P unless as otherwise noted. Assessment and Plan: Acute on chronic respiratory failure with hypoxia/pneumonia- The patient will be admitted to telemetry for monitoring of hypoxia and cardiac Rhythm Hold cefepime and doxycycline begun in the ED CT notes 3.3 cm lingular and apex opacity on CT abdomen pelvis, ordered CTA chest to further characterize Placed on Solu-Medrol 40 mg IV every 8 hours Vanco IV for pharmacokinetic monitoring Ertapenem 1 g IV daily Guaifenesin extended release 12 mg p.o. twice daily Follow sputum Gram stain and culture Nasal cannula oxygen, titrate to keep pulse ox around 90% Follow blood culture and sensitivity Pulmonology consult History of CVA/PFO- Continue warfarin Paroxysmal atrial tachycardia/hypertension/chronic diastolic CHF- Following on telemetry Received 1 L normal saline in the ED Monitor fluid status at this point Continue diltiazem with hold parameters PG Care Time/CCT Total # of Minutes Spent Total Time Spent with Patient: Total time spent is greater than 50% in coordination of care (as documented) at patient's floor/unit and/or counseling patient: Coding [place] [address] INT INP/OBS CARE MIN Patient Type Established Medical Decision Making High Complexity Diagnoses Acute and chronic respiratory failure with hypoxia J96.21 Pneumonia J18.9 Left-sided chest pain R07.9 Hypokalemia E87.6 Hypothyroidism E03.9 HTN (hypertension) I10 History of CVA (cerebrovascular accident) Z86.73 Chronic diastolic CHF (congestive heart failure) I50.32 Paroxysmal atrial tachycardia I47.1
[2023-02-16] MEDS ORDERED: ACETAMINOPHEN 325 MG TAB PO STA ×2 (14:16→14:33)
[2023-02-16] MEDS ORDERED: CEFEPIME 2,000 MG/20 ML VIAL IV STA (14:17)
[2023-02-16] MEDS ORDERED: DOXYCYCLINE HYCLATE 100 MG in DEXTROSE 5% MINI-B 100 ML IV STA (14:17)
[2023-02-16 14:30] LABS: Base Excess VBG 3.9 mEq/L; HCO3 VBG 31 mmol/L; Oxygen Saturation VBG < 60.0 %; PCO2 VBG 58 mmHg (38-50); PO2 VBG 36 mmHg; pH VBG 7.34 (7.36-7.41)
[2023-02-16] MEDS ORDERED: LIDOCAINE 5% 1 PATCH TD STA (14:33)
[2023-02-16] MEDS ORDERED: ALBUT/IPRATROP 3MG/0.5MG NEB 3 ML VIAL NEB STA (14:33)
[2023-02-16] MEDS ORDERED: PLASMA-LYTE A 500 ML IV ONE (14:34)
[2023-02-16] MEDS ORDERED: POTASSIUM CHLORIDE PWD 20 MEQ PACK PO STA ×2 (14:40→15:06)
[2023-02-16] MEDS: SODIUM CHLORIDE 0.9% 1,000 ML IV SCH ×2 (14:42→16:33)
[2023-02-16] MEDS ORDERED: POTASSIUM CHLORIDE / WTR 10 MEQ/100 ML PLCT IV SCH (14:45)
[2023-02-16] MEDS ORDERED: VANCOMYCIN CONSULT ACTIVE PRN (14:48)
[2023-02-16] MEDS ORDERED: FORMOTEROL 20 MCG/2 ML VIAL NEB STA (14:50)
[2023-02-16] MEDS ORDERED: VANCOMYCIN HCL 2,000 MG in SODIUM CHLORIDE 0.9% 500 ML IV STA (14:59)
[2023-02-16] MEDS ORDERED: VANCOMYCIN HCL 1,000 MG in SODIUM CHLORIDE 0.9% 250 ML IV SCH (15:00)
[2023-02-16 15:07] LABS: Adenovirus PCR Not Detected (NotDetected); Bordetella parapertussis PCR Not Detected (NotDetected); Bordetella pertussis PCR Not Detected (NotDetected); Chlamydia pneumoniae PCR Not Detected (NotDetected); Coronavirus 229E PCR Not Detected (NotDetected); Coronavirus CoV-2 (COVID19)PCR Not Detected (NotDetected); Coronavirus HKU1 PCR Not Detected (NotDetected); Coronavirus NL63 PCR Not Detected (NotDetected); Coronavirus OC43PCR Not Detected (NotDetected); Human Metapneumovirus PCR Not Detected (NotDetected); Influenza A PCR Not Detected (NotDetected); Influenza B PCR Not Detected (NotDetected); Mycoplasma pneumoniae PCR Not Detected (NotDetected); Parainfluenza Virus 1 PCR Not Detected (NotDetected); Parainfluenza Virus 2 PCR Not Detected (NotDetected); Parainfluenza Virus 3 PCR Not Detected (NotDetected); Parainfluenza Virus 4 PCR Not Detected (NotDetected); Respiratory Syncytial VirusPCR Not Detected (NotDetected); Rhinovirus/Enterovirus PCR Not Detected (NotDetected)
[2023-02-16] MEDS: POTASSIUM CHLORIDE / WTR 10 MEQ/100 ML PLCT IV SCH ×2 (15:09→16:33)
[2023-02-16] MEDS: ERTAPENEM SODIUM 1,000 MG in SYRINGE 0 ML IV SCH (15:53)
[2023-02-16] MEDS ORDERED: ONDANSETRON INJ 2 MG/ML 2 ML VIAL IV PRN (15:59)
--- NOTE | 2023-02-16 16:01 | CT Scan Report ---
CT SCAN OF THE CHEST WITHOUT IV CONTRAST CLINICAL HISTORY: Hypoxia COMPARISON STUDY: Chest x-ray dated 02/16/2023. Chest CT dated 12/04/2013. TECHNIQUE: CT scan of the thorax was performed from the thoracic inlet to the upper abdomen. Images are reviewed in the axial, sagittal, and coronal planes. IV contrast was not administered for this ex amination as per the referring clinician. A dose lowering technique was utilized adhering to the norma Real. CT DOSE: 408.61 mGy.cm FINDINGS: Thyroid: Normal in size and heterogeneous in attenuation. Thoracic aorta: There is atherosclerotic calcification of the thoracic. There is aneurysmal dilatatio n of the ascending thoracic aorta which measures up to 4.5 cm in diameter. The remainder of the thora cic aorta is normal in caliber, and the arch demonstrates standard 3-vessel anatomy. Heart: The heart is enlarged and without pericardial effusion. The mitral annulus is densely calcifie d. The main pulmonary arteries are dilated suggesting pulmonary artery hypertension. Lungs and pleural spaces: There is near complete atelectasis/consolidation of the right lower lobe wi th elevation of the right hemidiaphragm. There is also near complete atelectasis of the left lower lo be. There is a focus of masslike consolidation in the lingula seen on image #96. This measures approx imately 7 x 4.5 cm. The trachea is clear. Debris is noted in the left mainstem bronchus. The lower lo be bronchi. Impacted. There are small pleural effusions. Mild intralobular septal thickening is noted in both lungs. There are impacted lower lobe bronchi. Mediastinum: There are several subcentimeter mediastinal lymph nodes. These are not pathologically en larged by size criteria. Valeria: Not well assessed without IV contrast. Axillae: There is no axillary lymphadenopathy. Upper abdomen: There is a large hiatal hernia. Partially visualized upper abdominal viscera is within normal limits. Skeletal structures: The skeletal structures are osteopenic. Degenerative change and kyphoscoliosis i s noted in the thoracic spine. No lytic or blastic bony lesions are seen. IMPRESSION: 1. There is near complete atelectasis/consolidation of both lower lobes, with impacted lower lobe bro nchi. This could be related to aspiration. Correlate clinically for evidence of pneumonia. Pulmonolog y assessment is advised. 2. There is an approximately 7 x 4.5 cm focus of masslike consolidation in the lingula. This could re present a round pneumonia. Follow-up to resolution is recommended to exclude underlying mass lesion. 3. Small pleural effusions. 4. Cardiomegaly with evidence of pulmonary artery hypertension. 5. Intralobular septal thickening could represent acute versus chronic congestive change. Correlate c linically. 6. There is mild aneurysmal dilatation of the ascending thoracic aorta which measures up to 4.5 cm. 7. Large hiatal hernia. 8. Additional findings as above. ACT 112: Negative or not required by law. Electronically signed by: Garrett Pereira M.D. 02/16/2023 4:00 PM
[2023-02-16] MEDS ORDERED: ONDANSETRON INJ 2 MG/ML 2 ML VIAL ONE (16:03)
[2023-02-16] MEDS ORDERED: PANTOprazole 40 MG in SYRINGE 0 ML IV ONE (16:15)
--- NOTE | 2023-02-16 17:20 | Electrocardiogram Report ---
Test Reason : Blood Pressure : / mmHG Vent. Rate : 106 BPM Atrial Rate : 106 BPM P-R Int : 168 ms QRS Dur : 100 ms QT Int : 300 ms P-R-T Axes : 045 -32 086 degrees QTc Int : 398 ms Sinus tachycardia Left axis deviation Poor R wave progression, consider anterior AK vs. lead placement vs. LVH Abnormal ECG When compared with ECG of 13-MAY-2022 11:16, Nonspecific T wave abnormality now evident in Lateral leads QT has shortened Confirmed by Bartolo Hayes ([id number]) on 02/16/2023 5:20:15 PM Referred By: Lary Cohn Confirmed By:Jaydon Hayes
[2023-02-16] MEDS ORDERED: ACETAMINOPHEN 325 MG TAB PO PRN (17:40)
[2023-02-16] MEDS: ALBUT/IPRATROP 3MG/0.5MG NEB 3 ML VIAL NEB SCH ×2 (18:00→20:15)
[2023-02-16] MEDS ORDERED: FORMOTEROL 20 MCG/2 ML VIAL ONE (18:56)
[2023-02-16] MEDS ORDERED: LACTATED RINGER'S 1,000 ML IV SCH (19:30)
[2023-02-16] MEDS: FORMOTEROL 20 MCG/2 ML VIAL NEB SCH (20:14)
[2023-02-16] MEDS: BUDESONIDE 0.5 MG/2 ML VIAL (PULMICORT) INH SCH (20:14)
[2023-02-16] MEDS: WARFARIN SOD 5 MG TAB PO SCH (20:19)
[2023-02-16] MEDS: guaiFENesin 600 MG TABCR PO SCH (20:19)
[2023-02-16] MEDS: PANTOprazole 40 MG TAB PO SCH (20:21)
[2023-02-16] MEDS: ATORVASTATIN 40 MG TAB PO SCH (20:21)
[2023-02-16] MEDS: NORTRIPTYLINE HCL 25 MG CAP PO SCH (20:21)
[2023-02-16] MEDS: methylPREDNISolone 40 MG in SYRINGE 0 ML IV SCH (22:56)
[2023-02-17] MEDS ORDERED: VANCOMYCIN HCL 1,750 MG in SODIUM CHLORIDE 0.9% 500 ML IV SCH (04:00)
[2023-02-17 04:32] LABS: Hemoglobin 10.9 g/dl (12.0-16.0); Mean Corpuscular Hemoglobin 28.7 pg (25.0-34.0); Mean Corpuscular Hgb Conc 31.1 g/dL (32.0-36.0); Mean Corpuscular Volume 92.1 fL (80.0-100.0); Mean Platelet Volume 8.4 fL (9.4-12.4); Platelet Count 172 K/uL (130-400); RDW Coefficient of Variation 15.1 % (11.5-14.5); RDW Standard Deviation 50.8 fL (36.4-46.3); White Blood Count 22.11 K/ul (4.8-10.8)
[2023-02-17 04:46] LABS: Basophils # (auto) 0.09 K/uL (0.00-0.20); Basophils % (auto) 0.4 %; Eosinophils # (auto) 0.05 K/uL (0.00-0.50); Eosinophils % (auto) 0.2 %; Immature Granulocytes # (auto) 0.32 K/uL (0.01-0.20); Immature Granulocytes % (auto) 1.4 %; Lymphocytes # (auto) 1.16 K/uL (1.20-3.40); Lymphocytes % (auto) 5.2 %; Monocytes % (auto) 2.7 %; Neutrophils # (auto) 19.89 K/uL (1.40-6.50); Neutrophils % (auto) 90.1 %
[2023-02-17 04:54] LABS: BUN Creatinine Ratio 16.7 (10-20); Creatinine Clr Calc Pharmacy 76.6 ml/min; Est GFR (African American) 100.2 ml/min; Est GFR (Non-African American) 86.4 ml/min; Magnesium 1.9 mg/dl (1.7-2.4)
[2023-02-17 04:58] LABS: Prothrombin Time 20.8 Seconds (9.0-12.0)
[2023-02-17] MEDS ORDERED: Nursing to Pharmacy Communication SCH (05:15)
[2023-02-17] MEDS: ALBUT/IPRATROP 3MG/0.5MG NEB 3 ML VIAL NEB SCH ×4 (07:22→20:33)
[2023-02-17] MEDS: FORMOTEROL 20 MCG/2 ML VIAL NEB SCH ×2 (07:22→20:32)
[2023-02-17] MEDS: BUDESONIDE 0.5 MG/2 ML VIAL (PULMICORT) INH SCH ×2 (07:22→20:33)
[2023-02-17] MEDS: POTASSIUM CHLORIDE 10 MEQ TABCR PO SCH (07:43)
[2023-02-17] MEDS: LEVOTHYROXINE SODIUM 112 MCG TABLET PO SCH (07:43)
[2023-02-17] MEDS: guaiFENesin 600 MG TABCR PO SCH ×2 (07:43→21:40)
[2023-02-17] MEDS: SERTRALINE HCL 50 MG TABLET PO SCH (07:43)
[2023-02-17] MEDS: methylPREDNISolone 40 MG in SYRINGE 0 ML IV SCH ×3 (07:43→21:41)
[2023-02-17] MEDS: dilTIAZem HCL 180 MG CAPCR PO SCH (07:45)
--- NOTE | 2023-02-17 08:38 | Pulmonary Consultation ---
Date of Consultation February 17, 2023 Assessment & Plan (1) Multifocal pneumonia: (2) Acute and chronic respiratory failure with hypoxia: (3) Asthma: (4) Peripheral edema: (5) Restrictive lung disease due to kyphoscoliosis: (6) Sleep apnea in adult: Plan CT chest 02/16/2023 personally reviewed: Patchy consolidative process appreciated in the lingula 7 cm x 4.5 cm Patchy groundglass opacities in the upper lobes bilaterally Elevated right hemidiaphragm with consolidative process in bilateral lower lobes Calcified bronc Large hiatal hernia No significant mediastinal lymphadenopathy Spirometry 11/12/2018 personally reviewed: Significant bronchodilator response with no obstructive lung dysfunction, nonspecific spirometry FVC 1.79 L 70%, FEV1 1.53 to 79%, FEV1/FVC 87% 2D echo 05/14/2022: EF 60-65%, mild concentric LVH, grade 1 diastolic dysfunction, RV not well-visualized --Multilobar pneumonia Respiratory bio fire negative for everything on 02/16/2023 Nasal MRSA negative Procalcitonin 2.21 --Asthma On nebulized budesonide 0.5 Mg along with Advair 500-50 mcg at home 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 director regulatory compliance --NESTOR/OHS with kyphosis Patient also seems to have restrictive lung disease, will need full PFT as an outpatient Recommend BiPAP nightly and as needed shortness of breath if she is able to tolerate it --It seems patient likely has restrictive lung dysfunction from elevated hemidiaphragm as well as hiatal hernia Plan: Add Incruse inhaler to be used on a daily basis Incentive spirometry with flutter valve Sputum culture Okay to discontinue vancomycin given nasal MRSA is negative I explained to the patient that she is requiring a lot of oxygen. If there is any worsening in her oxygenation or respiratory distress then neck step would be intubation. Patient was not sure regarding intubation. On asking whether if there is a question of life and , she was still not sure. She is going to speak with her and keep us posted Would recommend BiPAP nightly and as needed shortness of breath I have personally spent 45 minutes of critical care time in the direct management of this patient. This is a life/limb threatening event. This includes time spent evaluating patient, direct bedside care, chart review, placing orders, interpretation of diagnostic studies, discussion with consultants, patient, and family members, as well as other required patient management activities. This time is exclusive of all separately billable procedures, and teaching time and separate from and in addition to any other critical care service time. Please note the above document was generated using voice recognition software. It may contain grammatical, syntax or spelling errors. History of Present Illness Attending Physician: Kelvin Bradshaw MD History of Present Illness 77-year-old female comes to the hospital with complaints of shortness of breath Past medical history: Chronic hypoxic respiratory failure on 2 L nasal cannula, CVA on warfarin, dyslipidemia, hypothyroidism, anxiety/depression, HFpEF Pulmonary consulted for hypoxia At the time of examination patient was in mild respiratory distress. She was on 40 L, 90% high flow saturating 89-90% She stated that she has been having shortness of breath for a while progressively getting worse Does complain of cough and brings up phlegm which is mostly clear. Denies any hemoptysis. She has been compliant with her medications. No dysuria, no diarrhea No headache, no blurry vision Ejective fever and chills Social history: Lifetime non-smoker. 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 No exposure to any chemicals or fumes No pets at home. No birds or poultry nearby Strong family history of asthma and kids Allergies Allergy/AdvReac Type Severity Reaction Status Date / Time caramel Allergy Severe Difficulty Verified 02/16/23 09:54 Breathing Iodinated Contrast Media Allergy Severe "couldn't Verified 02/16/23 09:54 breathe and really bad rash" iodine Allergy Severe "couldn't Verified 02/16/23 09:54 breathe and really bad rash" nickel Allergy Severe " open Verified 02/16/23 09:54 sores" Penicillins Allergy Severe shortness Verified 02/16/23 09:54 of breath promethazine Allergy Severe "couldn't Verified 02/16/23 09:54 breathe" red (food color) Allergy Severe "problems Verified 02/16/23 09:54 breathing" Sulfa (Sulfonamide Allergy Severe facial Verified 02/16/23 09:54 Antibiotics) swelling adhesive tape Allergy Intermediate skin Verified 02/16/23 09:54 irritation and redness levofloxacin Allergy Intermediate HIVES, LEG Verified 02/16/23 09:54 PAIN tramadol Allergy Intermediate hallucinati Verified 02/16/23 09:54 ons cephalexin Allergy Mild Rash Verified 02/16/23 09:54 house dust Allergy Mild "sniffles/watery Verified 02/16/23 09:54 eyes" ragweed pollen Allergy Mild "sniffles" Verified 02/16/23 09:54 ciprofloxacin AdvReac Severe stomach Verified 02/16/23 09:54 pain azithromycin [From Zithromax] AdvReac Mild Rash Verified 02/16/23 09:54 Home Medications Medication Instructions Recorded Confirmed Type guaifenesin 600 mg tablet, 600 mg PO Q12H 03/30/18 02/16/23 History extended release 12 hr (Mucinex) loratadine 10 mg tablet (Claritin) 10 mg PO QAM 03/30/18 02/16/23 History polyethylene glycol 3350 17 gram 17 g PO BID 03/30/18 02/16/23 History oral powder packet (Miralax) propylene glycol 0.6 % eye drops 1 drp OPB BID 03/30/18 02/16/23 History (Systane Balance) sodium chloride 0.65 % nasal spray 1 spray intranasal HS 03/30/18 02/16/23 History aerosol (Saline Nasal) vit C 50 mg-E 15 unit-zinc cit 4.5 1 tab PO QAM 03/30/18 02/16/23 History mg-lutein 2.5 mg-zeaxan chew tablet ([employer]) calcium carbonate 500 mg calcium 500 mg PO QPM 03/08/21 02/16/23 History (1,250 mg) tablet acetaminophen 650 mg 1,300 mg PO BID 03/25/21 02/16/23 History tablet,extended release cholecalciferol (vitamin D3) 125 125 mcg PO QAM 03/25/21 02/16/23 History mcg (5,000 unit) tablet (Vitamin D3) fluticasone 500 mcg-salmeterol 50 1 ea inhalation BID #180 ea 03/21/22 02/16/23 Rx mcg/dose blistr powdr for inhalation sertraline 50 mg tablet 50 mg PO QAM #90 tabs 05/03/22 02/16/23 Rx diltiazem HCl 180 mg 180 mg PO QAM #90 caps 05/31/22 02/16/23 Rx capsule,extended release 24 hr clindamycin phosphate 1 % topical 1 applic topical BID PRN Skin 06/14/22 02/16/23 History solution Irritation acidophilus 100 million 1 cap PO QAM 08/30/22 02/16/23 History cell-pectin, citrus 10 mg capsule levothyroxine 112 mcg tablet 112 mcg PO QAM 08/30/22 02/16/23 History furosemide 20 mg tablet 40 mg (2 x 20 mg) PO QAM edema 09/05/22 02/16/23 Rx #180 tabs metronidazole 250 mg tablet 250 mg PO QPM rosacea maintanence 09/05/22 02/16/23 Rx #90 tabs potassium chloride 10 mEq 10 meq PO QAM #90 tabs 10/06/22 02/16/23 Rx tablet,extended release (Klor-Con) triamcinolone acetonide 0.1 % 1 applic topical BID #15 grams 01/06/23 02/16/23 Rx topical cream atorvastatin 40 mg tablet (Lipitor) 40 mg PO QPM #90 tabs 01/16/23 02/16/23 Rx nortriptyline 75 mg capsule 75 mg PO QPM #90 caps 01/26/23 02/16/23 Rx omeprazole 20 mg capsule,delayed 40 mg (2 x 20 mg) PO HS #180 caps 01/26/23 02/16/23 Rx release budesonide 0.5 mg/2 mL suspension 0.5 mg inhalation BID 02/16/23 02/16/23 History for nebulization levalbuterol HCl 1.25 mg/3 mL 1.25 mg inhalation BID shortness 02/16/23 02/16/23 History solution for nebulization of breath or wheezing warfarin 5 mg tablet 2.5 - 5 mg PO DIRECTED 02/16/23 02/16/23 History Patient History Medical History Pre-diabetes Sleep apnea On home oxygen therapy Hx of diverticulitis of colon Chronic diastolic CHF (congestive heart failure) Acute diastolic CHF (congestive heart failure) Breath shortness Asthma Scoliosis Hypothyroidism Hx of esophageal varices Hypertension History of COVID-19 Basilar artery stenosis Poor peripheral circulation Rosacea Osteoarthritis Chronic back pain GERD (gastroesophageal reflux disease) Depression On anticoagulant therapy Hyperlipidemia PFO (patent foramen ovale) Migraine CVA (cerebrovascular accident) Surgical History History of hip replacement History of hysterectomy History of dilatation and curettage History of bilateral tubal ligation History of esophagogastroduodenoscopy (EGD) History of colonoscopy with polypectomy History of tooth extraction History of bilateral cataract extraction Family History Mother Family history of diabetes mellitus Myocardial infarction Sister Family history of diabetes mellitus Family history of rectal cancer Myocardial infarction Sister Family history of diabetes mellitus Myocardial infarction Brother Family history of diabetes mellitus Myocardial infarction Brother Family history of diabetes mellitus Family/Other Breast cancer Father Myocardial infarction Other Cancer Gallbladder disease Heart disease Hypertension Lung disease No family history of adverse response to anesthesia Denies family history of Ovarian cancer Prostate cancer Colorectal cancer Social History Smoking Status: Never smoker Second Hand Exposure: No; Do You Dip or Chew Tobacco: No; Tobacco Cessation Education Requested by Patient: No Hx Alcohol Use: No Hx Substance Use: No Preferred Language: Kinyarwanda Communication Ability: Effective Visual Impairment: Limited Hearing Ability: Normal Certified Dialysis Technician Required: No Beliefs That Will Affect Care: None marital status: Current Living Situation: Spouse Current Living Situation Comment: and son current occupational status: retired How many Children do You have: 5 Other Information That Helps Us Care for You: No Feels Safe at Home: Yes Safety Concerns: Feels Safe At This Time Childhood Exposure to Second-Hand Smoke: Yes Diet: regular caffeine: Yes during the past year weight has: remained stable Dental Care, Regularly: Yes Physical Activity Frequency: 1-2 Times per Week Seatbelt Use: always Sunscreen Use: No Assistive Devices: Nebulizer and Oxygen - Continuous Review of Systems 2 Review of Systems: All systems reviewed & are unremarkable except as noted in HPI & below Physical Exam 2 Physical Exam: Constitutional: Mild respiratory distress HEENT: EOMI, PERRLA Respiratory system: Decreased air entry bilaterally, Positive rhonchi bilaterally, mild expiratory wheeze, positive crackles bilaterally CVS: S1-S2 positive, no murmurs or gallops Abdomen: Soft, nontender, nondistended, positive bowel sounds x4 Extremities: +2 pulses bilaterally radialis/ dorsalis pedis, no cyanosis, +1 pitting bilateral lower extremity Neuro: Awake alert oriented x3 Psych: Normal mood and affect G/U: No Delgado Skin: no rashes, warm and dry Lymphatic: no cervical or axillary lymphadenopathy Results & Data Results & Data Vital Signs (Past 12 Hours) Vital Signs Pulse Pulse Resp BP BP Pulse Ox O2 Del Method 02/17/23 07:23 78 20 94 High Flow Nasal Cannula 02/17/23 07:22 78 20 94 High Flow Nasal Cannula 02/17/23 07:01 77 02/17/23 07:00 78 19 93 High Flow Nasal Cannula 02/17/23 07:00 95/74 L 02/17/23 06:00 103/68 02/17/23 06:00 74 20 93 02/17/23 05:00 97/73 L High Flow Nasal Cannula 02/17/23 05:00 75 15 91 02/17/23 04:00 97/69 L 02/17/23 04:00 77 19 93 02/17/23 03:05 80 17 92 High Flow Nasal Cannula 02/17/23 03:00 96/68 L 02/17/23 03:00 78 31 H 92 02/17/23 02:00 100/71 02/17/23 02:00 80 18 91 High Flow Nasal Cannula 02/17/23 01:00 80 26 H 91 02/17/23 01:00 99/68 L 02/17/23 00:15 81 19 91 High Flow Nasal Cannula 02/17/23 00:14 83 02/17/23 00:00 96/70 L 02/17/23 00:00 85 18 91 02/16/23 23:20 80 16 91 High Flow Nasal Cannula 02/16/23 23:10 81 17 90 High Flow Nasal Cannula 02/16/23 23:00 81 17 92/72 L 91 High Flow Nasal Cannula 02/16/23 22:50 81 24 91 02/16/23 22:40 79 18 90 02/16/23 22:35 89/70 L 02/16/23 22:35 82 16 90 02/16/23 22:34 High Flow Nasal Cannula 02/16/23 22:34 81 15 89/70 L 90 High Flow Nasal Cannula 02/16/23 22:30 80 19 90 02/16/23 22:20 81 16 90 02/16/23 22:10 81 21 90 02/16/23 22:00 83 21 89 L High Flow Nasal Cannula 02/16/23 22:00 95/67 L 02/16/23 21:50 84 26 H 91 02/16/23 21:40 83 20 91 02/16/23 21:30 82 23 92 02/16/23 21:20 81 20 90 02/16/23 21:10 81 19 91 02/16/23 21:00 81 24 90 High Flow Nasal Cannula 02/16/23 21:00 89/61 L 02/16/23 20:50 80 19 91 02/16/23 20:40 82 17 91 02/16/23 20:30 82 26 H 91 O2 Flow Rate FiO2 02/17/23 07:23 40 100 02/17/23 07:22 40 100 02/17/23 07:01 02/17/23 07:00 15 02/17/23 07:00 02/17/23 06:00 02/17/23 06:00 02/17/23 05:00 40 02/17/23 05:00 02/17/23 04:00 02/17/23 04:00 02/17/23 03:05 40 100 02/17/23 03:00 02/17/23 03:00 02/17/23 02:00 02/17/23 02:00 40 02/17/23 01:00 02/17/23 01:00 02/17/23 00:15 40 100 02/17/23 00:14 02/17/23 00:00 02/17/23 00:00 02/16/23 23:20 40 02/16/23 23:10 40 02/16/23 23:00 40 02/16/23 22:50 02/16/23 22:40 02/16/23 22:35 02/16/23 22:35 02/16/23 22:34 40 100 02/16/23 22:34 02/16/23 22:30 02/16/23 22:20 02/16/23 22:10 02/16/23 22:00 40 02/16/23 22:00 02/16/23 21:50 02/16/23 21:40 02/16/23 21:30 02/16/23 21:20 02/16/23 21:10 02/16/23 21:00 40 02/16/23 21:00 02/16/23 20:50 02/16/23 20:40 02/16/23 20:30 Laboratory Results 02/17/23 04:08 02/17/23 04:08 PG Care Time/CCT Total # of Minutes Spent Total Time Spent with Patient: Total time spent is greater than 50% in coordination of care (as documented) at patient's floor/unit and/or counseling patient: [place] [address] CRITICAL CARE 1ST 30-74M Patient Type New Diagnoses Multifocal pneumonia J18.9 Acute and chronic respiratory failure with hypoxia J96.21 Asthma J45.909 Peripheral edema R60.9 Restrictive lung disease due to kyphoscoliosis J98.4; M41.9 Sleep apnea in adult G47.30
[2023-02-17 08:54] LABS: Base Excess ABG -0.1 mEq/L (-9-1.8); HCO3 ABG 26 mmol/L (19-24); Oxygen Saturation ABG 94.7 % (90-95); PCO2 ABG 47 mmHg (35-46); PO2 ABG 72 mmHg (80-95); pH ABG 7.35 (7.35-7.45)
[2023-02-17 09:05] LABS: Allen Test Pos (Pos)
[2023-02-17] MEDS: DOXYCYCLINE HYCLATE 100 MG CAP PO SCH ×2 (10:21→21:41)
[2023-02-17] MEDS: UMECLIDINIUM BROMIDE 62.5MCG/BLISTER 7 PUFFS/INHALER INH SCH (10:22)
--- NOTE | 2023-02-17 13:42 | Hospitalist Progress Note ---
Date of Service February 17, 2023 Assessment & Plan (1) Acute and chronic respiratory failure with hypoxia: Plan: Currently requiring high flow oxygen. She is speaking to family members whether she would want mechanical ventilation if her condition worsens. Appreciate pulmonary medicine consultation and recommendations. (2) Pneumonia: Plan: Bilateral infiltrate seen on CT scan. Currently on oral doxycycline and IV or ertapenem. Culture results pending. Await culture results (3) Left-sided chest pain: Plan: Does not appear to be cardiac. No acute EKG changes. Telemetry. (4) Hypokalemia: Plan: Corrected with oral replacement. Serial labs (5) Hypothyroidism: Plan: Stable. Continue levothyroxine (6) HTN (hypertension): Plan: Stable. Continue current medical management (7) Chronic diastolic CHF (congestive heart failure): Plan: No acute exacerbation. Continue current medical management. Monitor intake and output (8) Paroxysmal atrial tachycardia: Plan: Stable. Continue diltiazem Plan To be determined Admission and Anticipated Discharge Date Admission Date: February 16, 2023 Subjective Alert and oriented. Pulmonary medicine entry noted. The patient is considering whether or not she would want mechanical ventilation if her symptoms worsen. MRSA nasal swab is negative and vancomycin has been discontinued. She remains on oral doxycycline and IV ertapenem along with parenteral steroid therapy. She is requiring high-flow oxygen at this time. ABGs fortunately are negative for any significant CO2 retention. Review of Systems 2 Review of Systems: Constitutional-no fever or chills ENT-no blurred vision, no double vision, no epistaxis, no sore throat Respiratory-productive cough, dyspnea at rest and with exertion. Occasional hemoptysis Cardiac-no palpitations, no chest pain, no syncope GI-no nausea, vomiting, diarrhea, melena, hematochezia -no urinary retention, no urinary incontinence, no dysuria, no hematuria Musculoskeletal-no joint pain, no muscle tenderness Skin-no bruising, no rashes, no pruritus Neuro-no isolated weakness, no paresthesia, no weakness Psych-no depression, no anxiety Physical Exam 2 Physical Exam: General-alert and oriented x3, no fevers, no chills HEENT-head atraumatic and normocephalic, pupils equal and reactive to light, extraocular muscles intact Neck-no lymphadenopathy or thyromegaly, trachea midline Chest-bilateral rhonchi with end expiratory wheezes. Tachypnea. Cardiac-tachycardic regular rate and rhythm, normal S1 and S2 Abdomen-normal bowel sounds, nontender, no hepatosplenomegaly Extremities-no cyanosis, clubbing, or edema Neuro-cranial nerves II through XII intact, motor and sensory function within normal limits, strength symmetrical, no focal deficits Psych-normal affect, normal mood Results & Data Results & Data Vital Signs (Past 12 Hours) Vital Signs Pulse Pulse Resp BP Pulse Ox O2 Del Method O2 Flow Rate 02/17/23 13:10 93 High Flow Nasal Cannula 40 02/17/23 11:00 82 28 H 90 High Flow Nasal Cannula 40 02/17/23 10:47 81 20 91 High Flow Nasal Cannula 40 02/17/23 10:45 81 20 91 High Flow Nasal Cannula 40 02/17/23 10:00 82 19 91 02/17/23 10:00 96/77 L 02/17/23 09:00 91/69 L 02/17/23 09:00 83 22 90 02/17/23 08:00 98/75 L 02/17/23 08:00 80 19 93 02/17/23 07:44 92/70 L 02/17/23 07:44 80 28 H 92 High Flow Nasal Cannula 40 02/17/23 07:23 78 20 94 High Flow Nasal Cannula 40 02/17/23 07:22 78 20 94 High Flow Nasal Cannula 40 02/17/23 07:01 77 02/17/23 07:00 78 19 93 High Flow Nasal Cannula 15 02/17/23 07:00 95/74 L 02/17/23 06:00 103/68 02/17/23 06:00 74 20 93 02/17/23 05:00 97/73 L High Flow Nasal Cannula 40 02/17/23 05:00 75 15 91 02/17/23 04:00 97/69 L 02/17/23 04:00 77 19 93 02/17/23 03:05 80 17 92 High Flow Nasal Cannula 40 02/17/23 03:00 96/68 L 02/17/23 03:00 78 31 H 92 02/17/23 02:00 100/71 02/17/23 02:00 80 18 91 High Flow Nasal Cannula 40 FiO2 02/17/23 13:10 100 02/17/23 11:00 90 02/17/23 10:47 90 02/17/23 10:45 90 02/17/23 10:00 02/17/23 10:00 02/17/23 09:00 02/17/23 09:00 02/17/23 08:00 02/17/23 08:00 02/17/23 07:44 02/17/23 07:44 100 02/17/23 07:23 100 02/17/23 07:22 100 02/17/23 07:01 02/17/23 07:00 02/17/23 07:00 02/17/23 06:00 02/17/23 06:00 02/17/23 05:00 02/17/23 05:00 02/17/23 04:00 02/17/23 04:00 02/17/23 03:05 100 02/17/23 03:00 02/17/23 03:00 02/17/23 02:00 02/17/23 02:00 Laboratory Results 02/17/23 04:08 02/17/23 04:08 PG Care Time/CCT Total # of Minutes Spent Total Time Spent with Patient: Total time spent is greater than 50% in coordination of care (as documented) at patient's floor/unit and/or counseling patient: Coding Level of Care Code 17118 SUB INP/OBS CARE 3/50MIN Diagnoses Acute and chronic respiratory failure with hypoxia J96.21 Pneumonia J18.9 Left-sided chest pain R07.9 Hypokalemia E87.6 Hypothyroidism E03.9 HTN (hypertension) I10 Chronic diastolic CHF (congestive heart failure) I50.32 Paroxysmal atrial tachycardia I47.1
[2023-02-17] MEDS: ERTAPENEM SODIUM 1,000 MG in SYRINGE 0 ML IV SCH (15:51)
[2023-02-17] MEDS: WARFARIN SOD 5 MG TAB PO SCH (17:45)
[2023-02-17] MEDS: SODIUM CHLOR 7% 4 ML NEB NEB SCH (20:37)
[2023-02-17] MEDS: NORTRIPTYLINE HCL 25 MG CAP PO SCH (21:40)
[2023-02-17] MEDS: ATORVASTATIN 40 MG TAB PO SCH (21:40)
[2023-02-17] MEDS: PANTOprazole 40 MG TAB PO SCH (21:41)
[2023-02-18] MEDS: methylPREDNISolone 40 MG in SYRINGE 0 ML IV SCH ×2 (05:32→14:01)
[2023-02-18] MEDS: LEVOTHYROXINE SODIUM 112 MCG TABLET PO SCH (05:32)
[2023-02-18 07:46] LABS: Hematocrit (blood only) 32.8 % (37.0-47.0); Hemoglobin 10.4 g/dl (12.0-16.0); Mean Corpuscular Hemoglobin 28.7 pg (25.0-34.0); Mean Corpuscular Hgb Conc 31.7 g/dL (32.0-36.0); Mean Corpuscular Volume 90.4 fL (80.0-100.0); Platelet Count 179 K/uL (130-400); RDW Coefficient of Variation 14.9 % (11.5-14.5); RDW Standard Deviation 49.8 fL (36.4-46.3); Red Blood Count 3.63 M/uL (4.20-5.40); White Blood Count 16.56 K/ul (4.8-10.8)
[2023-02-18 08:01] LABS: Calcium 8.8 mg/dl (8.6-10.3); Creatinine Clr Calc Pharmacy 76.5 ml/min; Est GFR (African American) 103.3 ml/min; Est GFR (Non-African American) 89.2 ml/min; Potassium 4.2 mmol/L (3.5-5.1)
--- NOTE | 2023-02-18 08:07 | Pulmonology Progress Note ---
Date of Service February 18, 2023 Assessment & Plan (1) Multifocal pneumonia: (2) Acute and chronic respiratory failure with hypoxia: (3) Asthma: (4) Peripheral edema: (5) Restrictive lung disease due to kyphoscoliosis: (6) Sleep apnea in adult: Plan CT chest 02/16/2023 personally reviewed: Patchy consolidative process appreciated in the lingula 7 cm x 4.5 cm Patchy groundglass opacities in the upper lobes bilaterally Elevated right hemidiaphragm with consolidative process in bilateral lower lobes Calcified bronc Large hiatal hernia No significant mediastinal lymphadenopathy Spirometry 11/12/2018 personally reviewed: Significant bronchodilator response with no obstructive lung dysfunction, nonspecific spirometry FVC 1.79 L 70%, FEV1 1.53 to 79%, FEV1/FVC 87% ABG 02/17/2023: 7.35/47/72 on 40% 2D echo 05/14/2022: EF 60-65%, mild concentric LVH, grade 1 diastolic dysfunction, RV not well-visualized --Multilobar pneumonia Respiratory bio fire negative for everything on 02/16/2023 Nasal MRSA negative Procalcitonin 2.21 --Asthma On nebulized budesonide 0.5 Mg along with Advair 500-50 mcg at home 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 golf cart 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 --NESTOR/OHS with kyphosis Patient also seems to have restrictive lung disease, will need full PFT as an outpatient Recommend BiPAP nightly and as needed shortness of breath if she is able to tolerate it --It seems patient likely has restrictive lung dysfunction from elevated hemidiaphragm as well as hiatal hernia Plan: Continue with Incruse inhaler to be used on a daily basis Continue with incentive spirometry with flutter valve Follow-up sputum culture Continue with antibiotics with atypical coverage Decrease Solu-Medrol to 40 mg on a daily basis Would recommend BiPAP nightly and as needed shortness of breath Please note the above document was generated using voice recognition software. It may contain grammatical, syntax or spelling errors.Any formal questions or concerns about the content, text or information contained within the body of this dictation should be directly addressed to the provider for clarification. Admission and Anticipated Discharge Date Admission Date: February 16, 2023 Subjective Patient seen and examined at bedside. No acute distress, no adverse events overnight She was on 35 L, 65% high flow saturating 98%. I went down to 50%. She says she is feeling better. Did use her BiPAP overnight. Has been using flutter valve and bringing up clear phlegm. Denies any nausea vomiting Appetite is fair Review of Systems 2 Review of Systems: All systems reviewed & are unremarkable except as noted in Subjective Physical Exam 2 Physical Exam: Constitutional: No respiratory distress HEENT: EOMI, PERRLA Respiratory system: Decreased air entry bilaterally, Positive rhonchi bilaterally, no wheeze, positive crackles bilaterally CVS: S1-S2 positive, no murmurs or gallops Abdomen: Soft, nontender, nondistended, positive bowel sounds x4 Extremities: +2 pulses bilaterally radialis/ dorsalis pedis, no cyanosis, +1 pitting bilateral lower extremity Neuro: Awake alert oriented x3 Psych: Normal mood and affect G/U: No Delgado Musculoskeletal: Kyphoscoliosis Skin: no rashes, warm and dry Lymphatic: no cervical or axillary lymphadenopathy Results & Data Results & Data Vital Signs (Past 12 Hours) Vital Signs Temp Pulse Pulse Resp BP Pulse Ox O2 Del Method 02/18/23 07:54 77 02/18/23 03:50 36.5 C 80 16 109/75 96 BiPAP 02/18/23 02:36 82 14 98 02/18/23 00:31 76 21 97 02/17/23 23:04 36.5 C 81 18 111/75 95 BiPAP 02/17/23 22:20 80 02/17/23 20:37 85 16 95 02/17/23 20:37 85 14 95 BiPAP 02/17/23 20:15 BiPAP 02/17/23 20:11 88 FiO2 02/18/23 07:54 02/18/23 03:50 02/18/23 02:36 45 02/18/23 00:31 60 02/17/23 23:04 02/17/23 22:20 02/17/23 20:37 60 02/17/23 20:37 60 02/17/23 20:15 02/17/23 20:11 Laboratory Results 02/18/23 06:54 02/18/23 06:54 PG Care Time/CCT Total # of Minutes Spent Total Time Spent with Patient: Total time spent is greater than 50% in coordination of care (as documented) at patient's floor/unit and/or counseling patient: Coding Level of Care Code 46835 SUB INP/OBS CARE 50MIN Diagnoses Multifocal pneumonia J18.9 Acute and chronic respiratory failure with hypoxia J96.21 Asthma J45.909 Peripheral edema R60.9 Restrictive lung disease due to kyphoscoliosis J98.4; M41.9 Sleep apnea in adult G47.30
[2023-02-18 08:09] LABS: INR 4.7 (0.9-1.1); Prothrombin Time 46.3 Seconds (9.0-12.0)
[2023-02-18 08:11] LABS: Basophils # (auto) 0.02 K/uL (0.00-0.20); Basophils % (auto) 0.1 %; Immature Granulocytes # (auto) 0.19 K/uL (0.01-0.20); Immature Granulocytes % (auto) 1.1 %; Lymphocytes # (auto) 0.88 K/uL (1.20-3.40); Lymphocytes % (auto) 5.3 %; Monocytes # (auto) 0.29 K/uL (0.11-0.59); Monocytes % (auto) 1.8 %; Neutrophils # (auto) 15.18 K/uL (1.40-6.50); Neutrophils % (auto) 91.7 %
[2023-02-18] MEDS: BUDESONIDE 0.5 MG/2 ML VIAL (PULMICORT) INH SCH ×2 (08:11→19:20)
[2023-02-18] MEDS: FORMOTEROL 20 MCG/2 ML VIAL NEB SCH ×2 (08:11→19:20)
[2023-02-18] MEDS: SODIUM CHLOR 7% 4 ML NEB NEB SCH ×2 (08:12→19:20)
[2023-02-18] MEDS: ALBUT/IPRATROP 3MG/0.5MG NEB 3 ML VIAL NEB SCH ×4 (08:12→19:21)
[2023-02-18] MEDS: guaiFENesin 600 MG TABCR PO SCH ×2 (09:19→20:16)
[2023-02-18] MEDS: POTASSIUM CHLORIDE 10 MEQ TABCR PO SCH (09:19)
[2023-02-18] MEDS: dilTIAZem HCL 180 MG CAPCR PO SCH (09:19)
[2023-02-18] MEDS: SERTRALINE HCL 50 MG TABLET PO SCH (09:19)
[2023-02-18] MEDS: DOXYCYCLINE HYCLATE 100 MG CAP PO SCH ×2 (09:19→20:16)
[2023-02-18] MEDS ORDERED: PHYTONADIONE 5 MG TAB PO ONE (09:22)
--- NOTE | 2023-02-18 10:59 | XRay Report ---
XR chest 1V portable HISTORY: 77 years-old Female pneumonia, respiratory failure acute shortness of breath COMPARISON: Chest CT 02/16/2023 TECHNIQUE: AP view of the chest FINDINGS: Cardiac silhouette is enlarged. Pulmonary vascular congestion. No pneumothorax. Chronic right hemidia phragmatic elevation with bibasilar opacities and trace pleural effusions. Left mid lung consolidatio n again noted. Bones appear grossly intact. IMPRESSION: 1. Cardiomegaly with pulmonary vascular congestion. 2. Persistent bibasilar and left midlung consolidation compatible with multifocal pneumonia. 3. Hiatal hernia. ACT 112: Negative or not required by law. The above report was generated using voice recognition software. It may contain grammatical, syntax o r spelling errors. Electronically signed by: Elder Menon M.D. 02/18/2023 10:57 AM
[2023-02-18] MEDS: UMECLIDINIUM BROMIDE 62.5MCG/BLISTER 7 PUFFS/INHALER INH SCH (14:08)
--- NOTE | 2023-02-18 14:43 | Hospitalist Progress Note ---
Date of Service February 18, 2023 Assessment & Plan (1) Acute and chronic respiratory failure with hypoxia: Plan: Continues to require high flow oxygen. Appreciate pulmonary medicine consultation and recommendations. (2) Pneumonia: Plan: Bilateral infiltrate seen on CT scan. Currently on oral doxycycline and IV or ertapenem, day 2. Blood cultures are negative to date. Final sputum culture results pending. (3) Left-sided chest pain: Plan: Does not appear to be cardiac. No acute EKG changes. Telemetry. (4) Hypokalemia: Plan: Corrected with oral replacement. Serial labs (5) Hypothyroidism: Plan: Stable. Continue levothyroxine (6) HTN (hypertension): Plan: Stable. Continue current medical management (7) Chronic diastolic CHF (congestive heart failure): Plan: No acute exacerbation. Continue current medical management. Monitor intake and output (8) Paroxysmal atrial tachycardia: Plan: Stable. Continue diltiazem (9) Coumadin toxicity: Plan: INR 4.7 today, February 18. Coumadin has been placed on hold. Oral vitamin K will be administered today. Serial labs. No active bleeding Plan To be determined Admission and Anticipated Discharge Date Admission Date: February 16, 2023 Subjective Alert and oriented despite needing high flow oxygen. No distress. Pulmonary medicine entry noted. Chest x-ray obtained today, February 18, reveals low lung volumes with bilateral infiltrates. Blood cultures are negative to date. Final sputum culture is pending. MRSA nasal swab is negative. Vancomycin has been discontinued. She remains on oral doxycycline and IV or ertapenem, day 2. Continue Solu-Medrol. INR has jumped to 4.7. Vitamin K will be administered once today and Coumadin has been discontinued. Review of Systems 2 Review of Systems: Constitutional-no fever or chills ENT-no blurred vision, no double vision, no epistaxis, no sore throat Respiratory-productive cough, dyspnea at rest and with exertion. Occasional hemoptysis Cardiac-no palpitations, no chest pain, no syncope GI-no nausea, vomiting, diarrhea, melena, hematochezia -no urinary retention, no urinary incontinence, no dysuria, no hematuria Musculoskeletal-no joint pain, no muscle tenderness Skin-no bruising, no rashes, no pruritus Neuro-no isolated weakness, no paresthesia, no weakness Psych-no depression, no anxiety Physical Exam 2 Physical Exam: General-alert and oriented x3, no fevers, no chills HEENT-head atraumatic and normocephalic, pupils equal and reactive to light, extraocular muscles intact Neck-no lymphadenopathy or thyromegaly, trachea midline Chest-bilateral rhonchi with end expiratory wheezes. Tachypnea. Cardiac-tachycardic regular rate and rhythm, normal S1 and S2 Abdomen-normal bowel sounds, nontender, no hepatosplenomegaly Extremities-no cyanosis, clubbing, or edema Neuro-cranial nerves II through XII intact, motor and sensory function within normal limits, strength symmetrical, no focal deficits Psych-normal affect, normal mood Results & Data Results & Data Vital Signs (Past 12 Hours) Vital Signs Temp Pulse Pulse Pulse Resp BP Pulse Ox 02/18/23 11:56 85 18 92 02/18/23 11:53 36.8 C 93 H 106/70 90 02/18/23 10:00 02/18/23 08:52 75 15 92 02/18/23 08:26 36.7 C 79 16 124/85 93 02/18/23 08:15 76 14 94 02/18/23 08:13 76 14 94 02/18/23 07:54 77 02/18/23 03:50 36.5 C 80 16 109/75 96 O2 Del Method O2 Flow Rate FiO2 02/18/23 11:56 High Flow Nasal Cannula 35 50 02/18/23 11:53 High Flow Nasal Cannula 35 50 02/18/23 10:00 High Flow Nasal Cannula 35 50 02/18/23 08:52 High Flow Nasal Cannula 35 55 02/18/23 08:26 BiPAP 02/18/23 08:15 45 02/18/23 08:13 BiPAP 45 02/18/23 07:54 02/18/23 03:50 BiPAP Laboratory Results 02/18/23 06:54 02/18/23 06:54 PG Care Time/CCT Total # of Minutes Spent Total Time Spent with Patient: Total time spent is greater than 50% in coordination of care (as documented) at patient's floor/unit and/or counseling patient: Coding Level of Care Code 33447 SUB INP/OBS CARE 3/50MIN Diagnoses Acute and chronic respiratory failure with hypoxia J96.21 Pneumonia J18.9 Left-sided chest pain R07.9 Hypokalemia E87.6 Hypothyroidism E03.9 HTN (hypertension) I10 Chronic diastolic CHF (congestive heart failure) I50.32 Paroxysmal atrial tachycardia I47.1 Coumadin toxicity T45.511A
[2023-02-18] MEDS: ERTAPENEM SODIUM 1,000 MG in SYRINGE 0 ML IV SCH (16:35)
[2023-02-18] MEDS: ATORVASTATIN 40 MG TAB PO SCH (20:15)
[2023-02-18] MEDS: PANTOprazole 40 MG TAB PO SCH (20:16)
[2023-02-18] MEDS: NORTRIPTYLINE HCL 25 MG CAP PO SCH (20:16)
[2023-02-19] MEDS: LEVOTHYROXINE SODIUM 112 MCG TABLET PO SCH (05:35)
[2023-02-19 06:31] LABS: BUN Creatinine Ratio 34.5 (10-20); Basophils # (auto) 0.02 K/uL (0.00-0.20); Basophils % (auto) 0.2 %; Calcium 8.6 mg/dl (8.6-10.3); Creatinine Clr Calc Pharmacy 83.8 ml/min; Est GFR (African American) 106.3 ml/min; Est GFR (Non-African American) 91.8 ml/min; Hematocrit (blood only) 33.9 % (37.0-47.0); Hemoglobin 10.4 g/dl (12.0-16.0); Immature Granulocytes # (auto) 0.08 K/uL (0.01-0.20); Immature Granulocytes % (auto) 0.6 %; Lymphocytes # (auto) 1.07 K/uL (1.20-3.40); Lymphocytes % (auto) 8.3 %; Mean Corpuscular Hemoglobin 28.2 pg (25.0-34.0); Mean Corpuscular Hgb Conc 30.7 g/dL (32.0-36.0); Mean Corpuscular Volume 91.9 fL (80.0-100.0); Monocytes # (auto) 0.37 K/uL (0.11-0.59); Monocytes % (auto) 2.9 %; Neutrophils # (auto) 11.34 K/uL (1.40-6.50); Platelet Count 185 K/uL (130-400); Potassium 4.2 mmol/L (3.5-5.1); RDW Coefficient of Variation 14.8 % (11.5-14.5); RDW Standard Deviation 49.9 fL (36.4-46.3); Red Blood Count 3.69 M/uL (4.20-5.40); White Blood Count 12.88 K/ul (4.8-10.8)
[2023-02-19 06:36] LABS: INR 1.4 (0.9-1.1); Prothrombin Time 14.7 Seconds (9.0-12.0)
--- NOTE | 2023-02-19 07:19 | XRay Report ---
SINGLE VIEW CHEST CLINICAL HISTORY: Follow-up airspace consolidation. FINDINGS: An AP, portable, upright chest radiograph is compared to study dated 02/18/2023 and correla valentín with chest CT dated 02/16/2023. A hiatal hernia is noted. The heart is enlarged noting atheroscle rotic calcification of the thoracic aorta. There is mild pulmonary vascular congestion. There is atel ectasis/consolidation of the lower lobes with patchy airspace consolidation in the lingula. This is s imilar to yesterday. Suspect small pleural effusions. No pneumothorax is seen. The skeletal structure s are osteopenic. The bony thorax is grossly intact. IMPRESSION: 1. Cardiomegaly with mild pulmonary vascular congestion 2. Persistent bibasilar atelectasis/consolidation as well as consolidation in the left midlung. This is similar to yesterday. 4. Suspect small pleural effusions. 4. Hiatal hernia. ACT 112: Negative or not required by law. Electronically signed by: Garrett Pereira M.D. 02/19/2023 7:17 AM
[2023-02-19] MEDS: ALBUT/IPRATROP 3MG/0.5MG NEB 3 ML VIAL NEB SCH ×4 (08:12→19:42)
[2023-02-19] MEDS: SODIUM CHLOR 7% 4 ML NEB NEB SCH ×2 (08:13→19:42)
[2023-02-19] MEDS: BUDESONIDE 0.5 MG/2 ML VIAL (PULMICORT) INH SCH ×2 (08:13→19:42)
[2023-02-19] MEDS: FORMOTEROL 20 MCG/2 ML VIAL NEB SCH ×2 (08:13→19:42)
[2023-02-19] MEDS: dilTIAZem HCL 180 MG CAPCR PO SCH (08:48)
[2023-02-19] MEDS: DOXYCYCLINE HYCLATE 100 MG CAP PO SCH ×2 (08:49→20:11)
[2023-02-19] MEDS: methylPREDNISolone 40 MG in SYRINGE 0 ML IV SCH (08:49)
[2023-02-19] MEDS: guaiFENesin 600 MG TABCR PO SCH ×2 (08:49→20:12)
[2023-02-19] MEDS: SERTRALINE HCL 50 MG TABLET PO SCH (08:50)
[2023-02-19] MEDS: UMECLIDINIUM BROMIDE 62.5MCG/BLISTER 7 PUFFS/INHALER INH SCH (08:50)
[2023-02-19] MEDS: POTASSIUM CHLORIDE 10 MEQ TABCR PO SCH (08:52)
--- NOTE | 2023-02-19 09:19 | Pulmonology Progress Note ---
Date of Service February 19, 2023 Assessment & Plan (1) Multifocal pneumonia: (2) Acute and chronic respiratory failure with hypoxia: (3) Asthma: (4) Peripheral edema: (5) Restrictive lung disease due to kyphoscoliosis: (6) Sleep apnea in adult: Plan CT chest 02/16/2023 personally reviewed: Patchy consolidative process appreciated in the lingula 7 cm x 4.5 cm Patchy groundglass opacities in the upper lobes bilaterally Elevated right hemidiaphragm with consolidative process in bilateral lower lobes Calcified bronc Large hiatal hernia No significant mediastinal lymphadenopathy Spirometry 11/12/2018 personally reviewed: Significant bronchodilator response with no obstructive lung dysfunction, nonspecific spirometry FVC 1.79 L 70%, FEV1 1.53 to 79%, FEV1/FVC 87% ABG 02/17/2023: 7.35/47/72 on 40% 2D echo 05/14/2022: EF 60-65%, mild concentric LVH, grade 1 diastolic dysfunction, RV not well-visualized --Multilobar pneumonia Respiratory bio fire negative for everything on 02/16/2023 Nasal MRSA negative Procalcitonin 2.21 --Asthma On nebulized budesonide 0.5 Mg along with Advair 500-50 mcg at home 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 novelty 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 --NESTOR/OHS with kyphosis Patient also seems to have restrictive lung disease, will need full PFT as an outpatient Recommend BiPAP nightly and as needed shortness of breath if she is able to tolerate it --It seems patient likely has restrictive lung dysfunction from elevated hemidiaphragm as well as hiatal hernia Plan: Continue with Incruse inhaler to be used on a daily basis Continue with incentive spirometry with flutter valve Follow-up sputum culture Continue with antibiotics with atypical coverage Can de-escalate Solu-Medrol to prednisone and tapered off over the next 5 days Would recommend BiPAP nightly and as needed shortness of breath Patient might benefit from AVAPS machine at home. I will order bedside spirometry. Please note the above document was generated using voice recognition software. It may contain grammatical, syntax or spelling errors.Any formal questions or concerns about the content, text or information contained within the body of this dictation should be directly addressed to the provider for clarification. Admission and Anticipated Discharge Date Admission Date: February 16, 2023 Subjective Patient seen and examined at bedside. No acute distress, no adverse events overnight She was on 6 L nasal cannula, saturating 93% She did use BiPAP overnight Denied any headache, no nausea, no vomiting Overall she feels better No headache, no blurry vision No chest pain, no chest tightness Has been bringing up phlegm. No hemoptysis Review of Systems 2 Review of Systems: All systems reviewed & are unremarkable except as noted in Subjective Physical Exam 2 Physical Exam: Constitutional: No respiratory distress HEENT: EOMI, PERRLA Respiratory system: Decreased air entry bilaterally, no rhonchi, minimal expiratory wheeze, positive crackles bilaterally CVS: S1-S2 positive, no murmurs or gallops Abdomen: Soft, nontender, nondistended, positive bowel sounds x4 Extremities: +2 pulses bilaterally radialis/ dorsalis pedis, no cyanosis, +1 pitting bilateral lower extremity Neuro: Awake alert oriented x3 Psych: Normal mood and affect G/U: No Delgado Musculoskeletal: Kyphoscoliosis Skin: no rashes, warm and dry Lymphatic: no cervical or axillary lymphadenopathy Results & Data Results & Data Vital Signs (Past 12 Hours) Vital Signs Temp Pulse Pulse Resp BP Pulse Ox O2 Del Method 02/19/23 07:54 36.4 C L 74 18 136/54 L 95 Room Air 02/19/23 07:27 17 93 Nasal Cannula 02/19/23 03:37 36.5 C 64 16 111/74 94 BiPAP 02/19/23 02:02 70 15 94 02/18/23 23:18 36.8 C 80 18 113/74 93 High Flow Nasal Cannula 02/18/23 22:42 78 19 93 02/18/23 21:57 81 O2 Flow Rate FiO2 02/19/23 07:54 02/19/23 07:27 8 02/19/23 03:37 10 02/19/23 02:02 40 02/18/23 23:18 10 02/18/23 22:42 45 02/18/23 21:57 Laboratory Results 02/19/23 05:40 02/19/23 05:40 PG Care Time/CCT Total # of Minutes Spent Total Time Spent with Patient: Total time spent is greater than 50% in coordination of care (as documented) at patient's floor/unit and/or counseling patient: Coding Level of Care Code 22554 SUB INP/OBS CARE 2/35MIN Diagnoses Multifocal pneumonia J18.9 Acute and chronic respiratory failure with hypoxia J96.21 Asthma J45.909 Peripheral edema R60.9 Restrictive lung disease due to kyphoscoliosis J98.4; M41.9 Sleep apnea in adult G47.30
--- NOTE | 2023-02-19 11:35 | Hospitalist Progress Note ---
Date of Service February 19, 2023 Assessment & Plan (1) Acute and chronic respiratory failure with hypoxia: Plan: Improving. Oxygen has been tapered down to 5 lpm per nasal cannula. Appreciate pulmonary medicine consultation and recommendations. (2) Pneumonia: Plan: Bilateral infiltrate seen on CT scan. Currently on oral doxycycline and IV or ertapenem, day 3. Blood and sputum cultures are negative to date. (3) Left-sided chest pain: Plan: Does not appear to be of cardiac etiology. No acute EKG changes. Telemetry. (4) Hypokalemia: Plan: Corrected with oral replacement. Serial labs (5) Hypothyroidism: Plan: Stable. Continue levothyroxine (6) HTN (hypertension): Plan: Stable. Continue current medical management (7) Chronic diastolic CHF (congestive heart failure): Plan: No acute exacerbation. Continue current medical management. Monitor intake and output (8) Paroxysmal atrial tachycardia: Plan: Stable. Continue diltiazem (9) Coumadin toxicity: Plan: INR was elevated at 4.7 on February 18. She received 1 oral dose of vitamin K and now the INR is down to 1.4, February 19. Coumadin has been restarted at 5 mg dosage. Will monitor INR daily. Plan To be determined . OT and PT assessments have been requested Admission and Anticipated Discharge Date Admission Date: February 16, 2023 Subjective Alert and oriented. Pleasant. She is improving. Oxygen has been weaned down to 5 L. No significant change in appearance of serial chest x-ray however. INR down to 1.4 after vitamin K yesterday, February 18. Will restart Coumadin at 5 mg daily and monitor daily INR. OT and PT assessments requested. Review of Systems 2 Review of Systems: Constitutional-no fever or chills ENT-no blurred vision, no double vision, no epistaxis, no sore throat Respiratory-productive cough, dyspnea at rest and with exertion. Occasional hemoptysis Cardiac-no palpitations, no chest pain, no syncope GI-no nausea, vomiting, diarrhea, melena, hematochezia -no urinary retention, no urinary incontinence, no dysuria, no hematuria Musculoskeletal-no joint pain, no muscle tenderness Skin-no bruising, no rashes, no pruritus Neuro-no isolated weakness, no paresthesia, no weakness Psych-no depression, no anxiety Physical Exam 2 Physical Exam: General-alert and oriented x3, no fevers, no chills HEENT-head atraumatic and normocephalic, pupils equal and reactive to light, extraocular muscles intact Neck-no lymphadenopathy or thyromegaly, trachea midline Chest-bilateral rhonchi with end expiratory wheezes. Tachypnea. Cardiac-tachycardic regular rate and rhythm, normal S1 and S2 Abdomen-normal bowel sounds, nontender, no hepatosplenomegaly Extremities-no cyanosis, clubbing, or edema Neuro-cranial nerves II through XII intact, motor and sensory function within normal limits, strength symmetrical, no focal deficits Psych-normal affect, normal mood Results & Data Results & Data Vital Signs (Past 12 Hours) Vital Signs Temp Pulse Pulse Resp BP Pulse Ox O2 Del Method 02/19/23 11:18 37.0 C 77 18 126/85 92 High Flow Nasal Cannula 02/19/23 08:00 68 02/19/23 07:54 36.4 C L 74 18 136/54 L 95 Room Air 02/19/23 07:27 17 93 Nasal Cannula 02/19/23 03:37 36.5 C 64 16 111/74 94 BiPAP 02/19/23 02:02 70 15 94 O2 Flow Rate FiO2 02/19/23 11:18 5 02/19/23 08:00 02/19/23 07:54 02/19/23 07:27 8 02/19/23 03:37 10 02/19/23 02:02 40 Laboratory Results 02/19/23 05:40 02/19/23 05:40 PG Care Time/CCT Total # of Minutes Spent Total Time Spent with Patient: Total time spent is greater than 50% in coordination of care (as documented) at patient's floor/unit and/or counseling patient: Coding Level of Care Code 88822 SUB INP/OBS CARE 3/50MIN Diagnoses Acute and chronic respiratory failure with hypoxia J96.21 Pneumonia J18.9 Left-sided chest pain R07.9 Hypokalemia E87.6 Hypothyroidism E03.9 HTN (hypertension) I10 Chronic diastolic CHF (congestive heart failure) I50.32 Paroxysmal atrial tachycardia I47.1 Coumadin toxicity T45.511A
[2023-02-19] MEDS: ERTAPENEM SODIUM 1,000 MG in SYRINGE 0 ML IV SCH (16:13)
[2023-02-19] MEDS: WARFARIN SOD 5 MG TAB PO SCH (16:14)
[2023-02-19] MEDS: PANTOprazole 40 MG TAB PO SCH (20:11)
[2023-02-19] MEDS: ATORVASTATIN 40 MG TAB PO SCH (20:12)
[2023-02-19] MEDS: NORTRIPTYLINE HCL 25 MG CAP PO SCH (20:12)
[2023-02-20] MEDS: LEVOTHYROXINE SODIUM 112 MCG TABLET PO SCH (05:36)
[2023-02-20] MEDS: SODIUM CHLOR 7% 4 ML NEB NEB SCH ×2 (07:29→20:08)
[2023-02-20] MEDS: FORMOTEROL 20 MCG/2 ML VIAL NEB SCH ×2 (07:29→20:08)
[2023-02-20] MEDS: ALBUT/IPRATROP 3MG/0.5MG NEB 3 ML VIAL NEB SCH ×4 (07:29→20:08)
[2023-02-20] MEDS: BUDESONIDE 0.5 MG/2 ML VIAL (PULMICORT) INH SCH ×2 (07:29→20:08)
[2023-02-20] MEDS: methylPREDNISolone 40 MG in SYRINGE 0 ML IV SCH (08:07)
[2023-02-20] MEDS: UMECLIDINIUM BROMIDE 62.5MCG/BLISTER 7 PUFFS/INHALER INH SCH (08:07)
[2023-02-20] MEDS: SERTRALINE HCL 50 MG TABLET PO SCH (08:08)
[2023-02-20] MEDS: guaiFENesin 600 MG TABCR PO SCH ×2 (08:08→19:59)
[2023-02-20] MEDS: DOXYCYCLINE HYCLATE 100 MG CAP PO SCH (08:08)
[2023-02-20] MEDS: dilTIAZem HCL 180 MG CAPCR PO SCH (08:09)
[2023-02-20] MEDS: POTASSIUM CHLORIDE 10 MEQ TABCR PO SCH (08:12)
[2023-02-20] MEDS ORDERED: FLUCONAZOLE 50 MG TAB PO SCH (09:30)
[2023-02-20 09:45] LABS: Basophils # (auto) 0.02 K/uL (0.00-0.20); Basophils % (auto) 0.2 %; Hemoglobin 11.7 g/dl (12.0-16.0); Immature Granulocytes # (auto) 0.09 K/uL (0.01-0.20); Immature Granulocytes % (auto) 0.9 %; Mean Corpuscular Hemoglobin 28.3 pg (25.0-34.0); Mean Corpuscular Hgb Conc 30.8 g/dL (32.0-36.0); Mean Corpuscular Volume 91.8 fL (80.0-100.0); Mean Platelet Volume 8.7 fL (9.4-12.4); Monocytes # (auto) 0.41 K/uL (0.11-0.59); Monocytes % (auto) 3.9 %; Neutrophils # (auto) 8.14 K/uL (1.40-6.50); Platelet Count 193 K/uL (130-400); RDW Coefficient of Variation 14.7 % (11.5-14.5); RDW Standard Deviation 50.1 fL (36.4-46.3); Red Blood Count 4.14 M/uL (4.20-5.40); White Blood Count 10.56 K/ul (4.8-10.8)
[2023-02-20 09:57] LABS: BUN Creatinine Ratio 29.6 (10-20); Calcium 8.9 mg/dl (8.6-10.3); Creatinine Clr Calc Pharmacy 85.4 ml/min; Est GFR (Non-African American) 92.3 ml/min; Potassium 3.6 mmol/L (3.5-5.1)
[2023-02-20 10:09] LABS: INR 1.3 (0.9-1.1); Prothrombin Time 13.8 Seconds (9.0-12.0)
--- NOTE | 2023-02-20 12:36 | Hospitalist Progress Note ---
Date of Service February 20, 2023 Assessment & Plan (1) Acute and chronic respiratory failure with hypoxia: Plan: Improving. Oxygen requirements continue to improve. She is down to 3.5 L/min now. Appreciate pulmonary medicine consultation and recommendations. (2) Pneumonia: Plan: Bilateral infiltrate seen on CT scan. Currently on oral doxycycline and IV or ertapenem, day 4. Blood cultures remain negative. Sputum culture is growing strep pneumonia and Ruby. She probably can be discharged home soon on oral Cleocin. Diflucan has been added orally for the Ruby seen in the sputum. (3) Left-sided chest pain: Plan: Does not appear to be of cardiac etiology. No acute EKG changes. Telemetry. (4) Hypokalemia: Plan: Corrected with oral replacement. Serial labs (5) Hypothyroidism: Plan: Stable. Continue levothyroxine (6) HTN (hypertension): Plan: Stable. Continue current medical management (7) Chronic diastolic CHF (congestive heart failure): Plan: No acute exacerbation. Continue current medical management. Monitor intake and output (8) Paroxysmal atrial tachycardia: Plan: Stable. Continue diltiazem (9) Coumadin toxicity: Plan: INR was elevated at 4.7 on February 18. She received 1 oral dose of vitamin K and the INR came down to 1.4 on February 19 and 1.3 today, February 20. Coumadin has been restarted at 5 mg dosage. Will monitor INR daily. Plan To be determined . OT and PT assessments have been requested. Hopefully she will be able to go home at discharge Admission and Anticipated Discharge Date Admission Date: February 16, 2023 Subjective Alert and oriented. No distress. She feels better and is moving in the right direction. Sputum cultures growing streptococcal pneumonia and Ruby. She is allergic to multiple oral medications but Cleocin probably would be well- tolerated at discharge. Diflucan has also been started orally for the Ruby isolated in the sputum. She remains also on oral doxycycline and intravenous ertapenem, day 4. Pulmonary medicine consultation and recommendations appreciated. INR is 1.3 today. Continue Coumadin and daily INR measurements. Oxygen requirements are down to 3-1/2 L which is closer to her baseline needs Review of Systems 2 Review of Systems: Constitutional-no fever or chills ENT-no blurred vision, no double vision, no epistaxis, no sore throat Respiratory-productive cough, dyspnea at rest and with exertion. Occasional hemoptysis Cardiac-no palpitations, no chest pain, no syncope GI-no nausea, vomiting, diarrhea, melena, hematochezia -no urinary retention, no urinary incontinence, no dysuria, no hematuria Musculoskeletal-no joint pain, no muscle tenderness Skin-no bruising, no rashes, no pruritus Neuro-no isolated weakness, no paresthesia, no weakness Psych-no depression, no anxiety Physical Exam 2 Physical Exam: General-alert and oriented x3, no fevers, no chills HEENT-head atraumatic and normocephalic, pupils equal and reactive to light, extraocular muscles intact Neck-no lymphadenopathy or thyromegaly, trachea midline Chest-bilateral rhonchi with end expiratory wheezes. Tachypnea. Cardiac-tachycardic regular rate and rhythm, normal S1 and S2 Abdomen-normal bowel sounds, nontender, no hepatosplenomegaly Extremities-no cyanosis, clubbing, or edema Neuro-cranial nerves II through XII intact, motor and sensory function within normal limits, strength symmetrical, no focal deficits Psych-normal affect, normal mood Results & Data Results & Data Vital Signs (Past 12 Hours) Vital Signs Temp Pulse Pulse Resp BP Pulse Ox O2 Del Method 02/20/23 11:44 36.8 C 84 16 114/61 93 Nebulizer 02/20/23 11:08 84 20 90 Nasal Cannula 02/20/23 08:14 37.0 C 77 16 130/80 93 High Flow Nasal Cannula 02/20/23 07:57 76 20 94 Nasal Cannula 02/20/23 07:10 76 02/20/23 03:49 37 C 83 18 120/77 92 BiPAP 02/20/23 02:00 72 23 93 O2 Flow Rate FiO2 02/20/23 11:44 02/20/23 11:08 3 02/20/23 08:14 3.5 02/20/23 07:57 4 02/20/23 07:10 02/20/23 03:49 4 02/20/23 02:00 40 Laboratory Results 02/20/23 08:59 02/20/23 08:59 PG Care Time/CCT Total # of Minutes Spent Total Time Spent with Patient: Total time spent is greater than 50% in coordination of care (as documented) at patient's floor/unit and/or counseling patient: Coding Level of Care Code 79213 SUB INP/OBS CARE 50MIN Diagnoses Acute and chronic respiratory failure with hypoxia J96.21 Pneumonia J18.9 Left-sided chest pain R07.9 Hypokalemia E87.6 Hypothyroidism E03.9 HTN (hypertension) I10 Chronic diastolic CHF (congestive heart failure) I50.32 Paroxysmal atrial tachycardia I47.1 Coumadin toxicity T45.511A
--- NOTE | 2023-02-20 15:18 | Pulmonology Progress Note ---
Date of Service February 20, 2023 Assessment & Plan (1) Multifocal pneumonia: (2) Acute and chronic respiratory failure with hypoxia: (3) Asthma: (4) Peripheral edema: (5) Restrictive lung disease due to kyphoscoliosis: (6) Sleep apnea in adult: Plan Patient with evidence of multifocal pneumonia on admission CT scan. She has predominantly bibasilar infiltrates possibly secondary to aspiration. Other possibilities include severe bibasilar atelectasis related to her severe kyphoscoliosis and elevated hemidiaphragms. The patient is chronically on 2 L of supplemental oxygen. She is currently on 3 to 4 L of oxygen. She grew Streptococcus pneumonia and Ruby from her sputum cultures. She is currently on ertapenem and doxycycline. I have discontinued her ertapenem and doxycycline. I transitioned her to clindamycin which can use to complete a total course of 7 days of antibiotics. She has a history of allergies to penicillin thus Augmentin will be avoided at this time. She may benefit from outpatient allergy and immunology evaluation. I do not think that the Ruby albicans seen on her sputum is a pathogen. This is likely a contaminant or colonizer and Diflucan can be discontinued. Will defer to the primary team. Will obtain morning ABG tomorrow to ensure that her acidosis is improving with a NIV. Continue BiPAP while in the hospital. Spirometry at bedside today reveals moderate to severe restrictive physiology. Patient reports history of obstructive sleep apnea and has been awaiting a CPAP machine, but relates that her pulmonary follow-up through [facility] has been poor at this time. She is looking to establish care with a different [facility]. Admission and Anticipated Discharge Date Admission Date: February 16, 2023 Subjective Patient seen and examined. Her is at bedside. She feels that her breathing has improved compared to last 2 days. She has been ambulating with assistance to the bathroom. She denies any shortness of breath with ambulation. Outside of that, her activity level has been very low. She denies any chest pain, fevers, chills or night sweats. Her cough is minimal at this point. She did undergo a spirometry today which revealed an FVC of 45% predicted and an FEV1 of 49% predicted. Review of Systems Review of Systems: All systems reviewed & are unremarkable except as noted in HPI & below Physical Exam Physical Exam: Constitutional: No respiratory distress HEENT: EOMI, PERRLA Respiratory system: Decreased air entry bilaterally, no rhonchi, coarse lung sounds bilaterally. CVS: S1-S2 positive, no murmurs or gallops Abdomen: Soft, nontender, nondistended, positive bowel sounds x4 Extremities: +2 pulses bilaterally radialis/ dorsalis pedis, no cyanosis, +1 pitting bilateral lower extremity Neuro: Awake alert oriented x3 Psych: Normal mood and affect G/U: No Delgado Musculoskeletal: Kyphoscoliosis Skin: no rashes, warm and dry Lymphatic: no cervical or axillary lymphadenopathy Results & Data Results & Data Vital Signs (Past 12 Hours) Vital Signs Temp Pulse Pulse Resp BP Pulse Ox O2 Del Method 02/20/23 14:48 High Flow Nasal Cannula 02/20/23 11:44 36.8 C 84 16 114/61 93 Nebulizer 02/20/23 11:08 84 20 90 Nasal Cannula 02/20/23 08:14 37.0 C 77 16 130/80 93 High Flow Nasal Cannula 02/20/23 07:57 76 20 94 Nasal Cannula 02/20/23 07:10 76 02/20/23 03:49 37 C 83 18 120/77 92 BiPAP O2 Flow Rate 02/20/23 14:48 4 02/20/23 11:44 02/20/23 11:08 3 02/20/23 08:14 3.5 02/20/23 07:57 4 02/20/23 07:10 02/20/23 03:49 4 PG Care Time/CCT Total # of Minutes Spent Total Time Spent with Patient: Total time spent is greater than 50% in coordination of care (as documented) at patient's floor/unit and/or counseling patient: Coding Level of Care Code 09585 SUB INP/OBS CARE 3/50MIN Diagnoses Multifocal pneumonia J18.9 Acute and chronic respiratory failure with hypoxia J96.21 Asthma J45.909 Peripheral edema R60.9 Restrictive lung disease due to kyphoscoliosis J98.4; M41.9 Sleep apnea in adult G47.30
[2023-02-20] MEDS: WARFARIN SOD 5 MG TAB PO SCH (15:44)
[2023-02-20 16:59] LABS: Allen Test Pos (Pos)
[2023-02-20 17:01] LABS: HCO3 ABG 27 mmol/L (19-24); Oxygen Saturation ABG 92.4 % (90-95); PCO2 ABG 40 mmHg (35-46); PO2 ABG 60 mmHg (80-95); pH ABG 7.43 (7.35-7.45)
[2023-02-20] MEDS: CLINDAMYCIN HCL 150 MG CAP PO SCH (17:27)
[2023-02-20] MEDS: ATORVASTATIN 40 MG TAB PO SCH (19:59)
[2023-02-20] MEDS: PANTOprazole 40 MG TAB PO SCH (20:00)
[2023-02-20] MEDS: NORTRIPTYLINE HCL 25 MG CAP PO SCH (20:00)
[2023-02-21] MEDS: CLINDAMYCIN HCL 150 MG CAP PO SCH ×4 (01:11→17:32)
[2023-02-21] MEDS: LEVOTHYROXINE SODIUM 112 MCG TABLET PO SCH (06:31)
[2023-02-21] MEDS: ALBUT/IPRATROP 3MG/0.5MG NEB 3 ML VIAL NEB SCH ×4 (07:36→20:18)
[2023-02-21] MEDS: SODIUM CHLOR 7% 4 ML NEB NEB SCH ×2 (07:36→20:18)
[2023-02-21] MEDS: BUDESONIDE 0.5 MG/2 ML VIAL (PULMICORT) INH SCH ×2 (07:36→20:18)
[2023-02-21] MEDS: FORMOTEROL 20 MCG/2 ML VIAL NEB SCH ×2 (07:36→20:18)
[2023-02-21] MEDS: UMECLIDINIUM BROMIDE 62.5MCG/BLISTER 7 PUFFS/INHALER INH SCH (08:15)
[2023-02-21] MEDS: SERTRALINE HCL 50 MG TABLET PO SCH (08:18)
[2023-02-21] MEDS: dilTIAZem HCL 180 MG CAPCR PO SCH (08:18)
[2023-02-21] MEDS: guaiFENesin 600 MG TABCR PO SCH ×2 (08:18→20:08)
[2023-02-21] MEDS: POTASSIUM CHLORIDE 10 MEQ TABCR PO SCH (08:20)
--- NOTE | 2023-02-21 09:31 | Pulmonology Progress Note ---
Date of Service February 21, 2023 Assessment & Plan (1) Multifocal pneumonia: (2) Acute and chronic respiratory failure with hypoxia: (3) Asthma: (4) Peripheral edema: (5) Restrictive lung disease due to kyphoscoliosis: (6) Sleep apnea in adult: Plan IMPRESSION: 77-year-old female with a history of chronic hypoxic respiratory failure on 2 L nasal cannula, severe kyphoscoliosis, and history of diagnosed sleep apnea who presented with the setting of multifocal pneumonia and respiratory failure. 1. Multifocal pneumonia - Concerning for possible aspiration given location of infiltrative findings on imaging studies. Overall, her symptoms have continued to improve with aggressive management. Complete course of clindamycin. 2. Acute on chronic hypoxic respiratory failure - Improved at this time. She is back to 3 L nasal cannula at this point. Likely in the setting of multifocal pneumonia. 3. Asthma - Uncertain as to this prior diagnosis without the benefit of pulmonary function testing, etc. Bedside spirometry performed yesterday showed more of a restrictive lung pattern likely related to her kyphoscoliosis. She can continue with her current home treatments if she is achieving clinical benefit. 4. Restrictive lung disease due to kyphoscoliosis - Again, patient would benefit from home PPV at night and with sleep given her severe kyphoscoliosis and poor ventilatory dysfunction. She does note that she felt better while wearing her CPAP at night. She can continue with current hospital settings or per her outpatient prior sleep study results. 5. Sleep apnea - Continue with treatment as above. Thank you for allowing us to participate in the care of this pleasant patient. Pulmonary medicine will sign off at this time. Please feel free to contact us directly with any further questions/concerns. Admission and Anticipated Discharge Date Admission Date: February 16, 2023 Subjective Patient seen and evaluated at bedside this morning. She reports that she is breathing much better at this time. She is down to 3 L nasal cannula. She did wear the BiPAP last night, but reports that she did have an episode where the mask became dislodged and caused discomfort to her nose. She admits that she was able to breathe much better when the mask was properly fitted. She is interested in being discharged to home on PPV. She offers no new complaints today. Review of Systems Review of Systems: A complete 10 point review of systems was reviewed with the patient with pertinent positives and negatives as per history of present illness. All else were negative. Physical Exam Physical Exam: VITAL SIGNS - Vital signs and nursing notes were reviewed. GENERAL - 77-year-old female appearing her stated age who is in no acute distress. Communicates well with provider and answers questions appropriately. LUNGS - Chest wall evaluation demonstrates severe kyphoscoliosis. Auscultation reveals decreased air entry without overt wheezing or rales appreciated. CARDIAC - RRR with S1/S2. No murmur, rubs, or gallops appreciated. PSYCH - A&Ox3 and cooperates fully with examiner. Pt is very pleasant and interacts well with examiner. Results & Data Results & Data Vital Signs (Past 12 Hours) Vital Signs Temp Pulse Pulse Resp BP Pulse Ox O2 Del Method 02/21/23 07:37 78 18 93 Nasal Cannula 02/21/23 07:31 36.5 C 72 18 125/84 94 Nasal Cannula 02/21/23 04:21 36.3 C L 76 18 151/94 H 93 BiPAP 02/21/23 04:08 67 02/21/23 02:58 72 16 96 02/21/23 01:28 BiPAP 02/20/23 23:25 36.1 C L 72 20 136/88 96 BiPAP O2 Flow Rate FiO2 02/21/23 07:37 3 02/21/23 07:31 3 02/21/23 04:21 02/21/23 04:08 02/21/23 02:58 30 02/21/23 01:28 02/20/23 23:25 PG Care Time/CCT Total # of Minutes Spent Total Time Spent with Patient: Total time spent is greater than 50% in coordination of care (as documented) at patient's floor/unit and/or counseling patient: Coding Level of Care Code 21538 SUB INP/OBS CARE 2/35MIN Diagnoses Multifocal pneumonia J18.9 Acute and chronic respiratory failure with hypoxia J96.21 Asthma J45.909 Peripheral edema R60.9 Restrictive lung disease due to kyphoscoliosis J98.4; M41.9 Sleep apnea in adult G47.30
[2023-02-21 10:38] LABS: Basophils # (auto) 0.03 K/uL (0.00-0.20); Basophils % (auto) 0.3 %; Eosinophils # (auto) 0.02 K/uL (0.00-0.50); Eosinophils % (auto) 0.2 %; Hematocrit (blood only) 36.6 % (37.0-47.0); Hemoglobin 11.5 g/dl (12.0-16.0); Immature Granulocytes # (auto) 0.19 K/uL (0.01-0.20); Lymphocytes # (auto) 2.32 K/uL (1.20-3.40); Lymphocytes % (auto) 24.9 %; Mean Corpuscular Hemoglobin 28.3 pg (25.0-34.0); Mean Corpuscular Hgb Conc 31.4 g/dL (32.0-36.0); Mean Corpuscular Volume 89.9 fL (80.0-100.0); Mean Platelet Volume 8.4 fL (9.4-12.4); Monocytes # (auto) 0.64 K/uL (0.11-0.59); Monocytes % (auto) 6.9 %; Neutrophils % (auto) 65.7 %; Platelet Count 224 K/uL (130-400); RDW Coefficient of Variation 14.6 % (11.5-14.5); RDW Standard Deviation 48.2 fL (36.4-46.3); Red Blood Count 4.07 M/uL (4.20-5.40)
[2023-02-21 11:00] LABS: Calcium 9.2 mg/dl (8.6-10.3); Est GFR (African American) 104.5 ml/min; Est GFR (Non-African American) 90.2 ml/min; Potassium 3.6 mmol/L (3.5-5.1)
[2023-02-21 11:06] LABS: Prothrombin Time 20.5 Seconds (9.0-12.0)
[2023-02-21] MEDS: WARFARIN SOD 5 MG TAB PO SCH (15:35)
--- NOTE | 2023-02-21 17:06 | Hospitalist Progress Note ---
Date of Service February 21, 2023 Assessment & Plan (1) Acute and chronic respiratory failure with hypoxia: Plan: Improving. Oxygen requirements continue to improve. She is down to 2 L/min now. Appreciate pulmonary medicine consultation and recommendations. Patient would like to go home with a BiPAP upon discharge. Asked the medical case worker to contact school librarian to set up for BiPAP. (2) Pneumonia: Plan: Bilateral infiltrate seen on CT scan. Switched from IV ertapenem and p.o. doxycycline to p.o. clindamycin Monitor INR while on p.o. clindamycin Sputum culture also grew Ruby which is thought to be a contaminant. Discontinued Diflucan. Will monitor clinically (3) Left-sided chest pain: Plan: Does not appear to be of cardiac etiology. No acute EKG changes. Telemetry. (4) Hypokalemia: Plan: Corrected with oral replacement. Serial labs (5) Hypothyroidism: Plan: Stable. Continue levothyroxine (6) HTN (hypertension): Plan: Stable. Continue current medical management (7) Chronic diastolic CHF (congestive heart failure): Plan: No acute exacerbation. Continue current medical management. Monitor intake and output (8) Paroxysmal atrial tachycardia: Plan: Stable. Continue diltiazem (9) Coumadin toxicity: Plan: INR was elevated at 4.7 on February 18. She received 1 oral dose of vitamin K and the INR came down to 1.4 on February 19 and 1.3 today, February 20. Coumadin has been restarted at 5 mg dosage. INR today 1/2 is 2. Monitor INR while on clindamycin. Plan PT/OT on board Plan is to discharge home with home health eventually Monitoring INR while on clindamycin Admission and Anticipated Discharge Date Admission Date: February 16, 2023 Subjective Patient feels well. Breathing has improved. She does not feel weak in general anymore. She worked with physical therapy today. Her IV antibiotics have been transitioned to p.o. clindamycin. Review of Systems Review of Systems: All systems reviewed & are unremarkable except as noted in Subjective Physical Exam Physical Exam: General: Awake, conversant Heart: S1, S2/regular rate and rhythm, no murmur rubs or gallops Lungs: Clear to auscultation bilaterally. Normal effort Abdomen: Soft/nontender/nondistended. No hepatosplenomegaly Extremities: No clubbing/cyanosis. No edema Behavior: Appropriate, cooperative Results & Data Results & Data Vital Signs (Past 12 Hours) Vital Signs Temp Pulse Pulse Resp BP Pulse Ox O2 Del Method 02/21/23 15:18 36.6 C 77 20 118/78 94 Nasal Cannula 02/21/23 15:13 78 18 93 Nasal Cannula 02/21/23 14:20 77 02/21/23 10:50 36.7 C 80 18 116/77 93 Nasal Cannula 02/21/23 10:35 86 18 94 Nasal Cannula 02/21/23 07:37 78 18 93 Nasal Cannula 02/21/23 07:31 36.5 C 72 18 125/84 94 Nasal Cannula 02/21/23 07:24 Nasal Cannula 02/21/23 05:58 72 O2 Flow Rate 02/21/23 15:18 2 02/21/23 15:13 3 02/21/23 14:20 02/21/23 10:50 3 02/21/23 10:35 3 02/21/23 07:37 3 02/21/23 07:31 3 02/21/23 07:24 3 02/21/23 05:58 Laboratory Results Abnormal lab results 02/20/23 02/21/23 Range/Units 16:48 09:57 RBC 4.07 L (4.20-5.40) M/uL Hgb 11.5 L (12.0-16.0) g/dl Hct 36.6 L (37.0-47.0) % MCHC 31.4 L (32.0-36.0) g/dL RDW Std Deviation 48.2 H (36.4-46.3) fL RDW Coeff of Susi 14.6 H (11.5-14.5) % MPV 8.4 L (9.4-12.4) fL [place] # (Auto) 0.64 H (0.11-0.59) K/uL PT 20.5 H (9.0-12.0) Seconds INR 2.0 H (0.9-1.1) ABG pO2 60 L (80-95) mmHg ABG HCO3 27 H (19-24) mmol/L ABG Base Excess 2.0 H (-9-1.8) mEq/L Creatinine 0.58 L (0.6-1.2) mg/dl BUN/Creatinine Ratio 31.0 H (10-20) PG Care Time/CCT Total # of Minutes Spent Total Time Spent with Patient: Total time spent is greater than 50% in coordination of care (as documented) at patient's floor/unit and/or counseling patient: Coding Level of Care Code 02836 SUB INP/OBS CARE 2/35MIN Diagnoses Acute and chronic respiratory failure with hypoxia J96.21 Pneumonia J18.9 Left-sided chest pain R07.9 Hypokalemia E87.6 Hypothyroidism E03.9 HTN (hypertension) I10 Chronic diastolic CHF (congestive heart failure) I50.32 Paroxysmal atrial tachycardia I47.1 Coumadin toxicity T45.511A
[2023-02-21] MEDS: PANTOprazole 40 MG TAB PO SCH (20:09)
[2023-02-21] MEDS: NORTRIPTYLINE HCL 25 MG CAP PO SCH (20:09)
[2023-02-21] MEDS: ATORVASTATIN 40 MG TAB PO SCH (20:10)
[2023-02-21] MEDS: POLYETHYLENE (MIRALAX) 17 GM PACK PO PRN (20:15)
[2023-02-22] MEDS: CLINDAMYCIN HCL 150 MG CAP PO SCH ×5 (01:31→23:37)
[2023-02-22] MEDS: LEVOTHYROXINE SODIUM 112 MCG TABLET PO SCH (05:50)
[2023-02-22 07:20] LABS: Basophils # (auto) 0.03 K/uL (0.00-0.20); Basophils % (auto) 0.4 %; Eosinophils # (auto) 0.15 K/uL (0.00-0.50); Eosinophils % (auto) 2.1 %; Hematocrit (blood only) 38.2 % (37.0-47.0); Hemoglobin 11.8 g/dl (12.0-16.0); Immature Granulocytes # (auto) 0.15 K/uL (0.01-0.20); Immature Granulocytes % (auto) 2.1 %; Lymphocytes # (auto) 1.95 K/uL (1.20-3.40); Lymphocytes % (auto) 27.7 %; Mean Corpuscular Hemoglobin 28.1 pg (25.0-34.0); Mean Corpuscular Hgb Conc 30.9 g/dL (32.0-36.0); Mean Platelet Volume 8.4 fL (9.4-12.4); Monocytes # (auto) 0.58 K/uL (0.11-0.59); Monocytes % (auto) 8.2 %; Neutrophils # (auto) 4.18 K/uL (1.40-6.50); Neutrophils % (auto) 59.5 %; Platelet Count 222 K/uL (130-400); RDW Coefficient of Variation 14.6 % (11.5-14.5); White Blood Count 7.04 K/ul (4.8-10.8)
[2023-02-22] MEDS: ALBUT/IPRATROP 3MG/0.5MG NEB 3 ML VIAL NEB SCH ×4 (07:24→18:09)
[2023-02-22] MEDS: FORMOTEROL 20 MCG/2 ML VIAL NEB SCH ×2 (07:26→18:09)
[2023-02-22] MEDS: BUDESONIDE 0.5 MG/2 ML VIAL (PULMICORT) INH SCH ×2 (07:26→18:09)
[2023-02-22] MEDS: SODIUM CHLOR 7% 4 ML NEB NEB SCH ×2 (07:26→18:09)
[2023-02-22 07:31] LABS: Calcium 8.3 mg/dl (8.6-10.3); Creatinine Clr Calc Pharmacy 74.7 ml/min; Est GFR (African American) 102.2 ml/min; Est GFR (Non-African American) 88.2 ml/min; Potassium 3.8 mmol/L (3.5-5.1)
[2023-02-22 07:52] LABS: INR 2.7 (0.9-1.1); Prothrombin Time 27.7 Seconds (9.0-12.0)
[2023-02-22] MEDS: SERTRALINE HCL 50 MG TABLET PO SCH (08:29)
[2023-02-22] MEDS: UMECLIDINIUM BROMIDE 62.5MCG/BLISTER 7 PUFFS/INHALER INH SCH (08:29)
[2023-02-22] MEDS: guaiFENesin 600 MG TABCR PO SCH ×2 (08:29→21:15)
[2023-02-22] MEDS: dilTIAZem HCL 180 MG CAPCR PO SCH (08:30)
[2023-02-22] MEDS: POTASSIUM CHLORIDE 10 MEQ TABCR PO SCH (08:33)
[2023-02-22] MEDS: POLYETHYLENE (MIRALAX) 17 GM PACK PO PRN (08:33)
--- NOTE | 2023-02-22 15:09 | Hospitalist Progress Note ---
Date of Service February 22, 2023 Assessment & Plan (1) Acute and chronic respiratory failure with hypoxia: Plan: Improving. Oxygen requirements continue to improve. She is down to 2-3 L/min now. Appreciate pulmonary medicine consultation and recommendations. Patient would like to go home with a BiPAP upon discharge. Asked the medical case manager to contact signs and displays sales representative to set up for BiPAP. (2) Pneumonia: Plan: Bilateral infiltrate seen on CT scan. Switched from IV ertapenem and p.o. doxycycline to p.o. clindamycin Monitor INR while on p.o. clindamycin Sputum culture also grew Ruby which is thought to be a contaminant. Discontinued Diflucan as it will interact with Coumadin. Will monitor clinically (3) Left-sided chest pain: Plan: Does not appear to be of cardiac etiology. No acute EKG changes. Telemetry. (4) Hypokalemia: Plan: Corrected with oral replacement. Serial labs (5) Hypothyroidism: Plan: Stable. Continue levothyroxine (6) HTN (hypertension): Plan: Stable. Continue current medical management (7) Chronic diastolic CHF (congestive heart failure): Plan: No acute exacerbation. Continue current medical management. Monitor intake and output (8) Paroxysmal atrial tachycardia: Plan: Stable. Continue diltiazem (9) Coumadin toxicity: Plan: INR was elevated at 4.7 on February 18. She received 1 oral dose of vitamin K and the INR came down to 1.4 on February 19 and 1.3 today, February 20. Coumadin has been restarted at 5 mg dosage. INR on 02/21 is 2. Today / INR is 2.7. Concerned that INR is rising too quickly. Monitor INR while on clindamycin. Plan PT/OT on board Plan is to discharge home with home health eventually Monitoring INR while on clindamycin Admission and Anticipated Discharge Date Admission Date: February 16, 2023 Subjective Patient feels well overall. Noted that her INR is going up quickly. 2.7 today. Review of Systems Review of Systems: All systems reviewed & are unremarkable except as noted in Subjective Physical Exam Physical Exam: General: Awake, conversant Heart: S1, S2/regular rate and rhythm, no murmur rubs or gallops Lungs: Clear to auscultation bilaterally. Normal effort Abdomen: Soft/nontender/nondistended. No hepatosplenomegaly Extremities: No clubbing/cyanosis. No edema Behavior: Appropriate, cooperative Results & Data Results & Data Vital Signs (Past 12 Hours) Vital Signs Temp Pulse Pulse Resp BP Pulse Ox O2 Del Method 02/22/23 11:32 36.8 C 82 16 119/77 94 Nebulizer 02/22/23 11:15 104 H 20 91 Nasal Cannula 02/22/23 09:00 High Flow Nasal Cannula 02/22/23 08:12 36.1 C L 86 16 131/81 93 Room Air 02/22/23 07:27 73 20 93 Nasal Cannula 02/22/23 07:00 76 02/22/23 04:03 71 02/22/23 03:07 36.2 C L 75 18 136/90 95 BiPAP O2 Flow Rate 02/22/23 11:32 02/22/23 11:15 3 02/22/23 09:00 3 02/22/23 08:12 02/22/23 07:27 3 02/22/23 07:00 02/22/23 04:03 02/22/23 03:07 PG Care Time/CCT Total # of Minutes Spent Total Time Spent with Patient: Total time spent is greater than 50% in coordination of care (as documented) at patient's floor/unit and/or counseling patient: Coding Level of Care Code 06038 SUB INP/OBS CARE 2/35MIN Diagnoses Acute and chronic respiratory failure with hypoxia J96.21 Pneumonia J18.9 Left-sided chest pain R07.9 Hypokalemia E87.6 Hypothyroidism E03.9 HTN (hypertension) I10 Chronic diastolic CHF (congestive heart failure) I50.32 Paroxysmal atrial tachycardia I47.1 Coumadin toxicity T45.511A
[2023-02-22] MEDS ORDERED: WARFARIN SOD 2 MG TAB PO SCH (16:00)
[2023-02-22] MEDS: NORTRIPTYLINE HCL 25 MG CAP PO SCH (21:15)
[2023-02-22] MEDS: PANTOprazole 40 MG TAB PO SCH (21:15)
[2023-02-22] MEDS: ATORVASTATIN 40 MG TAB PO SCH (21:16)
[2023-02-23] MEDS: LEVOTHYROXINE SODIUM 112 MCG TABLET PO SCH (06:16)
[2023-02-23] MEDS: CLINDAMYCIN HCL 150 MG CAP PO SCH ×3 (06:16→17:39)
[2023-02-23 07:14] LABS: Base Excess ABG 6.4 mEq/L (-9-1.8); HCO3 ABG 31 mmol/L (19-24); Oxygen Saturation ABG 99.3 % (90-95); PCO2 ABG 41 mmHg (35-46); PO2 ABG 101 mmHg (80-95); pH ABG 7.48 (7.35-7.45)
[2023-02-23 07:15] LABS: Allen Test Pos (Pos)
[2023-02-23] MEDS: SODIUM CHLOR 7% 4 ML NEB NEB SCH ×2 (07:43→19:52)
[2023-02-23] MEDS: ALBUT/IPRATROP 3MG/0.5MG NEB 3 ML VIAL NEB SCH ×2 (07:45→10:23)
[2023-02-23] MEDS: BUDESONIDE 0.5 MG/2 ML VIAL (PULMICORT) INH SCH ×2 (07:45→19:51)
[2023-02-23] MEDS: FORMOTEROL 20 MCG/2 ML VIAL NEB SCH ×2 (07:45→19:52)
[2023-02-23 08:53] LABS: Prothrombin Time 20.8 Seconds (9.0-12.0)
[2023-02-23] MEDS: SERTRALINE HCL 50 MG TABLET PO SCH (09:41)
[2023-02-23] MEDS: guaiFENesin 600 MG TABCR PO SCH ×2 (09:41→20:52)
[2023-02-23] MEDS: dilTIAZem HCL 180 MG CAPCR PO SCH (09:41)
[2023-02-23] MEDS: POTASSIUM CHLORIDE 10 MEQ TABCR PO SCH (09:41)
[2023-02-23] MEDS: POLYETHYLENE (MIRALAX) 17 GM PACK PO PRN (09:41)
[2023-02-23] MEDS: UMECLIDINIUM BROMIDE 62.5MCG/BLISTER 7 PUFFS/INHALER INH SCH (09:42)
[2023-02-23] MEDS ORDERED: ALBUT/IPRATROP 3MG/0.5MG NEB 3 ML VIAL NEB PRN (14:10)
--- NOTE | 2023-02-23 14:13 | Hospitalist Progress Note ---
Date of Service February 23, 2023 Assessment & Plan (1) Acute and chronic respiratory failure with hypoxia: Plan: Improving. Oxygen requirements continue to improve. She is down to 2-3 L/min now. Appreciate pulmonary medicine consultation and recommendations. Patient did not qualify for BiPAP She will need a sleep study scheduled outpatient (2) Pneumonia: Plan: Bilateral infiltrate seen on CT scan. Switched from IV ertapenem and p.o. doxycycline to p.o. clindamycin Monitor INR while on p.o. clindamycin Sputum culture also grew Ruby which is thought to be a contaminant. Discontinued Diflucan as it will interact with Coumadin. Will monitor clinically (3) Left-sided chest pain: Plan: Does not appear to be of cardiac etiology. No acute EKG changes. Telemetry. (4) Hypokalemia: Plan: Corrected with oral replacement. Serial labs (5) Hypothyroidism: Plan: Stable. Continue levothyroxine (6) HTN (hypertension): Plan: Stable. Continue current medical management (7) Chronic diastolic CHF (congestive heart failure): Plan: No acute exacerbation. Continue current medical management. Monitor intake and output (8) Paroxysmal atrial tachycardia: Plan: Stable. Continue diltiazem On Coumadin (9) Coumadin toxicity: Plan: INR was elevated at 4.7 on February 18. She received 1 oral dose of vitamin K a nd the INR came down to 1.4 on February 19 and 1.3 today, February 20. Coumadin has been restarted at 5 mg dosage. INR on 02/21 is 2. 02/22 INR is 2.7. Concerned that INR was rising too quickly. Coumadin was held on 02/22. 02/23 INR is 2. Decided to give the patient 2.5 mg of Coumadin today. Check INR in a.m. Plan PT/OT on board Plan is to discharge home with home health eventually Monitoring INR while on clindamycin Admission and Anticipated Discharge Date Admission Date: February 16, 2023 Subjective Patient states that she is feeling better overall. Breathing better. She has no new complaints. Review of Systems Review of Systems: All systems reviewed & are unremarkable except as noted in Subjective Physical Exam Physical Exam: General: Awake, conversant Heart: S1, S2/regular rate and rhythm, no murmur rubs or gallops Lungs: Clear to auscultation bilaterally. Normal effort Abdomen: Soft/nontender/nondistended. No hepatosplenomegaly Extremities: No clubbing/cyanosis. No edema Behavior: Appropriate, cooperative Results & Data Results & Data Vital Signs (Past 12 Hours) Vital Signs Temp Pulse Pulse Pulse Pulse Resp BP 02/23/23 11:25 36.6 C 90 20 109/72 02/23/23 10:25 90 20 02/23/23 08:11 36.5 C 80 20 127/79 02/23/23 07:46 86 18 02/23/23 07:14 80 02/23/23 03:21 80 02/23/23 03:13 36.8 C 82 18 133/81 Pulse Ox Pulse Ox O2 Del Method O2 Del Method O2 Flow Rate O2 Flow Rate 02/23/23 11:25 90 Nasal Cannula 2 02/23/23 10:25 91 Nasal Cannula 2 02/23/23 08:11 92 Nebulizer 02/23/23 07:46 90 Nasal Cannula 2 02/23/23 07:14 02/23/23 03:21 91 Nasal Cannula 2 02/23/23 03:13 91 Nasal Cannula 2 Laboratory Results Abnormal lab results 02/23/23 02/23/23 Range/Units 07:05 08:05 PT 20.8 H (9.0-12.0) Seconds INR 2.0 H (0.9-1.1) ABG pH 7.48 H (7.35-7.45) ABG pO2 101 H (80-95) mmHg ABG HCO3 31 H (19-24) mmol/L ABG O2 Saturation 99.3 H (90-95) % ABG Base Excess 6.4 H (-9-1.8) mEq/L PG Care Time/CCT Total # of Minutes Spent Total Time Spent with Patient: Total time spent is greater than 50% in coordination of care (as documented) at patient's floor/unit and/or counseling patient: Coding Level of Care Code 39215 SUB INP/OBS CARE 2/35MIN Diagnoses Acute and chronic respiratory failure with hypoxia J96.21 Pneumonia J18.9 Left-sided chest pain R07.9 Hypokalemia E87.6 Hypothyroidism E03.9 HTN (hypertension) I10 Chronic diastolic CHF (congestive heart failure) I50.32 Paroxysmal atrial tachycardia I47.1 Coumadin toxicity T45.511A
[2023-02-23] MEDS ORDERED: WARFARIN SOD 2.5 MG TAB PO SCH (16:00)
[2023-02-23] MEDS: ATORVASTATIN 40 MG TAB PO SCH (20:52)
[2023-02-23] MEDS: PANTOprazole 40 MG TAB PO SCH (20:52)
[2023-02-23] MEDS: NORTRIPTYLINE HCL 25 MG CAP PO SCH (20:52)
[2023-02-24] MEDS: CLINDAMYCIN HCL 150 MG CAP PO SCH ×2 (01:10→05:15)
[2023-02-24] MEDS: LEVOTHYROXINE SODIUM 112 MCG TABLET PO SCH (05:15)
[2023-02-24] MEDS: FORMOTEROL 20 MCG/2 ML VIAL NEB SCH ×2 (07:19→19:43)
[2023-02-24] MEDS: BUDESONIDE 0.5 MG/2 ML VIAL (PULMICORT) INH SCH ×2 (07:19→19:43)
[2023-02-24] MEDS: SODIUM CHLOR 7% 4 ML NEB NEB SCH ×2 (07:20→19:43)
[2023-02-24 07:47] LABS: INR 1.6 (0.9-1.1); Prothrombin Time 17.2 Seconds (9.0-12.0)
[2023-02-24] MEDS: UMECLIDINIUM BROMIDE 62.5MCG/BLISTER 7 PUFFS/INHALER INH SCH (07:49)
[2023-02-24] MEDS: dilTIAZem HCL 180 MG CAPCR PO SCH (07:50)
[2023-02-24] MEDS: guaiFENesin 600 MG TABCR PO SCH ×2 (07:50→21:29)
[2023-02-24] MEDS: SERTRALINE HCL 50 MG TABLET PO SCH (07:50)
[2023-02-24] MEDS: POTASSIUM CHLORIDE 10 MEQ TABCR PO SCH (07:52)
--- NOTE | 2023-02-24 13:40 | Hospitalist Progress Note ---
Date of Service February 24, 2023 Assessment & Plan (1) Acute and chronic respiratory failure with hypoxia: Plan: Improving. Oxygen requirements continue to improve. She is down to 2-3 L/min now. Appreciate pulmonary medicine consultation and recommendations. Patient did not qualify for BiPAP She will need a sleep study scheduled outpatient (2) Pneumonia: Plan: Bilateral infiltrate seen on CT scan. Switched from IV ertapenem and p.o. doxycycline to p.o. clindamycin I will discontinue p.o. clindamycin today 02/24 since patient has completed the course Sputum culture also grew Ruby which is thought to be a contaminant. Discontinued Diflucan as it will interact with Coumadin. Will monitor clinically (3) Left-sided chest pain: Plan: Does not appear to be of cardiac etiology. No acute EKG changes. Telemetry. (4) Hypokalemia: Plan: Corrected with oral replacement. Serial labs (5) Hypothyroidism: Plan: Stable. Continue levothyroxine (6) HTN (hypertension): Plan: Stable. Continue current medical management (7) Chronic diastolic CHF (congestive heart failure): Plan: No acute exacerbation. Continue current medical management. Monitor intake and output (8) Paroxysmal atrial tachycardia: Plan: Stable. Continue diltiazem On Coumadin (9) Coumadin toxicity: Plan: INR was elevated at 4.7 on February 18. She received 1 oral dose of vitamin K and the INR came down to 1.4 on February 19 Her INR had been going up very quickly from 1.3-2 to 2.7. Coumadin was held and the INR came down to 2 Next day she was given 2.5 mg of Coumadin and her INR went down further to 1.6 today 02/24 Plan is to give her her usual home dose of Coumadin at 5 mg daily today Recheck INR tomorrow Plan PT/OT on board Plan is to discharge home with home health eventually Monitoring INR Admission and Anticipated Discharge Date Admission Date: February 16, 2023 Subjective Patient feels well. Denies chest pain or shortness of breath. Review of Systems Review of Systems: All systems reviewed & are unremarkable except as noted in Subjective Physical Exam Physical Exam: General: Awake, conversant Heart: S1, S2/regular rate and rhythm, no murmur rubs or gallops Lungs: Clear to auscultation bilaterally. Normal effort Abdomen: Soft/nontender/nondistended. No hepatosplenomegaly Extremities: No clubbing/cyanosis. No edema Behavior: Appropriate, cooperative Results & Data Results & Data Vital Signs (Past 12 Hours) Vital Signs Temp Pulse Pulse Pulse Resp BP Pulse Ox 02/24/23 11:15 36.3 C L 80 16 132/86 91 02/24/23 09:51 02/24/23 07:52 36.4 C L 82 16 163/86 H 92 02/24/23 07:20 74 16 96 02/24/23 05:57 85 02/24/23 03:00 36.9 C 73 20 161/88 H 95 O2 Del Method O2 Flow Rate 02/24/23 11:15 Nasal Cannula 2 02/24/23 09:51 Nasal Cannula 3 02/24/23 07:52 Oxymask 02/24/23 07:20 Nasal Cannula 2 02/24/23 05:57 02/24/23 03:00 Nasal Cannula 2 Laboratory Results Abnormal lab results 02/24/23 Range/Units 06:50 PT 17.2 H (9.0-12.0) Seconds INR 1.6 H (0.9-1.1) PG Care Time/CCT Total # of Minutes Spent Total Time Spent with Patient: Total time spent is greater than 50% in coordination of care (as documented) at patient's floor/unit and/or counseling patient: Coding Level of Care Code 60049 SUB INP/OBS CARE 2/35MIN Diagnoses Acute and chronic respiratory failure with hypoxia J96.21 Pneumonia J18.9 Left-sided chest pain R07.9 Hypokalemia E87.6 Hypothyroidism E03.9 HTN (hypertension) I10 Chronic diastolic CHF (congestive heart failure) I50.32 Paroxysmal atrial tachycardia I47.1 Coumadin toxicity T45.511A
[2023-02-24] MEDS ORDERED: WARFARIN SOD 5 MG TAB PO SCH (16:00)
[2023-02-24] MEDS: ATORVASTATIN 40 MG TAB PO SCH (21:28)
[2023-02-24] MEDS: PANTOprazole 40 MG TAB PO SCH (21:28)
[2023-02-24] MEDS: NORTRIPTYLINE HCL 25 MG CAP PO SCH (21:29)
[2023-02-25] MEDS: LEVOTHYROXINE SODIUM 112 MCG TABLET PO SCH (06:28)
[2023-02-25] MEDS: BUDESONIDE 0.5 MG/2 ML VIAL (PULMICORT) INH SCH ×2 (07:33→19:20)
[2023-02-25] MEDS: SODIUM CHLOR 7% 4 ML NEB NEB SCH ×2 (07:33→19:20)
[2023-02-25] MEDS: FORMOTEROL 20 MCG/2 ML VIAL NEB SCH ×2 (07:33→19:20)
[2023-02-25 07:52] LABS: INR 1.5 (0.9-1.1); Prothrombin Time 16.1 Seconds (9.0-12.0)
[2023-02-25] MEDS: SERTRALINE HCL 50 MG TABLET PO SCH (07:56)
[2023-02-25] MEDS: dilTIAZem HCL 180 MG CAPCR PO SCH (07:56)
[2023-02-25] MEDS: guaiFENesin 600 MG TABCR PO SCH ×2 (07:57→21:58)
[2023-02-25] MEDS: POTASSIUM CHLORIDE 10 MEQ TABCR PO SCH (07:59)
[2023-02-25] MEDS: UMECLIDINIUM BROMIDE 62.5MCG/BLISTER 7 PUFFS/INHALER INH SCH (08:15)
--- NOTE | 2023-02-25 15:18 | Hospitalist Progress Note ---
Date of Service February 25, 2023 Assessment & Plan (1) Acute and chronic respiratory failure with hypoxia: Plan: Improving. Oxygen requirements continue to improve. She is down to 2-3 L/min now. Appreciate pulmonary medicine consultation and recommendations. Patient did not qualify for BiPAP She will need a sleep study scheduled outpatient (2) Pneumonia: Plan: Bilateral infiltrate seen on CT scan. Switched from IV ertapenem and p.o. doxycycline to p.o. clindamycin Completed the course of clindamycin on 02/24 Sputum culture also grew Ruby which is thought to be a contaminant. Discontinued Diflucan as it will interact with Coumadin. Will monitor clinically (3) Left-sided chest pain: Plan: Does not appear to be of cardiac etiology. No acute EKG changes. Telemetry. (4) Hypokalemia: Plan: Corrected with oral replacement. (5) Hypothyroidism: Plan: Stable. Continue levothyroxine (6) HTN (hypertension): Plan: Stable. Continue current medical management (7) Chronic diastolic CHF (congestive heart failure): Plan: No acute exacerbation. Continue current medical management. Monitor intake and output (8) Paroxysmal atrial tachycardia: Plan: Stable. Continue diltiazem On Coumadin (9) Coumadin toxicity: Plan: INR was elevated at 4.7 on February 18. She received 1 oral dose of vitamin K and the INR came down to 1.4 on February 19 Her INR had been going up very quickly from 1.3-2 to 2.7. Coumadin was held and the INR came down to 2 Next day she was given 2.5 mg of Coumadin and her INR went down further to 1.6 on 02/24 She was given her usual home dose of Coumadin at 5 mg on 02/24 and today her INR is 1.5 today Will increase the dose to 10 mg Coumadin today. Will recheck INR tomorrow Plan PT/OT on board Plan is to discharge home with home health eventually when INR has stabilized Admission and Anticipated Discharge Date Admission Date: February 16, 2023 Subjective Patient feels well. Denies chest pain or shortness of breath. Cough is improving. Review of Systems Review of Systems: All systems reviewed & are unremarkable except as noted in Subjective Physical Exam Physical Exam: General: Awake, conversant Heart: S1, S2/regular rate and rhythm, no murmur rubs or gallops Lungs: Clear to auscultation bilaterally. Normal effort Abdomen: Soft/nontender/nondistended. No hepatosplenomegaly Extremities: No clubbing/cyanosis. No edema Behavior: Appropriate, cooperative Results & Data Results & Data Vital Signs (Past 12 Hours) Vital Signs Temp Pulse Pulse Resp BP Pulse Ox O2 Del Method 02/25/23 12:02 36.8 C 86 16 108/73 90 Nasal Cannula 02/25/23 09:00 69 02/25/23 09:00 Nasal Cannula 02/25/23 07:53 36.6 C 76 16 122/80 92 Nebulizer 02/25/23 07:33 71 18 91 Nasal Cannula O2 Flow Rate 02/25/23 12:02 2 02/25/23 09:00 02/25/23 09:00 2 02/25/23 07:53 02/25/23 07:33 2 Laboratory Results Abnormal lab results 02/25/23 Range/Units 05:49 PT 16.1 H (9.0-12.0) Seconds INR 1.5 H (0.9-1.1) PG Care Time/CCT Total # of Minutes Spent Total Time Spent with Patient: Total time spent is greater than 50% in coordination of care (as documented) at patient's floor/unit and/or counseling patient: Coding Level of Care Code 32440 SUB INP/OBS CARE 2/35MIN Diagnoses Acute and chronic respiratory failure with hypoxia J96.21 Pneumonia J18.9 Left-sided chest pain R07.9 Hypokalemia E87.6 Hypothyroidism E03.9 HTN (hypertension) I10 Chronic diastolic CHF (congestive heart failure) I50.32 Paroxysmal atrial tachycardia I47.1 Coumadin toxicity T45.511A
[2023-02-25] MEDS ORDERED: WARFARIN SOD 10 MG TAB PO ONE (16:00)
[2023-02-25] MEDS: NORTRIPTYLINE HCL 25 MG CAP PO SCH (21:56)
[2023-02-25] MEDS: ATORVASTATIN 40 MG TAB PO SCH (21:57)
[2023-02-25] MEDS: PANTOprazole 40 MG TAB PO SCH (21:57)
[2023-02-26] MEDS: LEVOTHYROXINE SODIUM 112 MCG TABLET PO SCH (05:49)
[2023-02-26] MEDS: SODIUM CHLOR 7% 4 ML NEB NEB SCH (07:39)
[2023-02-26] MEDS: BUDESONIDE 0.5 MG/2 ML VIAL (PULMICORT) INH SCH (07:40)
[2023-02-26] MEDS: FORMOTEROL 20 MCG/2 ML VIAL NEB SCH (07:40)
[2023-02-26 07:47] LABS: INR 1.9 (0.9-1.1); Prothrombin Time 19.8 Seconds (9.0-12.0)
[2023-02-26] MEDS: guaiFENesin 600 MG TABCR PO SCH (08:15)
[2023-02-26] MEDS: SERTRALINE HCL 50 MG TABLET PO SCH (08:15)
--- NOTE | 2023-02-26 10:12 | Discharge Summary ---
Date of Service February 26, 2023 Admission HPI Per Admitting Provider Dayna is a 77 year old female with a PMH significant for previous chronic hypoxic respiratory failure on baseline 2L NC, CVA due to PFO on Warfarin, COPD, HTN, Dyslipidemia, hypothyroidism, anxiety/depression, and HFpEF who presented to the [facility] ED from her PCPs office for fever, cough, increased O2 requirements, and generalized weakness. She was noted to be hypoxic at 86% on her baseline 2L NC and had to be titrated up to 6L, tachyardic at 104 and otherwise stable. Labs were significant for a leukocytosis of 12 with neutrophil predominance of 10, potassium of 3.2, and full respiratory biofire in process. Chest xray was read as 1. Cardiomegaly with pulmonary vascular congestion. 2. Ill-defined 3.8 cm opacity projected over the lateral left midlung may be secondary to artifact versus airspace disease. Attention at follow-up recommended. 3. Hiatal hernia.. CT of the abd/pelvis wo con was read as 1. 3.3 cm lingular airspace opacity, partially imaged on this exam. This is suggestive of pneumonia. A follow-up chest CT in one month to ensure resolution is recommended. Left lower lobe opacity adjacent to a moderate sized hiatal hernia could reflect pneumonia superimposed upon atelectasis. 2. No acute process within the abdomen or pelvis on unenhanced exam. No bowel obstruction. Colonic diverticulosis without evidence for acute diverticulitis. 3. Stable moderate elevation of the right hemidiaphragm.. Prior to admission the patient was given 1L NSS, and 4 mg IV Zofran, and a dose of cefepime. At the time of the exam the patient was sitting in bed and appears uncomfortable with her and daughter bedside. They state that she had an acute onset of generalized weakness, increased cough, SOB, and wheezing this am. They state that she was essentially in her normal state of health yesterday. Because of this she was seen at her PCP's office and sent to the ED due to concerns of pneumonia. They report that the patient was febrile at the PCP's office. The patient is on 2L NC at baseline and does not use HS CPAP. She is currently complaining of left lateral chest pain, exacerbated with coughing or moving. She has been producing yellow-green mucus today. She did vomit on arrival to the ED but does not think that she aspirated. Denies dysuria, hematuria, melena, diarrhea, LE swelling, and recent trauma. She is a full code and her would make medical decisions for her if she cannot make them herself. Please refer to Dr. Alcazar's attestation for any changes to the treatement plan Admission Exam Per Admitting Provider General: In mild distress due to pain, stated age, chronically ill appearing but non-toxic HEENT: Normocephalic, atraumatic, no scleral icterus, pupils around round, symmetrical, and reactive to light, dry mucus membranes, trachea midline, no thyromegaly Chest/Pulm: No respiratory distress, symmetrical chest expansion, scattered rhonchi and expiratory wheezing throughout Cardiac: RRR, no murmurs noted Abdomen: Negative for ascites and bruising, normoactive bowel sounds, soft, non- tender to palpation throughout Musculoskeletal: Significantly reproducible pain with palpation of the left lateral chest, Symmetrical and without signs of acute trauma, upper and lower extremities with full ROM, no atrophy, spasticity, or flaccidity Extremities: Radial, dorsalis pedis, and posterior tibial pulses are intact and symmetrical, no edema noted in the BL LE's Skin: Warm, dry, no rashes , lesions, or scars noted Neuro: Alert and oriented to person, place, month, year, and president, no focal defects, no tremors noted Psych: No acute distress, calm and cooperative during the exam Principal Diagnosis Multifocal pneumonia Acute on chronic respiratory failure with hypoxia Restrictive lung disease due to kyphoscoliosis Sleep apnea Discharge Exam General: Awake, conversant Heart: S1, S2/regular rate and rhythm, no murmur rubs or gallops Lungs: Clear to auscultation bilaterally. Normal effort Abdomen: Soft/nontender/nondistended. No hepatosplenomegaly Extremities: No clubbing/cyanosis. No edema Behavior: Appropriate, cooperative Discharge Data Allergies Allergy/AdvReac Type Severity Reaction Status Date / Time caramel Allergy Severe Difficulty Verified 02/16/23 09:54 Breathing Iodinated Contrast Media Allergy Severe "couldn't Verified 02/16/23 09:54 breathe and really bad rash" iodine Allergy Severe "couldn't Verified 02/16/23 09:54 breathe and really bad rash" nickel Allergy Severe " open Verified 02/16/23 09:54 sores" Penicillins Allergy Severe shortness Verified 02/16/23 09:54 of breath promethazine Allergy Severe "couldn't Verified 02/16/23 09:54 breathe" red (food color) Allergy Severe "problems Verified 02/16/23 09:54 breathing" Sulfa (Sulfonamide Allergy Severe facial Verified 02/16/23 09:54 Antibiotics) swelling adhesive tape Allergy Intermediate skin Verified 02/16/23 09:54 irritation and redness levofloxacin Allergy Intermediate HIVES, LEG Verified 02/16/23 09:54 PAIN tramadol Allergy Intermediate hallucinati Verified 02/16/23 09:54 ons cephalexin Allergy Mild Rash Verified 02/16/23 09:54 house dust Allergy Mild "sniffles/watery Verified 02/16/23 09:54 eyes" ragweed pollen Allergy Mild "sniffles" Verified 02/16/23 09:54 ciprofloxacin AdvReac Severe stomach Verified 02/16/23 09:54 pain azithromycin [From Zithromax] AdvReac Mild Rash Verified 02/16/23 09:54 Consultations 02/16/23 14:22 ED Decision to Admit Stat 02/16/23 19:27 Consult Pulmonology Routine Ordered Studies 02/16/23 12:31 CT abd pelvis wo con Stat 02/16/23 14:46 CT chest diagnostic wo con Stat Hospital Course (1) Acute and chronic respiratory failure with hypoxia: Improving. Oxygen requirements continue to improve. She is down to her baselin e O2 needs at 2 L/min.. Appreciate pulmonary medicine consultation and recommendations. Patient did not qualify for BiPAP She will need a sleep study scheduled outpatient (2) Pneumonia: Bilateral infiltrate seen on CT scan. Switched from IV ertapenem and p.o. doxycycline to p.o. clindamycin Completed the course of clindamycin on 02/24 Sputum culture also grew Ruby which is thought to be a contaminant. Discontinued Diflucan as it would interact with Coumadin. Will monitor clinically (3) Left-sided chest pain: Does not appear to be of cardiac etiology. No acute EKG changes. Telemetry. (4) Hypokalemia: Corrected with oral replacement. (5) Hypothyroidism: Stable. Continue levothyroxine (6) HTN (hypertension): Stable. Continue current medical management (7) Chronic diastolic CHF (congestive heart failure): No acute exacerbation. Continue current medical management. Monitor intake and output (8) Paroxysmal atrial tachycardia: Stable. Continue diltiazem On Coumadin (9) Coumadin toxicity: INR was elevated at 4.7 on February 18. She received 1 oral dose of vitamin K and the INR came down to 1.4 on February 19 Her INR had been going up very quickly from 1.3-2 to 2.7. Her INR during this hospital course was quite erratic probably due to drug interactions with different antibiotics and particularly fluconazole. She is now off of all antibiotics as she completed the course and the fluconazole has been discontinued She was given 10 mg of Coumadin (double her home dose) last evening and her INR is nearly therapeutic at 1.9 today She will be discharged on her usual home dose of Coumadin of 5 mg She checks her INR using a monitor at home and she calls Dr. Hearn's office for management of her Coumadin She has been advised to maintain that in the next few days as her INR is still not stable and therapeutic. Plan Discharge to home today Total Time Total Time Spent Total Time Spent (In Minutes): 35 Discharge Plan Discharge Items Patient Disposition: Home - Home Health Services Reason For Visit: GENERALIZED WEAKNESS, HYPOXIA, PNEUMONIA, LOW K+ Discharge Diagnosis: Multifocal pneumonia Acute on chronic respiratory failure with hypoxia Restrictive lung disease due to kyphoscoliosis Sleep apnea Activity: Resume your previous activity Non-emergency contact: Primary Care Provider Call non-emergency contact if: you have any medication questions and your symptoms worsen Follow-up/Referrals: Lary Cohn CRNP [Primary Care Provider] - 03/03/23 10:30 am Diet: Heart Healthy Addtl Attending Provider Instructions: Advised to follow-up with PCP in 1 week Advised to follow-up with Coumadin clinic Advised to note that you will need a sleep study done outpatient Pending Studies at Discharge: No Stand-Alone Forms: My [facility] [employer] Medications and DC Order Prescriptions: Continued fluticasone propion-salmeterol 500-50 mcg/dose blister with device 1 ea Inhalation BID Qty: 180 3RF sertraline 50 mg tablet 50 mg PO QAM Qty: 90 3RF Rx Instructions: Placed on file till needed diltiazem HCl 180 mg capsule,extended release 24hr 180 mg PO QAM Qty: 90 3RF metronidazole 250 mg tablet 250 mg PO QPM Qty: 90 3RF furosemide 20 mg tablet 40 mg PO QAM Qty: 180 1RF potassium chloride [Klor-Con 10] 10 mEq tablet extended release 10 meq PO QAM Qty: 90 3RF triamcinolone acetonide 0.1 % cream 1 applic topical BID Qty: 15 0RF atorvastatin [Lipitor] 40 mg tablet 40 mg PO QPM Qty: 90 3RF nortriptyline 75 mg capsule 75 mg PO QPM Qty: 90 3RF Rx Instructions: Placed on file till needed omeprazole 20 mg capsule,delayed release(DR/EC) 40 mg PO HS Qty: 180 3RF clindamycin phosphate 1 % solution 1 applic topical BID PRN (Reason: Skin Irritation) polyethylene glycol 3350 [Miralax] 17 gram Powder In Packet 17 g PO BID loratadine [Claritin] 10 mg Tablet 10 mg PO QAM Saline Nasal 0.65 % Aerosol,Madison 1 spray INTRANASAL HS Systane Balance 0.6 % Drops 1 drp OPB BID guaifenesin [Mucinex] 600 mg Tablet Extended Release 12hr 600 mg PO Q12H [facility] 50 mg-15 unit- 4.5 mg-2.5 mg Tablet,Chewable 1 tab PO QAM calcium carbonate 500 mg calcium (1,250 mg) Tablet 500 mg PO QPM levothyroxine 112 mcg tablet 112 mcg PO QAM acidophilus-pectin, citrus 100 million cell-10 mg Capsule 1 cap PO QAM warfarin 5 mg tablet 2.5 - 5 mg PO DIRECTED Protocol: Dose Management Condition: Monday Dose/Route: 5 mg Instruction: 1 x 5 mg tablet Condition: Monday Dose/Route: 5 mg Instruction: 1 x 5 mg tablet Condition: Monday Dose/Route: 5 mg Instruction: 1 x 5 mg tablet Condition: Monday Dose/Route: 5 mg Instruction: 1 x 5 mg tablet Condition: Dose/Route: 5 mg Instruction: 1 x 5 mg tablet Condition: Monday Dose/Route: 5 mg Instruction: 1 x 5 mg tablet Condition: Monday Dose/Route: 5 mg Instruction: 1 x 5 mg tablet Protocol Text: Adjustment Start Date: 02/02/23 INR Value: 2.2 INR Date: 02/02/23 Recheck Date: 02/16/23 Rx Instructions: as directed by anticoagulation clinic budesonide 0.5 mg/2 mL suspension for nebulization 0.5 mg INHALATION BID levalbuterol HCl 1.25 mg/3 mL solution for nebulization 1.25 mg inhalation BID acetaminophen 650 mg Tablet Extended Release 1,300 mg PO BID cholecalciferol (vitamin D3) [Vitamin D3] 125 mcg (5,000 unit) Tablet 125 mcg PO QAM Discharge Orders: Discharge Order (Routine); Ordered 02/26/23 Ordered By: Belgica Fernando Admission Data Admit Date/Time: 02/16/23 14:17 Attending Provider: Belgica Fernando Admit Provider: Real Alcazar Primary Care Provider: Lary Cohn Other Providers: Real Alcazar; Octavio Martinez; Mans[facility] Other Interventions: Discharge Summary Assessment (RN) Last Done: 02/26/23 11:19 Coding Level of Care Code 91241 INP/OBS DISCH >30 MIN Diagnoses Acute and chronic respiratory failure with hypoxia J96.21 Pneumonia J18.9 Left-sided chest pain R07.9 Hypokalemia E87.6 Hypothyroidism E03.9 HTN (hypertension) I10 Chronic diastolic CHF (congestive heart failure) I50.32 Paroxysmal atrial tachycardia I47.1 Coumadin toxicity T45.511A
--- NOTE | 2023-03-02 09:38 | Coding Query ---
CODING QUERY To promote full compliance with coding requirements relating to patient care, provider participation is requested in all cases of production operations manager uncertainty. Please assist us with the question(s) below: Coding Question(s): Multifocal Pneumonia is documented in the record, and there is documentation, as on the 02/20 Pulmonary Progress Note of, "Patient with evidence of multifocal pneumonia on admission CT scan. She has predominantly bibasilar infiltrates possibly secondary to aspiration. Other possibilities include severe bibasilar atelectasis related to her severe kyphoscoliosis and elevated hemidiaphragms. The patient is chronically on 2 L of supplemental oxygen. She is currently on 3 to 4 L of oxygen. She grew Streptococcus pneumonia and Ruby from her sputum cultures. She is currently on ertapenem and doxycycline. I have discontinued her ertapenem and doxycycline. I transitioned her to clindamycin which can use to complete a total course of 7 days of antibiotics. She has a history of allergies to penicillin thus Augmentin will be avoided at this time. She may benefit from outpatient allergy and immunology evaluation. I do not think that the Ruby albicans seen on her sputum is a pathogen. This is likely a contaminant or colonizer and Diflucan can be discontinued. Will defer to the primary team.". Please specify below, in your clinical opinion, regarding Multifocal Pneumonia: ( x ) Multifocal Pneumonia is possible Streptococcus Pneumonia and possible Aspiration Pneumonia ( ) Multifocal Pneumonia is possible Streptococcus Pneumonia ( ) Multifocal Pneumonia is Other: Please Specify ( ) Multifocal Pneumonia is Unspecified Physician's Response(s): Thank you Nena Quach Principal Diagnosis: "that condition established after study, to be chiefly responsible for occasioning the admission of the patient to the hospital for care." Co-Existing Principal Diagnosis: "when two or more diagnoses equally meet the criteria for principal diagnosis as determined by the circumstances of admission, diagnostic work up, and/or therapy provided, and the Alphabetic Index, Tabular List, or another coding guideline does not provide sequencing direction, any one of the diagnoses may be sequenced first." "When the physician has documented what appears to be a current diagnosis in the body of the record, but has not included the diagnosis in the final diagnostic statement, the physician should be asked whether the diagnosis should be added." (Source Coding [facility] 2 QTR90. p3-4) MTDD
== END 2023-02-26 12:01 | disposition home health service (06) | DRG 177 ==
LOC: ED 11:49 → EDINP 14:17 → SUATTDRO 14:17 → 2N 02-17 17:40

== ENCOUNTER 2024-05-07 23:11 | Inpatient (IN) ==
[2024-05-07] MEDS: ONDANSETRON INJ 2 MG/ML 2 ML VIAL IV STA (23:58)
[2024-05-07] MEDS: SODIUM CHLORIDE 0.9% 1,000 ML IV ONE (23:58)
[2024-05-07] MEDS: PANTOprazole 40 MG/10 ML SYR IV ONE (23:58)
[2024-05-08 00:19] LABS: Basophils # (auto) 0.01 K/uL (0.00-0.20); Basophils % (auto) 0.2 %; Eosinophils # (auto) 0.02 K/uL (0.00-0.50); Eosinophils % (auto) 0.3 %; Hematocrit (blood only) 39.5 % (37.0-47.0); Hemoglobin 12.1 g/dl (12.0-16.0); Immature Granulocytes # (auto) 0.03 K/uL (0.01-0.20); Immature Granulocytes % (auto) 0.5 %; Lymphocytes # (auto) 0.96 K/uL (1.20-3.40); Lymphocytes % (auto) 15.2 %; Mean Corpuscular Hemoglobin 27.8 pg (25.0-34.0); Mean Corpuscular Hgb Conc 30.6 g/dL (32.0-36.0); Mean Corpuscular Volume 90.6 fL (80.0-100.0); Mean Platelet Volume 8.8 fL (9.4-12.4); Monocytes # (auto) 0.46 K/uL (0.11-0.59); Monocytes % (auto) 7.3 %; Neutrophils # (auto) 4.82 K/uL (1.40-6.50); Neutrophils % (auto) 76.5 %; Platelet Count 166 K/uL (130-400); RDW Coefficient of Variation 15.6 % (11.5-14.5); RDW Standard Deviation 51.9 fL (36.4-46.3); Red Blood Count 4.36 M/uL (4.20-5.40)
[2024-05-08 00:25] LABS: Albumin Globulin Ratio 1.5 (0.9-2); BUN Creatinine Ratio 51.6 (10-20); Bilirubin,Total 0.3 mg/dl (0.2-1.0); Calcium 8.8 mg/dl (8.6-10.3); Creatinine Clr Calc Pharmacy 46.7 ml/min; Globulin 2.6 gm/dl (2.5-4.0); Potassium 4.2 mmol/L (3.5-5.1); Total Protein 6.6 gm/dl (6.0-8.3)
[2024-05-08 00:32] LABS: Troponin I High Sensitivity 5.6 pg/ml (0-14)
[2024-05-08 00:53] LABS: Prothrombin Time 47.2 Seconds (9.0-12.0)
--- NOTE | 2024-05-08 02:13 | History & Physical Report ---
Date of Service May 08, 2024 Assessment & Plan (1) Norovirus: Plan: (2) Paroxysmal atrial tachycardia: (3) Sleep apnea: (4) HTN (hypertension): (5) GERD (gastroesophageal reflux disease): (6) Hyperlipidemia: Plan 78-year-old female With history of hypertension, GERD, hyperlipidemia, heart failure with preserved EF, on Coumadin anticoagulation presenting with several days of nausea, vomiting and diarrhea. Patient hypotensive upon arrival to the ER now improved following IV fluids. Likely secondary to norovirus as patient's family has been sick with this all week. Stool PCR has been sent and is pend ing. #NorovirusPresumed. Awaiting PCR results for formal diagnosis. Patient's family has been sick this week with confirmed norovirus Observation to medical Maintain isolation precautions Gentle IV fluids with LR at 100 mL/h Monitor electrolytes and replete as neededcheck magnesium and phosphorus Tylenol as needed for pain or fever Zofran as needed for nausea #Paroxysmal atrial tachycardia with known PFOpatient is on prophylactic Coumadin. Supratherapeutic INR of 5. No evidence of active bleeding Will hold Coumadin Repeat INR in the morning #Sleep apneapatient compliant with home BiPAP with supplemental oxygen BiPAP nightly #hypertensionpatient came in hypotensive in the setting of nausea, vomiting, diarrhea and poor oral intake. Blood pressure has improved after IV fluids. Will hold diltiazem for now and continue to monitor blood pressure #GERD Protonix 40 mg IV daily #Hyperlipidemia Continue atorvastatin #Chronic hypoxic respiratory failure on home oxygen Continue home nebulizer treatments, albuterol, Mucomyst, budesonide, fluticasone, Breo Ellipta Continue guaifenesin twice daily Continue supplemental oxygen #Mental health Continue sertraline 50 mg p.o. every morning F/E/NLR 100 mL/h, monitor electrolytes replete as needed, regular diet as tolerated Prophylaxispatient on Coumadin with supratherapeutic INR. Holding for now and repeat INR in the morning Codefull Dispositionobservation to medical History of Present Illness Chief Complaint: Nausea, vomiting, diarrhea Primary Care Provider: TREY Warren Dayna Thomas Is a pleasant 78-year-old female with history of hypertension, prior stroke, heart failure, NESTOR and chronic respiratory failure with hypoxia on home oxygen of 2 L presenting with several days of nausea, vomiting and diarrhea. Patient lives with family who has been sick with the norovirus this week. On 05/06/2024 around 21: 00 patient began vomiting. She had multiple episodes of nonbloody, nonbilious vomiting. It is yesterday around 16: 00 she developed profuse, watery diarrhea. No blood noted in the diarrhea. This evening patient had worsening of her diarrhea which prompted her family to bring her to the ER.Patient reports that she feels very weak. She has been drinking electrolyte drinks to try to stay hydrated. No additional complaints at this time. Upon arrival to the ER patient hypotensive with blood pressure of 84/58. Blood pressure improved after 1 L normal saline. ER course: Zofran 4 mg IV Protonix [id number] Normal saline x 1 L Allergies Allergy/AdvReac Type Severity Reaction Status Date / Time caramel Allergy Severe Difficulty Verified 05/08/24 01:38 Breathing Iodinated Contrast Media Allergy Severe "couldn't Verified 05/08/24 01:38 breathe and really bad rash" iodine Allergy Severe "couldn't Verified 05/08/24 01:38 breathe and really bad rash" promethazine Allergy Severe "couldn't Verified 05/08/24 01:38 breathe" red (food color) Allergy Severe "problems Verified 05/08/24 01:38 breathing" adhesive tape Allergy Intermediate skin Verified 05/08/24 01:38 irritation and redness levofloxacin Allergy Intermediate HIVES, LEG Verified 05/08/24 01:38 PAIN nickel Allergy Intermediate " open Verified 05/08/24 01:38 sores" azithromycin [From Zithromax] Allergy Mild Rash Verified 05/08/24 01:38 cephalexin Allergy Mild Rash Verified 05/08/24 01:38 denosumab [From Prolia] Allergy Mild pin point Verified 05/08/24 01:38 rash on lower extremities house dust Allergy Mild "sniffles/watery Verified 05/08/24 01:38 eyes" ragweed pollen Allergy Mild "sniffles" Verified 05/08/24 01:38 ciprofloxacin AdvReac Severe stomach Verified 05/08/24 01:38 pain tramadol AdvReac Intermediate hallucinati Verified 05/08/24 01:38 ons prednisone AdvReac Mild Blurry Verified 05/08/24 01:38 Vision Home Medications Medication Instructions Recorded Confirmed Type guaifenesin 600 mg tablet, 600 mg PO Q12H 03/30/18 05/08/24 History extended release 12 hr (Mucinex) loratadine 10 mg tablet (Claritin) 10 mg PO QAM 03/30/18 05/08/24 History polyethylene glycol 3350 17 gram 17 g PO BID 03/30/18 05/08/24 History oral powder packet (Miralax) propylene glycol 0.6 % eye drops 1 drp OPB BID 03/30/18 05/08/24 History (Systane Balance) sodium chloride 0.65 % nasal spray 1 spray intranasal HS 03/30/18 05/08/24 History aerosol (Saline Nasal) vit C 50 mg-E 15 unit-zinc cit 4.5 1 tab PO QAM 03/30/18 05/08/24 History mg-lutein 2.5 mg-zeaxan chew tablet (Ocuvite Eye Health) calcium carbonate 500 mg PO QPM 03/08/21 05/08/24 History acetaminophen 650 mg 1,300 mg PO BID 03/25/21 05/08/24 History tablet,extended release cholecalciferol (vitamin D3) 125 125 mcg PO QAM 03/25/21 05/08/24 History mcg (5,000 unit) tablet (Vitamin D3) clindamycin phosphate 1 % topical 1 applic topical BID PRN Skin 06/14/22 05/08/24 History solution Irritation acidophilus 100 million 1 cap PO QAM 08/30/22 05/08/24 History cell-pectin, citrus 10 mg capsule triamcinolone acetonide 0.1 % 1 applic topical BID PRN rash #15 02/27/23 05/08/24 Rx topical cream grams portable air concentrator #1 ea 05/25/23 04/12/24 Rx sertraline 50 mg tablet 50 mg PO QAM #90 tabs 05/29/23 05/08/24 Rx diltiazem HCl 180 mg 180 mg PO QAM #90 caps 06/05/23 05/08/24 Rx capsule,extended release 24 hr fluticasone furoate 100 1 inh inhalation DAILY #30 ea 07/21/23 05/08/24 Rx mcg/actuation blister powder for inhalation (Arnuity Ellipta) BiPap Machine #1 ea 07/25/23 04/12/24 Rx levothyroxine 125 mcg tablet 125 mcg PO DAILY #90 tabs 08/10/23 05/08/24 Rx levalbuterol HCl 1.25 mg/3 mL 1.25 mg (3 mL) inhalation TID 08/17/23 05/08/24 Rx solution for nebulization shortness of breath or wheezing #90 mL metronidazole 250 mg tablet 250 mg PO QPM rosacea maintanence 08/25/23 05/08/24 Rx #90 tabs potassium chloride 10 mEq 10 meq PO QAM #90 tabs 09/25/23 05/08/24 Rx tablet,extended release (Klor-Con) warfarin 5 mg tablet 2.5 - 5 mg PO DIRECTED #90 tabs 10/30/23 05/08/24 Rx furosemide 20 mg tablet 40 mg (2 x 20 mg) PO QAM edema 12/21/23 05/08/24 Rx #180 tabs albuterol sulfate 2.5 mg/3 mL 2.5 mg (3 mL) inhalation Q4H PRN 02/01/24 05/08/24 Rx (0.083 %) solution for nebulization shortness of breath or wheezing #180 mL budesonide 0.5 mg/2 mL suspension 0.5 mg (2 mL) inhalation BID #60 mL 02/01/24 05/08/24 Rx for nebulization nebulizer tubing, chamber and #1 ea 02/01/24 04/12/24 Rx mouth piece nortriptyline 75 mg capsule 75 mg PO QPM #90 caps 02/01/24 05/08/24 Rx atorvastatin 40 mg tablet (Lipitor) 40 mg PO QPM #90 tabs 02/28/24 05/08/24 Rx fluticasone furoate 100 1 inh inhalation DAILY #60 ea 03/25/24 05/08/24 Rx mcg-vilanterol 25 mcg/dose inhalation powder (Breo Ellipta) levofloxacin 250 mg tablet See Rx Instructions PO .COMPLEX #3 04/04/24 05/08/24 Rx tabs acetylcysteine 200 mg/mL (20 %) 5 ml inhalation QID PRN mucous #90 04/11/24 05/08/24 Rx solution mL nystatin 100,000 unit/gram topical 1 applic topical BID #15 grams 04/11/24 05/08/24 Rx cream omeprazole 20 mg capsule,delayed 40 mg (2 x 20 mg) PO HS #180 caps 04/30/24 05/08/24 Rx release ondansetron HCl 4 mg tablet 4 mg PO Q8H PRN nausea and 05/07/24 05/08/24 Rx vomiting #20 tabs Past Med/Surg History Problem List (Updated 05/08/24 @ 02:10 by Regina Ward DO) Norovirus Ascending aorta dilatation Pulmonary hypertension Last echo 08/13 stable Lower extremity edema (HFpEF) heart failure with preserved ejection fraction Nocturnal hypoxemia Drug-induced skin rash Osteoporosis Sleep apnea on nocturnal BiPAP Hypothyroidism (Chronic) HTN (hypertension) (Chronic) Allergic rhinitis (Chronic) Common migraine without aura (Acute) Anxiety (Chronic) Peripheral edema (Acute) History of CVA (cerebrovascular accident) Status post right hip replacement (~09/2020) Pre-diabetes Paroxysmal atrial tachycardia Low back pain History of diverticulitis June 2022 treated with abx Hypokalemia Restrictive lung disease due to kyphoscoliosis followed by [facility], on oxygen 12/09 Chronic respiratory failure with hypoxia, on home O2 therapy followed by [facility] pulmonology On anticoagulant therapy on warfarin daily Rosacea (Acute) Poor peripheral circulation (Acute) Scoliosis Asthma most recent flare up r/t the [place] smoke over the last month. uses advair BID and nebulizer treatments daily PFO (patent foramen ovale) Follows with Dr. Hearn- medically controlled. On prophylactic Coumadin. Did follow with cardiovascular surgery in the past per records to discuss closure of PFO- but unable to do closure secondary to nickel allergy- pt stable Hyperlipidemia GERD (gastroesophageal reflux disease) Well controlled and stable with med Depression (Chronic) Migraine (Chronic) Medical History (Updated 05/08/24 @ 02:10 by Regina Ward DO) Pre-diabetes monitoring On home oxygen therapy 2lpm via n/c continuous Hx of diverticulitis of colon treated at [facility] in June 2022 inpatient for 2-3 days. Breath shortness 2lpm via n/c continuous. Hx of esophageal varices Noted incidentally by GI during EGD per patient Longstanding history per PCP note- no hx of liver disease or alcoholism. No current issues History of COVID-19 07/2019 - No symptoms with exception to residual voice hoarseness Basilar artery stenosis History of per patient- pt states more recent testing showed no issues No significant issues noted per 08/03/20 PCP note Osteoarthritis Chronic back pain CVA (cerebrovascular accident) x4 (most recent 2013) - reason for Warfarin Mild residual drooping to left side of mouth Surgical History History of hip replacement right AREN (2020) History of hysterectomy History of dilatation and curettage History of bilateral tubal ligation History of esophagogastroduodenoscopy (EGD) History of colonoscopy with polypectomy History of tooth extraction History of bilateral cataract extraction Family History Mother Family history of diabetes mellitus Myocardial infarction Sister Family history of diabetes mellitus Family history of rectal cancer Myocardial infarction Sister Family history of diabetes mellitus Myocardial infarction Brother Family history of diabetes mellitus Myocardial infarction Brother Family history of diabetes mellitus Family/Other Breast cancer Father Myocardial infarction Other Cancer Gallbladder disease Heart disease Hypertension Lung disease No family history of adverse response to anesthesia Denies family history of Ovarian cancer Prostate cancer Colorectal cancer Social History Smoking Status: Never smoker Second Hand Exposure: No; Do You Dip or Chew Tobacco: No; Hx Alcohol Use: No Hx Substance Use: No Preferred Language: Ukrainian Communication Ability: Effective Visual Impairment: No Limitations Hearing Ability: Normal Sheet Metal Helper Required: No Beliefs That Will Affect Care: None marital status: Current Living Situation: Spouse Current Living Situation Comment: and son current occupational status: retired How many Children do You have: 5 Feels Safe at Home: Yes Childhood Exposure to Second-Hand Smoke: Yes Diet: regular caffeine: Yes during the past year weight has: remained stable Dental Care, Regularly: Yes Physical Activity Frequency: 1-2 Times per Week Seatbelt Use: always Sunscreen Use: No Assistive Devices: BiPap, Nebulizer and Oxygen - Continuous Review of Systems Review of Systems: All systems reviewed & are unremarkable except as noted in HPI & below Physical Exam Physical Exam: General: patient Ill in appearance, no acute distress, continues to have abdom inal pain and diarrhea in the ER Skin: warm, dry, intact, no rashes or lesions HEENT: NC/AT, PERRL, EOMI, anicteric sclera, conjunctiva without injection, external ear normal to inspection and nontender, nares patent, moist mucus membranes, dentition intact, no oropharyngeal lesions, neck supple, trachea midline, no LAD, no thyromegaly, no JVD Heart: +S1/S2, regular Lungs: equal air entry bilaterally, no rales/rhonchi/wheezes Abd: +BS, soft, NT/ND, no masses/organomegaly/ascites Ext: warm, 2+ pulses in UE/LE bilaterally, no clubbing/cyanosis or edema Neuro: grossly nonfocal Results & Data Results & Data Vital Signs (Past 12 Hours) Vital Signs Temp Pulse Pulse Resp BP BP Pulse Ox 05/08/24 01:00 89 20 114/70 91 05/08/24 00:30 89 21 123/78 92 05/08/24 00:00 94 H 20 97/67 L 93 05/07/24 23:39 94 H 05/07/24 23:34 96 H 26 H 93/67 L 93 05/07/24 23:16 37.0 C 97 H 18 84/58 L 87 L O2 Del Method O2 Flow Rate 05/08/24 01:00 Nasal Cannula 3 05/08/24 00:30 Nasal Cannula 3 05/08/24 00:00 Nasal Cannula 3 05/07/24 23:39 05/07/24 23:34 Nasal Cannula 3 05/07/24 23:16 Nasal Cannula 3 Laboratory Results Laboratory Results WBC 6.30 K/ul (4.8-10.8) 05/07/24 23:47 RBC 4.36 M/uL (4.20-5.40) 05/07/24 23:47 Hgb 12.1 g/dl (12.0-16.0) 05/07/24 23:47 Hct 39.5 % (37.0-47.0) 05/07/24 23:47 MCV 90.6 fL (80.0-100.0) 05/07/24 23:47 MCH 27.8 pg (25.0-34.0) 05/07/24 23:47 MCHC 30.6 g/dL (32.0-36.0) L 05/07/24 23:47 RDW Std Deviation 51.9 fL (36.4-46.3) H 05/07/24 23:47 RDW Coeff of Susi 15.6 % (11.5-14.5) H 05/07/24 23:47 Plt Count 166 K/uL (130-400) 05/07/24 23:47 MPV 8.8 fL (9.4-12.4) L 05/07/24 23:47 Immature Gran % (Auto) 0.5 % 05/07/24 23:47 Neut % (Auto) 76.5 % 05/07/24 23:47 Lymph % (Auto) 15.2 % 05/07/24 23:47 [place] % (Auto) 7.3 % 05/07/24 23:47 Eos % (Auto) 0.3 % 05/07/24 23:47 Baso % (Auto) 0.2 % 05/07/24 23:47 Neut # (Auto) 4.82 K/uL (1.40-6.50) 05/07/24 23:47 Lymph # (Auto) 0.96 K/uL (1.20-3.40) L 05/07/24 23:47 [place] # (Auto) 0.46 K/uL (0.11-0.59) 05/07/24 23:47 Eos # (Auto) 0.02 K/uL (0.00-0.50) 05/07/24 23:47 Baso # (Auto) 0.01 K/uL (0.00-0.20) 05/07/24 23:47 Immature Gran # (Auto) 0.03 K/uL (0.01-0.20) 05/07/24 23:47 PT 47.2 Seconds (9.0-12.0) H 05/07/24 23:47 INR 5.0 (0.9-1.1) H 05/07/24 23:47 Sodium 138 mmol/L (136-145) 05/07/24 23:47 Potassium 4.2 mmol/L (3.5-5.1) 05/07/24 23:47 Chloride 108 mmol/L (98-107) H 05/07/24 23:47 Carbon Dioxide 27 mmol/L (21-32) 05/07/24 23:47 Anion Gap 3 (3-11) 05/07/24 23:47 BUN 48 mg/dl (6-23) H 05/07/24 23:47 Creatinine 0.93 mg/dl (0.6-1.2) 05/07/24 23:47 Est Cr Clr Drug Dosing 46.7 ml/min 05/07/24 23:47 eGFR 63.70 05/07/24 23:47 BUN/Creatinine Ratio 51.6 (10-20) H 05/07/24 23:47 Glucose 122 mg/dl (70-99(Fasting)) H 05/07/24 23:47 Calcium 8.8 mg/dl (8.6-10.3) 05/07/24 23:47 Total Bilirubin 0.3 mg/dl (0.2-1.0) 05/07/24 23:47 AST 30 U/L (13-39) 05/07/24 23:47 ALT 24 U/L (7-52) 05/07/24 23:47 Alkaline Phosphatase 75 U/L (34-104) 05/07/24 23:47 Troponin I High Sens 5.6 pg/ml (0-14) 05/07/24 23:47 Total Protein 6.6 gm/dl (6.0-8.3) 05/07/24 23:47 Albumin 4.0 gm/dl (3.4-5.0) 05/07/24 23:47 Globulin 2.6 gm/dl (2.5-4.0) 05/07/24 23:47 Albumin/Globulin Ratio 1.5 (0.9-2) 05/07/24 23:47 PG Care Time/CCT Total # of Minutes Spent Total Time Spent with Patient: Total time spent is greater than 50% in coordination of care (as documented) at patient's floor/unit and/or counseling patient: Coding Level of Care Code 66144 INT INP/OBS CARE 3/75MIN Diagnoses Norovirus A08.11 Paroxysmal atrial tachycardia I47.1 Sleep apnea, unspecified type G47.30 Sleep apnea type: unspecified type Primary hypertension I10 Hypertension type: primary hypertension GERD (gastroesophageal reflux disease) K21.9 Pure hypercholesterolemia E78.00 Hyperlipidemia type: pure hypercholesterolemia (3) Sleep apnea Sleep apnea type: unspecified type Qualified Code(s): G47.30 - Sleep apnea, unspecified (4) HTN (hypertension) Hypertension type: primary hypertension Qualified Code(s): I10 - Essential (primary) hypertension (6) Hyperlipidemia Hyperlipidemia type: pure hypercholesterolemia Qualified Code(s): E78.00 - Pure hypercholesterolemia, unspecified
[2024-05-08] MEDS ORDERED: ACETYLCYSTEINE 20% INHAL SOLN 30ML INH PRN (02:29)
[2024-05-08] MEDS ORDERED: ONDANSETRON INJ 2 MG/ML 2 ML VIAL IV PRN (02:29)
--- NOTE | 2024-05-08 02:29 | XRay Report ---
EXAM: XR chest 1V portable CLINICAL HISTORY: Hypoxia. TECHNIQUE: An X-ray image of the chest is obtained using an AP projection. COMPARISON: 02/19/2023 X-ray. FINDINGS: Pulmonary Parenchyma: Suspected patchy right lung opacities. Prominent central bronchovascular markings could be due to pulmonary congestion. Blunting of the left costophrenic angle. Suspected left lower zone opacity at the left cardio phrenic angle. Heart and Mediastinum: Cardiomegaly. Prominent aortic arch. Redemonstration of rounded central opacity projected over the heart shadow near the midline to the left which could be a hiatal hernia. Bony Thorax: Mild diffuse decreased bone density. Mild degenerative changes. Soft Tissues: Marked elevation of the right hemidiaphragm. IMPRESSION: 1. Suspected patchy right lung opacities and left lower zone opacity. (New finding). Clinical correlation is advised. 2. Blunting of the left costophrenic angle, indicating mild left pleural effusion/thickening. (New finding) 3. Redemonstration of the retrocardiac rounded opacity, which could be a hiatal hernia. Clinical correlation is advised. 4. No other significant referral change apart from non-visualization of the previous left lung consolidation. 5. Marked elevation of the right hemidiaphragm. Stable. Electronically signed by Jh Boles 05-08-2024 02:28 AM
--- NOTE | 2024-05-08 02:34 | Emergency Department Note ---
Impression & Plan Acute dehydration, Nausea vomiting and diarrhea, Supratherapeutic INR, Acute GI bleeding, Norovirus admit to the [facility] ED Provider Note NAME: AUSTIN BURRELL AGE: 78 SEX: Female INFORMANT: Patient And her daughter ED PROVIDER(S): Debbie Adhikari DO CHIEF COMPLAINT: vomiting and diarrhea PLAN: Disposition: admit to the [facility] MEDICAL DECISION MAKING: This is a 78-year-old female patient on warfarin who presents to the emergency department with significant diarrhea which is black in color and black colored vomit. Patient was exposed to family members with norovirus. She is now extremely weak. Laboratory studies revealed supratherapeutic INR of 5.0. There is no leukocytosis and H&H were normal. BUN was elevated at 48 and creatinine was 0.93. However BUN/creatinine ratio was 51.6. On physical exam, the patient appears significantly dehydrated. She was bolused with IV normal saline solution and given IV Zofran for her nausea. She was given a dose of IV Protonix. Patient denies any excessive NSAID use or any other [id number] meds. patient's blood pressure responded nicely to the IV crystalloids. Stool bio fire testing was positive for norovirus. Care/management discussed with: The patient's daughter, contract administration manager, and [facility] Triage Nursing notes: reviewed and agree with them. Vital Signs: reviewed and remarkable for hypotension and tachycardia Additional History obtained from: patient's daughter who is at the bedside Differential Diagnosis: GI bleed, supratherapeutic INR, dehydration, acute kidney injury, anemia Diagnostics, independently interpreted by me: ECG: normal sinus rhythm at a rate of 95 Cardiac Monitoring: normal sinus rhythm at a rate of 90 Imaging studies: portable chest x-ray: As per Imbro HPI: 78 year old Female arrives for evaluation of vomiting and diarrhea. patient developed nausea and vomiting 2 days ago. she became more significantly weak and then developed profuse diarrhea. The patient did have an exposure to a family member who had norovirus. Tonight, the patient tried taking Zofran for her nausea but promptly vomited and family members noted that the vomit was black. She also notes that her stool was black in color. The patient does take warfarin for history of strokes. Her last INR was 2.3 which was 1 week ago. PAST MEDICAL HISTORY: See Below, PAST SURGICAL HISTORY: See Below, SOCIAL HISTORY: See Below, HOME MEDICATIONS: See list ALLERGIES: see long list VITALS: See Below PHYSICAL EXAMINATION: HEENT: Head - normocephalic and atraumatic. Pupils are equal, round, and reactive to light. Extraocular eye muscles are intact, and sclera are anicteric. Nose - moist nasal mucosa without discharge. Mouth - extremely drybuccal mucosa. Oropharynx is nonerythematous and there is no tonsillar exudate or edema noted. Neck: Supple; no Cervical lymphadenopathy Heart: tachycardic rate and regular rhythm.There is a normal S1 and S2 with no murmurs, clicks, or gallops appreciated. Lungs: Clear to auscultation bilaterally with no wheezes, rales, or rhonchi. Abdomen: Soft, completely nontender, nondistended, with good bowel sounds. There are no palpable pulsatile masses or hepatosplenomegaly. There is no guarding, rigidity, or rebound noted. Extremities: No evidence of cyanosis, clubbing, or edema. There are easily palpable peripheral pulses. Skin: Pale, warm and dry with poor turgor and no rashes. Emergency department treatment: monitoring tech, IV Protonix, IV Zofran, IV normal saline bolus Emergency Department course: The patient was evaluated in room A-9. A complete history and physical was performed. An order was placed for continuous cardiac monitoring. The patient was in a normal sinus rhythm at a rate of 90. Twelve- lead EKG was obtained. Laboratory studies were drawn as above. The patient was given a dose of IV Protonix and IV Zofran. She was bolused with a liter of normal saline solution as she was significantly hypotensive and tachycardic upon arrival and appeared quite dehydrated. patient's vital spines responded nicely to the IV crystalloids. A stool specimen was collected and sent for bio fire testing. This was positive for norovirus. Patient remained moderately weak on exam and will require further inpatient care. I discussed the case with the [facility] Hospitalist and they will evaluate for further management. Past Med/Surg History Problem List (Updated 05/08/24 @ 15:45 by Debbie Adhikari DO) Norovirus (Acute) Chronic respiratory failure with hypoxia Coumadin toxicity Acute GI bleeding (Acute) Supratherapeutic INR (Acute) Nausea vomiting and diarrhea (Acute) Acute dehydration (Acute) Norovirus Ascending aorta dilatation Pulmonary hypertension Last echo 08/13 stable Lower extremity edema (HFpEF) heart failure with preserved ejection fraction Nocturnal hypoxemia Drug-induced skin rash Osteoporosis Sleep apnea on nocturnal BiPAP Hypothyroidism (Chronic) HTN (hypertension) (Chronic) Allergic rhinitis (Chronic) Common migraine without aura (Acute) Anxiety (Chronic) Peripheral edema (Acute) History of CVA (cerebrovascular accident) Status post right hip replacement (~09/2020) Pre-diabetes Paroxysmal atrial tachycardia Low back pain History of diverticulitis June 2022 treated with abx Hypokalemia Restrictive lung disease due to kyphoscoliosis followed by [facility], on oxygen 12/09 Chronic respiratory failure with hypoxia, on home O2 therapy followed by [facility] pulmonology On anticoagulant therapy on warfarin daily Rosacea (Acute) Poor peripheral circulation (Acute) Scoliosis Asthma most recent flare up r/t the [place] smoke over the last month. uses advair BID and nebulizer treatments daily PFO (patent foramen ovale) Follows with Dr. Hearn- medically controlled. On prophylactic Coumadin. Did follow with cardiovascular surgery in the past per records to discuss closure of PFO- but unable to do closure secondary to nickel allergy- pt stable Hyperlipidemia GERD (gastroesophageal reflux disease) Well controlled and stable with med Depression (Chronic) Migraine (Chronic) Medical History (Updated 05/08/24 @ 15:45 by Debbie Adhikari DO) Pre-diabetes monitoring On home oxygen therapy 2lpm via n/c continuous Hx of diverticulitis of colon treated at [facility] in June 2022 inpatient for 2-3 days. Breath shortness 2lpm via n/c continuous. Hx of esophageal varices Noted incidentally by GI during EGD per patient Longstanding history per PCP note- no hx of liver disease or alcoholism. No current issues History of COVID-19 07/2019 - No symptoms with exception to residual voice hoarseness Basilar artery stenosis History of per patient- pt states more recent testing showed no issues No significant issues noted per 08/03/20 PCP note Osteoarthritis Chronic back pain CVA (cerebrovascular accident) x4 (most recent 2013) - reason for Warfarin Mild residual drooping to left side of mouth Surgical History History of hip replacement right AREN (2020) History of hysterectomy History of dilatation and curettage History of bilateral tubal ligation History of esophagogastroduodenoscopy (EGD) History of colonoscopy with polypectomy History of tooth extraction History of bilateral cataract extraction Family History Mother Family history of diabetes mellitus Myocardial infarction Sister Family history of diabetes mellitus Family history of rectal cancer Myocardial infarction Sister Family history of diabetes mellitus Myocardial infarction Brother Family history of diabetes mellitus Myocardial infarction Brother Family history of diabetes mellitus Family/Other Breast cancer Father Myocardial infarction Other Cancer Gallbladder disease Heart disease Hypertension Lung disease No family history of adverse response to anesthesia Denies family history of Ovarian cancer Prostate cancer Colorectal cancer Social History Smoking Status: Never smoker Second Hand Exposure: No; Do You Dip or Chew Tobacco: No; Hx Alcohol Use: No Hx Substance Use: No Preferred Language: Turkish Communication Ability: Effective Visual Impairment: No Limitations Hearing Ability: Normal Eyeglass Lens Cutter Required: No Beliefs That Will Affect Care: None marital status: Current Living Situation: Spouse Current Living Situation Comment: and son current occupational status: retired How many Children do You have: 5 Feels Safe at Home: Yes Childhood Exposure to Second-Hand Smoke: Yes Diet: regular caffeine: Yes during the past year weight has: remained stable Dental Care, Regularly: Yes Physical Activity Frequency: 1-2 Times per Week Seatbelt Use: always Sunscreen Use: No Assistive Devices: Brace/Splint/Immobilizer, Oxygen - at Night, Oxygen - Continuous and Walker Allergies Allergies Allergy/AdvReac Type Severity Reaction Status Date / Time caramel Allergy Severe Difficulty Verified 05/08/24 01:38 Breathing Iodinated Contrast Media Allergy Severe "couldn't Verified 05/08/24 01:38 breathe and really bad rash" iodine Allergy Severe "couldn't Verified 05/08/24 01:38 breathe and really bad rash" promethazine Allergy Severe "couldn't Verified 05/08/24 01:38 breathe" red (food color) Allergy Severe "problems Verified 05/08/24 01:38 breathing" adhesive tape Allergy Intermediate skin Verified 05/08/24 01:38 irritation and redness levofloxacin Allergy Intermediate HIVES, LEG Verified 05/08/24 01:38 PAIN nickel Allergy Intermediate " open Verified 05/08/24 01:38 sores" azithromycin [From Zithromax] Allergy Mild Rash Verified 05/08/24 01:38 cephalexin Allergy Mild Rash Verified 05/08/24 01:38 denosumab [From Prolia] Allergy Mild pin point Verified 05/08/24 01:38 rash on lower extremities house dust Allergy Mild "sniffles/watery Verified 05/08/24 01:38 eyes" ragweed pollen Allergy Mild "sniffles" Verified 05/08/24 01:38 ciprofloxacin AdvReac Severe stomach Verified 05/08/24 01:38 pain tramadol AdvReac Intermediate hallucinati Verified 05/08/24 01:38 ons prednisone AdvReac Mild Blurry Verified 05/08/24 01:38 Vision Home Meds Home Medications Medication Instructions Recorded Confirmed guaifenesin 600 mg tablet, 600 mg PO Q12H 03/30/18 05/08/24 extended release 12 hr (Mucinex) loratadine 10 mg tablet (Claritin) 10 mg PO QAM 03/30/18 05/08/24 polyethylene glycol 3350 17 gram 17 g PO BID 03/30/18 05/08/24 oral powder packet (Miralax) propylene glycol 0.6 % eye drops 1 drp OPB BID 03/30/18 05/08/24 (Systane Balance) sodium chloride 0.65 % nasal spray 1 spray intranasal HS 03/30/18 05/08/24 aerosol (Saline Nasal) vit C 50 mg-E 15 unit-zinc cit 4.5 1 tab PO QAM 03/30/18 05/08/24 mg-lutein 2.5 mg-zeaxan chew tablet ([facility]) calcium carbonate 500 mg PO QPM 03/08/21 05/08/24 acetaminophen 650 mg 1,300 mg PO BID 03/25/21 05/08/24 tablet,extended release cholecalciferol (vitamin D3) 125 125 mcg PO QAM 03/25/21 05/08/24 mcg (5,000 unit) tablet (Vitamin D3) clindamycin phosphate 1 % topical 1 applic topical BID PRN Skin 06/14/22 05/08/24 solution Irritation acidophilus 100 million 1 cap PO QAM 07/11/23 03/19/25 cell-pectin, citrus 10 mg capsule Previous Rx's Medication Instructions Recorded triamcinolone acetonide 0.1 % 1 applic topical BID PRN rash #15 02/27/23 topical cream grams portable air concentrator #1 ea 05/25/23 sertraline 50 mg tablet 50 mg PO QAM #90 tabs 05/29/23 diltiazem HCl 180 mg 180 mg PO QAM #90 caps 06/05/23 capsule,extended release 24 hr fluticasone furoate 100 1 inh inhalation DAILY #30 ea 07/21/23 mcg/actuation blister powder for inhalation (Arnuity Ellipta) BiPap Machine #1 ea 07/25/23 levothyroxine 125 mcg tablet 125 mcg PO DAILY #90 tabs 08/10/23 levalbuterol HCl 1.25 mg/3 mL 1.25 mg (3 mL) inhalation TID 08/17/23 solution for nebulization shortness of breath or wheezing #90 mL metronidazole 250 mg tablet 250 mg PO QPM rosacea maintanence 08/25/23 #90 tabs potassium chloride 10 mEq 10 meq PO QAM #90 tabs 09/25/23 tablet,extended release (Klor-Con) warfarin 5 mg tablet 2.5 - 5 mg PO DIRECTED #90 tabs 10/30/23 furosemide 20 mg tablet 40 mg (2 x 20 mg) PO QAM edema 12/21/23 #180 tabs albuterol sulfate 2.5 mg/3 mL 2.5 mg (3 mL) inhalation Q4H PRN 02/01/24 (0.083 %) solution for nebulization shortness of breath or wheezing #180 mL budesonide 0.5 mg/2 mL suspension 0.5 mg (2 mL) inhalation BID #60 mL 02/01/24 for nebulization nebulizer tubing, chamber and #1 ea 02/01/24 mouth piece nortriptyline 75 mg capsule 75 mg PO QPM #90 caps 02/01/24 atorvastatin 40 mg tablet (Lipitor) 40 mg PO QPM #90 tabs 02/28/24 fluticasone furoate 100 1 inh inhalation DAILY #60 ea 03/25/24 mcg-vilanterol 25 mcg/dose inhalation powder (Breo Ellipta) levofloxacin 250 mg tablet See Rx Instructions PO .COMPLEX #3 02/13/25 tabs acetylcysteine 200 mg/mL (20 %) 5 ml inhalation QID PRN mucous #90 04/11/24 solution mL nystatin 100,000 unit/gram topical 1 applic topical BID #15 grams 04/11/24 cream omeprazole 20 mg capsule,delayed 40 mg (2 x 20 mg) PO HS #180 caps 04/30/24 release ondansetron HCl 4 mg tablet 4 mg PO Q8H PRN nausea and 05/07/24 vomiting #20 tabs Results & Data (ED) Vital Signs Vital Signs - 24 hr 05/07/24 23:16 05/07/24 23:34 05/07/24 23:39 Temperature 37.0 C Temperature Source Temporal Artery Scan Pulse Rate 97 H 94 H Pulse Rate [Apical] 96 H Pulse Rate from SpO2 Sensor Pulse Rhythm Regular Pulse Strength Normal Respiratory Rate 18 26 H Respiratory Effort / Characteristics Non-Labored Spontaneous Respiratory Depth Normal Respiratory Pattern Regular Blood Pressure 84/58 L Blood Pressure [Right Arm] 93/67 L Blood Pressure Mean 66 Blood Pressure Mean [Right Arm] 75 Blood Pressure Position Sitting Pulse Oximetry 87 L 93 Oxygen Delivery Method Nasal Cannula Nasal Cannula Oxygen Flow Rate 3 3 Sepsis Recent Fever Within 48 Hours No Sepsis New/Unexplained Change in Mental Status No Sepsis Action Taken by Nursing No Action Required 05/08/24 00:00 05/08/24 00:30 05/08/24 01:00 Temperature Temperature Source Pulse Rate 94 H 89 89 Pulse Rate [Apical] Pulse Rate from SpO2 Sensor Pulse Rhythm Pulse Strength Respiratory Rate 20 21 20 Respiratory Effort / Characteristics Respiratory Depth Respiratory Pattern Blood Pressure 97/67 L 123/78 114/70 Blood Pressure [Right Arm] Blood Pressure Mean 77 93 81 Blood Pressure Mean [Right Arm] Blood Pressure Position Pulse Oximetry 93 92 91 Oxygen Delivery Method Nasal Cannula Nasal Cannula Nasal Cannula Oxygen Flow Rate 3 3 3 Sepsis Recent Fever Within 48 Hours Sepsis New/Unexplained Change in Mental Status Sepsis Action Taken by Nursing 05/08/24 01:39 Temperature Temperature Source Pulse Rate 87 Pulse Rate [Apical] Pulse Rate from SpO2 Sensor 88 Pulse Rhythm Pulse Strength Respiratory Rate 22 Respiratory Effort / Characteristics Respiratory Depth Respiratory Pattern Blood Pressure 97/72 L Blood Pressure [Right Arm] Blood Pressure Mean 80 Blood Pressure Mean [Right Arm] Blood Pressure Position Pulse Oximetry 90 Oxygen Delivery Method Nasal Cannula Oxygen Flow Rate 3 Sepsis Recent Fever Within 48 Hours Sepsis New/Unexplained Change in Mental Status Sepsis Action Taken by Nursing Laboratory Data 05/08/24 06:46 05/08/24 06:46 Lab Results 05/07/24 05/07/24 05/08/24 Range/Units 23:47 23:52 01:00 WBC 6.30 (4.8-10.8) K/ul RBC 4.36 (4.20-5.40) M/uL Hgb 12.1 (12.0-16.0) g/dl POC Hgb 12.9 (12.0-16.0) g/dl Hct 39.5 (37.0-47.0) % POC Hct 38 (37-47) % MCV 90.6 (80.0-100.0) fL MCH 27.8 (25.0-34.0) pg MCHC 30.6 L (32.0-36.0) g/dL RDW Std Deviation 51.9 H (36.4-46.3) fL RDW Coeff of Susi 15.6 H (11.5-14.5) % Plt Count 166 (130-400) K/uL MPV 8.8 L (9.4-12.4) fL Immature Gran % (Auto) 0.5 % Neut % (Auto) 76.5 % Lymph % (Auto) 15.2 % Addison % (Auto) 7.3 % Eos % (Auto) 0.3 % Baso % (Auto) 0.2 % Neut # (Auto) 4.82 (1.40-6.50) K/uL Lymph # (Auto) 0.96 L (1.20-3.40) K/uL Addison # (Auto) 0.46 (0.11-0.59) K/uL Eos # (Auto) 0.02 (0.00-0.50) K/uL Baso # (Auto) 0.01 (0.00-0.20) K/uL Immature Gran # (Auto) 0.03 (0.01-0.20) K/uL PT 47.2 H (9.0-12.0) Seconds INR 5.0 H (0.9-1.1) POC Sodium 141 (135-144) mmol/L Sodium 138 (136-145) mmol/L POC Potassium 4.2 (3.3-5.0) mmol/L Potassium 4.2 (3.5-5.1) mmol/L POC Chloride 105 (101-112) mmol/L Chloride 108 H (98-107) mmol/L Carbon Dioxide 27 (21-32) mmol/L POC Total CO2 23 L (24-31) mmol/L Anion Gap 3 (3-11) POC Anion Gap 17.0 (16-25) mmol/L POC BUN 45 H (7-18) mg/dl BUN 48 H (6-23) mg/dl Creatinine 0.93 (0.6-1.2) mg/dl POC Creatinine 0.9 (0.6-1.3) mg/dl Est Cr Clr Drug Dosing 46.7 ml/min eGFR 63.70 BUN/Creatinine Ratio 51.6 H (10-20) Glucose 122 H (70-99(Fasting)) mg/dl POC Glucose (other) 118 H (70-99) mg/dl Calcium 8.8 (8.6-10.3) mg/dl POC Ioniz Calcium Corinne 1.19 (1.12-1.32) mmol/l Phosphorus 3.1 (2.5-4.9) mg/dl Magnesium 2.1 (1.7-2.4) mg/dl Total Bilirubin 0.3 (0.2-1.0) mg/dl AST 30 (13-39) U/L ALT 24 (7-52) U/L Alkaline Phosphatase 75 (34-104) U/L Troponin I High Sens 5.6 (0-14) pg/ml Total Protein 6.6 (6.0-8.3) gm/dl Albumin 4.0 (3.4-5.0) gm/dl Globulin 2.6 (2.5-4.0) gm/dl Albumin/Globulin Ratio 1.5 (0.9-2) Stl C. cayetanensis PCR Not Detected (NotDetected) Stool Rotavirus A PCR Not Detected (NotDetected) Stl Adenov F 40/41 PCR Not Detected (NotDetected) Stool Astrovirus (PCR) Not Detected (NotDetected) Stool Campylobacter PCR Not Detected (NotDetected) Stool Cryptosporidium PCR Not Detected (NotDetected) Stl E.coli Shiga Tox PCR Not Detected (NotDetected) Stl Enterotoxigenic E PCR Not Detected (NotDetected) Stool EPEC (PCR) Not Detected (NotDetected) Stool EAEC (PCR) Not Detected (NotDetected) Stl E. histolytica PCR Not Detected (NotDetected) Stool Giardia Lamblia PCR Not Detected (NotDetected) Stool Salmonella PCR Not Detected (NotDetected) Stool Sapovirus (PCR) Not Detected (NotDetected) Stl P. shigelloides PCR Not Detected (NotDetected) Stl Shigella/EIEC PCR Not Detected (NotDetected) St Y.enterocolitica PCR Not Detected (NotDetected) Stool Vibrio (PCR) Not Detected (NotDetected) Stl Vibrio cholerae PCR Not Detected (NotDetected) Stl Norovirus GI/GII PCR DETECTED A* (NotDetected) Administered Medications Acetaminophen (Acetaminophen 500 Mg Tab) 1,000 mg PO TID TAMMY Stop: 06/07/24 08:59 Last Admin: 05/08/24 14:39 Dose: 1,000 mg Documented By: Admin: 05/08/24 08:42 Dose: 1,000 mg Documented By: JAZ Fluticasone/Vilanterol (Fluticasone/Vilanterol 100/25mcg 14 Puffs/Inhaler) 1 puffs INH DAILY TAMMY Stop: 06/07/24 08:59 Last Admin: 05/08/24 08:31 Dose: 1 puffs Documented By: JAZ Guaifenesin (Guaifenesin 600 Mg Tabcr) 600 mg PO Q12H TAMMY Stop: 06/07/24 08:59 Last Admin: 05/08/24 08:32 Dose: 600 mg Documented By: JAZ Pantoprazole Sodium (Protonix) 40 mg in 10 mls @ 5 mls/min IV DAILY TAMMY Stop: 06/07/24 08:59 Last Admin: 05/08/24 08:33 Dose: 5 mls/min Documented By: JAZ Lactated Ringer's (Lr) 1,000 mls @ 100 mls/hr IV .Q10H TAMMY Stop: 05/08/24 22:28 Last Admin: 05/08/24 14:40 Dose: 100 mls/hr Documented By: Infusion: 05/08/24 13:07 Dose: Infused Documented By: Admin: 05/08/24 02:45 Dose: 100 mls/hr Documented By: THU Levothyroxine Sodium (Levothyroxine Sodium 125 Mcg Tablet) 125 mcg PO DAILYBB [facility] Stop: 06/07/24 06:29 Last Admin: 05/08/24 08:31 Dose: 125 mcg Documented By: JAZ Loratadine (Loratadine 10 Mg Tab) 10 mg PO QAM [facility] Stop: 06/07/24 08:59 Last Admin: 05/08/24 08:33 Dose: 10 mg Documented By: JAZ Nystatin (Nystatin Cr 15 Gm Tube) 1 appln EXT BID [facility] Stop: 06/07/24 08:59 Last Admin: 05/08/24 08:40 Dose: Not Given Documented By: JAZ Sertraline HCl (Sertraline Hcl 50 Mg Tablet) [facility]: 06/07/24 08:59 Last Admin: 05/08/24 08:39 Dose: 50 mg Documented By: JAZ Discontinued Medications Pantoprazole Sodium (Protonix) 40 mg in 10 mls @ 5 mls/min IV NOW ONE Stop: 05/07/24 23:50 Last Admin: 05/07/24 23:58 Dose: 5 mls/min Documented By: DEEPA Sodium Chloride (Nss) 1,000 mls @ 999 mls/hr IV .Q1H1M ONE Stop: 05/08/24 00:50 Last Infusion: 05/08/24 01:12 Dose: Infused Documented By: Admin: 05/07/24 23:58 Dose: 999 mls/hr Documented By: DEEPA Phytonadione 5 mg/ Dextrose 50.5 mls @ 101 mls/hr IV ONE ONE Stop: 05/08/24 11:29 Last Infusion: 05/08/24 13:08 Dose: Infused Documented By: Admin: 05/08/24 12:36 Dose: 101 mls/hr Documented By: JUAN Ondansetron HCl (Ondansetron Inj 2 Mg/Ml 2 Ml Vial) 4 mg IV NOW STA Stop: 05/07/24 23:50 Last Admin: 05/07/24 23:58 Dose: 4 mg Documented By: DEEPA Imaging Data Radiologist's Impression: Chest X-Ray 05/08/24 01:26 EXAM: XR chest 1V portable CLINICAL HISTORY: Hypoxia. TECHNIQUE: An X-ray image of the chest is obtained using an AP projection. COMPARISON: 02/19/2023 X-ray. FINDINGS: Pulmonary Parenchyma: Suspected patchy right lung opacities. Prominent central bronchovascular markings could be due to pulmonary congestion. Blunting of the left costophrenic angle. Suspected left lower zone opacity at the left cardio phrenic angle. Heart and Mediastinum: Cardiomegaly. Prominent aortic arch. Redemonstration of rounded central opacity projected over the heart shadow near the midline to the left which could be a hiatal hernia. Bony Thorax: Mild diffuse decreased bone density. Mild degenerative changes. Soft Tissues: Marked elevation of the right hemidiaphragm. IMPRESSION: 1. Suspected patchy right lung opacities and left lower zone opacity. (New finding). Clinical correlation is advised. 2. Blunting of the left costophrenic angle, indicating mild left pleural effusion/thickening. (New finding) 3. Redemonstration of the retrocardiac rounded opacity, which could be a hiatal hernia. Clinical correlation is advised. 4. No other significant referral change apart from non-visualization of the previous left lung consolidation. 5. Marked elevation of the right hemidiaphragm. Stable. Electronically signed by Jh Boles 05-08-2024 02:28 AM Discharge Plan Visit Data Chief Complaint: GI Assessment Stated Complaint: BLACK EMESIS, BLACK Diarrhea ED Provider: Debbie Adhikari Discharge Problem: Acute dehydration, Nausea vomiting and diarrhea, Supratherapeutic INR, Acute GI bleeding, Norovirus Patient Disposition: Admitted As Inpatient Discharge Instructions Interventions: ED Discharge Assessment Last Done: 05/08/24 02:29
[2024-05-08] MEDS: LACTATED RINGER'S 1,000 ML IV SCH (02:45)
[2024-05-08 02:51] LABS: Adenovirus F 40/41 PCR Not Detected (NotDetected); Astrovirus PCR Not Detected (NotDetected); Campylobacter PCR Not Detected (NotDetected); Cryptosporidium PCR Not Detected (NotDetected); Cyclospora cayetanensis PCR Not Detected (NotDetected); Entamoeba histolytica PCR Not Detected (NotDetected); Enteroaggregative E.coli(EAEC) Not Detected (NotDetected); Enteropathogenic E.coli (EPEC) Not Detected (NotDetected); Enterotoxigenic E.coli (ETEC) Not Detected (NotDetected); Giardia lamblia PCR Not Detected (NotDetected); Plesiomonas shigelloides PCR Not Detected (NotDetected); Rotavirus A PCR Not Detected (NotDetected); Salmonella PCR Not Detected (NotDetected); Sapovirus PCR Not Detected (NotDetected); Shiga-like Toxin E.coli (STEC) Not Detected (NotDetected); Shigella/Enteroinvasive E.coli Not Detected (NotDetected); Vibrio cholerae PCR Not Detected (NotDetected); Vibrio species PCR Not Detected (NotDetected); Yersinia enterocolitica PCR Not Detected (NotDetected)
[2024-05-08 03:01] LABS: Norovirus GI/GII PCR DETECTED (NotDetected)
[2024-05-08 03:04] LABS: Magnesium 2.1 mg/dl (1.7-2.4); Phosphorus 3.1 mg/dl (2.5-4.9)
[2024-05-08] MEDS ORDERED: BUDESONIDE 0.5 MG/2 ML VIAL (PULMICORT) INH SCH (07:00)
[2024-05-08 07:11] LABS: Hematocrit (blood only) 33.4 % (37.0-47.0); Hemoglobin 10.5 g/dl (12.0-16.0); Mean Corpuscular Hemoglobin 28.5 pg (25.0-34.0); Mean Corpuscular Hgb Conc 31.4 g/dL (32.0-36.0); Mean Corpuscular Volume 90.5 fL (80.0-100.0); Mean Platelet Volume 8.8 fL (9.4-12.4); Platelet Count 143 K/uL (130-400); RDW Coefficient of Variation 15.6 % (11.5-14.5); RDW Standard Deviation 51.6 fL (36.4-46.3); Red Blood Count 3.69 M/uL (4.20-5.40); White Blood Count 5.75 K/ul (4.8-10.8)
[2024-05-08 07:15] LABS: iSTAT Creatinine 0.9 mg/dl (0.6-1.3); iSTAT Hemoglobin 12.9 g/dl (12.0-16.0); iSTAT Ionized Calcium 1.19 mmol/l (1.12-1.32); iSTAT Potassium 4.2 mmol/L (3.3-5.0)
[2024-05-08 07:21] LABS: BUN Creatinine Ratio 52.3 (10-20); Calcium 7.9 mg/dl (8.6-10.3); Creatinine Clr Calc Pharmacy 66.8 ml/min; Potassium 3.8 mmol/L (3.5-5.1)
[2024-05-08 07:40] LABS: INR 4.7 (0.9-1.1); Prothrombin Time 44.1 Seconds (9.0-12.0)
[2024-05-08] MEDS: LEVOTHYROXINE SODIUM 125 MCG TABLET PO SCH (08:31)
[2024-05-08] MEDS: FLUTICASONE/VILANTEROL 100/25MCG 14 PUFFS/INHALER INH SCH (08:31)
[2024-05-08] MEDS: guaiFENesin 600 MG TABCR PO SCH (08:32)
[2024-05-08] MEDS: PANTOprazole 40 MG/10 ML SYR IV SCH (08:33)
[2024-05-08] MEDS: LORATADINE 10 MG TAB PO SCH (08:33)
[2024-05-08] MEDS: SERTRALINE HCL 50 MG TABLET PO SCH (08:39)
[2024-05-08] MEDS: NYSTATIN CR 15 GM TUBE EXT SCH (08:40)
[2024-05-08] MEDS: ACETAMINOPHEN 500 MG TAB PO SCH (08:42)
[2024-05-08] MEDS ORDERED: FLUTICASONE FUROATE 100MCG 14 PUFFS/INHALER INH SCH (09:00)
[2024-05-08] MEDS: PHYTONADIONE 5 MG in DEXTROSE 5% 50 ML IV ONE (12:36)
--- NOTE | 2024-05-08 13:36 | Hospitalist Progress Note ---
Date of Service May 08, 2024 Assessment & Plan (1) Norovirus: Plan: Causing acute onset of nausea vomiting and diarrhea. IV fluids. Antiemetics. Supportive care (2) Coumadin toxicity: Plan: Parenteral vitamin K ordered. No obvious bleeding at this time. Serial INR. Hold Coumadin (3) Paroxysmal atrial tachycardia: Plan: Diltiazem is currently on hold. Telemetry. Coumadin is currently on hold due to elevated INR (4) HTN (hypertension): Plan: Diltiazem is currently on hold. (5) GERD (gastroesophageal reflux disease): Plan: PPI therapy (6) Chronic respiratory failure with hypoxia: Plan: Due to COPD. Stable. Continue oxygen at baseline level Plan Hopeful discharge back to home within the next day or 2 Admission and Anticipated Discharge Date Admission Date: May 08, 2024 Subjective The patient has sudden onset of nausea vomiting and diarrhea and tested positive for norovirus. Coumadin toxicity noted on admission. Intravenous vitamin K administered. Continue IV fluids. Review of Systems 2 Review of Systems: ConstitutionalMalaise. Low-grade fever intermittently. No chills ENTno blurred vision, no double vision, no epistaxis, no sore throat Respiratoryno cough, no wheezing, no shortness of breath Cardiacno palpitations, no chest pain, no syncope GIintermittent nausea and vomiting. Watery diarrhea. No melena, no hematochezia GUno urinary retention, no urinary incontinence, no dysuria, no hematuria Musculoskeletalno joint pain, no muscle tenderness Skinno bruising, no rashes, no pruritus Neurono isolated weakness, no paresthesia. Generalized weakness Psychno depression, no anxiety Physical Exam 2 Physical Exam: General-alert and oriented x3, no fever, no chills HEENT-head atraumatic and normocephalic, pupils equal and reactive to light, extraocular muscles intact Neck-no lymphadenopathy or thyromegaly, trachea midline Chest-clear to auscultation. No rales, wheezing or rhonchi Cardiac-regular rate and rhythm, normal S1 and S2 Abdomen-normal bowel sounds, no hepatosplenomegaly Extremities-no cyanosis, clubbing, or edema Neuro-cranial nerves II through XII intact, motor and sensory function within normal limits, strength symmetrical with generalized weakness, no focal deficits Psych-flat affect Results & Data Results & Data Vital Signs (Past 12 Hours) Vital Signs Pulse Pulse Resp BP BP Pulse Ox O2 Del Method 05/08/24 13:00 112/80 05/08/24 12:59 85 22 95 Nasal Cannula 05/08/24 12:38 93/71 L 05/08/24 12:38 93/71 L 05/08/24 12:38 93/71 L 05/08/24 12:38 93/71 L 05/08/24 12:38 93/71 L 05/08/24 12:38 93/71 L 05/08/24 12:38 93/71 L 05/08/24 12:38 93/71 L 05/08/24 12:38 93/71 L 05/08/24 12:17 90 19 05/08/24 12:02 92 H 18 05/08/24 11:08 86 24 95 05/08/24 11:00 97/79 L 05/08/24 11:00 97/79 L 05/08/24 11:00 97/79 L 05/08/24 11:00 97/79 L 05/08/24 11:00 97/79 L 05/08/24 11:00 97/79 L 05/08/24 11:00 97/79 L 05/08/24 11:00 97/79 L 05/08/24 11:00 97/79 L 05/08/24 11:00 97/79 L 05/08/24 11:00 97/79 L 05/08/24 11:00 97/79 L 05/08/24 11:00 97/79 L 05/08/24 11:00 97/79 L 05/08/24 11:00 97/79 L 05/08/24 11:00 97/79 L 05/08/24 11:00 97/79 L 05/08/24 11:00 97/79 L 05/08/24 11:00 97/79 L 05/08/24 11:00 97/79 L 05/08/24 11:00 97/79 L 05/08/24 11:00 97/79 L 05/08/24 11:00 97/79 L 05/08/24 11:00 97/79 L 05/08/24 11:00 97/79 L 05/08/24 11:00 97/79 L 05/08/24 11:00 97/79 L 05/08/24 10:46 16 05/08/24 10:39 86 23 92 05/08/24 10:21 88 19 92 05/08/24 10:16 92/71 L 05/08/24 10:16 92/71 L 05/08/24 10:16 92/71 L 05/08/24 10:16 92/71 L 05/08/24 10:16 92/71 L 05/08/24 10:16 92/71 L 05/08/24 10:16 92/71 L 05/08/24 10:16 92/71 L 05/08/24 10:15 100 H 21 87 L 05/08/24 09:15 92 H 21 94 05/08/24 09:00 110/78 05/08/24 08:57 90 26 H 94 05/08/24 08:08 110/79 05/08/24 06:19 82 19 106/66 92 Nasal Cannula 05/08/24 04:00 98 H 17 107/64 92 Nasal Cannula 05/08/24 03:32 89 05/08/24 02:30 92 H 23 113/77 91 Nasal Cannula 05/08/24 01:39 87 22 97/72 L 90 Nasal Cannula O2 Flow Rate 05/08/24 13:00 05/08/24 12:59 3 05/08/24 12:38 05/08/24 12:38 05/08/24 12:38 05/08/24 12:38 05/08/24 12:38 05/08/24 12:38 05/08/24 12:38 05/08/24 12:38 05/08/24 12:38 05/08/24 12:17 05/08/24 12:02 05/08/24 11:08 05/08/24 11:00 05/08/24 11:00 05/08/24 11:00 05/08/24 11:00 05/08/24 11:00 05/08/24 11:00 05/08/24 11:00 05/08/24 11:00 05/08/24 11:00 05/08/24 11:00 05/08/24 11:00 05/08/24 11:00 05/08/24 11:00 05/08/24 11:00 05/08/24 11:00 05/08/24 11:00 05/08/24 11:00 05/08/24 11:00 05/08/24 11:00 05/08/24 11:00 05/08/24 11:00 05/08/24 11:00 05/08/24 11:00 05/08/24 11:00 05/08/24 11:00 05/08/24 11:00 05/08/24 11:00 05/08/24 10:46 05/08/24 10:39 05/08/24 10:21 05/08/24 10:16 05/08/24 10:16 05/08/24 10:16 05/08/24 10:16 05/08/24 10:16 05/08/24 10:16 05/08/24 10:16 05/08/24 10:16 05/08/24 10:15 05/08/24 09:15 05/08/24 09:00 05/08/24 08:57 05/08/24 08:08 05/08/24 06:19 4 05/08/24 04:00 4 05/08/24 03:32 05/08/24 02:30 3 05/08/24 01:39 3 Laboratory Results 05/08/24 06:46 05/08/24 06:46 PG Care Time/CCT Total # of Minutes Spent Total Time Spent with Patient: Total time spent is greater than 50% in coordination of care (as documented) at patient's floor/unit and/or counseling patient: Coding Level of Care Code 28550 SUB INP/OBS CARE 3/50MIN Diagnoses Norovirus A08.11 Coumadin toxicity T45.511A Paroxysmal atrial tachycardia I47.1 Primary hypertension I10 Hypertension type: primary hypertension GERD (gastroesophageal reflux disease) K21.9 Chronic respiratory failure with hypoxia J96.11 (4) HTN (hypertension) Hypertension type: primary hypertension Qualified Code(s): I10 - Essential (primary) hypertension
[2024-05-08] MEDS: NORTRIPTYLINE HCL 25 MG CAP PO SCH (20:51)
[2024-05-08] MEDS: ATORVASTATIN 40 MG TAB PO SCH (20:51)
[2024-05-08] MEDS: ALBUTEROL 0.083% NEBU SOLN 3 ML VIAL INH PRN (21:52)
[2024-05-09 04:33] VITALS: TEMP 98.1
[2024-05-09 07:12] LABS: Hematocrit (blood only) 30.2 % (37.0-47.0); Hemoglobin 9.4 g/dl (12.0-16.0); Mean Corpuscular Hemoglobin 28.4 pg (25.0-34.0); Mean Corpuscular Hgb Conc 31.1 g/dL (32.0-36.0); Mean Corpuscular Volume 91.2 fL (80.0-100.0); Platelet Count 134 K/uL (130-400); RDW Coefficient of Variation 15.9 % (11.5-14.5); RDW Standard Deviation 53.5 fL (36.4-46.3); Red Blood Count 3.31 M/uL (4.20-5.40); White Blood Count 3.81 K/ul (4.8-10.8)
[2024-05-09 07:27] LABS: INR 1.2 (0.9-1.1)
[2024-05-09 07:37] LABS: BUN Creatinine Ratio 20.8 (10-20); Creatinine Clr Calc Pharmacy 82.5 ml/min; Potassium 3.7 mmol/L (3.5-5.1)
[2024-05-09 11:20] VITALS: BP 96/63; PULSE 83; RESP 19; O2SAT 94
[2024-05-09] MEDS: WARFARIN SOD 7.5 MG TAB PO ONE (11:29)
--- NOTE | 2024-05-09 11:58 | Discharge Summary ---
Discharge Summary Date of Service May 09, 2024 Principal Dx & Hospital Course #1 = Principal Diagnosis (1) Norovirus: Causing symptoms of gastroenteritis. Now resolved. (2) Coumadin toxicity: Resolved after administration of parenteral vitamin K. Coumadin has been restarted (3) Paroxysmal atrial tachycardia: Stable. Continue current medical management (4) HTN (hypertension): Stable. Continue current medical management (5) Chronic respiratory failure with hypoxia: Stable. Continue current medical management. Oxygen per nasal cannula is at baseline. Maintain saturation greater than 90% Plan Home today, May 09. No new medications Admission HPI Per Admitting Provider Dayna Thomas Is a pleasant 78-year-old female with history of hypertension, prior stroke, heart failure, NESTOR and chronic respiratory failure with hypoxia on home oxygen of 2 L presenting with several days of nausea, vomiting and diarrhea. Patient lives with family who has been sick with the norovirus this week. On 05/06/2024 around 21: 00 patient began vomiting. She had multiple episodes of nonbloody, nonbilious vomiting. It is yesterday around 16: 00 she developed profuse, watery diarrhea. No blood noted in the diarrhea. This evening patient had worsening of her diarrhea which prompted her family to bring her to the ER.Patient reports that she feels very weak. She has been drinking electrolyte drinks to try to stay hydrated. No additional complaints at this time. Upon arrival to the ER patient hypotensive with blood pressure of 84/58. Blood pressure improved after 1 L normal saline. ER course: Zofran 4 mg IV Protonix [id number] Normal saline x 1 L Discharge Exam General-alert and oriented x3, no fever, no chills HEENT-head atraumatic and normocephalic, pupils equal and reactive to light, extraocular muscles intact Neck-no lymphadenopathy or thyromegaly, trachea midline Chest-diminished breath sounds bilaterally. No rales, wheezing or rhonchi Cardiac-regular rate and rhythm, normal S1 and S2 Abdomen-normal bowel sounds, no hepatosplenomegaly Extremities-no cyanosis, clubbing, or edema Neuro-cranial nerves II through XII intact, motor and sensory function within normal limits, strength symmetrical, no focal deficits Psych-normal affect, normal mood Discharge Plan Discharge Items Patient Disposition: Home - Self-Care Reason For Visit: NOROVIRUS GASTROENTIRITIS Discharge Diagnosis: Norovirus gastroenteritis, Coumadin toxicity, volume depletion Activity: Resume your previous activity Non-emergency contact: Primary Care Provider Call non-emergency contact if: your symptoms worsen Follow-up/Referrals: Lary Cohn CRNP [Primary Care Provider] - Diet: Regular Addtl Attending Provider Instructions: All medications remain the same. Avoid milk products until diarrhea completely resolves. Pending Studies at Discharge: No Stand-Alone Forms: My [facility] [employer], Smoking Cessation Medications and DC Order Prescriptions: Continued triamcinolone acetonide 0.1 % cream 1 applic topical BID PRN (Reason: rash) Qty: 15 0RF (DME) portable air concentrator See Rx Instructions .Route .MEDSUPPLY Qty: 1 0RF Rx Instructions: 2-3 L per NC 12/09. sertraline 50 mg tablet 50 mg PO QAM Qty: 90 3RF Rx Instructions: Placed on file till needed diltiazem HCl 180 mg capsule,extended release 24hr 180 mg PO QAM Qty: 90 3RF levothyroxine 125 mcg tablet 125 mcg PO DAILY Qty: 90 3RF levalbuterol HCl 1.25 mg/3 mL solution for nebulization 1.25 mg inhalation TID Qty: 90 4RF Hold Instructions: not covered by ins metronidazole 250 mg tablet 250 mg PO QPM Qty: 90 3RF potassium chloride [Klor-Con 10] 10 mEq tablet extended release 10 meq PO QAM Qty: 90 3RF warfarin 5 mg tablet 2.5 - 5 mg PO DIRECTED Qty: 90 3RF Protocol: Dose Management Condition: Monday Dose/Route: 5 mg Instruction: 1 x 5 mg tablet Condition: Monday Dose/Route: 5 mg Instruction: 1 x 5 mg tablet Condition: Monday Dose/Route: 5 mg Instruction: 1 x 5 mg tablet Condition: Monday Dose/Route: 2.5 mg Instruction: 0.5 x 5 mg tablets Condition: Dose/Route: 5 mg Instruction: 1 x 5 mg tablet Condition: Monday Dose/Route: 5 mg Instruction: 1 x 5 mg tablet Condition: Monday Dose/Route: 5 mg Instruction: 1 x 5 mg tablet Protocol Text: Adjustment Start Date: 04/25/24 INR Value: 2.3 INR Date: 04/25/24 Recheck Date: 03/20/25 Rx Instructions: as directed by anticoagulation clinic furosemide 20 mg tablet 40 mg PO QAM Qty: 180 3RF albuterol sulfate 2.5 mg /3 mL (0.083 %) solution for nebulization 2.5 mg inhalation Q4H PRN (Reason: shortness of breath or wheezing) Qty: 180 4RF budesonide 0.5 mg/2 mL suspension for nebulization 0.5 mg INHALATION BID Qty: 60 6RF (DME) nebulizer tubing, chamber and mouth piece See Rx Instructions .Route .MEDSUPPLY Qty: 1 0RF Rx Instructions: use 4x a day nortriptyline 75 mg capsule 75 mg PO QPM Qty: 90 3RF Rx Instructions: Placed on file till needed atorvastatin [Lipitor] 40 mg tablet 40 mg PO QPM Qty: 90 3RF fluticasone furoate-vilanterol [Breo Ellipta] 100-25 mcg/dose blister with device 1 inh inhalation DAILY Qty: 60 11RF omeprazole 20 mg capsule,delayed release(DR/EC) 40 mg PO HS Qty: 180 3RF ondansetron HCl 4 mg tablet 4 mg PO Q8H PRN (Reason: nausea and vomiting) Qty: 20 1RF clindamycin phosphate 1 % solution 1 applic topical BID PRN (Reason: Skin Irritation) (DME) BiPap Machine Misc See Rx Instructions .Route Qty: 1 0RF Rx Instructions: BIPAP 11/5 with Oxygen 1 liter/min at night. Arnuity Ellipta 100 mcg/actuation blister with device 1 inh inhalation DAILY Qty: 30 5RF Hold Instructions: not using nystatin 100,000 unit/gram cream 1 applic topical BID Qty: 15 1RF acetylcysteine 200 mg/mL (20 %) solution 5 ml inhalation QID PRN (Reason: mucous) Qty: 90 3RF Rx Instructions: use 3-4 times a day as needed in nebulizer for thick mucus production levofloxacin 250 mg tablet See Rx Instructions PO .COMPLEX Qty: 3 0RF Rx Instructions: do not take. Bring to allergy clinic for testing polyethylene glycol 3350 [Miralax] 17 gram Powder In Packet 17 g PO BID loratadine [Claritin] 10 mg Tablet 10 mg PO QAM Saline Nasal 0.65 % Aerosol,Nehalem 1 spray INTRANASAL HS Systane Balance 0.6 % Drops 1 drp OPB BID guaifenesin [Mucinex] 600 mg Tablet Extended Release 12hr 600 mg PO Q12H Ocuvite Eye Health 50 mg-15 unit- 4.5 mg-2.5 mg Tablet,Chewable 1 tab PO QAM calcium carbonate 500 mg calcium (1,250 mg) Tablet 500 mg PO QPM acidophilus-pectin, citrus 100 million cell-10 mg Capsule 1 cap PO QAM acetaminophen 650 mg Tablet Extended Release 1,300 mg PO BID cholecalciferol (vitamin D3) [Vitamin D3] 125 mcg (5,000 unit) Tablet 125 mcg PO QAM Discharge Orders: Discharge Order (Routine); Ordered 05/09/24 Ordered By: Kelvin Bradshaw Admission Data Admit Date/Time: 05/08/24 18:49 Attending Provider: Kelvin Bradshaw Admit Provider: Kelvin Bradshaw Primary Care Provider: Lary Cohn Other Providers: Regina Ward Hospital Stay Data Consultations 05/08/24 01:49 ED Decision to Admit Stat Pending Results Patient Have Any Pending Studies at Discharge: No Discharge Instructions Given to Patient (Per Discharging Provider) All medications remain the same. Avoid milk products until diarrhea completely resolves. Total Time Total Time Spent Total Time Spent (In Minutes): 45 minutes Coding Level of Care Code 49027 INP/OBS DISCH >30 MIN Diagnoses Norovirus A08.11 Coumadin toxicity T45.511A Paroxysmal atrial tachycardia I47.1 Primary hypertension I10 Hypertension type: primary hypertension Chronic respiratory failure with hypoxia J96.11
--- NOTE | 2024-05-09 11:58 | Communication Note ---
Date of Service: May 09, 2024 By CMS guidelines, a determination that the admission or continued stay is not medically necessary has been made by a member of the UR committee and a phys ician for this hospital stay, therefore a Code 44 will be completed and the Inpatient admission will be changed to outpatient.
--- NOTE | 2024-05-09 17:44 | Electrocardiogram Report ---
Test Reason : Blood Pressure : */* mmHG Vent. Rate : 95 BPM Atrial Rate : 95 BPM P-R Int : 158 ms QRS Dur : 88 ms QT Int : 318 ms P-R-T Axes : 44 -36 -37 degrees QTcB Int : 399 ms Normal sinus rhythm Left axis deviation Nonspecific ST and T wave abnormality Abnormal ECG When compared with ECG of 16-Feb-2023 12:38, No significant change was found Confirmed by Bartolo Hayes ([id number]) on 05/09/2024 5:44:05 PM Referred By: REFERRED SELF Confirmed By: Bartolo Hayes
== END 2024-05-09 15:02 | disposition home or self-care (01) | DRG 392 ==
LOC: EDINP 23:11 → ED 23:11 → SUATTDRO 05-08 02:04 → 3N 05-08 02:30 → 2W 05-08 18:48